=== PATIENT | female | born 1955 | race Caucasian/White ===

== ENCOUNTER 2019-12-16 00:05 | Outpatient (CLI) | payer OTHER, SELFPAY ==
[2019-12-16 20:58] LABS: SARS-CoV-2 RNA PCR Negative
== END 2019-12-16 00:06 | disposition home or self-care (01) ==
LOC: ANHCOVIDDT 00:05
PROVIDERS: PCP Family Medicine; Visit Provider Internal Medicine Gastroenterology
DX: Z01.818 Encounter for other preprocedural examination (principal); Z11.59 Encounter for screening for other viral diseases
CPT/HCPCS: 87635; C9803; U0003

== ENCOUNTER 2019-12-19 01:09 | Day surgery (SDC) | payer OTHER, SELFPAY ==
[2019-12-13 13:42] VITALS: BMI 30.2
--- NOTE | 2019-12-19 08:55 | WPDANESEPPF ---
Anes - Initial Pre Proc Eval Procedure: Operation Date: 12/19/19 13:00 Proposed Procedures p Esophagogastroduodenoscopy - Jose Lozoya DO Date/Time: 12/19/19 08:55 Surgeon: Jose Lozoya DO Pre Op Diagnosis: Perea's Esophagus Patient Data Age: 64 Gender: F Height: 1.57 m Weight: 75 kg Allergies Allergy/AdvReac Type Severity Reaction Status Date / Time amoxicillin Allergy Unknown Skin Verified 12/13/19 13:31 Reaction Penicillins Allergy Unknown Hives Verified 12/13/19 13:31 Home Medications Medication Instructions Recorded Confirmed Type ezetimibe 10 mg tablet 10 mg PO DAILY #90 tablet 09/20/19 12/13/19 Rx lisinopril 20 1 tablet PO DAILY #90 tablet 10/10/19 12/13/19 Rx mg-hydrochlorothiazide 25 mg tablet albuterol sulfate 2.5 mg/0.5 mL 2.5 mg INHALATION Q4H PRN 11/03/19 12/13/19 History solution for nebulization albuterol sulfate 90 mcg/actuation 1 inhalation INHALATION Q4-6H PRN 11/03/19 12/13/19 History breath activated powder inhaler alprazolam 2 mg tablet 2 mg PO TID PRN 11/03/19 12/13/19 History buspirone 15 mg tablet 45 mg PO BID tablet 11/03/19 12/13/19 History dextroamphetamine-amphetamine ER 30 mg PO QAM 11/03/19 12/13/19 History 30 mg 24hr capsule,extend release esomeprazole magnesium 40 mg 40 mg PO BID cap 11/03/19 12/13/19 History capsule,delayed release lamotrigine 200 mg tablet 200 mg PO HS 11/03/19 12/13/19 History montelukast 10 mg tablet 10 mg PO DAILY 11/03/19 12/13/19 History umeclidinium 62.5 mcg-vilanterol 1 inhalation INHALATION DAILY 11/03/19 12/19/19 History 25 mcg/actuation powdr for inhalation vortioxetine 10 mg tablet 10 mg PO DAILY 11/03/19 12/13/19 History semaglutide 0.25 mg SUB-Q WEEKLY 84 Days #2.4 11/23/19 12/13/19 Rx ml atorvastatin 40 mg PO HS 12/13/19 12/13/19 History cholecalciferol (vitamin D3) 50 mcg PO DAILY 12/13/19 12/13/19 History [Vitamin D3] Patient hx anesthesia problems: none Family hx anesthesia problems: none PMFSH Past Medical History Medical History (Updated 12/19/19 @ 13:21 by Jose Lozoya DO) Allergic rhinitis Anxiety Perea's esophagus without dysplasia egd 2016/jaren Bipolar disorder, unspecified psychiatrist in charge of meds CKD (chronic kidney disease) COPD (chronic obstructive pulmonary disease) Depression Essential hypertension GERD (gastroesophageal reflux disease) HLD (hyperlipidemia) Mixed hyperlipidemia Moderate persistent asthma, uncomplicated Obesities, morbid Obesity KASSIE (obstructive sleep apnea) Tobacco abuse Type 2 diabetes mellitus without complications Surgical History Surgical History H/O hemorrhoidectomy Hx of esophagogastroduodenoscopy Family History Family History (Updated 04/29/18 @ 08:51 by DOCTOR UNKNOWN) Mother Patient's mother is Family history of osteoporosis, Onset Age: 84 Hypertension Family history of Alzheimer's disease Father Patient's father is Hypertension Family history of cardiovascular disease Family history of hypercholesterolemia Family history of pancreatic cancer Grandparent Diabetes mellitus Sibling Family history of hypercholesterolemia Depression Other Cerebrovascular accident Colon polyp Family history of arthritis Family history of chronic obstructive pulmonary disease Family history of gout Family history of heart disease in male family member before age 55 Family history of lung disease Family history of malignant melanoma Family history of malignant neoplasm Family history of mental disorder Family history of rheumatic fever Family history of schizophrenia Social History Social History Smoking status: Current every day smoker Alcohol intake: current Anes - Eval Final PreProcedure Day of Procedure 12/19/19 08:55 Patient weight: obese Heart: regular rate an
[2019-12-19 11:58] VITALS: BP 143/85; PULSE 100; RESP 20; TEMP 36.1; O2SAT 99; BMI 29.0
[2019-12-19] MEDS: LACTATED RINGERS 1,000 ML 150 ML IV CONT (12:05)
[2019-12-19 12:09] LABS: Glucose Point of Care 92 (65-105)
--- NOTE | 2019-12-19 13:22 | PM.IMHP ---
H&P: HPI History of Present Illness Chief complaint: Perea's Esophagus Narrative: Reason for visit EGD. This very pleasant lady seen in consultation at request of the primary. Impression: GERD with history of Perea's esophagus. The patient is here for endoscopic evaluation to assess for dysplasia. Per past medical history. Recommendation: EGD. History: This very pleasant lady has a history of extensive Perea's esophagus and reflux disease. She is presently asymptomatic. She does complain of some fullness after eating. Nausea, vomiting and hematemesis tonight. She is here for follow-up endoscopy to assess for lying dysplasia. The patient does have complaints of occasional shortness of breath, dyspnea on exertion and wheezing. This is attributed to COPD Physical examination: General: very pleasant patient in no acute distress. HEENT: Head was normocephalic sclerae is clear mouth without masses neck was supple. Heart: Rate rhythm regular without S3 or S4. Lungs: Decreased breath sounds with expiratory wheezes. Abdomen: Soft with no guarding or rigidity. Bowel sounds were active. Neurologic: Cranial nerves 2 through 12 intact. No focal defects. No clonus. Musculoskeletal system: Revealed no joint tenderness or swelling no muscle atrophy. Extremities: Reveal no significant edema. Skin: Warm and dry with normal turgor. Mental status: intact. Patient is alert and oriented. Review of Systems Review of Systems: All systems reviewed & are unremarkable except as noted in HPI and below PMFSH Past Medical History Medical History (Updated 12/19/19 @ 13:21 by Jose Lozoya DO) Allergic rhinitis Anxiety Perea's esophagus without dysplasia egd 2016/jaren Bipolar disorder, unspecified psychiatrist in charge of meds CKD (chronic kidney disease) COPD (chronic obstructive pulmonary disease) Depression Essential hypertension GERD (gastroesophageal reflux disease) HLD (hyperlipidemia) Mixed hyperlipidemia Moderate persistent asthma, uncomplicated Obesities, morbid Obesity KASSIE (obstructive sleep apnea) Tobacco abuse Type 2 diabetes mellitus without complications Surgical History Surgical History H/O hemorrhoidectomy Hx of esophagogastroduodenoscopy Family History Family History (Updated 04/29/18 @ 08:51 by DOCTOR UNKNOWN) Mother Patient's mother is Family history of osteoporosis, Onset Age: 84 Hypertension Family history of Alzheimer's disease Father Patient's father is Hypertension Family history of cardiovascular disease Family history of hypercholesterolemia Family history of pancreatic cancer Grandparent Diabetes mellitus Sibling Family history of hypercholesterolemia Depression Other Cerebrovascular accident Colon polyp Family history of arthritis Family history of chronic obstructive pulmonary disease Family history of gout Family history of heart disease in male family member before age 55 Family history of lung disease Family history of malignant melanoma Family history of malignant neoplasm Family history of mental disorder Family history of rheumatic fever Family history of schizophrenia Social History Social History Smoking status: Current every day smoker Alcohol intake: current Meds Home Medications and Allergies Home Medications Medication Instructions Recorded Confirmed Type ezetimibe 10 mg tablet 10 mg PO DAILY #90 tablet 09/20/19 12/13/19 Rx lisinopril 20 1 tablet PO DAILY #90 tablet 10/10/19 12/13/19 Rx mg-hydrochlorothiazide 25 mg tablet albuterol sulfate 2.5 mg/0.5 mL 2.5 mg INHALATION Q4H PRN 11/03/19 12/13/19 History solution for nebulization albuterol sulfate 90 mcg/actuation 1 inhalation INHALATION Q4-6H PRN 11/03/19 12/13/19 History breath activated powder inhaler alprazo
[2019-12-19 14:04] VITALS: BP 104/63; PULSE 82; RESP 20; O2SAT 95
[2019-12-19 14:14] VITALS: BP 125/66; PULSE 76; RESP 21; O2SAT 97
[2019-12-19 14:21] VITALS: BP 135/72; PULSE 93; RESP 19; O2SAT 99
== END 2019-12-19 14:32 | disposition home or self-care (01) ==
PROVIDERS: PCP Family Medicine; Visit Provider Internal Medicine Gastroenterology
PROC: 0DJ08ZZ Inspection of Upper Intestinal Tract, Via Natural or Artificial Opening Endoscopic (ICD-10-PCS; CPT 43235; principal; 2019-12-19 13:00)
DX: K21.0 Gastro-esophageal reflux disease with esophagitis (principal); K22.70 Barrett's esophagus without dysplasia; K44.9 Diaphragmatic hernia without obstruction or gangrene; I12.9 Hypertensive chronic kidney disease with stage 1 through stage 4 chronic kidney disease, or unspecified chronic kidney disease; N18.9 Chronic kidney disease, unspecified; E11.22 Type 2 diabetes mellitus with diabetic chronic kidney disease; E78.2 Mixed hyperlipidemia; J44.9 Chronic obstructive pulmonary disease, unspecified; J45.30 Mild persistent asthma, uncomplicated; F31.9 Bipolar disorder, unspecified; F41.9 Anxiety disorder, unspecified; F17.200 Nicotine dependence, unspecified, uncomplicated; E66.9 Obesity, unspecified; Z68.29 Body mass index [BMI] 29.0-29.9, adult
CPT/HCPCS: 43239; 87081; 88305; J2704; J7120

== ENCOUNTER 2020-01-11 07:25 | Outpatient (CLI) | payer OTHER, SELFPAY ==
--- NOTE | ~2020-01-11 | NM_ITS ---
EXAM: NM gastric emptying study DATE: 01/11/2020 12:13 INDICATION: Gastroesophageal reflux disease. Esophagitis. TECHNIQUE: A gastric emptying study was performed using the methodology of Lopez ARIAS, et al. J Nucl Med 2007; 48:568-572. The patient was given a meal consisting of 2 scrambled eggs labeled with 1 mCi Tc-99m sulfur colloid, 2 slices of toast, two packages of jam, and approximately 120 mL of water. Si multaneous anterior and posterior 1-min images of the abdomen were obtained with the patient supine a t multiple time points over a total period of 4 hours. The geometric mean of anterior and posterior v iews was determined, and the percentage retention was calculated for each time point. COMPARISON: Gastric emptying study 06/25/2012 FINDINGS: Gastric retention of the radiotracer-labeled meal was 65%, 46%, and 6% at the 1-hour, 2-ho ur, and 4-hour time points, respectively. With this technique, apparent rapid gastric emptying is sug gested by <30% gastric retention at 1 hour. Delayed gastric emptying is defined by gastric retention of >90% at 1 hour, >60% retention at 2 hours, or >10% retention at 4 hours. IMPRESSION: 1. Normal gastric emptying. Reviewed, dictated and finalized at location A. IMPRESSION: 1. Normal gastric emptying.
== END 2020-01-11 07:26 | disposition home or self-care (01) ==
PROVIDERS: PCP Family Medicine; Visit Provider Internal Medicine Gastroenterology
DX: K21.9 Gastro-esophageal reflux disease without esophagitis (principal)
CPT/HCPCS: 78264; A9541

== ENCOUNTER 2020-01-17 00:33 | Outpatient (CLI) | payer OTHER, SELFPAY ==
[2020-01-17 17:56] LABS: SARS-CoV-2 RNA PCR Negative
== END 2020-01-17 00:34 | disposition home or self-care (01) ==
LOC: ANHCOVIDDT 00:34
PROVIDERS: PCP Family Medicine; Visit Provider Internal Medicine Gastroenterology
DX: Z01.812 Encounter for preprocedural laboratory examination (principal); Z11.59 Encounter for screening for other viral diseases
CPT/HCPCS: 87635; C9803; U0003

== ENCOUNTER 2020-01-19 02:13 | Day surgery (SDC) | payer OTHER, SELFPAY ==
[2020-01-09 13:27] VITALS: BMI 29.1
--- NOTE | 2020-01-19 10:58 | WPDANESEPPF ---
Anes - Initial Pre Proc Eval Procedure: Operation Date: 01/19/20 11:30 Proposed Procedures p Colonoscopy - Jose Lozoya DO Date/Time: 01/19/20 10:58 Surgeon: Jose Lozoya DO Pre Op Diagnosis: Iron Deficient Anemia Patient Data Age: 64 Gender: F Height: 5 ft 1 in Weight: 70 kg Allergies Allergy/AdvReac Type Severity Reaction Status Date / Time amoxicillin Allergy Unknown Skin Verified 01/09/20 13:49 Reaction Penicillins Allergy Unknown Hives Verified 01/09/20 13:49 Home Medications Medication Instructions Recorded Confirmed Type ezetimibe 10 mg tablet 10 mg PO DAILY #90 tablet 09/20/19 01/09/20 Rx lisinopril 20 1 tablet PO DAILY #90 tablet 10/10/19 01/09/20 Rx mg-hydrochlorothiazide 25 mg tablet albuterol sulfate 2.5 mg/0.5 mL 2.5 mg INHALATION Q4H PRN 11/03/19 01/09/20 History solution for nebulization albuterol sulfate 90 mcg/actuation 1 inhalation INHALATION Q4-6H PRN 11/03/19 01/09/20 History breath activated powder inhaler alprazolam 2 mg tablet 2 mg PO TID PRN 11/03/19 01/09/20 History buspirone 15 mg tablet 45 mg PO BID tablet 11/03/19 01/09/20 History dextroamphetamine-amphetamine ER 30 mg PO QAM 11/03/19 01/09/20 History 30 mg 24hr capsule,extend release esomeprazole magnesium 40 mg 40 mg PO BID cap 11/03/19 01/09/20 History capsule,delayed release lamotrigine 200 mg tablet 200 mg PO HS 11/03/19 01/09/20 History montelukast 10 mg tablet 10 mg PO DAILY 11/03/19 01/09/20 History umeclidinium 62.5 mcg-vilanterol 1 inhalation INHALATION DAILY 11/03/19 01/09/20 History 25 mcg/actuation powdr for inhalation vortioxetine 10 mg tablet 10 mg PO DAILY 11/03/19 01/09/20 History semaglutide 0.25 mg SUB-Q WEEKLY 84 Days #2.4 11/23/19 01/09/20 Rx ml atorvastatin 40 mg PO HS 12/13/19 01/09/20 History cholecalciferol (vitamin D3) 50 mcg PO DAILY 12/13/19 01/09/20 History [Vitamin D3] ascorbic acid (vitamin C) 100 mg 100 mg PO DAILY #90 tablet 01/11/20 Rx tablet ferrous gluconate 324 mg (38 mg 324 mg PO DAILY #90 tablet 01/11/20 Rx iron) tablet Patient hx anesthesia problems: none Family hx anesthesia problems: none PMFSH Past Medical History Medical History (Updated 12/19/19 @ 13:21 by Jose Lozoya DO) Allergic rhinitis Anxiety Perea's esophagus without dysplasia egd 2016/jaren Bipolar disorder, unspecified psychiatrist in charge of meds CKD (chronic kidney disease) COPD (chronic obstructive pulmonary disease) Depression Essential hypertension GERD (gastroesophageal reflux disease) HLD (hyperlipidemia) Mixed hyperlipidemia Moderate persistent asthma, uncomplicated Obesities, morbid Obesity KASSIE (obstructive sleep apnea) Tobacco abuse Type 2 diabetes mellitus without complications Family History Family History (Updated 04/29/18 @ 08:51 by DOCTOR UNKNOWN) Mother Patient's mother is Family history of osteoporosis, Onset Age: 84 Hypertension Family history of Alzheimer's disease Father Patient's father is Hypertension Family history of cardiovascular disease Family history of hypercholesterolemia Family history of pancreatic cancer Grandparent Diabetes mellitus Sibling Family history of hypercholesterolemia Depression Other Cerebrovascular accident Colon polyp Family history of arthritis Family history of chronic obstructive pulmonary disease Family history of gout Family history of heart disease in male family member before age 55 Family history of lung disease Family history of malignant melanoma Family history of malignant neoplasm Family history of mental disorder Family history of rheumatic fever Family history of schizophrenia Social History Social History Smoking status: Never smoker Alcohol intake: current Anes - Eval Final PreProcedure Day of Procedure 01/19/20 10:58 Patient weight: normal Heart: regular
[2020-01-19 11:03] LABS: Glucose Point of Care 106 (65-105)
[2020-01-19] MEDS: LACTATED RINGERS 1,000 ML 150 ML IV CONT (11:03)
[2020-01-19 11:06] VITALS: BP 109/74; PULSE 114; RESP 18; TEMP 36.6; O2SAT 99; BMI 28.8
--- NOTE | 2020-01-19 12:12 | PM.IMHP ---
H&P: HPI History of Present Illness Chief complaint: Iron Deficient Anemia Narrative: Reason for visit EGD. Impression: A Very pleasant lady with a history of iron deficiency anemia. She is here for colonoscopy. Per past medical history. Recommendation: Colonoscopy. History: This very pleasant lady has a history of reflux disease. EGD revealed evidence of Perea's esophagus. No dysplasia was noted. Patient also was noted to have iron deficiency anemia. She is here for colonoscopy. Physical examination: General: very pleasant patient in no acute distress. HEENT: Head was normocephalic sclerae is clear mouth without masses neck was supple. Heart: Rate rhythm regular without S3 or S4. Lungs: CTA. Abdomen: Soft with no guarding or rigidity. Bowel sounds were active. Neurologic: Cranial nerves 2 through 12 intact. No focal defects. No clonus. Musculoskeletal system: Revealed no joint tenderness or swelling no muscle atrophy. Extremities: Reveal no significant edema. Skin: Warm and dry with normal turgor. Mental status: intact. Patient is alert and oriented. Review of Systems Review of Systems: All systems reviewed & are unremarkable except as noted in HPI and below PMFSH Past Medical History Medical History (Updated 12/19/19 @ 13:21 by Jose Lozoya, DO) Allergic rhinitis Anxiety Perea's esophagus without dysplasia egd 2016/jaren Bipolar disorder, unspecified psychiatrist in charge of meds CKD (chronic kidney disease) COPD (chronic obstructive pulmonary disease) Depression Essential hypertension GERD (gastroesophageal reflux disease) HLD (hyperlipidemia) Mixed hyperlipidemia Moderate persistent asthma, uncomplicated Obesities, morbid Obesity KASSIE (obstructive sleep apnea) Tobacco abuse Type 2 diabetes mellitus without complications Family History Family History (Updated 04/29/18 @ 08:51 by DOCTOR UNKNOWN) Mother Patient's mother is Family history of osteoporosis, Onset Age: 84 Hypertension Family history of Alzheimer's disease Father Patient's father is Hypertension Family history of cardiovascular disease Family history of hypercholesterolemia Family history of pancreatic cancer Grandparent Diabetes mellitus Sibling Family history of hypercholesterolemia Depression Other Cerebrovascular accident Colon polyp Family history of arthritis Family history of chronic obstructive pulmonary disease Family history of gout Family history of heart disease in male family member before age 55 Family history of lung disease Family history of malignant melanoma Family history of malignant neoplasm Family history of mental disorder Family history of rheumatic fever Family history of schizophrenia Social History Social History Smoking status: Never smoker Alcohol intake: current Meds Home Medications and Allergies Home Medications Medication Instructions Recorded Confirmed Type ezetimibe 10 mg tablet 10 mg PO DAILY #90 tablet 09/20/19 01/09/20 Rx lisinopril 20 1 tablet PO DAILY #90 tablet 10/10/19 01/09/20 Rx mg-hydrochlorothiazide 25 mg tablet albuterol sulfate 2.5 mg/0.5 mL 2.5 mg INHALATION Q4H PRN 11/03/19 01/09/20 History solution for nebulization albuterol sulfate 90 mcg/actuation 1 inhalation INHALATION Q4-6H PRN 11/03/19 01/09/20 History breath activated powder inhaler alprazolam 2 mg tablet 2 mg PO TID PRN 11/03/19 01/09/20 History buspirone 15 mg tablet 45 mg PO BID tablet 11/03/19 01/09/20 History dextroamphetamine-amphetamine ER 30 mg PO QAM 11/03/19 01/09/20 History 30 mg 24hr capsule,extend release esomeprazole magnesium 40 mg 40 mg PO BID cap 11/03/19 01/09/20 History capsule,delayed release lamotrigine 200 mg tablet 200 mg PO HS 11/03/19 01/09/20 History montelukast 10 mg tablet 10 mg PO DAILY 11/03/19 01/09/20 History lina
[2020-01-19 12:39] VITALS: BP 87/49; PULSE 79; RESP 18; O2SAT 98
[2020-01-19 12:49] VITALS: BP 108/61; PULSE 74; RESP 18; O2SAT 100
[2020-01-19 12:59] VITALS: BP 100/61; PULSE 74; RESP 18; O2SAT 99
== END 2020-01-19 13:14 | disposition home or self-care (01) ==
PROVIDERS: PCP Family Medicine; Visit Provider Internal Medicine Gastroenterology
PROC: 0DJD8ZZ Inspection of Lower Intestinal Tract, Via Natural or Artificial Opening Endoscopic (ICD-10-PCS; CPT 45378; principal; 2020-01-19 11:30)
DX: D50.9 Iron deficiency anemia, unspecified (principal); D12.3 Benign neoplasm of transverse colon; D12.5 Benign neoplasm of sigmoid colon; K64.8 Other hemorrhoids; I12.9 Hypertensive chronic kidney disease with stage 1 through stage 4 chronic kidney disease, or unspecified chronic kidney disease; N18.9 Chronic kidney disease, unspecified; E11.22 Type 2 diabetes mellitus with diabetic chronic kidney disease; J44.9 Chronic obstructive pulmonary disease, unspecified; E78.2 Mixed hyperlipidemia; G47.33 Obstructive sleep apnea (adult) (pediatric); F31.9 Bipolar disorder, unspecified; F41.9 Anxiety disorder, unspecified
CPT/HCPCS: 45385; 88305; J2704; J7120

== ENCOUNTER 2020-02-15 08:34 | Outpatient (CLI) | payer OTHER, SELFPAY ==
--- NOTE | ~2020-02-15 | CT_ITS ---
CORRECTED REPORT Changed report and images from [id number] to [id number] EXAMINATION:CT lung screening DATE: 02/15/2020 08:29 INDICATION: Personal history of nicotine dependence. Current smoker with 30 pack year history. TECHNIQUE: Computed tomography (CT) of the chest was performed without intravenous contrast. Automated exposure control and iterative reconstruction technique were employed. The dose-length product (DLP) was 90.99 mGy-cm. COMPARISON: Chest CT 02/25/2019 FINDINGS: There is mild scarring at the lung apices. There is minimal atelectasis bilaterally. No pleural effusion. The heart size is normal. There are coronary artery calcifications. No pericardial effusion. There is a large sliding hiatal hernia. There is a 13 mm mass in right adrenal gland measuring low-attenuation without change, consistent with an adenoma. There is mild thoracic spondylosis. There is mild chronic anterior wedging of multiple thoracic vertebral bodies. IMPRESSION: 1. Lung-RADS category 2: Benign appearance or behavior. Continue annual screening with noncontrast low-dose chest CT in 12 months. Reviewed, dictated and finalized at location B. LEONARDOD
== END 2020-02-15 08:35 | disposition home or self-care (01) ==
LOC: ANHIMG 03-19 08:34
PROVIDERS: PCP Family Medicine; Visit Provider Internal Medicine Critical Care Medicine
DX: Z12.2 Encounter for screening for malignant neoplasm of respiratory organs (principal); Z87.891 Personal history of nicotine dependence
CPT/HCPCS: G0297

== ENCOUNTER 2020-02-17 14:28 | Outpatient (CLI) | payer OTHER, SELFPAY ==
--- NOTE | ~2020-02-17 | CT_ITS ---
EXAMINATION: CT abdomen pelvis w con DATE: 02/17/2020 15:55 INDICATION: Apparent deficiency anemia. Upper GI bleed. TECHNIQUE: Computed tomography (CT) of the abdomen and pelvis was performed with 100 cc Omnipaque 350 intravenous contrast. The dose-length product was 415.12 mGy-cm. Automated exposure control and iter ative reconstruction technique were employed. COMPARISON: Abdominal ultrasound dated 06/25/2012. FINDINGS: Lung bases are unremarkable. Heart size normal. Large hiatal hernia. No significant pleural or pericardial effusion. There is atherosclerosis of the aorta without aneurysm. No lymphadenopathy. Small subcentimeter hypodensity of the left hepatic lobe, most likely benign cysts or hemangioma. The spleen, pancreas, adrenal glands and kidneys are unremarkable. Gallbladder is contracted. No lymphad enopathy. Small fat-containing umbilical hernia. Moderate lumbar spondylosis. IMPRESSION: 1. Large hiatal hernia. 2: No acute abdominal abnormality. Reviewed, dictated and finalized at location A.
[2020-02-17 15:46] LABS: Estimated Glomerular Filt Rate 50
== END 2020-02-17 14:29 | disposition home or self-care (01) ==
PROVIDERS: PCP Family Medicine; Visit Provider Internal Medicine Gastroenterology
DX: E61.1 Iron deficiency (principal); K44.9 Diaphragmatic hernia without obstruction or gangrene
CPT/HCPCS: 74177; Q9967

== ENCOUNTER 2020-03-16 00:49 | Outpatient (CLI) | payer OTHER, SELFPAY ==
--- NOTE | 2020-03-12 16:07 | PC.NURSE ---
PT SPOKE WITH REGARDING PROCEDURE- QUESTIONS ANSWERED AND PT HAS NO FURTHER QUESTIONS AT THIS TIME, SHE STATES SHE HAS HER PACKET AND INFORMATION.
--- NOTE | 2020-03-16 13:25 | SUR.OPER ---
Patient brought to GI Lab. Instructions for patient undergoing Capsule Endoscopy reviewed with patient. Consent form signed. Sensor array applied to patient's abdomen and connected to recorded. Patient swallowed capsule with 8 ozs of water infused with Simethicone. Patient instructed they may have clear liquids at 0830 this AM and eat or drink at 1030 this AM. Patient instructed to return to GI Lab at 1500 this afternoon for removal of recording device and to call [phone] or to return to the hospital if any nausea and vomiting or abdominal pain is experienced.
--- NOTE | 2020-03-22 12:28 | SUR.PHASEII ---
Ramila Torres RN called patient at 1100 am on 03/22/[address] to notify [address] that [address] Lozoya had completed reviewing her capsule study. Aniya gave the patient the Health Information's phone number for the patient to get a copy of the exam as patient expressed interest in taking result to her doctor's up coming appointment.
== END 2020-03-16 00:50 | disposition home or self-care (01) ==
PROVIDERS: PCP Family Medicine; Visit Provider Internal Medicine Gastroenterology
PROC: 0DJ07ZZ Inspection of Upper Intestinal Tract, Via Natural or Artificial Opening (ICD-10-PCS; CPT 91110; principal; 2020-03-16 07:00)
DX: E61.1 Iron deficiency (principal)
CPT/HCPCS: 91110; G0297

== ENCOUNTER → 2020-06-19 11:53 | Outpatient (CLI) | payer OTHER, SELFPAY ==
--- NOTE | ~2020-06-19 | XR_ITS ---
EXAMINATION: XR humerus LT INDICATION: Left humerus pain TECHNIQUE: Two views of the left humerus are obtained. COMPARISON: None available FINDINGS: Bone alignment is normal. There is no fracture. There is mild osteoarthritis of the acromio clavicular and glenohumeral joints. The soft tissues are unremarkable. IMPRESSION: 1. No acute osseous abnormality. Reviewed, dictated and finalized at location A. STANT COMMISSIONER
--- NOTE | ~2020-06-19 | XR_ITS ---
XR shoulder LT min 2V DATE: 06/19/2020 14:51 INDICATION: Left shoulder pain TECHNIQUE: 4 views COMPARISON: None FINDINGS: Mild to moderate osteopenia is suggested. Normal alignment at the acromioclavicular and glenohumeral joints. No fracture or dislocation, perios teal reaction or bone destruction or abnormal soft tissue calcification is detected. IMPRESSION: Mild to moderate osteopenia Reviewed, dictated and finalized at location A. SPECIALIST IMPRESSION: Mild to moderate osteopenia
== END ==
PROVIDERS: PCP Family Medicine; Visit Provider Physician Assistant
DX: M85.812 Other specified disorders of bone density and structure, left shoulder (principal)
CPT/HCPCS: 73030; 73060

== ENCOUNTER 2020-08-28 17:30 | Outpatient (CLI) | payer OTHER, SELFPAY | END 2020-08-28 17:31 | disposition home or self-care (01) | LOC: ANHCOVIDVC 17:30 | PROVIDERS: PCP Family Medicine | DX: Z23 Encounter for immunization (principal) | CPT/HCPCS: 0001A; 91300 ==

== ENCOUNTER 2020-09-18 17:27 | Outpatient (CLI) | payer OTHER, SELFPAY | END 2020-09-18 17:28 | disposition home or self-care (01) | LOC: ANHCOVIDVC 17:27 | PROVIDERS: PCP Family Medicine | DX: Z23 Encounter for immunization (principal) | CPT/HCPCS: 0002A; 91300 ==

== ENCOUNTER 2021-02-14 13:40 | Outpatient (CLI) | payer OTHER, SELFPAY ==
--- NOTE | ~2021-02-14 | DEXA_ITS ---
Bone Density Report Name: Leona Calvo Age: 65 Sex: Female Ethnicity: White Date of : 1955 Indication: postmenopausal; height loss; history of glucocorticoids; prior fracture; asthma or emphysema; Referring Provider: JIMY HUERTA Study: Bone densitometry was performed. Exam Date: February 14, 2021 Accession number: [id number] Bone Density: Region BMD T-score Z-score Classification AP Spine (L2, L4) 1.181 0.9 2.7 Normal Femoral Neck (Left) 0.702 -1.3 0.1 Osteopenia Total Hip (Left) 0.950 0.1 1.2 Normal Total Hip Bilateral Avg 0.939 0.0 1.1 Normal Femoral Neck (Right) 0.709 -1.3 0.2 Osteopenia Total Hip (Right) 0.928 -0.1 1.0 Normal World Health Organization criteria for BMD impression classify patients as: Normal (T-score at or above -1.0), Osteopenia (T-score between -1.0 and -2.5), or Osteoporosis (T-score at or below -2.5). 10-year Fracture Risk(1): Major Osteoporotic Fracture 21% Hip Fracture 3.5% Reported Risk Factors: [place] (), Neck BMD=0.702, BMI=30.5, previous fracture, smoking, glucocorticoids (1) FRAX(R) Version 3.08. Fracture probability calculated for an untreated patient. Fracture probability may be lower if the patient has received treatment. Previous Exams: Region Exam Age BMD T-score BMD Change BMD Change Date g/cm2 vs Baseline vs Previous AP Spine(L2, L4) 02/14/2021 65 1.181 0.9 0.139(13.4%)# 0.043(3.8%)* 10/05/2018 63 1.138 0.6 0.096(9.2%)# 0.057(5.3%)* 03/01/2014 58 1.081 0.0 0.039(3.8%)# 0.085(8.5%)# 01/28/2010 54 0.996 -0.7 -0.046(-4.4%)* -0.046(-4.4%)* 04/06/2004 48 1.041 -0.3 Total Hip(Left) 02/14/2021 65 0.950 0.1 0.015(1.6%)# 0.007(0.8%) 10/05/2018 63 0.943 0.0 0.007(0.8%)# -0.004(-0.4%) 03/01/2014 58 0.947 0.0 0.012(1.2%)# -0.024(-2.5%)# 01/28/2010 54 0.971 0.2 0.036(3.8%)* 0.036(3.8%)* 04/06/2004 48 0.935 -0.1 Total Hip(Right) 02/14/2021 65 0.928 -0.1 0.037(4.1%)# 0.009(1.0%) 10/05/2018 63 0.919 -0.2 0.028(3.1%)# -0.015(-1.6%) 03/01/2014 58 0.934 -0.1 0.043(4.8%)# -0.010(-1.1%)# 01/28/2010 54 0.945 0.0 0.053(6.0%)* 0.053(6.0%)* 04/06/2004 48 0.891 -0.4 *Denotes significance at 95% confidence level, LSC for AP Spine = 0.022 g/cm2, LSC for Total Hip = 0.027 g/cm2 Clinical Information Provided by Patient: Has had a low trauma fracture Smokes Has taken Glucocorticoids Has used the following medications
--- NOTE | ~2021-02-14 | MM_ITS ---
EXAMINATION: MM screening [facility] BI w jia HISTORY: Screening mammogram TECHNIQUE: Craniocaudal and mediolateral oblique 3-D tomosynthesis images were obtained and synthetic 2-D images were generated. CAD analysis was submitted and interpreted. COMPARISON: 10/05/2018, 03/01/2014, 04/18/2011 BREAST PARENCHYMAL COMPOSITION: There are scattered areas of fibroglandular density. FINDINGS: RIGHT BREAST: There is no evidence of suspicious mass, calcification, or architectural distortion to suggest malignancy. There has been no significant interval change. LEFT BREAST: There are grouped indeterminate calcifications in the middle third of the breast best ap preciated 7.5 cm from the nipple on the craniocaudal view. IMPRESSION: 1. Indeterminate left breast calcifications. 2. Magnification views are recommended. BI-RADS Category 0: Incomplete: Needs additional imaging evaluation. Reviewed, dictated and finalized at location A.
== END 2021-02-14 13:41 | disposition home or self-care (01) ==
LOC: ANHIMG 13:42
PROVIDERS: PCP Family Medicine; Visit Provider Family Medicine
DX: Z12.31 Encounter for screening mammogram for malignant neoplasm of breast (principal); Z78.0 Asymptomatic menopausal state; R92.8 Other abnormal and inconclusive findings on diagnostic imaging of breast
CPT/HCPCS: 77063; 77067; 77080

== ENCOUNTER 2021-02-18 09:40 | Outpatient (CLI) | payer OTHER, SELFPAY ==
--- NOTE | ~2021-02-18 | CT_ITS ---
EXAMINATION: CT lung screening DATE: 02/18/2021 10:12 INDICATION: Personal history of nicotine dependence, current smoker with 49 pack year history TECHNIQUE: Computed tomography (CT) of the chest was performed without intravenous contrast. The dose -length product (DLP) was 70.87 mGy-cm. 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 COMPARISON: 02/15/2020 FINDINGS: There is mild emphysema. No suspicious pulmonary nodules are identified. The lungs are free of focal airspace opacities. There is mild dependent atelectasis. No pleural effusion or pneumothora x is identified. No pathologically enlarged thoracic lymph nodes are identified. The heart size is no rmal. There is interval surgical change at the gastroesophageal junction likely reflecting the site o f fundoplication. There is a 1.3 cm adenoma of the left adrenal gland. There is mild thoracic spondyl osis. IMPRESSION: 1. Lung-RADS category 1: Negative. Continue annual screening with noncontrast low-dose chest CT in 12 months. Reviewed, dictated and finalized at location A. IMPRESSION: 1. Lung-RADS category 1: Negative. Continue annual screening with noncontrast l ow-dose chest CT in 12 months.
== END 2021-02-18 09:41 | disposition home or self-care (01) ==
LOC: ANHIMG 09:44
PROVIDERS: PCP Family Medicine; Visit Provider Nurse Practitioner Family
DX: Z12.2 Encounter for screening for malignant neoplasm of respiratory organs (principal); Z87.891 Personal history of nicotine dependence
CPT/HCPCS: 71271

== ENCOUNTER 2021-02-21 13:03 | Outpatient (CLI) | payer OTHER, SELFPAY ==
--- NOTE | ~2021-02-21 | MM_ITS ---
EXAMINATION: MM diagnostic mammo unilat LT HISTORY: Follow-up left breast calcifications TECHNIQUE: Additional 3-D tomosynthesis images of the left breast were performed and synthetic 2-D im ages were generated. CAD analysis was submitted and interpreted. COMPARISON: 02/14/2021 and 10/05/2018 BREAST PARENCHYMAL COMPOSITION: The breasts are heterogenously dense, which may obscure small masses. FINDINGS: There is a cluster of indeterminate calcifications in the upper outer quadrant of the left breast which are not specifically benign. These are new compared with prior examinations. IMPRESSION: 1. New cluster of indeterminate left breast calcifications, upper outer quadrant. 2. Stereotactic left breast biopsy recommended. BI-RADS category 4, suspicious findings. Reviewed, dictated and finalized at location A. IMPRESSION: 1. New cluster of indeterminate left breast calcifications, upper outer quadran t. 2. Stereotactic left breast biopsy recommended. BI-RADS category 4, suspicious findings.
== END 2021-02-21 13:04 | disposition home or self-care (01) ==
PROVIDERS: PCP Family Medicine; Visit Provider Family Medicine
DX: R92.0 Mammographic microcalcification found on diagnostic imaging of breast (principal)
CPT/HCPCS: 77065

== ENCOUNTER 2021-11-13 14:30 | Outpatient (RCR) | payer OTHER, SELFPAY ==
[2021-10-15 09:23] VITALS: BMI 27.3
[2021-10-15 09:34] VITALS: BMI 27.3
== END 2021-12-16 13:17 | disposition home or self-care (01) ==
LOC: ANHDMC 14:30
PROVIDERS: PCP Family Medicine; Visit Provider Family Medicine
DX: E11.9 Type 2 diabetes mellitus without complications (principal); Z71.89 Other specified counseling; Z71.3 Dietary counseling and surveillance
CPT/HCPCS: 97802; G0108; G0109

== ENCOUNTER 2022-02-06 14:32 | Outpatient (RCR) | payer OTHER, SELFPAY | END 2022-02-10 17:04 | disposition home or self-care (01) | LOC: ANHDMC 14:32 | PROVIDERS: PCP Family Medicine; Visit Provider Family Medicine | DX: E11.9 Type 2 diabetes mellitus without complications (principal); E66.3 Overweight; Z71.89 Other specified counseling | CPT/HCPCS: G0109 ==

== ENCOUNTER 2022-02-28 08:32 | Outpatient (CLI) | payer OTHER, SELFPAY ==
--- NOTE | ~2022-02-28 | CT_ITS ---
EXAMINATION: CT lung screening DATE: 02/28/2022 08:52 INDICATION: Personal history of nicotine dependence, current smoker with 49 pack year history TECHNIQUE: Computed tomography (CT) of the chest was performed without intravenous contrast. The dose -length product (DLP) was 53.75 mGy-cm. 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 COMPARISON: 02/18/2021 FINDINGS: There is mild emphysema. There is a 3 mm nodule of the right middle lobe. The lungs are jens e of acute opacities. No pleural effusion or pneumothorax. No pathologically enlarged thoracic lymph nodes are identified. The heart size is normal. There are changes of fundoplication. A stable 1.3 cm adenoma of the right adrenal gland is noted. There is mild thoracic spondylosis. IMPRESSION: 1. Lung-RADS category 2: Benign appearance or behavior. Continue annual screening with noncontrast lo w-dose chest CT in 12 months. Reviewed, dictated and finalized at location B. IMPRESSION: 1. Lung-RADS category 2: Benign appearance or behavior. Continue annual screeni ng with noncontrast low-dose chest CT in 12 months.
== END 2022-02-28 08:33 | disposition home or self-care (01) ==
PROVIDERS: PCP Family Medicine; Visit Provider Nurse Practitioner Family
DX: Z12.2 Encounter for screening for malignant neoplasm of respiratory organs (principal); Z87.891 Personal history of nicotine dependence
CPT/HCPCS: 71271

== ENCOUNTER 2022-07-24 09:38 | Outpatient (CLI) | payer MEDICARE, SELFPAY ==
--- NOTE | ~2022-07-24 | MM_ITS ---
EXAMINATION: MM screening cleo BI w jia HISTORY: Screening TECHNIQUE: Craniocaudal and mediolateral oblique 3-D tomosynthesis images were obtained and synthetic 2-D images were generated. CAD analysis was submitted and interpreted. COMPARISON: Comparison to multiple prior studies sequentially, with oldest reviewed study dated 03/01. BREAST PARENCHYMAL COMPOSITION: The breasts are heterogeneously dense, which may obscure small masses . FINDINGS: There are benign bilateral breast calcifications. There is no evidence of suspicious mass, calcification, or architectural distortion to suggest malignancy in either breast. There has been no suspicious interval change. IMPRESSION: 1. No mammographic evidence of malignancy. 2. Recommend routine screening mammography in one year. BI-RADS Category 1: Negative Reviewed, dictated and finalized at location A. [employer]
== END 2022-07-24 09:39 | disposition home or self-care (01) ==
PROVIDERS: PCP Family Medicine; Visit Provider Physician Assistant
DX: Z12.31 Encounter for screening mammogram for malignant neoplasm of breast (principal)
CPT/HCPCS: 77063; 77067

== ENCOUNTER 2022-09-11 08:00 | Outpatient (RCR) | payer MEDICARE, SELFPAY ==
--- NOTE | 2022-08-15 11:23 | PTOPEVAL1 ---
Assessment and note entered by Mercy Eller, PT, DPT Evaluation Information Assessment Status Evaluation Diagnosis R shoulder pain Onset 1 month ago Subjective Information Pt states states about a month ago her R shoulder started to her without a known mechanism. She states she has a completely sedentary lifestyle. She attempted to see a chiropractor without any relief. Reported Pain Level Pain Score 0: Self Report Assessment PT Clinical Summary Leona is a 67 y/o deconditioned female who presents to therapy today with a diagnosis of R shoulder pain. Today she demonstrates yue decreased shoulder strength and ROM, R>L. She demonstrates a significantly increased thoracic kyphosis likely limiting her overall mobility. Skilled physical therapy services are indicated to address her strength, ROM, and mobility deficits, and to improve her overall function. Plan of Care Interventions Hot Pack/Cold Pack,Manual Therapy,Neuro Re- education,Patient/Caregiver Educati,Therapeutic Activities,Therapeutic Exercise PT Services Indicated Yes Treatment Frequency and 2x/wk for 4 wks Duration These treatments will address the objective and functional deficits as defined above. The patient will be advanced safely and appropriately in order for the patient to progress towards his/her prior level of function. Additional exercises will be introduced and as well as a comprehensive home exercise program upon discharge, if needed, ?to ensure carryover of functional gains achieved in the clinic. This treatment plan has been reviewed and agreement upon by the patient.
--- NOTE | 2022-09-04 08:20 | PCPTNOTE ---
Patient no showed to appointment this date. Called and left voicemail.
--- NOTE | 2022-09-11 08:43 | PTOPDC ---
Assessment and note entered by Mercy Eller, PT, DPT Evaluation Information Assessment Status Discharge Diagnosis R shoulder pain Onset 1 month ago Subjective Information Pt states she walked a mile yesterday with her grandkids and states she was focused on his posture. Pt states she had a fall last week off of a step, landing on her shoulder. She states prior to her fall her shoulder pain was a 2-3/10 at its worse. Pt states prior to her fall she was really working on her posture and was improving well. Pt reports 80% improvement in her overall symptoms. Pt states she has even noticed an improvement in her leg strength with therapy through making better life choices. Reported Pain Level Pain Score 2,6: Self Report Assessment PT Clinical Summary Leona presents to therapy today for her progress report following 8 visits of skilled therapy to treat her R shoulder pain. Today she demonstrates improved strength and active ROM but this is still decreased from her L shoulder, and still limited by pain. She states prior to her fall her shoulder was doing much better and had minimal pain. Pt states she is plans to continue her HEP on her own and see how her shoulder progresses. She will be discharged at this time with instructions to follow up with her referring provider if she needs additional therapy at a later time. Plan of Care Interventions Hot Pack/Cold Pack,Manual Therapy,Neuro Re- education,Patient/Caregiver Educati,Therapeutic Activities,Therapeutic Exercise PT Services Indicated No Treatment Frequency and to be discharged Duration
== END 2022-09-11 10:43 | disposition home or self-care (01) ==
LOC: ANHGOSHPT 08:00
PROVIDERS: PCP Family Medicine; Visit Provider Nurse Practitioner
DX: M25.511 Pain in right shoulder (principal)
CPT/HCPCS: 97110; 97112; 97140; 97161

== ENCOUNTER 2022-10-16 08:49 | Emergency (ER) | payer MEDICARE, SELFPAY ==
--- NOTE | 2022-10-16 08:57 | ED.NAVMDI ---
HPI - Nausea/Vomiting/Diarrhea General Chief complaint: Nausea/Vomiting/Diarrhea Stated complaint: NAUSEA/DIARRHEA/TIRED/OFF BALANCE Source: patient and RN notes reviewed History of Present Illness HPI Narrative: 67-year-old female presents to urgent care with complaints of vomiting and diarrhea since last Thursday. Patient reports generalized fatigue and periumbilical abdominal pain. Patient states this pain in her stomach feels like a round ball of stool that is stuck. Pt is able to keep down small amounts of water but no food. Last episode of vomiting and diarreha was this am. Patient is also reporting she is bumping into the stinson often. Patient states she has fallen a couple times last few weeks but denies any new head and denies any LOC. patient reports chills but denies fevers. Denies any chest pain, shortness of breath, dysuria, or dizziness. Related Data Home Medications Medication Instructions Recorded Confirmed alprazolam 2 mg tablet 2 mg PO TID PRN Anxiety 11/03/19 10/16/22 buspirone 15 mg tablet 45 mg PO BID 11/03/19 10/16/22 dextroamphetamine-amphetamine ER 30 mg PO QAM 11/03/19 10/16/22 30 mg 24hr capsule,extend release (Adderall XR) esomeprazole magnesium 40 mg 40 mg PO BID 11/03/19 10/16/22 capsule,delayed release cholecalciferol (vitamin D3) 50 50 mcg PO DAILY 12/13/19 10/16/22 mcg (2,000 unit) capsule (Vitamin D3) desvenlafaxine 50 mg 50 mg PO DAILY 02/21/20 10/16/22 tablet,extended release 24 hr ascorbic acid (vitamin C) 100 mg 500 mg PO DAILY 03/16/20 10/16/22 tablet oxcarbazepine 150 mg 75 mg PO BID 06/07/20 10/16/22 tablet,extended release 24 hr trazodone 50 mg tablet 25 mg PO DAILY PRN Sleep 07/07/22 10/16/22 Allergies Allergy/AdvReac Type Severity Reaction Status Date / Time amoxicillin Allergy Unknown Skin Verified 10/16/22 08:58 Reaction Penicillins Allergy Unknown Hives Verified 10/16/22 08:58 metformin AdvReac Severe caused Verified 10/16/22 08:58 severe decreased renal function oxycodone AdvReac Mild weird Verified 10/16/22 08:58 dreams Review of Systems Review of Systems: Pertinent positives and pertinent negatives per HPI. [facility] Past Medical History Medical History Adenomatous colon polyp Microcytic anemia Renal insufficiency acute/ due to metformin Surgical History Surgical History H/O hemorrhoidectomy History of Aline fundoplication (~03/2020) History of repair of hiatal hernia (~03/2020) Hx of esophagogastroduodenoscopy Family History Family History Mother Patient's mother is Family history of osteoporosis, Onset Age: 84 Hypertension Family history of Alzheimer's disease Father Patient's father is Hypertension Family history of cardiovascular disease Family history of hypercholesterolemia Family history of pancreatic cancer Grandparent Diabetes mellitus Sibling Family history of hypercholesterolemia Depression Other Cerebrovascular accident Colon polyp Family history of arthritis Family history of chronic obstructive pulmonary disease Family history of gout Family history of heart disease in male family member before age 55 Family history of lung disease Family history of malignant melanoma Family history of malignant neoplasm Family history of mental disorder Family history of rheumatic fever Family history of schizophrenia Social History Social History Social History: 53 pack year Smoking packs per day: 1 Smoking cigarettes per day: 20.0 Years smoked: 53 Smoking pack-years: 53.00 Smoking status: Current every day smoker Tobacco type: cigarettes Alcohol intake: current Lack of Transportation: No Lack of Food
[2022-10-16 09:03] VITALS: BP 91/61; PULSE 99; RESP 16; TEMP 36.2; O2SAT 100
== END 2022-10-16 09:20 | disposition short-term general hospital (02) ==
PROVIDERS: Emergency Provider Nurse Practitioner Family; PCP Family Medicine
DX: K52.9 Noninfective gastroenteritis and colitis, unspecified (principal); E86.0 Dehydration; R10.33 Periumbilical pain; F17.210 Nicotine dependence, cigarettes, uncomplicated
CPT/HCPCS: 99212; G0463

== ENCOUNTER 2022-10-16 09:36 | Observation (INO) | payer MEDICARE, SELFPAY ==
[2022-10-16] VITALS (19 sets, daily range): BP systolic 75–134; BP diastolic 47–71; PULSE 80–96; RESP 16–20; TEMP 36.2–36.4; O2SAT 98–100; BMI 24.6
--- NOTE | ~2022-10-16 | MR_ITS ---
MRI of the brain Clinical History: Slurred speech Technique: Axial and sagittal T1-weighted images were acquired. These were followed by axial T2-weigh rodrick, diffusion weighted, gradient, and FLAIR images. Findings: No significant signal abnormality seen in the brain parenchyma. No acute infarct, intracran ial hemorrhage, or mass lesion identified. Ventricles and subarachnoid spaces are unremarkable. Orbits are unremarkable. There is minimal left m axillary sinus disease. Remaining paranasal sinuses and mastoid air cells are clear. Major intracrani al flow voids are intact. Sagittal midline structures are intact. IMPRESSION: No intracranial abnormality identified. Minimal left maxillary sinus disease. Reviewed, dictated and finalized at [facility].
--- NOTE | ~2022-10-16 | XR_ITS ---
Clinical Indication: Wheezing PA and lateral views of the chest: Comparison: 09/15/2013 Findings: The lungs are clear, without evidence of focal consolidation or pleural effusion. Cardiome diastinal silhouette is within normal limits. Bones and soft tissues are unremarkable. Impression: Normal chest. Reviewed, dictated and finalized at [facility]. Impression: Normal chest.
--- NOTE | ~2022-10-16 | CT_ITS ---
Non-contrast CT scan of the Abdomen and Pelvis Clinical indication: Abdominal pain Technique: 2.5 mm axial scans were obtained through the abdomen and pelvis without intravenous or or al contrast. Dose reduction technique was used on this scan by utilizing automated exposure control a nd iterative reconstruction technique. The dose-length product (DLP) was 227.24 mGy-cm. COMPARISON: 02/17/2020 Findings: Images through the lung bases reveal no abnormalities. There is no evidence of renal or ureteral calculi. The kidneys and the ureters are nondilated. The liver, spleen, pancreas, gallbladder, and left adrenal gland appear normal. Stable right adrenal nodule. There are atherosclerotic calcifications of the aorta. . There is no evidence of bowel obstruction. There is prior hiatal hernia repair. Normal appendix. Images through the pelvis were performed. There is no evidence of ascites or lymphadenopathy. Urinary bladder unremarkable. No pelvic mass seen. Impression: No acute abnormality. Stable right adrenal nodule. Status post interval hiatal hernia repair. Reviewed, dictated and finalized at [facility]. Impression: No acute abnormality. Stable right adrenal nodule. Status post interval hiatal hernia repair.
--- NOTE | ~2022-10-16 | CT_ITS ---
Non-contrast Head CT History: Aphasia Technique: Axial non-contrast imaging of the brain was performed. Dose reduction technique was used on this scan by utilizing automated exposure control and iterative reconstruction technique. The dose -length product (DLP) was 605.33 mGy-cm. Findings: There is no evidence of intracranial hemorrhage, mass lesion, or acute infarct. Brain par enchyma appears normal. The ventricles and subarachnoid spaces are normal in size. The calvarium ap pears normal. The visualized paranasal sinuses and mastoid air cells are clear. Impression: No significant abnormality seen. Reviewed, dictated and finalized at location . Impression: No significant abnormality seen.
--- NOTE | 2022-10-16 09:57 | ECG_ITS ---
Measurements Intervals [place] Rate: 89 P: 51 CT: 142 QRS: 30 QRSD: 92 T: 52 QT: 379 QTc: 462 Interpretive Statements SINUS RHYTHM NONSPECIFIC ST AND T-WAVE ABNORMALITY NO PREVIOUS ECG AVAILABLE FOR COMPARISON Electronically Signed On 10-16-2022 11:57:44 CDT by Papi Rodriguez M.D.
--- NOTE | 2022-10-16 10:12 | ED.NAVMDI ---
HPI - Nausea/Vomiting/Diarrhea General Chief complaint: Nausea/Vomiting/Diarrhea <Estela Swenson PA-C - Last Filed: 10/16/22 16:41> Stated complaint: N/V/D, abd pain x 5 days, sent from [place] <Estela Swenson PA-C - Last Filed: 10/16/22 16:41> Time Seen by Provider: 10/16/22 09:53 <Estela Swenson PA-C - Last Filed: 10/16/22 16:41> History of Present Illness HPI Narrative: 67-year-old female history of COPD here for evaluation of diarrhea, nausea x5 days. Patient states that she has had numerous episodes of nonbloody diarrhea per day. Since onset she has felt more more weak and has been not eating or drinking her normal amount. Her granddaughter is sick with similar symptoms. Both her COVID test that were negative. She reports chills but has not yet taken her temperature. Also reports a diffuse generalized abdominal pain. She has had no cough, vomiting, chest pain, shortness of breath. <Estela Swenson PA-C - Last Filed: 10/16/22 16:41> Related Data Home medications: Home Medications Medication Instructions Recorded Confirmed alprazolam 2 mg tablet 2 mg PO TID PRN Anxiety 11/03/19 10/16/22 buspirone 15 mg tablet 45 mg PO BID 11/03/19 10/16/22 dextroamphetamine-amphetamine ER 30 mg PO QAM 11/03/19 10/16/22 30 mg 24hr capsule,extend release (Adderall XR) esomeprazole magnesium 40 mg 40 mg PO BID 11/03/19 10/16/22 capsule,delayed release cholecalciferol (vitamin D3) 50 50 mcg PO DAILY 12/13/19 10/16/22 mcg (2,000 unit) capsule (Vitamin D3) desvenlafaxine 50 mg 50 mg PO DAILY 02/21/20 10/16/22 tablet,extended release 24 hr ascorbic acid (vitamin C) 100 mg 500 mg PO DAILY 03/16/20 10/16/22 tablet oxcarbazepine 150 mg 75 mg PO BID 12/17/20 04/27/23 tablet,extended release 24 hr trazodone 50 mg tablet 25 mg PO DAILY PRN Sleep 07/07/22 10/16/22 <Estela Swenson PA-C - Last Filed: 10/16/22 16:41> Allergies/Adverse reactions: Allergies Allergy/AdvReac Type Severity Reaction Status Date / Time amoxicillin Allergy Unknown Skin Verified 10/16/22 08:58 Reaction Penicillins Allergy Unknown Hives Verified 10/16/22 08:58 metformin AdvReac Severe caused Verified 10/16/22 08:58 severe decreased renal function oxycodone AdvReac Mild weird Verified 10/16/22 08:58 dreams <Estela Swenson PA-C - Last Filed: 10/16/22 16:41> Review of Systems Review of Systems: Gen.: Reports weakness Eyes: Denies eye pain or visual change ENT: Denies congestion Respiratory: Denies shortness of breath or cough CV: Denies chest pain or palpitations GI: Reports abdominal pain, nausea and diarrhea denies burning, urgency, frequency or hematuria Musculoskeletal: Denies back pain or muscle pain Neuro: Denies numbness, tingling, weakness or focal weakness Skin: Denies rash Except as documented, all other systems reviewed and negative <JAVI Mcgovern Last Filed: 10/16/22 16:41> REPLACED BY [facility] Past Medical History Medical History: Medical History Adenomatous colon polyp Microcytic anemia Renal insufficiency acute/ due to metformin <Estela Swenson PA-C - Last Filed: 10/16/22 16:41> Surgical History Surgical History: Surgical History H/O hemorrhoidectomy History of Aline fundoplication (~03/2020) History of repair of hiatal hernia (~03/2020) Hx of esophagogastroduodenoscopy <JAVI Mcgovern Last Filed: 10/16/22 16:41> Family History Family History: Family History Mother Patient's mother is Family history of osteoporosis, Onset Age: 84 Hypertension Family history of Alzheimer's disease Father Patient's father is Hypertension Family history of cardiovascular disea
[2022-10-16] MEDS: LEVALBUTEROL NEB 1.25 MG/3 ML INHALATION (10:14)
[2022-10-16] MEDS: IPRATROPIUM BR 0.02% INH SOLN 0.5 MG/2.5 ML VIAL INHALATION (10:14)
[2022-10-16 10:21] LABS: Alanine Aminotransferase 23 U/L (6-35); Albumin Level 4.9 g/dL (3.5-5.1); Alkaline Phosphatase 113 U/L (38-126); Anion Gap 14 mmol/L (8-16); Aspartate Amino Transferase 36 U/L (14-36); Basophils Absolute Auto 0.1 K/mm3 (0.0-0.1); Basophils Percent Auto 0.7 % (0.2-1.2); Bilirubin,Total 0.6 mg/dL (0.2-1.3); Blood Urea Nitrogen 35 mg/dL (7-17); Calcium 9.1 mg/dL (8.4-10.2); Carbon Dioxide 18 mmol/L (22-30); Chloride 104 mmol/L (98-107); Eosinophils Percent Auto 0.2 % (0-4.4); Estimated CRCL calculation 15 ml/min; Estimated Glomerular Filt Rate 19; Glucose 103 mg/dL (65-110); Hemoglobin 16.5 g/dL (12.0-15.0); Immature Granulocyte Absolute 0.03 K/mm3 (0.00-0.031); Immature Granulocyte Percent A 0.4 % (0-0.5); Lipase 196 U/L (23-300); Lymphocytes Percent Auto 33.8 % (18.3-44.2); Mean Corpuscular HGB Conc 34.4 g/dl (32-36); Mean Corpuscular Hemoglobin 30.2 pg (26-34); Mean Corpuscular Volume 87.9 fl (80-100); Mean Platelet Volume 10.3 fl (7.4-10.4); Monocytes Absolute Auto 0.7 K/mm3 (0.1-0.6); Monocytes Percent Auto 8.1 % (2.6-8.5); Neutrophils Absolute Auto 4.7 K/mm3 (1.3-6.7); Neutrophils Percent Auto 56.8 % (45.5-73.1); Platelet Count Result 404 k/mm3 (150-375); Potassium 3.3 mmol/L (3.4-5.0); Red Blood Count 5.46 M/mm3 (4.2-5.4); Red Cell Distribution Width 13.6 % (11.5-14.5); Sodium 136 mmol/L (137-145); White Blood Count 8.3 K/mm3 (4.5-10.0)
[2022-10-16] MEDS: SODIUM CHLORIDE 0.9% IV 1,000 ML 999 ML IV CONT ×2 (10:22→11:15)
[2022-10-16] MEDS: ONDANSETRON INJ 4 MG/2 ML VIAL IV PUSH (10:22)
[2022-10-16 10:27] LABS: Lactic Acid Reflex 1.1 mmol/L (0.7-2.0)
[2022-10-16 10:29] LABS: Magnesium 1.6 mg/dL (1.6-2.3)
[2022-10-16] MEDS: POTASSIUM CHLORIDE 20 MEQ PACKET (FOR LIQUID) PO (11:47)
[2022-10-16 11:54] LABS: Appearance Urine Cloudy (Clear); Bacteria Urine None Seen /hpf; Bilirubin Urine Negative (Negative); Blood Urine Negative (Negative); Color Urine Yellow (Yellow); Glucose Urine UA Negative (Negative); Granular Casts Urine Present /lpf; Hyaline Casts Urine Present /lpf; Ketones Urine Negative (Negative); Leukocyte Esterase Ur Negative LEU/UL (Negative); Nitrate Urine Negative (Negative); Non Pathogenic Casts >20; Protein Urine 1+ mg/dL (Negative); Specific Grav Ur 1.019 (1.001-1.035); Squamous Epithelial Cell Urine Few /hpf (Few); pH Urine 5.5 (5.0-9.0)
[2022-10-16 11:55] LABS: Add Urine Microscopic? YES
[2022-10-16] MEDS: SODIUM CHLORIDE 0.9% IV 1,000 ML 500 ML IV CONT (13:00)
--- NOTE | 2022-10-16 15:44 | PM.IMHP ---
H&P: HPI History of Present Illness Date/Time: 10/16/22 17:00 Chief Complaint: Nausea, vomiting, diarrhea. Narrative: This is a pleasant 67-year-old female smoker with GERD, [place] esophagus, hypertension, dyslipidemia, type 2 diabetes mellitus, COPD, bipolar disorder, anxiety, and depression who presented to the emergency department via private vehicle from home for evaluation nausea, vomiting, and diarrhea. The patient provides the following history. She watch her granddaughter on Thursday who was apparently sick with the flu and later on that evening the patient began to feel unwell. Initially she had pretty severe diarrhea that lasted for several days though that has since improved. She has had ongoing nausea, decreased appetite, and poor oral intake. She also endorses multiple episodes of emesis a day since the onset of her symptoms. She has been increasingly weak and fatigued and has noticed a decrease in urine output. The last 2 days her has noticed that her speech seems to be a bit slurred and over the last 24 hours or so she has been dropping things which is unusual for her. She denies fever, headache, vertigo, vision changes, facial droop, difficulty swallowing, sinus congestion, sore throat, cough, chest pain, shortness a breath, palpitations, hematemesis, melena, hematochezia, epigastric and abdominal pain, and dysuria. She was afebrile on arrival to the emergency department. Blood pressures were initially in the 70s to 80s systolic but have improved with aggressive IV fluid rehydration, thus far she has had a total of 3 L normal saline. Labs were significant for hemoglobin of 16.5, sodium 136, potassium 3.3, chloride 104, carbon dioxide 18, BUN 35, creatinine 2.50. CT of the brain and abdomen/pelvis showed no acute findings. She is being admitted in this setting for further treatment and evaluation. Review of Systems Review of Systems: Twelve systems were reviewed. She fell off of a step stool proximally 4 weeks ago and hurt her right shoulder, she is currently undergoing physical therapy. Except as documented, all other systems were reviewed and are negative. [facility] Past Medical History Medical History (Updated 10/16/22 @ 21:40 by Alvina Coto PA-C) Adenomatous colon polyp Asthma [place] esophagus Depression with anxiety Essential hypertension Microcytic anemia Mixed hyperlipidemia Tobacco dependence Type 2 diabetes mellitus Surgical History Surgical History (Updated 10/16/22 @ 21:34 by Alvina Coto PA-C) History of colonoscopy with polypectomy History of Aline fundoplication (03/2020) History of open reduction and internal fixation (ORIF) procedure Repair of right wrist fracture. History of tonsillectomy Family History Family History Mother Family history of osteoporosis, Onset Age: 84 Patient's mother is Family history of Alzheimer's disease Hypertension Father Family history of cardiovascular disease Patient's father is Family history of hypercholesterolemia Family history of pancreatic cancer Hypertension Grandparent Diabetes mellitus Sibling Depression Family history of hypercholesterolemia AAA (abdominal aortic aneurysm) Other Cerebrovascular accident Colon polyp Family history of arthritis Family history of chronic obstructive pulmonary disease Family history of gout Family history of heart disease in male family member before age 55 Family history of lung disease Family history of malignant melanoma Family history of malignant neoplasm Family history of mental disorder Family history of rheumatic fever Family history of schizophrenia Social History Social History (Updated 10/16/22 @ 21:35 by Alvina Coto PA-C) Social History: Surrogate medical decision maker: Quinton Calvo, spouse. Code status: Full code. Smoking packs per day: 1 Smoking cigarettes per
[2022-10-16 16:05] LABS: Magnesium 1.6 mg/dL (1.6-2.3)
[2022-10-16 17:33] LABS: Anion Gap 6 mmol/L (8-16); Blood Urea Nitrogen 28 mg/dL (7-17); Calcium 7.6 mg/dL (8.4-10.2); Carbon Dioxide 18 mmol/L (22-30); Chloride 114 mmol/L (98-107); Estimated CRCL calculation 21 ml/min; Estimated Glomerular Filt Rate 30; Glucose 86 mg/dL (65-110); Magnesium 1.4 mg/dL (1.6-2.3); Potassium 3.4 mmol/L (3.4-5.0); Sodium 138 mmol/L (137-145)
[2022-10-16] MEDS: LACTATED RINGERS 1,000 ML 150 ML IV CONT (17:45)
--- NOTE | 2022-10-16 18:54 | ADMGEN ---
This patient, Leona Calvo, was admitted to Medical Room 243-01. Patient/family oriented to hospital policies and general routines including ID bracelet, bed and alarms, visiting hours, pain management, procedures, bathroom and other care routines, personal items, smoking policy, room service/diet, and visiting hours. Information on how to activate the Rapid Response Team has been discussed. Patient/Family are encouraged to report perceived risks to care and to ask questions if they do not understand what they are told or what they should do.
[2022-10-16 22:22] LABS: Influenza A QL RT-PCR Negative (Negative); Influenza B QL RT-PCR Negative (Negative); SARS-CoV-2 RNA PCR Negative (Negative)
[2022-10-16] MEDS: ALPRAZolam (*CRX) 0.5 MG TABLET 2 MG PO (23:47)
[2022-10-16] MEDS: ATORVASTATIN 40 MG TABLET BY MOUTH (23:48)
[2022-10-16] MEDS: MAGNESIUM SULF 2 GM/WATER 50ML 2 GM/50 ML BAG IVPB (23:57)
[2022-10-17] VITALS (14 sets, daily range): BP systolic 102–120; BP diastolic 58–75; PULSE 74–85; RESP 18–21; TEMP 36.1–37.1; O2SAT 96–100
[2022-10-17 05:17] LABS: Anion Gap 9 mmol/L (8-16); Blood Urea Nitrogen 24 mg/dL (7-17); Calcium 8.1 mg/dL (8.4-10.2); Carbon Dioxide 19 mmol/L (22-30); Chloride 111 mmol/L (98-107); Estimated CRCL calculation 23 ml/min; Estimated Glomerular Filt Rate 32; Glucose 80 mg/dL (65-110); Magnesium 2.4 mg/dL (1.6-2.3); Potassium 3.2 mmol/L (3.4-5.0); Sodium 139 mmol/L (137-145)
[2022-10-17 07:10] LABS: Hematocrit 37.1 % (37.0-47.0); Hemoglobin 12.6 g/dL (12.0-15.0); Mean Corpuscular Hemoglobin 30.2 pg (26-34); Mean Platelet Volume 9.9 fl (7.4-10.4); Platelet Count Result 218 k/mm3 (150-375); Red Blood Count 4.17 M/mm3 (4.2-5.4); Red Cell Distribution Width 13.6 % (11.5-14.5); White Blood Count 5.7 K/mm3 (4.5-10.0)
[2022-10-17 07:35] LABS: Hemoglobin A1C 5.8 % (<5.7)
[2022-10-17] MEDS: UMECLIDINIUM/VILANTEROL 62.5-25 MCG ELLIPTA 1 PUFF INHALATION (08:02)
[2022-10-17 08:55] LABS: Glucose Point of Care 71 mg/dl (65-105)
[2022-10-17 10:06] LABS: Glucose Point of Care 76 mg/dl (65-105)
[2022-10-17] MEDS: POTASSIUM CHLORIDE 20 MEQ PACKET (FOR LIQUID) 40 MEQ PO (10:06)
[2022-10-17] MEDS: ASCORBIC ACID 500 MG TABLET PO (10:07)
[2022-10-17] MEDS: busPIRone HCL 5 MG TABLET 45 MG PO (10:07)
[2022-10-17] MEDS: MONTELUKAST SODIUM 10 MG TABLET BY MOUTH (10:08)
[2022-10-17] MEDS: DESVENLAFAXINE SUCCINATE 50 MG TAB.ER.24H PO (10:08)
[2022-10-17] MEDS: CHOLECALCIFEROL 1,000 UNITS TABLET 2000 UNITS PO (10:08)
[2022-10-17] MEDS: EZETIMIBE 10 MG TABLET BY MOUTH (10:08)
[2022-10-17] MEDS: PANTOPRAZOLE 40 MG TABLET PO (10:09)
[2022-10-17] MEDS: SODIUM CHLORIDE 0.9% IV 1,000 ML 70 ML IV CONT (10:18)
--- NOTE | 2022-10-17 11:44 | PC.NURSE ---
On 10/17/22, the student, [Cristina Hurt], provided care and completed [facility] documentation on this patient. I have reviewed the student's documentation and agree with the findings.
[2022-10-17 12:06] LABS: Glucose Point of Care 83 mg/dl (65-105)
--- NOTE | 2022-10-17 13:49 | PM.DS ---
DS: Admitting Diagnosis Discharge Date 10/17/22 Admitting Diagnosis nausea, vomiting DS: Discharge Diagnosis Discharge Diagnosis (1) Acute kidney injury: Code(s): N17.9 - Acute kidney failure, unspecified Status: Acute Assessment and Plan: Secondary to a combination of factors including hypovolemia from dehydration and hypoperfusion from hypotension in the setting of ANA LILIA-inhibitor and thiazide diuretic use. Her renal function should improve with avoidance of nephrotoxic agents and continued IV fluid rehydration. (2) Viral gastroenteritis: Code(s): A08.4 - Viral intestinal infection, unspecified Status: Acute Assessment and Plan: The patient has had nausea, vomiting, and diarrhea since taking care of her granddaughter who had similar symptoms last Thursday. CT of the abdomen and pelvis was benign; most likely this is a viral gastroenteritis. Continue supportive care including IV fluid rehydration and antiemetics as needed. (3) Dehydration: Code(s): E86.0 - Dehydration Status: Inactive Assessment and Plan: Plan is as detailed above. (4) Electrolyte abnormality: Code(s): E87.8 - Other disorders of electrolyte and fluid balance, not elsewhere classified Status: Acute Assessment and Plan: Sodium and potassium are low. Continue IV fluid rehydration. Potassium has been replaced and will be monitored. (5) Hypotension: Code(s): I95.9 - Hypotension, unspecified Status: Acute Assessment and Plan: Secondary to profound dehydration; she has also been taking her antihypertensives at home. Blood pressures have improved with IV fluids. Antihypertensives remain on hold at this time. (6) Slurred speech: Code(s): R47.81 - Slurred speech Status: Acute Assessment and Plan: She has reportedly had slurred speech for the last couple of days, very minimal at the time my evaluation. This may very well be due to dehydration and dry mouth however she has also been dropping things with her left hand which is unusual for her thus she will be monitor on telemetry. MRI with no intracranial abnormality seen. Echocardiogram with EF of greater than 70%, grade 1 diastolic dysfunction, mild valvular disease and no pulmonary hypertension. (7) Essential hypertension: Code(s): I10 - Essential (primary) hypertension Status: Acute Assessment and Plan: Antihypertensives on hold as above. (8) Chronic obstructive pulmonary disease, unspecified: Qualifiers: COPD type: unspecified COPD Qualified Code(s): J44.9 - Chronic obstructive pulmonary disease, unspecified Code(s): J44.9 - Chronic obstructive pulmonary disease, unspecified Status: Acute Assessment and Plan: No evidence of acute exacerbation. Continue maintenance inhalers. (9) Type 2 diabetes mellitus: Code(s): E11.9 - Type 2 diabetes mellitus without complications Status: Acute Assessment and Plan: Hold diabetic medication for now given continued poor appetite. (10) Tobacco dependence: Code(s): F17.200 - Nicotine dependence, unspecified, uncomplicated Status: Acute Assessment and Plan: Smoking cessation is encouraged and was discussed. DS: Summary Hospital Course Hospital Course: This is a 67-year-old female with a past medical history of tobacco dependence, GERD, Perea's esophagus, hypertension, dyslipidemia, type 2 diabetes, COPD, bipolar disorder, anxiety and depression that presented to the ED on 10/16/2022 for evaluation of nausea, vomiting and diarrhea. Patient had diarrhea initially that has since resolved. She has had ongoing nausea and decreased appetite for approximately a week now. Patient also has increased weakness and fatigue as well as decreased urine output. Per patient has had difficulty finding her words and slurred speech over the past 24 ho
--- NOTE | 2022-10-17 21:44 | ECHO_ITS ---
Patient Info Name: Leona Calvo Age: 67 years : 1955 Gender: Female Ht: 60 in Wt: 126 lbs BSA: 1.57 m2 HR: 82 bpm BP: 120 / 54 mmHg Heart Rhythm: Sinus Rhythm Technical Quality: Fair Exam Date: 10/17/2022 8:08 AM Exam Location: [facility] Patient Status: Outpatient Admit Date: 10/16/2022 Staff Ordering Physician: Alvina Coto PA-C Medical Information Officer: Xiomara Tompkins RDCS Attending Provider: Genoveva Smith MD Referring Physician: Chica VIEYRA; Exam Type: CA echo doppler color flow Study Info Indications - HTN, slurred speech Complete two-dimensional, color flow and Doppler transthoracic echocardiogram is performed. Summary 1. Complete two-dimensional, color flow and Doppler transthoracic echocardiogram is performed. 2. Left ventricular chamber dimension is normal. 3. Left ventricular systolic function is hyperdynamic, estimated at >70%. 4. The left ventricular diastolic function is grade I diastolic dysfunction. 5. E/e' 10 is mildly elevated. 6. Left atrial chamber dimension is mildly enlarged. 7. There is mild aortic valve sclerosis. 8. The mitral valve has mildly calcified annulus. 9. There is trace mitral valve regurgitation. 10. There is trace tricuspid valve regurgitation. 11. No pulmonary hypertension, estimated pulmonary arterial systolic pressure is 24 mmHg. Left Ventricle E/e' 10 is mildly elevated. Left ventricular chamber dimension is normal. Left ventricular systolic function is hyperdynamic, estimated at >70%. The left ventricular diastolic function is grade I diastolic dysfunction. Right Ventricle Right ventricular systolic function is normal and with normal TAPSE 2.2 cm. Right ventricular chamber dimension is normal. Left Atria Left atrial chamber dimension is mildly enlarged. Right Atria Right atrial chamber dimension is normal. Aortic Valve The aortic valve is trileaflet. There is mild aortic valve sclerosis. There is no aortic valve stenosis. There is no aortic valve regurgitation. Pulmonic Valve There is no pulmonic regurgitation. Mitral Valve The mitral valve has mildly calcified annulus. There is no mitral valve stenosis. There is trace mitral valve regurgitation. Tricuspid Valve There is trace tricuspid valve regurgitation. No pulmonary hypertension, estimated pulmonary arterial systolic pressure is 24 mmHg. Pericardium/Pleural There is no pericardial effusion. Inferior Vena Cava Normal inferior vena cava with >50% collapse upon inspiration consistent with normal right atrial pressure, 5 mmHg. Aorta The aortic root size at the sinus of Valsalva is normal. Left Ventricular Outflow Tract Name Value Normal LVOT 2D LVOT Diameter 1.9 cm LVOT Doppler LVOT Peak Gradient 12 mmHg LVOT Mean Gradient 6 mmHg LVOT VTI 32 cm LVOT VTI/AV VTI Ratio 0.9 LVOT Stroke Volume 87 ml LVOT CO 6.3 l/min LVOT CI 4.0 l/min/m2 Pulmonic Valve Name
== END 2022-10-17 14:44 | disposition home or self-care (01) ==
LOC: ANHED 15:38 → ANH3MEDSUR 18:20 → ANH2MED 10-17 05:46 → ANH3MEDSUR 10-20 11:06
PROVIDERS: Emergency Medicine; Physician Assistant; Admitting Provider Internal Medicine; Emergency Provider Physician Assistant; PCP Family Medicine; Visit Provider Internal Medicine
DX: N17.9 Acute kidney failure, unspecified (principal); A08.4 Viral intestinal infection, unspecified; E86.0 Dehydration; E87.8 Other disorders of electrolyte and fluid balance, not elsewhere classified; I95.9 Hypotension, unspecified; R47.81 Slurred speech; Z20.822 Contact with and (suspected) exposure to COVID-19; I11.9 Hypertensive heart disease without heart failure; J44.9 Chronic obstructive pulmonary disease, unspecified; E11.9 Type 2 diabetes mellitus without complications; D50.9 Iron deficiency anemia, unspecified; E87.6 Hypokalemia; R94.31 Abnormal electrocardiogram [ECG] [EKG]; D35.00 Benign neoplasm of unspecified adrenal gland; K21.9 Gastro-esophageal reflux disease without esophagitis; K22.70 Barrett's esophagus without dysplasia; E78.5 Hyperlipidemia, unspecified; F31.9 Bipolar disorder, unspecified; F41.9 Anxiety disorder, unspecified; F41.8 Other specified anxiety disorders; F17.210 Nicotine dependence, cigarettes, uncomplicated; Z79.85 Long-term (current) use of injectable non-insulin antidiabetic drugs; Z79.899 Other long term (current) drug therapy
CPT/HCPCS: 36415; 70450; 70551; 71046; 74176; 80048; 80053; 81001; 82948; 83036; 83605; 83690; 83735; 84443; 85025; 85027; 87086; 87636; 93005; 93306; 94640; 96361; 96365; 96366; 96374; 96375; 99285; A9270; C1751; G0378; J2405; J3475; J7030; J7120

== ENCOUNTER 2022-11-06 13:30 | Outpatient (RCR) | payer MEDICARE, SELFPAY ==
--- NOTE | 2022-10-10 14:32 | PTOPEVAL1 ---
Assessment and note entered by Mercy Eller, PT, DPT Evaluation Information Assessment Status Evaluation Diagnosis R shoulder pain Subjective Information Pt states she has had 2 falls in the lest month, one landing on her R shoulder and the R side of her back, she states she is still bruised from this. Pt completed a round of therapy a few months ago, she reports poor compliance with her exercise since her falls. Pt reports no pain at rest, only with shoulder extension. Reported Pain Level Pain Score 1: Self Report Assessment PT Clinical Summary Leona presents to therapy today for her initial evaluation with a diagnosis of R shoulder pain. She reports worsening shoulder pain after 2 recent falls. Today she demonstrates yue shoulder active flexion ~145 degs, and active shoulder abduction ~135deg. She demonstrate yue shoulder strength grossly 4-/5. She demonstrates a significantly increased kyphotic posture with forward and rounded shoulders. Skilled physical therapy services are indicated to improve strength , body mechanics, and posture, to manage pain, and to promote an unlimited functional mobility. Plan of Care Interventions Hot Pack/Cold Pack,Manual Therapy,Neuro Re- education,Patient/Caregiver Educati,Therapeutic Activities,Therapeutic Exercise PT Services Indicated Yes Treatment Frequency and 2x/wk for 4 wks Duration These treatments will address the objective and functional deficits as defined above. The patient will be advanced safely and appropriately in order for the patient to progress towards his/her prior level of function. Additional exercises will be introduced and as well as a comprehensive home exercise program upon discharge, if needed, ?to ensure carryover of functional gains achieved in the clinic. This treatment plan has been reviewed and agreement upon by the patient.
--- NOTE | 2022-10-15 10:02 | PCPTNOTE ---
Pt cancelled due to illness.
--- NOTE | 2022-10-17 15:05 | PCPTNOTE ---
Patient called & cancelled scheduled appointment this date due to being admitted to the hospital.
--- NOTE | 2022-10-30 09:43 | PCPTNOTE ---
Patient called and has high blood pressure. She states she cannot drive and come in at this time. Patient was encouraged to reach out to her MD.
--- NOTE | 2022-11-06 14:09 | PTOPDC ---
Assessment and note entered by Mercy Eller, PT, DPT Evaluation Information Assessment Status Discharge Diagnosis R shoulder pain Subjective Information Pt states she is doing much better, her upper back and shoulder included. She states she has way more movement and endurance in her shoulder. She states she can do all of her ironing without needing to take a break. She states she can sleep through the night without being woken up d/t the shoulder. She reports 80% improvement in overall symptoms. Reported Pain Level Pain Score 0: Self Report Assessment PT Clinical Summary Leona presents to therapy today for her progress report following 4 visits to treat her diagnosis of R shoulder pain. Today she demonstrates equal shoulder ROM yue without an increase in pain, she demonstrates yue shoulder strength grossly 4+/5. She has met or progressed well towards all of her therapy goals and no longer requires skilled services, she will be discharged at this time. Plan of Care PT Services Indicated No
== END 2022-11-06 15:47 | disposition home or self-care (01) ==
LOC: ANHGOSHPT 13:30
PROVIDERS: PCP Family Medicine; Visit Provider Nurse Practitioner
DX: M25.511 Pain in right shoulder (principal)
CPT/HCPCS: 97110; 97112; 97161; 97530

== ENCOUNTER 2022-12-08 08:02 | Outpatient (CLI) | payer MEDICARE, SELFPAY ==
--- NOTE | 2022-12-14 14:44 | WPDPFTINT ---
PFT Procedure Performed PFT Procedure Performed Spirometry with Pre/Post Bronchodilator Plethysmography (Lung Vol) Diffusing Cap (DLCO) Flow Vol Loop PFT Interpretation DOS: 12/08/2022 REQUESTING: Elton Buckner APRN REASON FOR TESTING: COPD PULMONARY FUNCTION TESTS Results are reliable and reproducible. Spirometry: Pre-bronchodilator FEV1 is 1.56 L, 77% predicted, low end of normal. Pre-bronchodilator FVC is 2.44 L, 94%, normal. FEV/FEV ratio is 64%, decreased, indicated air flow obstruction. After bronchodilator, there is a 7% increase in FEV1, 1.67 L, 82% predicted, normal. After bronchodilator, there is a 1% increase in the FVC, 2.46 L, 95%. The FEV1/FVC ratio is 68%. This is normal. Lung volumes: Total lung capacity is 4.95 L, 112% predicted, normal. Residual volume is 2.51 L, 133%, normal. RV / TLC is 51%, upper limit of normal. Airway resistance 2.91, 180%, increased. Diffusion: DLCO is 12.5, 65%, mildly reduced. DLCO/VA is 5.57, 122%, normal. Flow volume loop: Mild coving of the expiratory limb. IMPRESSION: Mild obstructive ventilatory impairment without response to bronchodilator, mild air trapping demonstrated by increased RV/TLC ratio, mild decrease in diffusion that corrects for alveolar volume. Lack of response to bronchodilator should not preclude use if clinically indicated. This pattern can be seen in emphysema. Compared to a prior study 01/08/2018, values are quite similar. FEV1 was 1.4 L, 73%, now is 1.56 L, slightly improved. FEV1 was 2.03 L, now 2.44, improved. FEV1/FVC ratio was 69%, in the normal range. Total lung capacity was 5.17 L, 126%, now 4.95 L, 112%, less hyperinflation, so total lung capacity is now in the normal range. Air trapping was present, RV/TLC ratio was 55% now 51%. DLCO was 71% now 65%, also corrected for alveolar volume. Elizabeth Vicente MD
--- NOTE | 2022-12-14 15:07 | WPDSIXMINUTE ---
Six Minute Walk Procedure Procedure Performed Pulmonary Stress Test (6 min walk) Six Minute Walk Six Minute Walk: DATE: 12/08/2022 REQUESTING: Elton Buckner APRN REASON: COPD SIX MINUTE WALK This test was conducted per ats guidelines. The patient walked while breathing room air. No assist device was used. The patient did not stop to rest. Initial heart rate was 86 and at the end of the test was 105. Initial saturation was 98% and it remained 97-98% throughout testing. The patient walked a total of 1400 ft/ 426.7 m. IMPRESSION: Normal study. No indication for supplemental oxygen with exertion.
== END 2022-12-08 08:03 | disposition home or self-care (01) ==
PROVIDERS: PCP Family Medicine; Visit Provider Nurse Practitioner Family
DX: J44.9 Chronic obstructive pulmonary disease, unspecified (principal); R06.09 Other forms of dyspnea; R94.2 Abnormal results of pulmonary function studies
CPT/HCPCS: 94060; 94618; 94726; 94729

== ENCOUNTER 2023-02-17 07:59 | Outpatient (CLI) | payer MEDICARE, SELFPAY ==
--- NOTE | ~2023-02-17 | DEXA_ITS ---
Bone Density Report Name: ABA BECKER Age: 67 Sex: Female Ethnicity: White Date of : 1955 Indication: postmenopausal; screening for osteoporosis; height loss; prior fracture; asthma or emphysema; Referring Provider: JIMY HUERTA Study: Bone densitometry was performed. Exam Date: February 17, 2023 Accession number: [id number] Bone Density: Region BMD T-score Z-score Classification AP Spine(L1-L4) 1.149 0.9 2.7 Normal Femoral Neck (Left) 0.705 -1.3 0.2 Osteopenia Total Hip (Left) 0.868 -0.6 0.6 Normal Femoral Neck (Right) 0.714 -1.2 0.3 Osteopenia Total Hip (Right) 0.841 -0.8 0.4 Normal Total Hip Mean 0.855 -0.7 0.5 Normal World Health Organization criteria for BMD impression classify patients as: Normal (T-score at or above -1.0), Osteopenia (T-score between -1.0 and -2.5), or Osteoporosis (T-score at or below -2.5). 10-year Fracture Risk(1): Major Osteoporotic Fracture 14% Hip Fracture 2.3% Reported Risk Factors: [place] (), Neck BMD=0.705, BMI=25.4, previous fracture, smoking (1) FRAX(R) Version 3.08. Fracture probability calculated for an untreated patient. Fracture probability may be lower if the patient has received treatment. Previous Exams: Region Exam Age BMD T-score BMD Change BMD Change Date g/cm2 vs Baseline vs Previous Total Hip(Left) 02/17/2023 67 0.868 -0.6 -0.075 (-7.9%) -0.082 (-8.7%) 02/14/2021 65 0.950 0.1 0.007 (0.8%) 0.007 (0.8%) 10/05/2018 63 0.943 0.0 Total Hip(Right) 02/17/2023 67 0.841 -0.8 -0.078 (-8.5%) -0.087 (-9.3%) 02/14/2021 65 0.928 -0.1 0.009 (1.0%) 0.009 (1.0%) 10/05/2018 63 0.919 -0.2 *Denotes significance at 95% confidence level, LSC for Total Hip = 0.027 g/cm2 Clinical Information Provided by Patient: Has had a low trauma fracture Smokes Has used the following medications: Vitamin D Has the following medical conditions: Asthma or Emphysema Patient maximum height was 61.5 Menopause Age: 44 Does not regularly consume dairy products Drinks caffeinated beverages Onset of menses at age 15 Number of children 0 Impression: The patient has low bone mass, based on the Left Femoral Neck T-score. The patient has an estimated ten-year risk of hip fracture of 2.3% and an estimated ten-year risk of major fracture of 14%, based on the WHO FRAX algorithm. The patient has risk factors, including: smoking, previous fracture. The BMD for the Total Hip(Left) decrease
== END 2023-02-17 08:00 | disposition home or self-care (01) ==
PROVIDERS: PCP Family Medicine; Visit Provider Family Medicine
DX: Z78.0 Asymptomatic menopausal state (principal); M85.852 Other specified disorders of bone density and structure, left thigh; M85.851 Other specified disorders of bone density and structure, right thigh
CPT/HCPCS: 77080

== ENCOUNTER 2023-03-06 14:14 | Outpatient (CLI) | payer MEDICARE, SELFPAY ==
--- NOTE | ~2023-03-06 | CT_ITS ---
EXAMINATION: CT lung screening DATE: 03/06/2023 14:43 INDICATION: Personal history of nicotine dependence. TECHNIQUE: Computed tomography (CT) of the chest was performed without intravenous contrast. The dose -length product was 54.17 mGy-cm. Automated exposure control and iterative reconstruction technique w ere employed. COMPARISON: CT dated 02/28/2022 FINDINGS: There is atherosclerosis of the aorta and coronary arteries. Heart size normal. There is hi atal hernia. There are surgical changes consistent with previous hernia repair. Stable 1.3 cm right a drenal adenoma. No thoracic lymphadenopathy. No significant pleural or pericardial effusion. 3 mm rig ht middle lobe nodule. There are a few other small nodules measuring 2 mm or less. No pneumothorax. N o endobronchial lesions. Moderate thoracic spondylosis. Accentuated kyphosis. IMPRESSION: 1. Lung-RADS category 2: Benign appearance or behavior. Continue annual screening with noncontrast lo w-dose chest CT in 12 months. Reviewed, dictated and finalized at location B. IMPRESSION: 1. Lung-RADS category 2: Benign appearance or behavior. Continue annual screeni ng with noncontrast low-dose chest CT in 12 months.
== END 2023-03-06 14:15 | disposition home or self-care (01) ==
PROVIDERS: PCP Family Medicine; Visit Provider Nurse Practitioner Family
DX: Z12.2 Encounter for screening for malignant neoplasm of respiratory organs (principal); Z87.891 Personal history of nicotine dependence
CPT/HCPCS: 71271

== ENCOUNTER 2023-07-24 00:35 | Day surgery (SDC) | payer MEDICARE, SELFPAY ==
[2023-07-20 14:40] VITALS: BMI 23.8
--- NOTE | 2023-07-22 10:00 | SUR.PREOP ---
Patient called regarding upcoming procedure. Message left pt's voicemail regarding appointment times.
[2023-07-24 06:28] VITALS: BP 137/85; PULSE 81; RESP 20; TEMP 36.5; O2SAT 98
[2023-07-24] MEDS: LACTATED RINGERS 1,000 ML 150 ML IV CONT (06:42)
[2023-07-24 06:47] LABS: Glucose Point of Care 96 mg/dl (65-105)
--- NOTE | 2023-07-24 07:28 | WPDANESEPPF ---
Anes - Initial Pre Proc Eval Procedure: Operation Date: 07/24/23 07:30 Proposed Procedures p Esophagogastroduodenoscopy - Kristian Chawla MD Date/Time: 07/24/23 07:28 Surgeon: Kristian Chawla MD Pre Op Diagnosis: Perea's esophagus Patient Data Age: 67 Gender: F Height: 1.52 m Weight: 55.8 kg Last Vital Signs Temp 97.7 F 07/24/23 06:28 Pulse 81 07/24/23 06:28 Resp 20 07/24/23 06:28 BP 137/85 07/24/23 06:28 Pulse Ox 98 07/24/23 06:28 O2 Del Method Room Air 07/24/23 06:28 Allergies Allergy/AdvReac Type Severity Reaction Status Date / Time amoxicillin Allergy Unknown Skin Verified 07/24/23 06:27 Reaction Penicillins Allergy Unknown Hives Verified 07/24/23 06:27 metformin AdvReac Severe caused Verified 07/24/23 06:27 severe decreased renal function oxycodone AdvReac Mild weird Verified 07/24/23 06:27 dreams Home Medications Medication Instructions Recorded Confirmed Type buspirone 15 mg tablet 45 mg PO BID 11/03/19 07/20/23 History dextroamphetamine-amphetamine ER 30 mg PO QAM 11/03/19 07/20/23 History 30 mg 24hr capsule,extend release (Adderall XR) esomeprazole magnesium 40 mg 40 mg PO BID 11/03/19 07/20/23 History capsule,delayed release cholecalciferol (vitamin D3) 50 50 mcg PO DAILY 12/13/19 07/20/23 History mcg (2,000 unit) capsule (Vitamin D3) ascorbic acid (vitamin C) 100 mg 500 mg PO DAILY 03/16/20 07/20/23 History tablet oxcarbazepine 150 mg 75 mg PO BID 06/07/20 07/20/23 History tablet,extended release 24 hr trazodone 50 mg tablet 25 mg PO HS PRN Sleep 07/07/22 07/20/23 History umeclidinium 62.5 mcg-vilanterol 1 inh inhalation DAILY #60 ea 08/06/22 07/20/23 Rx 25 mcg/actuation powdr for inhalation (Anoro Ellipta) amlodipine 10 mg tablet 10 mg PO DAILY #90 tabs 11/05/22 07/20/23 Rx desvenlafaxine succinate 25 mg 25 mg PO DAILY 11/13/22 07/20/23 History tablet,extended release 24 hr blood sugar diagnostic #300 ea 12/26/22 01/05/23 Rx lamotrigine 200 mg tablet 200 mg PO HS 01/05/23 07/20/23 History (Lamictal) dulaglutide 0.75 mg/0.5 mL 0.75 mg (0.5 mL) subcut WEEKLY #2 01/29/23 07/20/23 Rx subcutaneous pen injector mL (Trulicity) albuterol sulfate 2.5 mg/0.5 mL 2.5 mg (0.5 mL) inhalation QID PRN 05/05/23 07/20/23 Rx solution for nebulization Shortness Of Breath Or Wheezing #120 ea albuterol sulfate 90 mcg/actuation 1 - 2 inh inhalation Q4-6H PRN 07/02/23 07/20/23 Rx aerosol inhaler shortness of breath or wheezing #8.5 grams alprazolam 1 mg tablet 1 mg PO DIRECTED 07/20/23 07/20/23 History atorvastatin 40 mg tablet 40 mg PO HS 07/20/23 07/20/23 History desvenlafaxine succinate 50 mg 50 mg PO DAILY 07/20/23 07/20/23 History tablet,extended release 24 hr ezetimibe 10 mg tablet 10 mg PO DAILY 07/20/23 07/20/23 History montelukast 10 mg tablet 10 mg PO DAILY 07/20/23 07/20/23 History multivitamin with minerals-folic 1 tablet PO DAILY 07/20/23 07/20/23 History acid 0.4 mg tablet Laboratory Tests 07/24/23 06:34 POC Capillary Glucose 96 mg/dl (65-105) Patient hx anesthesia problems: none Family hx anesthesia problems: none Results Review: All pre-operative results and documents have been reviewed as part of the pre-operative evaluation. [facility] Past Medical History Medical History (Updated 05/26/23 @ 10:38 by Breezy Bernardo PA-C) Adenomatous colon polyp Perea esophagus Depression with anxiety Essential hypertension Microcytic anemia Mixed hyperlipidemia Moderate persistent asthma, uncomplicated Right shoulder pain Slurred speech Surgical History Surgical History History of colonoscopy with polypectomy History of Aline fundoplication (03/2020) History of open reduction and internal fixation (ORIF) procedure Repair of right wrist fracture. History of tonsillectomy
--- NOTE | 2023-07-24 07:32 | PM.HPGS ---
History of Present Illness History of Present Illness Consent: Risks, benefits, and alternatives have been discussed and questions answered. Patient agrees to proceed with procedure. Chief complaint: Palomo's esophagus Narrative: Leona Calvo is a 67 year old female with palomo's esophagus doing ok on nexium, last egd over 3 years ago Review of Systems Constitutional: Constitutional: Denies headache(s) and Denies weakness Eyes: Eyes: Denies blurry vision ENT: Reports Normal hearing present, Denies headache(s) and Denies neck pain Cardiovascular: Cardiovascular: Denies chest pain and Denies dyspnea Respiratory: Respiratory: Denies dyspnea Gastrointestinal: Gastrointestinal: Reports no additional gastrointestinal complaints Genitourinary: Genitourinary: Denies dysuria Musculoskeletal: Musculoskeletal: Denies neck pain Integumentary/Breasts: Skin/Breast: Denies dry skin Neurologic: Reports Normal hearing present, Denies headache(s) and Denies weakness Psychiatric: Psychiatric: Denies anxiety Endocrine: Endocrine: Denies change in body appearance Hematologic/Lymphatic: Hematologic/Lymphatic: Denies easy bleeding Allergic/Immunologic: Allergic/Immunologic: Denies urticaria PMFSH Past Medical History Medical History (Updated 05/26/23 @ 10:38 by Breezy Bernardo PA-C) Adenomatous colon polyp Palomo esophagus Depression with anxiety Essential hypertension Microcytic anemia Mixed hyperlipidemia Moderate persistent asthma, uncomplicated Right shoulder pain Slurred speech Surgical History Surgical History History of colonoscopy with polypectomy History of Aline fundoplication (03/2020) History of open reduction and internal fixation (ORIF) procedure Repair of right wrist fracture. History of tonsillectomy Family History Family History Mother Family history of osteoporosis, Onset Age: 84 Patient's mother is Family history of Alzheimer's disease Hypertension Father Family history of cardiovascular disease Patient's father is Family history of hypercholesterolemia Family history of pancreatic cancer Hypertension Grandparent Diabetes mellitus Sibling Depression Family history of hypercholesterolemia AAA (abdominal aortic aneurysm) Other Cerebrovascular accident Colon polyp Family history of arthritis Family history of chronic obstructive pulmonary disease Family history of gout Family history of heart disease in male family member before age 55 Family history of lung disease Family history of malignant melanoma Family history of malignant neoplasm Family history of mental disorder Family history of rheumatic fever Family history of schizophrenia Social History Social History (Updated 05/26/23 @ 10:17 by Marcia Mcgill) Social History: Surrogate medical decision maker: Quinton Calvo, spouse. Code status: Full code. Caffeine- daily Smoking packs per day: 1 Smoking cigarettes per day: 20.0 Years smoked: 52 Smoking pack-years: 52.00 Smoking status: Current every day smoker Tobacco type: cigarettes Alcohol intake: current Alcohol use details: occasional Substance use type: does not use Last use: Tried gummies Lack of Transportation: No Lack of Food: Never True Current Housing: I Have Housing Concerned About Future Housing: No Difficulty Paying Gas/Electric Bills: No Difficulty Paying for Meds: No Currently Unemployed: No Education: High School Diploma/GED Difficulty w/ Childcare or Family Care: No Living arrangements: with family Additional living arrangements comments: Lives with spouse in [place]. Additional occupation/education comments: Retired. Spiritual care concerns: No Meds Home Medications and Allergies Home Medications Medication Instructions Recorded Confirmed
[2023-07-24 07:48] VITALS: BP 112/66; PULSE 81; RESP 18; O2SAT 98
[2023-07-24 07:58] VITALS: BP 112/68; PULSE 74; RESP 18; O2SAT 98
[2023-07-24 08:08] VITALS: BP 125/80; PULSE 71; RESP 18; O2SAT 99
== END 2023-07-24 08:14 | disposition home or self-care (01) ==
PROVIDERS: PCP Family Medicine; Visit Provider Internal Medicine Gastroenterology
PROC: 0DJ08ZZ Inspection of Upper Intestinal Tract, Via Natural or Artificial Opening Endoscopic (ICD-10-PCS; CPT 43235; principal; 2023-07-24 07:30)
DX: K22.70 Barrett's esophagus without dysplasia (principal); K44.9 Diaphragmatic hernia without obstruction or gangrene; K31.84 Gastroparesis; K21.9 Gastro-esophageal reflux disease without esophagitis; Z79.51 Long term (current) use of inhaled steroids; Z79.85 Long-term (current) use of injectable non-insulin antidiabetic drugs; I10 Essential (primary) hypertension; J45.40 Moderate persistent asthma, uncomplicated; E78.2 Mixed hyperlipidemia; F41.8 Other specified anxiety disorders; F17.210 Nicotine dependence, cigarettes, uncomplicated
CPT/HCPCS: 43239; 82948; 88305; J2704; J7120

== ENCOUNTER 2023-07-28 10:32 | Outpatient (CLI) | payer MEDICARE, SELFPAY ==
--- NOTE | ~2023-07-28 | MM_ITS ---
EXAMINATION: MM screening cleo BI w jia HISTORY: Screening mammogram TECHNIQUE: Craniocaudal and mediolateral oblique 3-D tomosynthesis images were obtained and synthetic 2-D images were generated. CAD analysis was submitted and interpreted. COMPARISON: July 24, 2022 bilateral screening mammogram February 21, 2021 diagnostic right mammogram February 14, 2021, October 05, 2018 bilateral screening mammogram examinations BREAST PARENCHYMAL COMPOSITION: The breasts are heterogeneously dense, which may obscure small masses . FINDINGS: Scattered bilateral benign calcifications. There is no evidence of suspicious mass, calcifi cation, or architectural distortion to suggest malignancy in either breast. There has been no suspici ous interval change. IMPRESSION: 1. No mammographic evidence of malignancy. 2. Recommend routine screening mammography in one year. BI-RADS Category 2: Benign finding(s). Reviewed, dictated and finalized at location A. 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
== END 2023-07-28 10:33 | disposition home or self-care (01) ==
LOC: CHSIMG 10:33
PROVIDERS: PCP Family Medicine; Visit Provider Family Medicine
DX: Z12.31 Encounter for screening mammogram for malignant neoplasm of breast (principal)
CPT/HCPCS: 77063; 77067

== ENCOUNTER 2024-03-04 08:03 | Outpatient (CLI) | payer MEDICARE, SELFPAY ==
--- NOTE | ~2024-03-04 | CT_ITS ---
EXAMINATION: CT lung screening DATE: 03/04/2024 08:20 INDICATION: hx nicotine dependence, annual screening TECHNIQUE: Computed tomography (CT) of the chest was performed without intravenous contrast. Addition al 3D reconstructions utilizing coronal maximum intensity projection (MIP) were performed. Automated exposure control and iterative reconstruction technique were employed. The dose-length product was 80 .00 mGy-cm. COMPARISON: 03/06/2023 FINDINGS: Again seen are few scattered tiny calcified and noncalcified pulmonary nodules, the largest noncalcif ied nodule in the right middle lobe measuring 3 mm which is unchanged. No pneumonia, pulmonary edema or pleural effusion. Heart size is normal. Atherosclerotic coronary artery calcifications and aortic valve calcification. No pericardial effusion. Additional atherosclerotic calcification is along the n ormal caliber thoracic aorta and at the great vessels arising from the arch. No pathologically enlarg ed thoracic lymphadenopathy. Postoperative changes at the gastroesophageal junction. 1.5 cm cyst at t he upper pole of the left kidney. Unchanged 1.2 cm right adrenal adenoma. Mild thoracic kyphosis with chronic mild anterior wedging of a few mid midthoracic to upper lumbar vertebral bodies. Moderate to severe spondylosis. IMPRESSION: 1. Lung-RADS category 2: Benign appearance or behavior. Continue annual screening with noncontrast lo w-dose chest CT in 12 months. Reviewed, dictated and finalized at location B. IMPRESSION: 1. Lung-RADS category 2: Benign appearance or behavior. Continue annual screeni ng with noncontrast low-dose chest CT in 12 months.
--- NOTE | ~2024-03-04 | US_ITS ---
Abdominal Sonogram: Real-time sonographic imaging of the abdomen was performed. Clinical History: Abnormal weight loss Findings: The liver appears normal with no evidence of mass lesion or bile duct dilatation. Main por kev vein demonstrates normal direction of flow. The spleen is normal in size without evidence of foca l lesion. The gallbladder is well distended, and appears normal with no evidence of gallstone or wal l thickening. The common bile duct measures 3 mm. The visualized aorta and IVC are unremarkable. The re is a 4.0 x 3.6 cm possible mass in the region of the pancreatic tail. The right kidney measures 8. 9 cm in length and the left kidney measures 10.0 cm. There is no hydronephrosis or renal calculus. Impression: 4 cm possible mass near the pancreatic tail. Contrast-enhanced CT recommended to further evaluate. Reviewed, dictated and finalized at [facility]. Impression: 4 cm possible mass near the pancreatic tail. Contrast-enhanced CT recommended t o further evaluate.
== END 2024-03-04 08:04 | disposition home or self-care (01) ==
LOC: GOSHIMG 08:04
PROVIDERS: PCP Nurse Practitioner Family; Visit Provider Family Medicine
DX: Z12.2 Encounter for screening for malignant neoplasm of respiratory organs (principal); R63.4 Abnormal weight loss; R11.0 Nausea; Z87.891 Personal history of nicotine dependence
CPT/HCPCS: 71271; 76700

== ENCOUNTER 2024-03-04 15:25 | Outpatient (CLI) | payer MEDICARE, SELFPAY ==
--- NOTE | ~2024-03-04 | CT_ITS ---
EXAMINATION: CT abdomen pelvis w con DATE: 03/04/2024 15:46 INDICATION: Pancreas disease. TECHNIQUE: Computed tomography (CT) of the abdomen and pelvis was performed with 100 mL Omnipaque 350 intravenous contrast. Automated exposure control and iterative reconstruction technique were employe d. The dose-length product was 182.19 mGy-cm. COMPARISON: CT abdomen and pelvis 10/16/2022 FINDINGS: The visualized portions of the lung bases demonstrate mild atelectasis. No pleural effusion . The heart is normal. There are coronary artery calcifications. No pericardial effusion. There is a small sliding hiatal hernia. There are surgical changes of the stomach. There are cysts in the liver measuring up to 5 mm. The gallbladder is contracted. The spleen, pancreas, adrenal glands, and right kidney are normal. There is a 16 mm cyst in left kidney. There are no dilated loops of bowel. The giovanny endix is normal. There is calcified atherosclerosis of the aorta and many of the other arteries. Ther e are no pathologically enlarged lymph nodes. There is no free intraperitoneal fluid. There is mild t horacic spondylosis and severe lumbar spondylosis. IMPRESSION: 1. Normal pancreas. Reviewed, dictated and finalized at location A. IMPRESSION: 1. Normal pancreas.
[2024-03-04 15:43] LABS: Estimated Glomerular Filt Rate > 60
== END 2024-03-04 15:26 | disposition home or self-care (01) ==
PROVIDERS: PCP Family Medicine; Visit Provider Student in an Organized Health Care Education/Training Program
DX: K86.89 Other specified diseases of pancreas (principal); R63.4 Abnormal weight loss
CPT/HCPCS: 74177; Q9967

== ENCOUNTER 2024-05-03 03:00 | Day surgery (SDC) | payer MEDICARE, SELFPAY ==
[2024-04-22 09:24] VITALS: BMI 20.5
--- NOTE | 2024-05-03 07:00 | P.PNAN_ITS ---
Anes - Initial Pre Proc Eval Procedure: Operation Date: 05/03/24 08:00 Proposed Procedures p Screening Colonoscopy - Kristian Chawla MD Date/Time: 05/03/24 07:00 Surgeon: Kristian Chawla MD Pre Op Diagnosis: Neoplasm screening Patient Data Age: 68 Gender: F Height: 1.5 m Weight: 46 kg Allergies Allergy/AdvReac Type Severity Reaction Status Date / Time amoxicillin Allergy Unknown Skin Verified 04/22/24 10:29 Reaction Penicillins Allergy Unknown Hives Verified 04/22/24 10:29 metformin AdvReac Severe caused Verified 04/22/24 10:29 severe decreased renal function oxycodone AdvReac Mild weird Verified 04/22/24 10:29 dreams Home Medications Medication Instructions Recorded Confirmed Type dextroamphetamine-amphetamine ER 20 mg PO QAM 11/03/19 04/22/24 History 30 mg 24hr capsule,extend release (Adderall XR) cholecalciferol (vitamin D3) 50 50 mcg PO DAILY 12/13/19 04/22/24 History mcg (2,000 unit) capsule (Vitamin D3) ascorbic acid (vitamin C) 100 mg 500 mg PO DAILY 03/16/20 04/22/24 History tablet trazodone 50 mg tablet 25 mg PO HS PRN Sleep 07/07/22 04/22/24 History desvenlafaxine succinate 25 mg 25 mg PO DAILY 11/13/22 04/22/24 History tablet,extended release 24 hr (Pristiq) blood sugar diagnostic #300 ea 12/26/22 04/22/24 Rx lamotrigine 200 mg tablet 200 mg PO HS 01/05/23 04/22/24 History (Lamictal) albuterol sulfate 2.5 mg/0.5 mL 2.5 mg (0.5 mL) inhalation QID PRN 05/05/23 04/22/24 Rx solution for nebulization Shortness Of Breath Or Wheezing #120 ea desvenlafaxine succinate 50 mg 50 mg PO DAILY 07/20/23 04/22/24 History tablet,extended release 24 hr (Pristiq) multivitamin with minerals-folic 1 tablet PO DAILY 07/20/23 04/22/24 History acid 0.4 mg tablet dulaglutide 0.75 mg/0.5 mL 0.75 mg (0.5 mL) subcut WEEKLY #6 08/12/23 04/22/24 Rx subcutaneous pen injector mL (Trulicity) montelukast 10 mg tablet 10 mg PO DAILY #30 tabs 08/14/23 04/22/24 Rx esomeprazole magnesium 40 mg 40 mg PO BID 1 month #60 caps 09/29/23 04/22/24 Rx capsule,delayed release oxcarbazepine 150 mg tablet 150 mg PO BID 11/26/23 04/22/24 History umeclidinium 62.5 mcg-vilanterol 1 inh inhalation DAILY #60 ea 12/08/23 04/22/24 Rx 25 mcg/actuation powdr for inhalation (Anoro Ellipta) buspirone 15 mg tablet 10 mg PO BID 01/07/24 04/22/24 History albuterol sulfate 90 mcg/actuation 1 - 2 inh inhalation Q4-6H PRN 01/21/24 04/22/24 Rx aerosol inhaler shortness of breath or wheezing #8.5 grams atorvastatin 40 mg tablet 40 mg PO HS #90 tabs 01/21/24 04/22/24 Rx amlodipine 10 mg tablet 10 mg PO DAILY #90 tabs 03/31/24 04/22/24 Rx ezetimibe 10 mg tablet 10 mg PO DAILY #90 tabs 03/31/24 04/22/24 Rx Patient hx anesthesia problems: none Family hx anesthesia problems: none Results Review: All pre-operative results and documents have been reviewed as part of the pre- operative evaluation. [facility] Past Medical History Medical History Adenomatous colon polyp Constipation Depression with anxiety Essential hypertension Microcytic anemia Mixed hyperlipidemia Moderate persistent asthma, uncomplicated Right shoulder pain Sleepiness Slurred speech Surgical History Surgical History History of colonoscopy with polypectomy History of Aline fundoplication (03/2020) History of open reduction and internal fixation (ORIF) procedure Repair of right wrist fracture. History of tonsillectomy Family History Family History Mother Family history of osteoporosis, Onset Age: 84 Patient's mother is Family history of Alzheimer's disease Hypertension Father Family history of cardiovascular disease Patient's father is Family history of hypercholesterolemia Family history of pancreatic cancer Hypertension Grandparent Diabetes mellitus Sibling Depression Family history of hypercholesterolemia AAA (abdominal aortic aneurysm) Other Cerebrovascular accident Colon polyp Family history of arthritis Family history of chronic obstructive pulmonary disease Family history of gout Family history of heart disease in male family member before age 55 Family history of lung disease Family history of malignant melanoma Family history of malignant neoplasm Family history of mental disorder Family history of rheumatic fever Family history of schizophrenia Social History Social History Social History: Surrogate medical decision maker: Quinton Calvo, spouse. Code status: Full code. Caffeine- daily Smoking packs per day: 2 Smoking cigarettes per day: 40.0 Years smoked: 52 Smoking pack-years: 104.00 Smoking status: Current every day smoker Tobacco type: cigarettes Alcohol intake: current Drinks per week: 1 Alcohol use details: occasional Substance use: former Substance use type: marijuana Last use: 5 months ago Do You Feel Safe in your Home?: Yes Lack of Transportation: No Lack of Food: Never True Current Housing: I Have Housing Concerned About Future Housing: No Difficulty Paying Gas/Electric Bills: No Difficulty Paying for Meds: No Currently Unemployed: No Education: High School Diploma/GED Difficulty w/ Childcare or Family Care: No Living arrangements: with family Additional living arrangements comments: Lives with spouse in [place]. Additional occupation/education comments: Retired. Spiritual care concerns: No Anes - Eval Final PreProcedure Day of Procedure 05/03/24 07:00 Patient weight: normal Heart: regular rate and rhythm Lungs: clear to auscultation Airway: Mallampati scale class II Neurological: alert and oriented Last oral intake: >/= 8 hours ASA classification: III Emergent: no Anesthetic plan: proceed Anesthesia type and monitoring: general GIVS and standard monitoring Results Review: All pre-operative results and documents have been reviewed as part of the pre-operative evaluation. Informed Consent: The patient's anesthetic plan and its attendant risks and benefits were discussed with the patient/family/POA. Questions were solicited and answers provided to the satisfaction of the patient/family/POA.
[2024-05-03] MEDS: LACTATED RINGERS 1,000 ML 150 ML IV CONT (07:14)
[2024-05-03 07:15] VITALS: BP 125/82; PULSE 86; RESP 16; TEMP 36.6; O2SAT 97
[2024-05-03 07:52] LABS: Glucose Point of Care 107 mg/dl (65-105)
--- NOTE | 2024-05-03 08:09 | PM.HPGS ---
History of Present Illness History of Present Illness Consent: Risks, benefits, and alternatives have been discussed and questions answered. Patient agrees to proceed with procedure. Chief complaint: Neoplasm screening Narrative: Leona Calvo is a 68 year old female here for colonoscopy 2019, h/o polyp Review of Systems Review of Systems: All systems reviewed & are unremarkable except as noted in HPI and below PMFSH Past Medical History Medical History Adenomatous colon polyp Constipation Depression with anxiety Essential hypertension Microcytic anemia Mixed hyperlipidemia Moderate persistent asthma, uncomplicated Right shoulder pain Sleepiness Slurred speech Surgical History Surgical History History of colonoscopy with polypectomy History of Aline fundoplication (03/2020) History of open reduction and internal fixation (ORIF) procedure Repair of right wrist fracture. History of tonsillectomy Family History Family History Mother Family history of osteoporosis, Onset Age: 84 Patient's mother is Family history of Alzheimer's disease Hypertension Father Family history of cardiovascular disease Patient's father is Family history of hypercholesterolemia Family history of pancreatic cancer Hypertension Grandparent Diabetes mellitus Sibling Depression Family history of hypercholesterolemia AAA (abdominal aortic aneurysm) Other Cerebrovascular accident Colon polyp Family history of arthritis Family history of chronic obstructive pulmonary disease Family history of gout Family history of heart disease in male family member before age 55 Family history of lung disease Family history of malignant melanoma Family history of malignant neoplasm Family history of mental disorder Family history of rheumatic fever Family history of schizophrenia Social History Social History Social History: Surrogate medical decision maker: Quinton Calvo, spouse. Code status: Full code. Caffeine- daily Smoking packs per day: 2 Smoking cigarettes per day: 40.0 Years smoked: 52 Smoking pack-years: 104.00 Smoking status: Current every day smoker Tobacco type: cigarettes Alcohol intake: current Drinks per week: 1 Alcohol use details: occasional Substance use: former Substance use type: marijuana Last use: 5 months ago Do You Feel Safe in your Home?: Yes Lack of Transportation: No Lack of Food: Never True Current Housing: I Have Housing Concerned About Future Housing: No Difficulty Paying Gas/Electric Bills: No Difficulty Paying for Meds: No Currently Unemployed: No Education: High School Diploma/GED Difficulty w/ Childcare or Family Care: No Living arrangements: with family Additional living arrangements comments: Lives with spouse in [place]. Additional occupation/education comments: Retired. Spiritual care concerns: No Meds Home Medications and Allergies Home Medications Medication Instructions Recorded Confirmed Type dextroamphetamine-amphetamine ER 20 mg PO QAM 11/03/19 05/03/24 History 30 mg 24hr capsule,extend release (Adderall XR) cholecalciferol (vitamin D3) 50 50 mcg PO DAILY 12/13/19 05/03/24 History mcg (2,000 unit) capsule (Vitamin D3) ascorbic acid (vitamin C) 100 mg 500 mg PO DAILY 03/16/20 05/03/24 History tablet trazodone 50 mg tablet 25 mg PO HS PRN Sleep 07/07/22 05/03/24 History desvenlafaxine succinate 25 mg 25 mg PO DAILY 11/13/22 05/03/24 History tablet,extended release 24 hr (Pristiq) blood sugar diagnostic #300 ea 12/26/22 05/03/24 Rx lamotrigine 200 mg tablet 200 mg PO HS 01/05/23 05/03/24 History (Lamictal) albuterol sulfate 2.5 mg/0.5 mL 2.5 mg (0.5 mL) inhalation QID PRN 05/05/23 05/03/24 Rx solution for nebulization Shortness Of Breath Or Wheezing #120 ea desvenlafaxine succinate 50 mg 50 mg PO DAILY 07/20/23 05/03/24 History tablet,extended release 24 hr (Pristiq) multivitamin with minerals-folic 1 tablet PO DAILY 07/20/23 05/03/24 History acid 0.4 mg tablet dulaglutide 0.75 mg/0.5 mL 0.75 mg (0.5 mL) subcut WEEKLY #6 08/12/23 05/03/24 Rx subcutaneous pen [facility] montelukast 10 mg tablet 10 mg PO DAILY #30 tabs 08/14/23 05/03/24 Rx esomeprazole magnesium 40 mg 40 mg PO BID 1 month #60 caps 09/29/23 05/03/24 Rx capsule,delayed release oxcarbazepine 150 mg tablet 150 mg PO BID 11/26/23 05/03/24 History umeclidinium 62.5 mcg-vilanterol 1 inh inhalation DAILY #60 ea 12/08/23 05/03/24 Rx 25 mcg/actuation powdr for inhalation (Anoro Ellipta) buspirone 15 mg tablet 10 mg PO BID 01/07/24 05/03/24 History albuterol sulfate 90 mcg/actuation 1 - 2 inh inhalation Q4-6H PRN 01/21/24 05/03/24 Rx aerosol inhaler shortness of breath or wheezing #8.5 grams atorvastatin 40 mg tablet 40 mg PO HS #90 tabs 01/21/24 05/03/24 Rx amlodipine 10 mg tablet 10 mg PO DAILY #90 tabs 03/31/24 05/03/24 Rx ezetimibe 10 mg tablet 10 mg PO DAILY #90 tabs 03/31/24 05/03/24 Rx Allergies Allergy/AdvReac Type Severity Reaction Status Date / Time amoxicillin Allergy Unknown Skin Verified 05/03/24 07:03 Reaction Penicillins Allergy Unknown Hives Verified 05/03/24 07:03 metformin AdvReac Severe caused Verified 05/03/24 07:03 severe decreased renal function oxycodone AdvReac Mild weird Verified 05/03/24 07:03 dreams Vital Signs Vital Signs - 24 hr 05/03/24 07:15 Temperature 97.9 F Pulse Rate 86 Respiratory Rate 16 Blood Pressure 125/82 Pulse Oximetry 97 Oxygen Delivery Room Air Exam Const: General: comfortable and no acute distress HENMT: Face/Nose/Sinus: Normal nares present Eyes: General: appearance normal, both eyes and all related structures Neck: Neck: no JVD Resp: Auscultation: clear to auscultation bilaterally Cardio: Rate: regular rate Rhythm: regular rhythm GI: Inspection: non-distended GI Palp: Yes Soft to palpation Skin: General skin exam: normal color Neuro: General: gait normal Speech: normal speech Extrem: General: normal to inspection Psych: Mental Status: mental status grossly normal Assessment and Plan Assessment and plan (1) Personal history of colonic polyps: Code(s): Z86.010 - Personal history of colon polyps Status: Acute Assessment and Plan: colonoscopy
[2024-05-03 08:40] VITALS: BP 107/50; PULSE 82; RESP 28; O2SAT 100
[2024-05-03 08:50] VITALS: BP 148/87; PULSE 77; RESP 22; O2SAT 100
[2024-05-03 09:00] VITALS: BP 170/91; PULSE 79; RESP 23; O2SAT 100
== END 2024-05-03 09:00 | disposition home or self-care (01) ==
PROVIDERS: PCP Family Medicine; Visit Provider Internal Medicine Gastroenterology
PROC: 0DJD8ZZ Inspection of Lower Intestinal Tract, Via Natural or Artificial Opening Endoscopic (ICD-10-PCS; CPT 45378; principal; 2024-05-03 08:00)
DX: Z12.11 Encounter for screening for malignant neoplasm of colon (principal); D12.4 Benign neoplasm of descending colon; K63.5 Polyp of colon; K64.8 Other hemorrhoids; J45.40 Moderate persistent asthma, uncomplicated; I10 Essential (primary) hypertension; E78.2 Mixed hyperlipidemia; D64.9 Anemia, unspecified; F41.8 Other specified anxiety disorders; F17.210 Nicotine dependence, cigarettes, uncomplicated; Z79.51 Long term (current) use of inhaled steroids; Z79.85 Long-term (current) use of injectable non-insulin antidiabetic drugs
CPT/HCPCS: 45385; 82948; 88305; J2003; J2704; J7120

== ENCOUNTER 2024-06-12 14:09 | Emergency (ER) | payer OTHER, MEDICARE, SELFPAY ==
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
[2024-06-12 14:31] VITALS: BP 150/83; PULSE 82; RESP 16; TEMP 36.6; O2SAT 100
[2024-06-12] MEDS: ACETAMINOPHEN 500 MG TABLET 1000 MG PO (15:26)
[2024-06-12] MEDS: KETOROLAC 30 MG/ML VIAL (*BKC) IM (15:27)
[2024-06-12] MEDS: methocarbamoL 750 MG TABLET PO (15:27)
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
--- OUTSIDE RECORDS SUMMARY | 2024-06-19 21:12 | XMS_ITS ---
Author Organization [facility] Address [address] [facility] [address] [place] [address] Care Team Providers Care Operations Associate Name Role Phone Troy Givens MD Primary Care Provider Remington Alaniz Unavailable [phone] Allergies Allergen (clinical drug ingredient) Drug/Non Drug Allergy documented on EMR Reaction Allergy Type Onset Date Status metformin Metformin Unknown Drug Allergy 10/29/2023 Active oxycodone Oxycodone Unknown Drug Allergy 10/29/2023 Active Substance with penicillin structure and antibacterial mechanism of action (substance) Penicillins Unknown Drug Allergy 10/29/2023 Active Results Component Value Reference Range Notes UDT Reviewed date:06/03/2024 08:51:47 AM Interpretation: Performing Lab: Notes/Report: 0 THC N 0 - 50 ng/ml Cocaine N 0 - 300 ng/ml Amphetamine P 0 - 1000 ng/ml Buprenorphine (BUP) N 0 - 10 ng/ml Secobarbital (Bar) N 0 - 300 ng/ml Oxazepam (BZO) N 0 - 300 ng/ml 0-hldrjkuzwt-6,8-euhhczac-3,3-diphenylpyrrolidine (CASI P) N 0 - 300 ng/ml Methamphetamine (MET) N 0 - 1000 ng/ml Methylenedioxymethamphetamine (MDMA) N 0 - 500 ng/ml Morphine (MOP 300/[id number]) N 0 - 300 ng/ml Methadone (MTD) N 0 - 300 ng/ml Phencyclidine (PCP) N 0 - 25 ng/ml Propoxyphene (PPX) N 0 - 300 ng/ml Nortriptyline (TCA) N 0 - 1000 ng/ml Oxycodone N 0 - 300 ng/ml REASON FOR VISIT Needs refill on her medications, 1 Follow up, phq less than 5, MIPS Tobacco screening, UDT Visit, UDT done, PSYCHOTHERAPY W/PATIENT W/E M Medications Medication SIG (Take, Route, Frequency, Duration) Notes Start Date End Date Status Anoro Ellipta 62.5-25 MCG/ACT INHALE 1 PUFF DAILY Inhalation for 30 Days Unknown Ezetimibe 10 MG TAKE 1 TABLET BY ERICH TH EVERY DAY Oral for 90 Days Unknown busPIRone HCl 15 MG 1 tablet Oral four times a day for 30 days Unknown Montelukast Sodium 10 MG TAKE 1 TABLET B Y MOUTH EVERY DAY Oral for 90 Days Unknown Atorvastatin Calcium 40 MG TAKE 1 TABLET BY MOUTH EVERYDAY AT BEDTIME Oral for 90 Days Unknown traZODone HCl 50 MG TAKE 1 TABLET BY ERICH TH EVERYDAY AT BEDTIME for 90 Active Albuterol Sulfate HFA 108 (90 Base) MCG/ACT Inhalation for 29 Days Unknown Esomeprazole Magnesium 40 MG TAKE 1 CAPS ULE BY MOUTH TWICE A DAY Oral for 90 Days Unknown Desvenlafaxine Succinate ER 25 MG TAKE 1 TABLET BY MOUTH EVERY DAY for 90 Active Montelukast Sodium 10 MG TAKE 1 TABLET B Y MOUTH EVERY DAY Oral for 90 Days Active amLODIPine Besylate 10 MG TAKE 1 TABLET BY MOUTH EVERY DAY Oral for 90 Days Active Atorvastatin Calcium 40 MG TAKE 1 TABLET BY MOUTH EVERY DAY AT BEDTIME Oral for 90 Days Active Ezetimibe 10 MG TAKE 1 TABLET BY ERICH TH EVERY DAY Oral for 90 Days Active Desvenlafaxine Succinate ER 50 MG TAKE 1 TABLET BY MOUTH EVERY DAY for 90 Active Esomeprazole Magnesium 40 MG TAKE 1 CAPS ULE BY MOUTH TWICE A DAY Oral for 90 Days Active busPIRone HCl 15 MG TAKE 1 TABLET BY ERICH TH FIVE TIMES A DAY 90 DAYS Oral for 90 Days Active Anoro Ellipta 62.5-25 MCG/ACT INHALE 1 PUFF DAILY Inhalation for 30 Days Active lamoTRIgine 200 MG TAKE 1 TABLET BY ERICH TH EVERYDAY AT BEDTIME Oral for 90 Days Active OXcarbazepine 150 MG TAKE 1/2 TABLET BY MOUTH TWICE A DAY Oral for 90 Days Active lamoTRIgine 200 MG 1 tablet at bedtime Oral Once a day for 90 days Active traZODone HCl 50 MG 1 tablet at bedtime Oral Once a day for 90 days Active Ezetimibe 10 MG Oral for 90 Days Active OXcarbazepine 150 MG 0.5 tablet Oral Twi ce a day for 90 days Active busPIRone HCl 15 MG 1 tablet Oral four times a day for 90 days Active Amphetamine-Dextroamphet ER 25 MG 1 capsule in the morning Oral Once a day for 30 days dose reduced 06/03/2024 Active Social History Sex Assigned At : Social History Observation Description Sex Assigned At Female Vital Signs Blood pressure systolic 113 mm Hg 06/03/20 24 Blood pressure diastolic 75 mm Hg 024 Heart Rate 99 /min 06/03/2024 Height 61.00 in 06/03/2024 Weight 107 lbs 06/03/2024 BMI 20.22 kg/m2 06/03/2024 Height-cm 154.94 cm 06/03/2024 Weight-kg 48.53 kg 06/03/2024 Encounters Encounter Location Date Provider Diagnosis [facility] [address] [address] 06/03/2024 Remington Webber Attention-deficit hyperactivity disorder, predominantly inattentive type F90.0 ; Bipolar disorder in remission F31.70 ; Perea's esophagus without dysplasia K22.70 ; Generalized anxiety disorder F41.1 ; Chronic obstructive pulmonary disease, unspecified J44.9 and Hypertension I10 Assessments Encounter Date Diagnosis (ICD Code) Assessment Notes Treatment Notes Treatment Clinical Notes Section Notes 06/03/2024 Attention-deficit hyperactivity disorder, predominantly inattentive type (ICD-10 - F90.0) Patient's Grandson's Behavioral and Emotional Issues - Assessment: Suspected ADHD with rage episodes and declining academic performance. Low self-worth and confidence. Family history of mental health issues. - Plan: - Refer to Dr. Arechiga at the [facility] for further evaluation and management. - Monitor response to ADHD medications if prescribed. - Consider evaluation for depression and address it separately if diagnosed. - Educate family on signs of anger and depression to watch for. - Encourage the use of breathing techniques for calming purposes. - Focus on present symptoms and treatment rather than extensive family history. Bipolar Disorder (in remission) - Plan: - Continue oxcarbazepine, 0.5 tablet twice a day. - Continue lamotrigine, 200 mg at bedtime. - Continue trazodone, 50 mg at bedtime. ADHD - Plan: - Continue Adderall, 25 mg daily. Anxiety Disorder - Plan: - Continue buspirone, 15 mg four times a day. Breathing Techniques - Plan: - Encourage continued practice of the 5-count inhale, 4-count hold, 3-count exhale technique. - Suggest incorporating the technique into daily routine and during moments of stress. - Clarify proper technique: gentle exhale, not forceful. Educational Videos - Plan: - Direct patient to the clinic's website and YouTube channel for access to relevant educational materials. - Recommend guided imagery videos for sleep improvement. Follow-up - Plan: - Schedule next appointment in 2 months. 06/03/2024 Bipolar disorder in remission (ICD-10 - F31.70) Patient's Grandson's Behavioral and Emotional Issues - Assessment: Suspected ADHD with rage episodes and declining academic performance. Low self-worth and confidence. Family history of mental health issues. - Plan: - Refer to Dr. Arechiga at the [facility] for further evaluation and management. - Monitor response to ADHD medications if prescribed. - Consider evaluation for depression and address it separately if diagnosed. - Educate family on signs of anger and depression to watch for. - Encourage the use of breathing techniques for calming purposes. - Focus on present symptoms and treatment rather than extensive family history. Bipolar Disorder (in remission) - Plan: - Continue oxcarbazepine, 0.5 tablet twice a day. - Continue lamotrigine, 200 mg at bedtime. - Continue trazodone, 50 mg at bedtime. ADHD - Plan: - Continue Adderall, 25 mg daily. Anxiety Disorder - Plan: - Continue buspirone, 15 mg four times a day. Breathing Techniques - Plan: - Encourage continued practice of the 5-count inhale, 4-count hold, 3-count exhale technique. - Suggest incorporating the technique into daily routine and during moments of stress. - Clarify proper technique: gentle exhale, not forceful. Educational Videos - Plan: - Direct patient to the clinic's website and YouTube channel for access to relevant educational materials. - Recommend guided imagery videos for sleep improvement. Follow-up - Plan: - Schedule next appointment in 2 months. 06/03/2024 Perea's esophagus without dysplasia (ICD-10 - K22.70) Patient's Grandson's Behavioral and Emotional Issues - Assessment: Suspected ADHD with rage episodes and declining academic performance. Low self-worth and confidence. Family history of mental health issues. - Plan: - Refer to Dr. Arechiga at the [facility] for further evaluation and management. - Monitor response to ADHD medications if prescribed. - Consider evaluation for depression and address it separately if diagnosed. - Educate family on signs of anger and depression to watch for. - Encourage the use of breathing techniques for calming purposes. - Focus on present symptoms and treatment rather than extensive family history. Bipolar Disorder (in remission) - Plan: - Continue oxcarbazepine, 0.5 tablet twice a day. - Continue lamotrigine, 200 mg at bedtime. - Continue trazodone, 50 mg at bedtime. ADHD - Plan: - Continue Adderall, 25 mg daily. Anxiety Disorder - Plan: - Continue buspirone, 15 mg four times a day. Breathing Techniques - Plan: - Encourage continued practice of the 5-count inhale, 4-count hold, 3-count exhale technique. - Suggest incorporating the technique into daily routine and during moments of stress. - Clarify proper technique: gentle exhale, not forceful. Educational Videos - Plan: - Direct patient to the clinic's website and YouTube channel for access to relevant educational materials. - Recommend guided imagery videos for sleep improvement. Follow-up - Plan: - Schedule next appointment in 2 months. 06/03/2024 Generalized anxiety disorder (ICD-10 - F41.1) Patient's Grandson's Behavioral and Emotional Issues - Assessment: Suspected ADHD with rage episodes and declining academic performance. Low self-worth and confidence. Family history of mental health issues. - Plan: - Refer to Dr. Arechiga at the [facility] for further evaluation and management. - Monitor response to ADHD medications if prescribed. - Consider evaluation for depression and address it separately if diagnosed. - Educate family on signs of anger and depression to watch for. - Encourage the use of breathing techniques for calming purposes. - Focus on present symptoms and treatment rather than extensive family history. Bipolar Disorder (in remission) - Plan: - Continue oxcarbazepine, 0.5 tablet twice a day. - Continue lamotrigine, 200 mg at bedtime. - Continue trazodone, 50 mg at bedtime. ADHD - Plan: - Continue Adderall, 25 mg daily. Anxiety Disorder - Plan: - Continue buspirone, 15 mg four times a day. Breathing Techniques - Plan: - Encourage continued practice of the 5-count inhale, 4-count hold, 3-count exhale technique. - Suggest incorporating the technique into daily routine and during moments of stress. - Clarify proper technique: gentle exhale, not forceful. Educational Videos - Plan: - Direct patient to the clinic's website and YouTube channel for access to relevant educational materials. - Recommend guided imagery videos for sleep improvement. Follow-up - Plan: - Schedule next appointment in 2 months. 06/03/2024 Chronic obstructive pulmonary disease, unspecified (ICD-10 - J44.9) Patient's Grandson's Behavioral and Emotional Issues - Assessment: Suspected ADHD with rage episodes and declining academic performance. Low self-worth and confidence. Family history of mental health issues. - Plan: - Refer to Dr. Arechiga at the [facility] for further evaluation and management. - Monitor response to ADHD medications if prescribed. - Consider evaluation for depression and address it separately if diagnosed. - Educate family on signs of anger and depression to watch for. - Encourage the use of breathing techniques for calming purposes. - Focus on present symptoms and treatment rather than extensive family history. Bipolar Disorder (in remission) - Plan: - Continue oxcarbazepine, 0.5 tablet twice a day. - Continue lamotrigine, 200 mg at bedtime. - Continue trazodone, 50 mg at bedtime. ADHD - Plan: - Continue Adderall, 25 mg daily. Anxiety Disorder - Plan: - Continue buspirone, 15 mg four times a day. Breathing Techniques - Plan: - Encourage continued practice of the 5-count inhale, 4-count hold, 3-count exhale technique. - Suggest incorporating the technique into daily routine and during moments of stress. - Clarify proper technique: gentle exhale, not forceful. Educational Videos - Plan: - Direct patient to the clinic's website and YouTube channel for access to relevant educational materials. - Recommend guided imagery videos for sleep improvement. Follow-up - Plan: - Schedule next appointment in 2 months. 06/03/2024 Hypertension (ICD-10 - I10) Patient's Grandson's Behavioral and Emotional Issues - Assessment: Suspected ADHD with rage episodes and declining academic performance. Low self-worth and confidence. Family history of mental health issues. - Plan: - Refer to Dr. Arechiga at the [facility] for further evaluation and management. - Monitor response to ADHD medications if prescribed. - Consider evaluation for depression and address it separately if diagnosed. - Educate family on signs of anger and depression to watch for. - Encourage the use of breathing techniques for calming purposes. - Focus on present symptoms and treatment rather than extensive family history. Bipolar Disorder (in remission) - Plan: - Continue oxcarbazepine, 0.5 tablet twice a day. - Continue lamotrigine, 200 mg at bedtime. - Continue trazodone, 50 mg at bedtime. ADHD - Plan: - Continue Adderall, 25 mg daily. Anxiety Disorder - Plan: - Continue buspirone, 15 mg four times a day. Breathing Techniques - Plan: - Encourage continued practice of the 5-count inhale, 4-count hold, 3-count exhale technique. - Suggest incorporating the technique into daily routine and during moments of stress. - Clarify proper technique: gentle exhale, not forceful. Educational Videos - Plan: - Direct patient to the clinic's website and YouTube channel for access to relevant educational materials. - Recommend guided imagery videos for sleep improvement. Follow-up - Plan: - Schedule next appointment in 2 months. Plan Of Treatment Medication Medication Name Sig Start Date Stop Date Notes lamoTRIgine 200 MG 1 tablet at bedtime Oral Once a day for 90 days traZODone HCl 50 MG 1 tablet at bedtime Oral Once a day for 90 days OXcarbazepine 150 MG 0.5 tablet Oral Twi ce a day for 90 days busPIRone HCl 15 MG 1 tablet Oral four t imes a day for 90 days Amphetamine-Dextroamphet ER 25 MG 1 capsule in the morning Oral Once a day for 30 days 06/03/2024 Next Appt Details Provider Name:Remington Webber , 08/04/2024 08:30:00 AM, [address], [address], [place], [address], Progress Notes * ABA BECKERB:1955 (68 yo F)Acc No.[id number]:06/03/2024 Patient:?ABA BECKER Provider:?REMINGTON WEBBER MD :1955???Age:68 Y???Sex:Female D ate:06/03/2024 Address:[address], [facility] Pcp:Troy Givens MD Subjective: * Chief Complaints: * ???Needs refill on her medic ations1 Follow upPhq less than 5MIPS Tobacco screeningUDT VisitUDT donePSYCHOTHERAPY W/PATIENT W/E M * HPI: ???Depression Screening:? The note is transcribed using speech recognition software. It is a reflection of a visit with the patient. It might have some inaccuracy, including medication names and transcribing errors, though efforts have been made to correct them. Chief Complaint: Grandson's emotional and behavioral difficulties Grandson's Health Concerns: The patient reports that her jeoi-dtti-pes grandson has been experiencing emotional and behavioral difficulties. Initially suspected to have ADHD, his symptoms have escalated to include rage, causing a decline in academic performance. The school psychologist has noted low self-worth and diminished confidence in the child. Upcoming Evaluation: The grandson is scheduled to see Dr. Arechiga at the [facility] for further evaluation and potential ADHD treatment. Family History: The patient expresses concern about the family history, which includes manipulation, mental health issues, and substance abuse. She mentions her daughter Flaquita's aiowhs-ld-zby as being particularly difficult. The patient also notes a history of depression, alcoholism, and anger issues in other family members. Coping Mechanisms: The patient has been practicing a breathing technique (5-count inhale, 4-count hold, 3-count exhale) and has found it helpful for herself and her family members. She has encouraged her grandson and son to practice this technique as well. The patient also uses guided imagery videos for sleep. Patient's Mental Health: The patient's bipolar disorder is currently in remission. Medications: The patient is on a medication regimen that includes oxcarbazepine, lamotrigine, trazodone, Adderall, and buspirone for bipolar, ADHD, and anxiety disorder management. Additional Actions: The patient is seeking to obtain her daughter Flaquita's medical information to assist in the evaluation process. She acknowledges the need to address any potential comorbid depression and ADHD separately in her grandson's case. ?KYLAH-7 (2018 Edition)?Feeling nervous, anxious, or on edge?Not at all,?Not being able to stop or control worrying?Not at all,?Worrying too much about different things?Not at all,?Trouble relaxing?Not at all,?Being so restless that it is hard to sit still?Not at all,?Becoming easily annoyed or irritable?Not at all,?Feeling afraid as if something awful might happen?Not at all,?Total KYLAH-7 Score?0,?Interpretation of Total?(0 to 4) No Anxiety.?Depression screening:?PHQ-9?Little interest or pleasure in doing things?Not at all,?Feeling down, depressed, or hopeless?Not at all,?Trouble falling or staying asleep, or sleeping too much?Not at all,?Feeling tired or having little energy?Not at all,?Poor appetite or overeating?Not at all,?Feeling bad about yourself or that you are a failure, or have let yourself or your family down?Not at all,?Trouble concentrating on things, such as reading the newspaper or watching television?Not at all,?Moving or speaking so slowly that other people could have noticed; or the opposite, being so fidgety or restless that you have been moving around a lot more than usual?Not at all,?Thoughts that you would be better off or of hurting yourself in some way?Not at all,?Total Score?0.?Intervention?Depression Screening Findings?Negative,?Suicide Risk Assessment Performed? .?History of Presenting Problem:? Pt was seen today and Urine drug screen was done. ???Psychotherapy with Med eval:?Therapy with Med eval?Psychotherapy with Medication management?Yes,?Psychotherapy done Time Spent Minute?16 Min,?Type of therapy done?Supportive Therapy.? * Medical History:? * Surgical History:? * Hospitalization/Major Diagno stic Procedure:? * Social History:?Migrated Social History:?Migrated Social History: Alcohol Intake: Occasional 08/27/2023,Tobacco Years: Current every day smoker 08/27/2023,Smoking Status: 52 08/27/2023. * Medications:?TakingEzetimibe 10 MG Tablet Oral Esomeprazole Magnesium 40 MG Capsule Delayed Release TAKE 1 CAPSULE BY MOUTH TWICE A DAY Oral busPIRone HCl 15 MG Tablet TAKE 1 TABLET BY MOUTH FIVE TIMES A DAY 90 DAYS Oral lamoTRIgine 200 MG Tablet TAKE 1 TABLET BY MOUTH EVERYDAY AT BEDTIME Oral OXcarbazepine 150 MG Tablet TAKE 1/2 TABLET BY MOUTH TWICE A DAY Oral Anoro Ellipta 62.5-25 MCG/ACT Aerosol Powder Breath Activated INHALE 1 PUFF DAILY Inhalation Atorvastatin Calcium 40 MG Tablet TAKE 1 TABLET BY MOUTH EVERY DAY AT BEDTIME Oral Ezetimibe 10 MG Tablet TAKE 1 TABLET BY MOUTH EVERY DAY Oral Montelukast Sodium 10 MG Tablet TAKE 1 TABLET BY MOUTH EVERY DAY Oral amLODIPine Besylate 10 MG Tablet TAKE 1 TABLET BY MOUTH EVERY DAY Oral Desvenlafaxine Succinate ER 50 MG Tablet Extended Release 24 Hour TAKE 1 TABLET BY MOUTH EVERY DAY Amphetamine-Dextroamphet ER 25 MG Capsule Extended Release 24 Hour 1 capsule in the morning Oral Once a day dose reducedOXcarbazepine 150 MG Tablet 0.5 tablet Oral Twice a day busPIRone HCl 15 MG Tablet 1 tablet Oral four times a day lamoTRIgine 200 MG Tablet 1 tablet at bedtime Oral Once a day Desvenlafaxine Succinate ER 25 MG Tablet Extended Release 24 Hour TAKE 1 TABLET BY MOUTH EVERY DAY traZODone HCl 50 MG Tablet TAKE 1 TABLET BY MOUTH EVERYDAY AT BEDTIME Taking Ezetimibe 10 MG Tablet Oral Taking Esomeprazole Magnesium 40 MG Capsule Delayed Release TAKE 1 CAPSULE BY MOUTH TWICE A DAY Oral Taking busPIRone HCl 15 MG Tablet TAKE 1 TABLET BY MOUTH FIVE TIMES A DAY 90 DAYS Oral Taking lamoTRIgine 200 MG Tablet TAKE 1 TABLET BY MOUTH EVERYDAY AT BEDTIME Oral Taking OXcarbazepine 150 MG Tablet TAKE 1/2 TABLET BY MOUTH TWICE A DAY Oral Taking Anoro Ellipta 62.5-25 MCG/ACT Aerosol Powder Breath Activated INHALE 1 PUFF DAILY Inhalation Taking Atorvastatin Calcium 40 MG Tablet TAKE 1 TABLET BY MOUTH EVERY DAY AT BEDTIME Oral Taking Ezetimibe 10 MG Tablet TAKE 1 TABLET BY MOUTH EVERY DAY Oral Taking Montelukast Sodium 10 MG Tablet TAKE 1 TABLET BY MOUTH EVERY DAY Oral Taking amLODIPine Besylate 10 MG Tablet TAKE 1 TABLET BY MOUTH EVERY DAY Oral Taking Desvenlafaxine Succinate ER 50 MG Tablet Extended Release 24 Hour TAKE 1 TABLET BY MOUTH EVERY DAY Taking Amphetamine-Dextroamphet ER 25 MG Capsule Extended Release 24 Hour 1 capsule in the morning Oral Once a day dose reducedTaking OXcarbazepine 150 MG Tablet 0.5 tablet Oral Twice a day Taking busPIRone HCl 15 MG Tablet 1 tablet Oral four times a day Taking lamoTRIgine 200 MG Tablet 1 tablet at bedtime Oral Once a day Taking Desvenlafaxine Succinate ER 25 MG Tablet Extended Release 24 Hour TAKE 1 TABLET BY MOUTH EVERY DAY Taking traZODone HCl 50 MG Tablet TAKE 1 TABLET BY MOUTH EVERYDAY AT BEDTIME DiscontinuedTrulicity 0.75 MG/0.5ML Solution Auto-injector INJECT 0.75 MG (0.5 ML) SUBCUTANEOUSLY WEEKLY ON MONDAYS Subcutaneous Discontinued Trulicity 0.75 MG/0.5ML Solution Auto-injector INJECT 0.75 MG (0.5 ML) SUBCUTANEOUSLY WEEKLY ON MONDAYS Subcutaneous UnknownEsomeprazole Magnesium 40 MG Capsule Delayed Release TAKE 1 CAPSULE BY MOUTH TWICE A DAY Oral Albuterol Sulfate HFA 108 (90 Base) MCG/ACT Aerosol Solution Inhalation Anoro Ellipta 62.5-25 MCG/ACT Aerosol Powder Breath Activated INHALE 1 PUFF DAILY Inhalation Montelukast Sodium 10 MG Tablet TAKE 1 TABLET BY MOUTH EVERY DAY Oral Atorvastatin Calcium 40 MG Tablet TAKE 1 TABLET BY MOUTH EVERYDAY AT BEDTIME Oral Ezetimibe 10 MG Tablet TAKE 1 TABLET BY MOUTH EVERY DAY Oral busPIRone HCl 15 MG Tablet 1 tablet Oral four times a day Medication List reviewed and reconciled with the patientUnknown Esomeprazole Magnesium 40 MG Capsule Delayed Release TAKE 1 CAPSULE BY MOUTH TWICE A DAY Oral Unknown Albuterol Sulfate HFA 108 (90 Base) MCG/ACT Aerosol Solution Inhalation Unknown Anoro Ellipta 62.5-25 MCG/ACT Aerosol Powder Breath Activated INHALE 1 PUFF DAILY Inhalation Unknown Montelukast Sodium 10 MG Tablet TAKE 1 TABLET BY MOUTH EVERY DAY Oral Unknown Atorvastatin Calcium 40 MG Tablet TAKE 1 TABLET BY MOUTH EVERYDAY AT BEDTIME Oral Unknown Ezetimibe 10 MG Tablet TAKE 1 TABLET BY MOUTH EVERY DAY Oral Unknown busPIRone HCl 15 MG Tablet 1 tablet Oral four times a day Medication List reviewed and reconciled with the patient * Allergies:?Metformin: Allerg y - Onset Date 10/29/2023Oxycodone: Allergy - Onset Date 10/29/2023enicillins: Allergy - Onset Date 10/29/2023no[Allergies Verified] Objective: * Vitals:?BP:113/75mm Hg, HR:9 9/min, Wt:107lbs, Wt-k.53 kg, Ht: 61.00 in, Ht- cm: 154.94 cm, BMI:20.22Index, Body Surface Area: 1.44. * Examination: ???General Examination: ???Mental Status Examination: Patient reported feeling emotionally good despite several upsetting events. Demonstrated awareness of family dynamics and concern for grandson's mental health. Exhibited understanding and utilization of coping techniques (breathing exercises). Patient displayed clear and coherent thought processes, providing detailed family history. No signs of current manic or depressive symptoms observed. Showed good insight into family situations and mental health concerns. Vital Signs: review the notes for vitals. Assessment: * Assessment: 1.?Bipolar disorder in remis rigoberto - F31.70 (Primary)???2.?Attention-deficit hyperactivity disorder, predominantly inattentive type - F90.0???3.?Perea's esophagus without dysplasia - K22.70???4.?Generalized anxiety disorder - F41.1 ??5.?Chronic obstructive pulmonary disease, unspecified - J44.9???6.?Hypertension - I10??? Patient's Grandson's Behavio ral and Emotional Issues- Assessment: Suspected ADHD with rage episodes and declining academic performance. Low self-worth and confidence. Family history of mental health issues.- Plan:- Refer to Dr. Arechiga at the [facility] for further evaluation and management.- Monitor response to ADHD medications if prescribed.- Consider evaluation for depression and address it separately if diagnosed.- Educate family on signs of anger and depression to watch for.- Encourage the use of breathing techniques for calming purposes.- Focus on present symptoms and treatment rather than extensive family history.Bipolar Disorder (in remission)- Plan:- Continue oxcarbazepine, 0.5 tablet twice a day.- Continue lamotrigine, 200 mg at bedtime.- Continue trazodone, 50 mg at bedtime.ADHD- Plan:- Continue Adderall, 25 mg daily.Anxiety Disorder- Plan:- Continue buspirone, 15 mg four times a day.Breathing Techniques- Plan:- Encourage continued practice of the 5-count inhale, 4-count hold, 3-count exhale technique.- Suggest incorporating the technique into daily routine and during moments of stress.- Clarify proper technique: gentle exhale, not forceful.Educational Videos- Plan:- Direct patient to the clinic's website and YouTube channel for access to relevant educational materials.- Recommend guided imagery videos for sleep improvement.Follow-up- Plan:- Schedule next appointment in 2 months. Plan: * Treatment: 2.?Attention-deficit hyperac tivity disorder, predominantly inattentive type? Refill Amphetamine-Dextroamphet ER Capsule Extended Release 24 Hour, 25 MG, 1 capsule in the morning, Oral, Once a day dose reduced, 30 days, 30 Capsule, Refills 0.?? 3.?Generalized anxiety disor tod? Refill busPIRone HCl Tablet, 15 MG, 1 tablet, Oral, four times a day, 90 days, 360 Tablet, Refills 0.?? * Labs:? * ?Lab: UDT (Collection Da te & Time - 06/03/2024) ? Value Reference Range ?THC N 0 - 50 ng/ml * ?Cocaine N 0 - 300 ng/ml * ?Amphetamine P 0 - 1000 ng /ml * ?Buprenorphine (BUP) N 0 - 10 ng/ml * ?Secobarbital (Bar) N 0 - 300 ng/ml * ?Oxazepam (BZO) N 0 - 300 ng/ml * ?5-doazqgvieu-7,9-gdeewaxc-6,3-diphenylpyrrolidine (EDDP) N 0 - 300 ng/ml * ?Methamphetamine (MET) N 0 - 1000 ng/ml * ?Methylenedioxymethamphetamine (MDMA) N 0 - 500 ng/ml * ?Morphine (MOP 300/[id number]) N 0 - 300 ng/ml * ?Methadone (MTD) N 0 - 300 ng/ml * ?Phencyclidine (PCP) N 0 - 25 ng/ml * ?Propoxyphene (PPX) N 0 - 300 ng/ml * ?Nortriptyline (TCA) N 0 - 1000 ng/ml * ?Oxycodone N 0 - 300 ng/ml * Procedure Codes:?45629 BEHAV ASSMT W/SCORE & DOCD/STAND [id number] Pt scrn tbco and id as [id number] DRUG TST PRSMV READ INSTRMNT ASSTD DIR OPT [id number] PSYCHOTHERAPY W/PATIENT W/E&M SRVCS 30 [id number] VISIT COMPLEXITY INHERENT TO ONGOING CARE RELATED TO A PATIENT'S SINGLE, SERIOUS CONDITION OR A COMPLEX CONDITION * Preventive Medicine:? ??Counseling:?Communication to patient:?Counseled the Patient on tobacco use; cessation provided?06/03/2024 .?Smoking Cessation counseling done Discuss the importance of quitting smoking,. * Billing Information: * Visit Code:? 60745 OFFICE OUTPATIENT VISIT 25 MINUTES DETAILED HISTORY AND EXAM/MODERATE MEDICAL DECISION MAKING. * Procedure Codes:? 53753 BEHAV ASSMT W/SCORE & DOCD/STAND INSTRUMENT. G9902 Pt scrn tbco and id as user. 21094 DRUG TST PRSMV READ INSTRMNT ASSTD DIR OPT OBS. 65241 PSYCHOTHERAPY W/PATIENT W/E&M SRVCS 30 MIN. G2211 VISIT COMPLEXITY INHERENT TO ONGOING CARE RELATED TO A PATIENT'S SINGLE, SERIOUS CONDITION OR A COMPLEX CONDITION. * ZER TUNNEL OPERATOR Sign off status: Completed true * Provider:?REMINGTON WEBBER MD Date:?06/03 Generated for Terrie knutson/Eliezer/eTransmmarj on:?06/19/2024 09:12 PM FREEZER TUNNEL OPERATOR History and Physical Notes * HPI (History of Present Illness) Category Sub-Category Detail Notes Category Not es History of Presenting Problem Pt was seen today and Urine drug screen was done Depression screening PHQ-9 Little inte rest or pleasure in doing things: Not at all Feeling down, depressed, or hopeless: No t at all Trouble falling or staying asleep, or sl eeping too much: Not at all Feeling tired or having little energy: N ot at all Poor appetite or overeating: Not at all Feeling bad about yourself o r that you are a failure, or have let yourself or your family down: Not at all Trouble concentrating on thi ngs, such as reading the newspaper or watching television: Not at all Moving or speaking so slowly that other people could have noticed; or the opposite, being so fidgety or restless that you have been moving around a lot more than usual: Not at all Thoughts that you would be b shadia off or of hurting yourself in some way: Not at all Total Score: 0 Intervention Depression Screening Findings: N egative Suicide Risk Assessment Performed: ____ Depression Screening KYLAH-7 (2018 Edition) Feelin g nervous, anxious, or on edge: Not at all Not being able to stop or control worryi ng: Not at all Worrying too much about different things : Not at all Trouble relaxing: Not at all Being so restless that it is hard to sit still: Not at all Becoming easily annoyed or irritable: No t at all Feeling afraid as if something awful crissy ht happen: Not at all Total KYLAH-7 Score: 0 Interpretation of Total: (0 to 4) No Anx iety Psychotherapy with Med eval Therapy with Med atiya l Psychotherapy with Medication management: Yes ?Psychotherapy done Time Spent Minute: 1 6 Min ?Type of therapy done: Supportive Therap y Examination Category Sub-Category Detail Notes Category Not es General Examination Mental Status Examination: Patient reported feeling emotionally good despite several upsetting events. Demonstrated awareness of family dynamics and concern for grandson's mental health. Exhibited understanding and utilization of coping techniques (breathing exercises). Patient displayed clear and coherent thought processes, providing detailed family history. No signs of current manic or depressive symptoms observed. Showed good insight into family situations and mental health concerns. Vital Signs: review the notes for vitals
--- OUTSIDE RECORDS SUMMARY | 2024-06-19 21:13 | XMS_ITS | Encounter Summary ---
Author Organization [facility] Address [address] [place] [address] Phone Care Team Providers Care Web Application Developer Name Role Phone Jose Lozoya DO Unavailable [phone] Nurys Givens MD Primary Care Provider Reason for Visit * Reason Comments Medication Refill Encounter Details Date Type Department Care Team (Late st Contact Info) Description 09/28/2023 Refill [facility] - Gastroenterology - [place] [address] [place] [address] Lupe Frank APRN, [employer] [employer] [address] [place] [address] Medication Refill Social History Tobacco Use Types Packs/Day Years Used Date Smoking Tobacco: Every Day Cigarettes 2.5 44 Smokeless Tobacco: Never Alcohol Use Standard Drinks/Week Comments Yes 0 (1 standard drink = 0.6 oz pur e alcohol) Rare Sexually Active Control Partners Comments Not Currently Comments No Sex and Gender Information Value Date Recorded Sex Assigned at Not on file Legal Sex Female 11:25 PM CDT Gender Identity Not on file Sexual Orientation Not on file documented as of this encounter Miscellaneous Notes * Telephone Encounter - Ashia Mayberry RN - 09/28/2023 4:21 PM CDT 2nd refill request for Nexium received. Called [facility] in [place] and spoke with Alison. Reviewedwith Alison per telephone encounter for 07/26/2023 patient was going to see a new GI doctor. Advised Alison if patient would like for [facility] to fill Nexium to please call the office to make an appointment. Alison verbalize understanding. Nexium order refused. documented in this encounter Plan of Treatment Not on file documented as of this encounter Visit Diagnoses Not on filedocumented in this encounter Care Teams Web Application Developer Relationship Specialty Start Date End Date Nurys Givens MD PCP - General Family Medicine 06/11/21 Jose Lozoya DO Gastroenterology 08/01/16 documented as of this encounter
--- OUTSIDE RECORDS SUMMARY | 2024-06-19 21:13 | XMS_ITS ---
Author Organization [facility] [employer] Address [address] [place] [address] Care Team Providers Care Box Loader Name Role Phone Troy Givens MD Primary Care Provider Remington Alaniz Unavailable [phone] Allergies Allergen (clinical drug ingredient) Drug/Non Drug Allergy documented on EMR Reaction Allergy Type Onset Date Status metformin Metformin Unknown Drug Allergy 10/29/2023 Active oxycodone Oxycodone Unknown Drug Allergy 10/29/2023 Active Substance with penicillin structure and antibacterial mechanism of action (substance) Penicillins Unknown Drug Allergy 10/29/2023 Active Results Component Value Reference Range Notes UDT Reviewed date:05/05/2024 08:49:22 AM Interpretation: Performing Lab: Notes/Report: THC N 0 - 50 ng/ml Cocaine N 0 - 300 ng/ml Amphetamine P 0 - 1000 ng/ml Buprenorphine (BUP) N 0 - 10 ng/ml Secobarbital (Bar) N 0 - 300 ng/ml Oxazepam (BZO) N 0 - 300 ng/ml 9-nekcizjomf-7,9-calipkjb-5,3-diphenylpyrrolidine (CASI P) N 0 - 300 ng/ml Methamphetamine (MET) N 0 - 1000 ng/ml Methylenedioxymethamphetamine (MDMA) N 0 - 500 ng/ml Morphine (MOP 300/[id number]) N 0 - 300 ng/ml Methadone (MTD) N 0 - 300 ng/ml Phencyclidine (PCP) N 0 - 25 ng/ml Propoxyphene (PPX) N 0 - 300 ng/ml Nortriptyline (TCA) N 0 - 1000 ng/ml Oxycodone N 0 - 300 ng/ml REASON FOR VISIT 1 Follow up, UDT Visit, UDT done, phq less than 5, MIPS Tobacco screening Medications Medication SIG (Take, Route, Frequency, Duration) Notes Start Date End Date Status amLODIPine Besylate 10 MG TAKE 1 TABLET BY MOUTH EVERY DAY Oral for 90 Days Active Montelukast Sodium 10 MG TAKE 1 TABLET B Y MOUTH EVERY DAY Oral for 90 Days Active Trulicity 0.75 MG/0.5ML INJECT 0.75 MG ( 0.5 ML) SUBCUTANEOUSLY WEEKLY ON MONDAYS Subcutaneous for 84 Days Active Desvenlafaxine Succinate ER 25 MG TAKE 1 TABLET BY MOUTH EVERY DAY Oral for 90 Days Active Desvenlafaxine Succinate ER 50 MG TAKE 1 TABLET BY MOUTH EVERY DAY for 90 Active Ezetimibe 10 MG TAKE 1 TABLET BY ERICH TH EVERY DAY Oral for 90 Days Active Atorvastatin Calcium 40 MG TAKE 1 TABLET BY MOUTH EVERY DAY AT BEDTIME Oral for 90 Days Active Anoro Ellipta 62.5-25 MCG/ACT INHALE 1 PUFF DAILY Inhalation for 30 Days Active OXcarbazepine 150 MG TAKE 1/2 TABLET BY MOUTH TWICE A DAY Oral for 90 Days Active traZODone HCl 50 MG TAKE 1 TABLET BY ERICH TH EVERYDAY AT BEDTIME Oral for 90 Days Active busPIRone HCl 15 MG TAKE 1 TABLET BY ERICH TH FIVE TIMES A DAY 90 DAYS Oral for 90 Days Active Esomeprazole Magnesium 40 MG TAKE 1 CAPSULE BY MOUTH TWICE A DAY Oral for 90 Days Active Ezetimibe 10 MG Oral for 90 Days Active traZODone HCl 50 MG 1 tablet at bedtime Oral Once a day for 90 days Active lamoTRIgine 200 MG TAKE 1 TABLET BY ERICH TH EVERYDAY AT BEDTIME Oral for 90 Days Active busPIRone HCl 15 MG 1 tablet Oral four t imes a day for 90 days Active OXcarbazepine 150 MG 0.5 tablet Oral Twi ce a day for 90 days Active Amphetamine-Dextroamphet ER 25 MG 1 capsule in the morning Oral Once a day for 30 days dose reduced 05/05/2024 Active busPIRone HCl 15 MG 1 tablet Oral four t imes a day for 30 days Unknown lamoTRIgine 200 MG 1 tablet at bedtime Oral Once a day for 90 days Active Desvenlafaxine Succinate ER 25 MG TAKE 1 TABLET BY MOUTH EVERY DAY Oral for 90 Days Unknown Atorvastatin Calcium 40 MG TAKE 1 TABLET BY MOUTH EVERYDAY AT BEDTIME Oral for 90 Days Unknown Montelukast Sodium 10 MG TAKE 1 TABLET B Y MOUTH EVERY DAY Oral for 90 Days Unknown Anoro Ellipta 62.5-25 MCG/ACT INHALE 1 PUFF DAILY Inhalation for 30 Days Unknown Ezetimibe 10 MG TAKE 1 TABLET BY ERICH TH EVERY DAY Oral for 90 Days Unknown Albuterol Sulfate HFA 108 (90 Base) MCG/ACT Inhalation for 29 Days Unknown Esomeprazole Magnesium 40 MG TAKE 1 CAPSULE BY MOUTH TWICE A DAY Oral for 90 Days Unknown Social History Sex Assigned At : Social History Observation Description Sex Assigned At Female Vital Signs Blood pressure systolic 123 mm Hg 05/05/20 24 Blood pressure diastolic 85 mm Hg 024 Heart Rate 75 /min 05/05/2024 Height 61.00 in 05/05/2024 Weight 103 lbs 05/05/2024 BMI 19.46 kg/m2 05/05/2024 Height-cm 154.94 cm 05/05/2024 Weight-kg 46.72 kg 05/05/2024 Encounters Encounter Location Date Provider Diagnosis [facility] [email or web address] [address] [facility] [address] [address] 05/05/2024 Rmeington Webber Attention-deficit hyperactivity disorder, predominantly inattentive type F90.0 ; Bipolar disorder in remission F31.70 ; Perea's esophagus without dysplasia K22.70 ; Generalized anxiety disorder F41.1 ; Chronic obstructive pulmonary disease, unspecified J44.9 and Hypertension I10 Assessments Encounter Date Diagnosis (ICD Code) Assessment Notes Treatment Notes Treatment Clinical Notes Section Notes 05/05/2024 Attention-deficit hyperactivity disorder, predominantly inattentive type (ICD-10 - F90.0) Negative Thoughts and Anxiety - Assessment: Patient reports having negative thoughts about herself and experiencing some anxiety. She has been working on strategies to manage her anxiety with the help of her family, specifically mentioning talking to one of her nieces. - Plan: - Continue monitoring her anxiety levels and coping strategies. - Encourage the patient to maintain open communication with her support system. Sleep - Assessment: Patient reports good sleep quality. - Plan: - Continue monitoring sleep patterns and quality. Blood Pressure - Assessment: Patient's blood pressure is stable. - Plan: - Continue monitoring blood pressure during follow-up visits. Medication Management - Assessment: Patient is currently on Trazodone, Adderall 25 mg, Buprenorphine, Oxcarbazepine, Buspirone, and Lamotrigine. She reports that the reduction of Adderall from 30 mg to 25 mg has been helpful. Patient mentioned difficulty when Buprenorphine was lowered to 3 mg in the past. - Plan: - Continue current medication regimen. - Update pharmacy information in the system to ensure prescriptions are sent to the correct locations: Adderall to be sent to [facility] in [place], other medications to [facility] on [facility]. - Monitor medication refills and patient's adherence to the medication regimen. - Note: Patient does not need refills for Buspirone or Trazodone at this time. Follow-up - Plan: - Schedule a follow-up appointment in one month to assess the patient's progress and address any concerns related to the upcoming holiday season. 05/05/2024 Bipolar disorder in remission (ICD-10 - F31.70) Negative Thoughts and Anxiety - Assessment: Patient reports having negative thoughts about herself and experiencing some anxiety. She has been working on strategies to manage her anxiety with the help of her family, specifically mentioning talking to one of her nieces. - Plan: - Continue monitoring her anxiety levels and coping strategies. - Encourage the patient to maintain open communication with her support system. Sleep - Assessment: Patient reports good sleep quality. - Plan: - Continue monitoring sleep patterns and quality. Blood Pressure - Assessment: Patient's blood pressure is stable. - Plan: - Continue monitoring blood pressure during follow-up visits. Medication Management - Assessment: Patient is currently on Trazodone, Adderall 25 mg, Buprenorphine, Oxcarbazepine, Buspirone, and Lamotrigine. She reports that the reduction of Adderall from 30 mg to 25 mg has been helpful. Patient mentioned difficulty when Buprenorphine was lowered to 3 mg in the past. - Plan: - Continue current medication regimen. - Update pharmacy information in the system to ensure prescriptions are sent to the correct locations: Adderall to be sent to [facility] in [place], other medications to [facility] on [facility]. - Monitor medication refills and patient's adherence to the medication regimen. - Note: Patient does not need refills for Buspirone or Trazodone at this time. Follow-up - Plan: - Schedule a follow-up appointment in one month to assess the patient's progress and address any concerns related to the upcoming holiday season. 05/05/2024 Perea's esophagus without dysplasia (ICD-10 - K22.70) Negative Thoughts and Anxiety - Assessment: Patient reports having negative thoughts about herself and experiencing some anxiety. She has been working on strategies to manage her anxiety with the help of her family, specifically mentioning talking to one of her nieces. - Plan: - Continue monitoring her anxiety levels and coping strategies. - Encourage the patient to maintain open communication with her support system. Sleep - Assessment: Patient reports good sleep quality. - Plan: - Continue monitoring sleep patterns and quality. Blood Pressure - Assessment: Patient's blood pressure is stable. - Plan: - Continue monitoring blood pressure during follow-up visits. Medication Management - Assessment: Patient is currently on Trazodone, Adderall 25 mg, Buprenorphine, Oxcarbazepine, Buspirone, and Lamotrigine. She reports that the reduction of Adderall from 30 mg to 25 mg has been helpful. Patient mentioned difficulty when Buprenorphine was lowered to 3 mg in the past. - Plan: - Continue current medication regimen. - Update pharmacy information in the system to ensure prescriptions are sent to the correct locations: Adderall to be sent to [facility] in [place], other medications to [facility] on [facility] in [place]. - Monitor medication refills and patient's adherence to the medication regimen. - Note: Patient does not need refills for Buspirone or Trazodone at this time. Follow-up - Plan: - Schedule a follow-up appointment in one month to assess the patient's progress and address any concerns related to the upcoming holiday season. 05/05/2024 Generalized anxiety disorder (ICD-10 - F41.1) Negative Thoughts and Anxiety - Assessment: Patient reports having negative thoughts about herself and experiencing some anxiety. She has been working on strategies to manage her anxiety with the help of her family, specifically mentioning talking to one of her nieces. - Plan: - Continue monitoring her anxiety levels and coping strategies. - Encourage the patient to maintain open communication with her support system. Sleep - Assessment: Patient reports good sleep quality. - Plan: - Continue monitoring sleep patterns and quality. Blood Pressure - Assessment: Patient's blood pressure is stable. - Plan: - Continue monitoring blood pressure during follow-up visits. Medication Management - Assessment: Patient is currently on Trazodone, Adderall 25 mg, Buprenorphine, Oxcarbazepine, Buspirone, and Lamotrigine. She reports that the reduction of Adderall from 30 mg to 25 mg has been helpful. Patient mentioned difficulty when Buprenorphine was lowered to 3 mg in the past. - Plan: - Continue current medication regimen. - Update pharmacy information in the system to ensure prescriptions are sent to the correct locations: Adderall to be sent to [facility] in [place], other medications to [facility] on [facility]. - Monitor medication refills and patient's adherence to the medication regimen. - Note: Patient does not need refills for Buspirone or Trazodone at this time. Follow-up - Plan: - Schedule a follow-up appointment in one month to assess the patient's progress and address any concerns related to the upcoming holiday season. 05/05/2024 Chronic obstructive pulmonary disease, unspecified (ICD-10 - J44.9) Negative Thoughts and Anxiety - Assessment: Patient reports having negative thoughts about herself and experiencing some anxiety. She has been working on strategies to manage her anxiety with the help of her family, specifically mentioning talking to one of her nieces. - Plan: - Continue monitoring her anxiety levels and coping strategies. - Encourage the patient to maintain open communication with her support system. Sleep - Assessment: Patient reports good sleep quality. - Plan: - Continue monitoring sleep patterns and quality. Blood Pressure - Assessment: Patient's blood pressure is stable. - Plan: - Continue monitoring blood pressure during follow-up visits. Medication Management - Assessment: Patient is currently on Trazodone, Adderall 25 mg, Buprenorphine, Oxcarbazepine, Buspirone, and Lamotrigine. She reports that the reduction of Adderall from 30 mg to 25 mg has been helpful. Patient mentioned difficulty when Buprenorphine was lowered to 3 mg in the past. - Plan: - Continue current medication regimen. - Update pharmacy information in the system to ensure prescriptions are sent to the correct locations: Adderall to be sent to [facility] in [place], other medications to [facility] on [facility]. - Monitor medication refills and patient's adherence to the medication regimen. - Note: Patient does not need refills for Buspirone or Trazodone at this time. Follow-up - Plan: - Schedule a follow-up appointment in one month to assess the patient's progress and address any concerns related to the upcoming holiday season. 05/05/2024 Hypertension (ICD-10 - I10) Negative Thoughts and Anxiety - Assessment: Patient reports having negative thoughts about herself and experiencing some anxiety. She has been working on strategies to manage her anxiety with the help of her family, specifically mentioning talking to one of her nieces. - Plan: - Continue monitoring her anxiety levels and coping strategies. - Encourage the patient to maintain open communication with her support system. Sleep - Assessment: Patient reports good sleep quality. - Plan: - Continue monitoring sleep patterns and quality. Blood Pressure - Assessment: Patient's blood pressure is stable. - Plan: - Continue monitoring blood pressure during follow-up visits. Medication Management - Assessment: Patient is currently on Trazodone, Adderall 25 mg, Buprenorphine, Oxcarbazepine, Buspirone, and Lamotrigine. She reports that the reduction of Adderall from 30 mg to 25 mg has been helpful. Patient mentioned difficulty when Buprenorphine was lowered to 3 mg in the past. - Plan: - Continue current medication regimen. - Update pharmacy information in the system to ensure prescriptions are sent to the correct locations: Adderall to be sent to [facility] in [place], other medications to [facility] on [facility] in [place]. - Monitor medication refills and patient's adherence to the medication regimen. - Note: Patient does not need refills for Buspirone or Trazodone at this time. Follow-up - Plan: - Schedule a follow-up appointment in one month to assess the patient's progress and address any concerns related to the upcoming holiday season. Plan Of Treatment Medication Medication Name Sig Start Date Stop Date Notes traZODone HCl 50 MG 1 tablet at bedtime Oral Once a day for 90 days busPIRone HCl 15 MG 1 tablet Oral four t imes a day for 90 days OXcarbazepine 150 MG 0.5 tablet Oral Twi ce a day for 90 days Amphetamine-Dextroamphet ER 25 MG 1 capsule in the morning Oral Once a day for 30 days 05/05/2024 lamoTRIgine 200 MG 1 tablet at bedtime Oral Once a day for 90 days Next Appt Details Follow Up: 4 Weeks, Reason: Provider Name:Remington Massiel Webber , 08/04/2024 08:30:00 AM, [address], [facility] [address], [place], [address], Progress Notes * BRIANABA NICKERSON ANNDOB:1955 (68 yo F)Acc No.[id number]:05/05/2024 Patient:?ABA BECKER Provider:?REMINGTON WEBBER MD :1955???Age:68 Y???Sex:Female D ate:05/05/2024 Address:[address] [place], [place] [id number] Pcp:Troy Givens MD Subjective: * Chief Complaints: * ???1 Follow upUDT VisitUDT d onePhq less than 5MIPS Tobacco screening * HPI: ???Depression screening:? Chief Complaint: Negative thoughts and anxiety The note is transcribed using speech recognition software. It is a reflection of a visit with the patient. It might have some inaccuracy, including medication names and transcribing errors, though efforts have been made to correct them. Mental Health: The patient reports experiencing negative thoughts about herself but does not consider herself a bad person. She has been feeling more anxious lately and has been avoiding everyday tasks until they become overwhelming. Despite these challenges, she doesn't feel bad about herself overall. Coping Mechanisms: The patient has discussed strategies with her niece to help manage clutter, which has been bothering her. Sleep: The patient's sleep has been good. Family Relations: The patient reports having some positive experiences with her family and , mentioning incredibly wonderful times despite occasional negative thoughts. Medications: - Trazodone: Helping with mood - Adderall 25 mg: Effective after lowering the dose from 30 mg - Buprenorphine: Patient experienced difficulties when lowered to 3 mg Medical History: The patient reports that her blood pressure is now stable. Cognitive Function: The patient's ability to focus has not been affected by medication changes. ?PHQ-9?Little interest or pleasure in doing things?Not at all,?Feeling down, depressed, or hopeless?Not at all,?Trouble falling or staying asleep, or sleeping too much?Not at all,?Feeling tired or having little energy?Not at all,?Poor appetite or overeating?Not at all,?Feeling bad about yourself or that you are a failure, or have let yourself or your family down?Several days,?Trouble concentrating on things, such as reading the newspaper or watching television?Not at all,?Moving or speaking so slowly that other people could have noticed; or the opposite, being so fidgety or restless that you have been moving around a lot more than usual?Not at all,?Thoughts that you would be better off or of hurting yourself in some way?Not at all,?Total Score?1, Interpretation?Minimal Depression.?Intervention?Depression Screening Findings?Negative,?Suicide Risk Assessment Performed? .?Depression Screening:?KYLAH-7 (2018 Edition)?Feeling nervous, anxious, or on edge?Not at all,?Not being able to stop or control worrying?Not at all,?Worrying too much about different things?Several days,?Trouble relaxing?Not at all,?Being so restless that it is hard to sit still?Not at all,?Becoming easily annoyed or irritable?Not at all,?Feeling afraid as if something awful might happen?Not at all,?Total KYLAH-7 Score?1,?Interpretation of Total?(0 to 4) No Anxiety.?History of Presenting Problem:? Pt was seen today and Urine drug screen was done. * Medical History:? * Surgical History:? * [...] TABLET BY MOUTH EVERYDAY AT BEDTIME Oral traZODone HCl 50 MG Tablet TAKE 1 [...] MOUTH EVERY DAY Oral Desvenlafaxine Succinate ER 25 MG Tablet Extended Release 24 Hour TAKE 1 TABLET BY MOUTH EVERY DAY Oral Trulicity 0.75 MG/0.5ML Solution Auto-injector INJECT 0.75 MG (0.5 ML) SUBCUTANEOUSLY WEEKLY ON MONDAYS Subcutaneous Montelukast Sodium 10 MG Tablet TAKE 1 TABLET BY MOUTH EVERY DAY Oral amLODIPine Besylate 10 MG Tablet TAKE 1 TABLET BY MOUTH EVERY DAY Oral OXcarbazepine 150 MG Tablet 0.5 tablet Oral Twice a day busPIRone HCl 15 MG Tablet 1 tablet Oral four times a day lamoTRIgine 200 MG Tablet 1 tablet at bedtime Oral Once a day traZODone HCl 50 MG Tablet 1 tablet at bedtime Oral Once a day Desvenlafaxine Succinate ER 50 MG Tablet Extended Release 24 Hour TAKE 1 TABLET BY MOUTH EVERY DAY Amphetamine-Dextroamphet ER 25 MG Capsule Extended Release 24 Hour 1 capsule in the morning Oral Once a day dose reducedTaking Ezetimibe 10 MG Tablet Oral Taking Esomeprazole Magnesium 40 MG Capsule Delayed Release TAKE 1 CAPSULE BY MOUTH TWICE A DAY Oral Taking busPIRone HCl 15 MG Tablet TAKE 1 TABLET BY MOUTH FIVE TIMES A DAY 90 DAYS Oral Taking lamoTRIgine 200 MG Tablet TAKE 1 TABLET BY MOUTH EVERYDAY AT BEDTIME Oral Taking traZODone HCl 50 MG Tablet TAKE [...] EVERY DAY Oral Taking Desvenlafaxine Succinate ER 25 MG Tablet Extended Release 24 Hour TAKE 1 TABLET BY MOUTH EVERY DAY Oral Taking Trulicity 0.75 MG/0.5ML Solution Auto-injector INJECT 0.75 MG (0.5 ML) SUBCUTANEOUSLY WEEKLY ON MONDAYS Subcutaneous Taking Montelukast Sodium 10 MG Tablet TAKE 1 TABLET BY MOUTH EVERY DAY Oral Taking amLODIPine Besylate 10 MG Tablet TAKE 1 TABLET BY MOUTH EVERY DAY Oral Taking OXcarbazepine 150 MG Tablet 0.5 tablet Oral Twice a day Taking busPIRone HCl 15 MG Tablet 1 tablet Oral four times a day Taking lamoTRIgine 200 MG Tablet 1 tablet at bedtime Oral Once a day Taking traZODone HCl 50 MG Tablet 1 tablet at bedtime Oral Once a day Taking Desvenlafaxine Succinate ER 50 MG Tablet Extended Release 24 Hour TAKE 1 TABLET BY MOUTH EVERY DAY Taking Amphetamine-Dextroamphet ER 25 MG Capsule Extended Release 24 Hour 1 capsule in the morning Oral Once a day dose reducedUnknownEsomeprazole Magnesium 40 MG Capsule Delayed Release TAKE [...] TABLET BY MOUTH EVERYDAY AT BEDTIME Oral Desvenlafaxine Succinate ER 25 MG Tablet Extended Release 24 Hour TAKE 1 TABLET BY MOUTH EVERY DAY Oral Ezetimibe 10 MG Tablet TAKE 1 TABLET BY MOUTH EVERY DAY Oral busPIRone HCl 15 MG Tablet 1 tablet Oral four times a day Medication List reviewed and reconciled with the patientUnknowlanden Esomeprazole Magnesium 40 MG Capsule Delayed Release [...] BY MOUTH EVERYDAY AT BEDTIME Oral Unknown Desvenlafaxine Succinate ER 25 MG Tablet Extended Release 24 Hour TAKE 1 TABLET BY MOUTH EVERY DAY Oral Unknown Ezetimibe 10 MG Tablet TAKE 1 TABLET BY MOUTH EVERY DAY Oral Unknown busPIRone HCl 15 MG Tablet 1 tablet Oral four times a day Medication List reviewed and reconciled with the patient * Allergies:?Metformin: Allerg y - Onset Date 10/29/2023Oxycodone: Allergy - Onset Date 10/29/2023enicillins: Allergy - Onset Date 10/29/2023no[Allergies Verified] Objective: * Vitals:?BP:123/85mm Hg, HR:7 5/min, Wt:103lbs, Wt-k.72 kg, Ht: 61.00 in, Ht- cm: 154.94 cm, BMI:19.46Index, Body Surface Area: 1.42. * Examination: ???General Examination: ???Mental Status Examination: Patient reported having negative thoughts about herself and avoiding everyday tasks until they become overwhelming. She expressed that these thoughts do not make her feel like a bad person and mentioned having strategies in place to manage clutter-induced stress. Patient reported good sleep and overall positive family experiences. Vital Signs: Blood pressure noted as stable during the visit. Medications: Adderall 25mg (reduced from 30mg) - patient reports no problems with current dose. Trazodone - patient reports it is helping with mood. Oxcarbazepine. Lamotrigine. BuSpar (patient reports not needing it for a while). Assessment: * Assessment: 1.?Bipolar disorder in remis rigoberto - F31.70 (Primary)???2.?Attention-deficit hyperactivity disorder, predominantly inattentive type - F90.0???3.?Perea's esophagus without dysplasia - K22.70???4.?Generalized anxiety disorder - F41.1 ??5.?Chronic obstructive pulmonary disease, unspecified - J44.9???6.?Hypertension - I10??? Negative Thoughts and Anxiet y - Assessment: Patient reports having negative thoughts about herself and experiencing some anxiety. She has been working on strategies to manage her anxiety with the help of her family, specifically mentioning talking to one of her nieces. - Plan: - Continue monitoring her anxiety levels and coping strategies. - Encourage the patient to maintain open communication with her support system. Sleep - Assessment: Patient reports good sleep quality. - Plan: - Continue monitoring sleep patterns and quality. Blood Pressure - Assessment: Patient's blood pressure is stable. - Plan: - Continue monitoring blood pressure during follow-up visits. Medication Management - Assessment: Patient is currently on Trazodone, Adderall 25 mg, Buprenorphine, Oxcarbazepine, Buspirone, and Lamotrigine. She reports that the reduction of Adderall from 30 mg to 25 mg has been helpful. Patient mentioned difficulty when Buprenorphine was lowered to 3 mg in the past. - Plan: - Continue current medication regimen. - Update pharmacy information in the system to ensure prescriptions are sent to the correct locations: Adderall to be sent to [facility] in [place], other medications to [facility] on [facility] in [place]. - Monitor medication refills and patient's adherence to the medication regimen. - Note: Patient does not need refills for Buspirone or Trazodone at this time. Follow-up - Plan: - Schedule a follow-up appointment in one month to assess the patient's progress and address any concerns related to the upcoming holiday season. Plan: * Treatment: 2.?Attention-deficit hyperac tivity disorder, predominantly inattentive type? Refill Amphetamine-Dextroamphet ER Capsule Extended Release 24 Hour, 25 MG, 1 capsule in the morning, Oral, Once a day dose reduced, 30 days, 30 Capsule, Refills 0.?? 3.?Generalized anxiety disor tod? Continue busPIRone HCl Tablet, 15 MG, 1 tablet, Oral, four times a day, 90 days, 360 Tablet, Refills 0.?? * Labs:? * ?Lab: UDT (Collection Da te & Time - 05/05/2024) ? Value Reference Range ?THC N 0 - 50 ng/ml * ?Cocaine N 0 - 300 ng/ml * ?Amphetamine P 0 - 1000 ng /ml * ?Buprenorphine (BUP) N 0 - 10 ng/ml * ?Secobarbital (Bar) N 0 - 300 ng/ml * ?Oxazepam (BZO) N 0 - 300 ng/ml * ?1-shlttwetce-3,3-kdutlzwm-1,3-diphenylpyrrolidine (EDDP) N 0 - 300 ng/ml * ?Methamphetamine (MET) N 0 - 1000 ng/ml * ?Methylenedioxymethamphetamine (MDMA) N 0 - 500 ng/ml * ?Morphine (MOP 300/AZL6805) N 0 - 300 ng/ml * ?Methadone (MTD) N 0 - 300 ng/ml * ?Phencyclidine (PCP) N 0 - 25 ng/ml * ?Propoxyphene (PPX) N 0 - 300 ng/ml * ?Nortriptyline (TCA) N 0 - 1000 ng/ml * ?Oxycodone N 0 - 300 ng/ml * Procedure Codes:?98479 DRUG TST PRSMV READ INSTRMNT ASSTD DIR OPT [id number] BEHAV ASSMT W/SCORE & DOCD/STAND [id number] Pt scrn tbco and id as [id number] VISIT COMPLEXITY INHERENT TO ONGOING CARE RELATED TO A PATIENT'S SINGLE, SERIOUS CONDITION OR A COMPLEX CONDITION * Preventive Medicine:? ??Counseling:?Communication to patient:?Counseled the Patient on tobacco use; cessation provided?05/05/2024 .?Smoking Cessation counseling done Discuss the importance of quitting smoking,. * Follow Up:?4 Weeks * Billing Information: * Visit Code:? 05382 OFFICE OUTPATIENT VISIT 25 MINUTES DETAILED HISTORY AND EXAM/MODERATE MEDICAL DECISION MAKING. * Procedure Codes:? 99020 DRUG TST PRSMV READ INSTRMNT ASSTD DIR OPT OBS. 00757 BEHAV ASSMT W/SCORE & DOCD/STAND INSTRUMENT. G9902 Pt scrn tbco and id as user. G2211 VISIT COMPLEXITY INHERENT TO ONGOING CARE RELATED TO A PATIENT'S SINGLE, SERIOUS CONDITION OR A COMPLEX CONDITION. * UAGE ARTS TEACHER Sign off status: Completed true * Provider:?REMINGTON WEBBER MD Date:?05/05 Generated for Terrie knutson/Eliezer/James on:?06/19/2024 09:12 PM LANGUAGE ARTS TEACHER History and Physical Notes * HPI (History [...] have let yourself or your family down: Several days Trouble concentrating on thi ngs, such as [...] some way: Not at all Total Score: 1 Interpretation: Minimal Depression Intervention Depression Screening Findings: N egative Suicide Risk Assessment Performed: ____ Depression Screening KYLAH-7 (2018 Edition) Feelin g nervous, anxious, or on edge: Not at all Not being able to stop or control worryi ng: Not at all Worrying too much about different things : Several days Trouble relaxing: Not at all Being so restless that it is hard to sit still: Not at all Becoming easily annoyed or irritable: No t at all Feeling afraid as if something awful crissy ht happen: Not at all Total KYLAH-7 Score: 1 Interpretation of Total: (0 to 4) No Anx iety Examination Category Sub-Category Detail Notes Category Not es General Examination Mental Status Examination: Patient reported having negative thoughts about herself and avoiding everyday tasks until they become overwhelming. She expressed that these thoughts do not make her feel like a bad person and mentioned having strategies in place to manage clutter-induced stress. Patient reported good sleep and overall positive family experiences. Vital Signs: Blood pressure noted as stable during the visit. Medications: Adderall 25mg (reduced from 30mg) - patient reports no problems with current dose. Trazodone - patient reports it is helping with mood. Oxcarbazepine. Lamotrigine. BuSpar (patient reports not needing it for a while).
--- OUTSIDE RECORDS SUMMARY | 2024-06-19 21:13 | XMS_ITS | Encounter Summary ---
Author Organization [facility] Address [address] [place] [address]. [place], [place] [address] [place] [address] Care Team Providers Care Television Picture Tube Rebuilder Name Role Phone Nurys Givens MD Primary Care Provider [phone] Reason for Visit * Imaging (Routine) - Closed Specialty Diagnoses / Procedures Referred By Vladimir yee Referred To Contact RADIOLOGY Diagnoses Generalized abdominal pain Perea syndrome GERD (gastroesophageal reflux disease) Procedures [facility] Yariel Lozoya DO Phone: tel: fax: Referral ID Status Reason Start Date Expiration Date Visits Re quested Visits Authorized [id number] Closed 04/04/2021 05/05/2022 1 1 Encounter Details Date Type Department Care Team (Latest Contact Info) Description 05/07/2021 7:54 AM FLAT SCREEN WORKER - 05/07/2021 11:59 PM [facility] Hospital Encounter [facility] [place] [address] Yariel Lozoya, [address] [facility] [address] [place] [address] Discharge Disposition: Home or Self Care (Routine Discharge) Social History Tobacco Use Types Packs/Day Years Used Date Smoking Tobacco: Never Assessed Comments Unknown Sex and Gender Information Value Date Recorded Sex Assigned at Not on file Legal Sex Female 12:53 PM CDT Gender Identity Not on file Sexual Orientation Not on file COVID-19 Exposure Response Date Recorded In the last month, have you been in contact with someone who was confirmed or suspected to have Coronavirus / COVID-19? No / Unsure 05/07/2021 7:53 AM FLAT SCREEN WORKER documented as of this encounter Plan of Treatment Not on file documented as of this encounter Procedures Procedure Name Priority Date/Time Associated Diagnosis Comments US ABD LIMITED Routine 05/07/2021 8:46 AM FLAT SCREEN WORKER Generalized abdominal pain Perea syndrome GERD (gastroesophageal reflux disease) documented in this encounter Results * US ABD LIMITED (05/07/2021 8:46 AM FLAT SCREEN WORKER) Anatomical Region Laterality Modality Abdomen Ultrasound 05/07/2021 8:58 AM FLAT SCREEN WORKER Impressions 05/07/2021 9:09 AM FLAT SCREEN WORKER Impression: Normal examination. Referred By: YARIEL LOZOYA Interpreted By: Marco Mckeon MD, 05/07/2021 8:58 AM Narrative 05/07/2021 9:09 AM FLAT SCREEN WORKER Examination: Abdominal ultrasound, limited. Clinical Information: Generalized abdominal pain. Comparison: None. Technique: Grayscale, color Doppler and spectral waveform sonographic images were obtained. Findings: LIVER: Normal in size and echogenicity without focal lesion. Main portal vein: Patent with antegrade flow. Intrahepatic bile ducts: Normal. Not dilated. Common bile duct: 1.3 mm. GALLBLADDER: Normal. No gallstones, wall thickening, or pericholecystic fluid. PANCREAS: The pancreatic head and proximal body are imaged and are normal in size and texture. The distal pancreatic body and tail are obscured by overlying bowel gas. KIDNEYS: The right kidney is imaged in normal anatomic location and is normal in size, echotexture, and parenchymal thickness. No hydronephrosis, suspicious focal lesion, or calculus is evident. Right kidney length: 9.1 cm. INFERIOR VENA CAVA: Imaged portions are normal. ASCITES: None. Procedure Note Macro Mckeon MD - 05/07/2021 Examination: Abdominal ultrasound, limited. Clinical Information: Generalized abdominal pain. Comparison: None. Technique: Grayscale, color Doppler and spectral waveform sonographicimages were obtained. Findings: LIVER: Normal in size and echogenicity without focal lesion. Main portal vein: Patent with antegrade flow. Intrahepatic bile ducts: Normal. Not dilated. Common bile duct: 1.3 mm. GALLBLADDER: Normal. No gallstones, wall thickening, or pericholecystic fluid. PANCREAS: The pancreatic head and proximal body are imaged and are normal in sizeand texture. The distal pancreatic body and tail are obscured by overlyingbowel gas. KIDNEYS: The right kidney is imaged in normal anatomic location and is normal insize, echotexture, and parenchymal thickness. No hydronephrosis,suspicious focal lesion, or calculus is evident. Right kidney length: 9.1 cm. INFERIOR VENA CAVA: Imaged portions are normal. ASCITES: None. Impression: Normal examination. Referred By: YARIEL LOZOYA Interpreted By: Marco Mckeon MD, 05/07/2021 8:58 AM us Yariel Lozoya DO ULTRASOUND Final Result documented in this encounter Visit Diagnoses Not on filedocumented in this encounter Care Teams Television Picture Tube Rebuilder Relationship Specialty Start Date End Date Nurys Givens MD PCP - General FAMILY PRACTICE 04/16/21 documented as of this encounter
--- OUTSIDE RECORDS SUMMARY | 2024-06-19 21:13 | XMS_ITS ---
Author Organization [facility] Address [address] [facility] [address] [facility] [address] [place] [address] Care Team Providers Care Marketing Communications Manager Name Role Phone Troy Givens MD Primary Care Provider Javy Alaniz Unavailable [phone] Medications Medication SIG (Take, Route, Frequency, Duration) Notes Start Date End Date Status Amphetamine-Dextroamphet ER 25 MG 1 capsule in the morning Oral Once a day for 30 days dose reduced 05/03/2024 Active Social History Sex Assigned At : Social History Observation Description Sex Assigned At Female Encounters Encounter Location Date Provider Diagnosis [facility] [address] [facility] [address] [place] [address] 05/02/2024 Javy Fontana Attention-deficit hyperactivity disorder, predominantly inattentive type F90.0 Assessments Encounter Date Diagnosis (ICD Code) Assessment Notes Treatment Notes Treatment Clinical Notes Section Notes 05/02/2024 Attention-deficit hyperactivity disorder, predominantly inattentive type (ICD-10 - F90.0) Plan Of Treatment Medication Medication Name Sig Start Date Stop Date Notes Amphetamine-Dextroamphet ER 25 MG 1 capsule in the morning Oral Once a day for 30 days 05/03/2024 Next Appt Details Provider Name:Javy Fontana , 08/04/2024 08:30:00 AM, [address], [address], [place], [address], Progress Notes * ABA BECKER ANNDOB:1955 (68 yo F)Acc No.[id number]:05/02/2024 Patient:?ABA BECKER :1955???Age:68 Y???Sex:Female Address:[address] , [place], [address] * Refills? Refill Amphetamine-Dextroamphet ER Capsule Extended Release 24 Hour, 25 MG, Oral, 30, 1 capsule in the morning, Once a day, 30 days, Refills=0 Subjective: * Chief Complaints: * ??? * Medical History:? * Surgical History:? * Hospitalization/Major Diagno stic Procedure:? * Medications:? Objective: * Vitals:? * Physical Examination:? Assessment: * Assessment: 1.?Attention-deficit hyperac tivity disorder, predominantly inattentive type - F90.0??? Plan: * Treatment: * Procedure Codes:? * true * Date:? Generated for Terrie knutson/Eliezer/Jamesmitting on:?06/19/2024 09:12 PM GAMING SURVEILLANCE OBSERVER
--- OUTSIDE RECORDS SUMMARY | 2024-06-19 21:13 | XMS_ITS | Encounter Summary ---
Author Organization [facility] Address [address] [place] [address]. [place], [place] [address] [place] [address] Care Team Providers Care Marketing Recruiter Name Role Phone Nurys Givens MD Primary Care Provider [phone] Encounter Details Date Type Department Care Team (Latest Contact Info) Description 05/07/2021 Travel Social History Tobacco Use Types Packs/Day Years [...] COVID-19? No / Unsure 05/07/2021 7:53 AM CARPENTER'S HELPER documented as of this encounter Plan of Treatment Not on file documented as of this encounter Visit Diagnoses Not on filedocumented in this encounter Care Teams Marketing Recruiter Relationship Specialty Start Date End Date Nurys Givens MD PCP - General FAMILY PRACTICE 04/16/21 documented as of this encounter
--- OUTSIDE RECORDS SUMMARY | 2024-06-19 21:13 | XMS_ITS | Encounter Summary ---
Author Organization [facility] Address [address] [place] [address] Phone Care Team Providers Care Mine Promotor Name Role Phone Jose Lozoya DO Unavailable [phone] Nurys Givens MD Primary Care Provider [phone] Reason for Visit * Reason Comments Medication Refill Encounter Details Date Type Department Care Team (Late st Contact Info) Description 07/26/2023 Refill [facility] - Gastroenterology - [place] [address] [place] [id number] Lupe Frank, IMPROVEMENT SPEC, ROLLER SHOP UTILITY WORKER [address] [place] [address] Medication Refill Social History Tobacco Use Types [...] encounter Miscellaneous Notes * Telephone Encounter - Pat Bonner - 2023 4:20 PM CST Patient is going to see new GI doctor she will be getting her medication through them any questionscall patient back at [phone]. INTMENT SCHEDULER * Telephone Encounter - Ashia Mayberry RN - 2023 11:25 AM APPOINTMENT SCHEDULER Nexium refill refused, patient needs an appointment. Please send message back if patient makes an appointment. INTMENT SCHEDULER documented in this encounter Plan of Treatment Not on file documented as of this encounter Visit Diagnoses Not on filedocumented in this encounter Care Teams Mine Promotor Relationship Specialty Start Date End Date Nurys Givens MD PCP - General Family Medicine 06/11/21 Jose Lozoya DO Gastroenterology 08/01/16 documented as of this encounter
--- OUTSIDE RECORDS SUMMARY | 2024-06-19 21:13 | XMS_ITS | Encounter Summary ---
Author Organization [facility] Address [address] [place] [address] Phone Care Team Providers Care Aircrewman Name Role Phone Jose Lozoya DO Unavailable [phone] Nurys Givens MD Primary Care Provider [phone] Encounter Details Date Type Department Care Team (Late st Contact Info) Description 08/05/2022 Telephone [facility] - Gastroenterology - [place] [address] [place] [id number] Lupe Frank APRN, AN/SSN 2 4 OPERATOR [address] [place] [address] Social History Tobacco Use Types Packs/Day Years [...] encounter Miscellaneous Notes * Telephone Encounter - Terrell Henderson CMA - 08/05/2022 3:27 PM PHYSICIAN CODING SPECIALIST received fax from [employer], esomeprazole was approved, this is good from 07/23/22 to . This was called to sandhya Mitchell. Patient did sweet pickled fruit maker her refill and paid for it. This shouldgo through next time she is due for a refill. ICIAN CODING SPECIALIST * Telephone Encounter - Terrell Henderson CMA - 08/05/2022 2:31 PM PHYSICIAN CODING SPECIALIST Per fax request received, patient was give a temporary supply of the Esomeprazole Mag 40 MG Caps. A prior authorization was started through CoverMyMeds for this medication. Boo: [id number] AIDEN ICIAN CODING SPECIALIST documented in this encounter Plan of Treatment Not on file documented as of this encounter Visit Diagnoses Not on filedocumented in this encounter Care Teams Aircrewman Relationship Specialty Start Date End Date Nurys Givens MD PCP - General Family Medicine 06/11/21 oJse Lozoya DO Gastroenterology 08/01/16 documented as of this encounter
--- OUTSIDE RECORDS SUMMARY | 2024-06-19 21:13 | XMS_ITS | Encounter Summary ---
Author Organization [facility] Address [address] [place] [address] Phone Care Team Providers Care Business Unit Leader Name Role Phone Jose Lozoya DO Unavailable [phone] Nurys Givens MD Primary Care Provider Reason for Visit * Reason Comments Medication Refill Encounter Details Date Type Department Care Team (Late st Contact Info) Description 09/27/2023 Refill [facility] - Gastroenterology - [place] [address] [place] [address] Lupe Frank APRN, ELECTROCARDIOGRAPH OPERATOR [address] [place] [address] Medication Refill Social History Tobacco Use Types [...] Encounter - Ashia Mayberry RN - 09/28/2023 8:33 AM CDT Pharmacy requesting refill of: Requested Prescriptions Pending Prescriptions Disp Refills esomeprazole (NexIUM) 40 MG CAPSULE DELAYED RELEASE [Pharmacy Med Name: ESOMEPRAZOLE MAG DR 40 MG CAP] 120 Capsule 5 Sig: TAKE 1 CAPSULE BY MOUTH TWICE A DAY Last fill: 08/04/2022 Patients last OV with GI: 06/07/2021 Next Office Visit with GI: none scheduled. See refill encounter for 07/26/2023. Patient reported seeing a new GI doctor. documented in this encounter Plan of Treatment Not on file documented as of this encounter Visit Diagnoses Not on filedocumented in this encounter Care Teams Business Unit Leader Relationship Specialty Start Date End Date Nurys Givens MD PCP - General Family Medicine 06/11/21 Jose Lozoya DO Gastroenterology 08/01/16 documented as of this encounter
--- OUTSIDE RECORDS SUMMARY | 2024-06-19 21:13 | XMS_ITS | Clinical Summary ---
Author Organization [facility] Address [address] [place] [address]. [place], [place] [address] [place] [address] Care Team Providers Care Kiosk Sales Representative Name Role Phone Nurys Givens MD Primary Care Provider [phone] Social History Tobacco Use Types Packs/Day Years Used Date Smoking Tobacco: Never Assessed Comments Unknown Sex and Gender Information Value Date Recorded Sex Assigned at Not on file Legal Sex Female 12:53 PM CDT Gender Identity Not on file Sexual Orientation Not on file Plan of Treatment Health Maintenance Due Date Last Done Comments Colorectal Cancer Screening Colonoscopy (10 Years) 1955 Hepatitis C 1975 DTaP, Tdap and Td Vaccines ( 1 - Tdap) 1976 Mammogram Screening 1997 Zoster Vaccines (1 of 2) 2007 Dexa Scan (General) 2022 Pneumococcal Vaccine: 65+ Years (2 of 2 - PCV) 2022 03/22/2019 COVID-19 Vaccine (3 - 2023-2 5 season) 2024 09/18/2020, 08/28/2020 Influenza Adult (#1) 2024 RSV Immunization or 60+ Years (1 - 1-dose 75+ series) 2032 Meningococcal Vaccine Aged Out No carolynn milton eligible based on patient's age to complete this topic RSV Immunizations Under 20 Months Aged Out No longer eligible b ased on patient's age to complete this topic Insurance Ring OPEN ACCESS [facility] Care Teams Kiosk Sales Representative Relationship Specialty Start Date End Date Nurys Givens MD PCP - General FAMILY PRACTICE 04/16/21
--- OUTSIDE RECORDS SUMMARY | 2024-06-19 21:13 | XMS_ITS | Encounter Summary ---
Author Organization [facility] Address [address] [place] [address]. [place], [place] [address] [place] [address] Care Team Providers Care Partner Marketing Manager Name Role Phone Nurys Givens MD Primary Care Provider [phone] Encounter Details Date Type Department Care Team (Latest Contact Info) Description 04/18/2021 Travel Social History Tobacco Use Types Packs/Day [...] have Coronavirus / COVID-19? No / Unsure 04/18/2021 9:11 AM CDT documented as of this encounter Plan of Treatment Not on file documented as of this encounter Visit Diagnoses Not on filedocumented in this encounter Care Teams Partner Marketing Manager Relationship Specialty Start Date End Date Nurys Givens MD PCP - General FAMILY PRACTICE 04/16/21 documented as of this encounter
--- OUTSIDE RECORDS SUMMARY | 2024-06-19 21:13 | XMS_ITS | Clinical Summary ---
Author Organization [facility] Address [address], [facility] [address] [place] [address] Phone Care Team Providers Care Shopfitter Name Role Phone Jose Lozoya DO Unavailable [phone] Nurys Givens MD Primary Care Provider Allergies Active Allergy Reactions Criticality Noted Date Comments Oxycodone Hallucinations Medium 04/30/2020 Pt not allergic to medication, she just prefers not to take the medication Penicillins Unknown Medications montelukast (SINGULAIR) 10 MG Tablet Active amphetamine-de xtroamphetamin e (ADDERALL XR) 30 MG CAPSULE SR 24 HR Take 1 Cap by mouth daily. 0 6 Active lisinopril-hyd roCHLOROthiazi de (PRINZIDE, ZESTORETIC) 20-25 MG Tablet Take 1 Tab by mouth daily. 3 6 Active albuterol 108 (90 Base) MCG/ACT Aerosol Solution take 2 Puffs by inhalation every 4 hours as needed for Wheezing. Active Multiple Vitamins-Office Technology Instructor als (CENTRUM PO) Take by mouth. Activ e Cholecalcifero l (VITAMIN D) 2000 UNIT Tablet Take by mouth. Activ e ANORO ELLIPTA 62.5-25 MCG/INH AEROSOL POWDER, BREATH ACTIVATED 8 Active ALPRAZolam 2 MG Tablet TAKE 1 TABLET BY MOUTH THREE TIMES A DAY NEEDED FOR ANXIETY 0 Active atorvastatin (LIPITOR) 40 MG Tablet Take 40 mg by mouth daily. 0 Active busPIRone (BUSPAR) 15 MG Tablet TAKE 3 TABLETS BY MOUTH TWICE A DAY 0 Active Desvenlafaxine Succinate 50 MG TABLET SR 24 HR 0 Active ezetimibe (ZETIA) 10 MG Tablet Take 1 Tab by mouth daily. 0 Active Ozempic, 0.25 or 0.5 MG/DOSE, 2 MG/1.5ML Solution Pen-injector INJECT 0.25 MG (0.2 ML) SUBCUTANEOUSLY WEEKLY 12 WEEKS 0 Active Accu-Chek Softclix Lancets Misc USE 1 LANCET DIRECTED EVERY DAY 0 Active aspirin EC 81 MG Tablet Delayed Response Take 81 mg by mouth daily. Active OXcarbazepine (TRILEPTAL) 150 MG Tablet Take 150 mg by mouth 2 times daily. Active Ascorbic Acid (VITAMIN C PO) Take by mouth. Active esomeprazole (NexIUM) 40 MG CAPSULE DELAYED RELEASE TAKE 1 CAPSULE BY MOUTH TWICE A DAY 180 Capsule 3 3 Active Active Problems Problem Noted Date Diagnosed Date Chronic idiopathic constipation 08/09/2021 Acid reflux Perea's esophagus Hypertension Dyslipidemia Bipolar affective disorder Anxiety COPD (chronic obstructive pulmonary disease) Overview (06/13/2015): Asthma with tobacco abuse Colon polyps Immunizations Immunization Administration Dates Next Due Covid-19, Mrna, Lnp-s, Pf, 30 Mcg/0.3 Ml Dose (P fizer) 09/18/2020,08/28/2020 Influenza, Recombinant, Quadrivalent,injectable, Pf 04/04/2021 Pneumococcal Vaccine Adult - 23 Valent 9 Family History Medical History Relation Name Comments Cancer Father Pancreatic Heart Attack Other 1 Hypertension Other 2 High Cholesterol Other 3 Diabetes Other 4 Alzheimer's Disease Other 5 Cancer Other 6 Pancreatic Relation Name Status Comments Father Other 1 Other 2 Other 3 Other 4 Other 5 Other 6 Social History Tobacco Use Types Packs/Day Years Used Date Smoking Tobacco: Every Day Cigarettes 2.5 44 Smokeless Tobacco: Never Tobacco Cessation:Ready to Q uit: Yes; Counseling Given: Yes Alcohol Use Standard Drinks/Week Comments Yes 0 (1 standard drink = 0.6 oz pur e alcohol) Rare Sexually Active Control Partners Comments Not Currently Comments No Sex and Gender Information Value Date Recorded Sex Assigned at Not on file Legal Sex Female 11:25 PM CDT Gender Identity Not on file Sexual Orientation Not on file Last Filed Vital Signs Vital Sign Reading Time Taken Comments Blood Pressure 132/72 06/07/2021 8:19 AM [employer]IOR SAL[employer] Pulse 97 06/07/2021 8:19 AM [employer]IOR SALES EXEC[employer]IVE Temperature 36.2 ??C (97.1 ??F) 06/07/2021 8:19 AM CS T Respiratory Rate 20 06/07/2021 8:19 AM [employer]IOR SALES EXEC[employer]IVE Oxygen Saturation 99% 06/07/2021 8:19 AM [employer]IOR SALES EXEC[employer]IVE Inhaled Oxygen Concentration - - Weight 68.9 kg (152 lb) 08/09/2021 8:18 AM [employer]IOR SALES EXEC[employer]IVE V erbal Height 152.4 cm (5') 08/09/2021 8:18 AM [employer]IOR SALES EXEC[employer]IVE Body Mass Index 29.69 08/09/2021 8:18 AM [employer]IOR SALES EXECUTIVE Plan of Treatment Health Maintenance Due Date Last Done Comments DEXA Bone Density 1955 Hepatitis C Virus (HCV) Screening 1955 TdaP Immunization 1955 Cologuard 2007 Immunochemical Fecal Occult Blood 2007 Mammogram 2007 Zoster Immunization (1 of 2) 2007 Respiratory Syncytial Virus (RSV) Immunization (Adult) (1 - Risk 60-74 years 1-dose series) 2017 Pneumococcal Immunization (5 0+ years) (2 of 2 - PCV) 03/22/2020 03/22/2019 Influenza Immunization (#1) 2024 04/04/2021 SARS-COV-2 Immunization ( season) 2024 04/19/2021, 09/18/2020, 08/28/2020 Colonoscopy 01/18/2025 01/19/2020, 07/31/2016, 04/01/2011 Colorectal Cancer Screening 01/18/2025 01/19/2020, 07/31/2016, 04/01/2011 Pneumococcal Immunization Combined Discontinued 03/22/2019 Hepatitis B Immunization Aged Out No longer eligible based on patient's age to complete this topic Meningococcal Immunization (ACWY) Aged Out No longer eligible based on patient's age to complete this topic Rotavirus Immunization Aged Out No lo nger eligible based on patient's age to complete this topic Procedures Procedure Name Priority Date/Time Associated Diagnosis Comments COLONOSCOPY Routine 01/19/2020 from Last 3 Months or Most Recently Relevant to Health Maintenance Results * COLONOSCOPY (01/19/2020) Jose Lozoya DO PROCEDURE/MINOR SURGICAL ORDERA BLES Final Result from Last 3 Months or Most Recently Relevant to Health Maintenance Insurance [facility] Care Teams Shopfitter Relationship Specialty Start Date End Date Nurys Givens MD PCP - General Family Medicine 06/11/21 Jose Lozoya DO Gastroenterology 08/01/16
--- OUTSIDE RECORDS SUMMARY | 2024-06-19 21:13 | XMS_ITS | Patient Health Record ---
Author Organization [facility] [employer] [facility] Address [address] [place] [address] Care Team Providers Care Medical Officer Name Role Phone Troy Givens MD Primary Care Provider Javy Alaniz Unavailable [phone] Migration, Provider Unavailable Unavailable Allergies Allergen (clinical drug ingredient) Drug/Non Drug Allergy documented on EMR Reaction Allergy Type Onset Date Status metformin Metformin Unknown Drug Allergy 10/29/2023 Active oxycodone Oxycodone Unknown Drug Allergy 10/29/2023 Active Substance with penicillin structure and antibacterial mechanism of action (substance) Penicillins Unknown Drug Allergy 10/29/2023 Active Results Component Value Reference Range Notes DRUG SCREEN, 14 DRUGS (DETEC TIMED), URINE Reviewed date:08/27/2023 12:00:00 AM Interpretation: Performing Lab: Notes/Report: Amphetamine positive Barbiturates negative Benzodiazipine positive Buprenorphine negative Cocaine negative MDMA/Ectasy negative Methadone negative Methamphetamine positive Morphine negative note +MDMA +BENZO +EDDP, AMP, METHA Oxycodone negative Phenocyclidine negative THC negative DRUG SCREEN, 14 DRUGS (DETEC TIMED), URINE Reviewed date:09/11/2023 12:00:00 AM Interpretation: Performing Lab: Notes/Report: Amphetamine positive Barbiturates negative Benzodiazipine positive Buprenorphine negative Cocaine negative MDMA/Ectasy negative Methadone negative Methamphetamine negative Morphine negative note 90, pos bzo, amp Oxycodone negative Phenocyclidine negative THC negative UDT Reviewed date:12/31/2023 08:38:13 AM Interpretation: Performing Lab: Notes/Report: THC N 0 - 50 ng/ml Cocaine N 0 - 300 ng/ml Amphetamine P 0 - 1000 ng/ml Buprenorphine (BUP) N 0 - 10 ng/ml Secobarbital (Bar) N 0 - 300 ng/ml Oxazepam (BZO) N 0 - 300 ng/ml 4-hnxyvwunpj-6,8-dpqhkkdx-7, 3-diphenylpyrr olidine (EDDP) N 0 - 300 ng/ml Methamphetamine (MET) N 0 - 1000 ng/ml Methylenedioxymethamphetamine (MDMA) N 0 - 500 ng/ml Morphine (MOP 300/ECI6250) N 0 - 300 ng/ml Methadone (MTD) N 0 - 300 ng/ml Phencyclidine (PCP) N 0 - 25 ng/ml Propoxyphene (PPX) N 0 - 300 ng/ml Nortriptyline (TCA) N 0 - 1000 ng/ml UDT Reviewed date:03/03/2024 08:37:51 AM Interpretation: Performing Lab: Notes/Report: THC N 0 - 50 ng/ml Cocaine N 0 - 300 ng/ml Amphetamine P 0 - 1000 ng/ml Buprenorphine (BUP) N 0 - 10 ng/ml Secobarbital (Bar) N 0 - 300 ng/ml Oxazepam (BZO) N 0 - 300 ng/ml 6-twmnuisrsn-9,7-onxyztxz-8, 3-diphenylpyrr olidine (EDDP) N 0 - 300 ng/ml Methamphetamine (MET) N 0 - 1000 ng/ml Methylenedioxymethamphetamine (MDMA) N 0 - 500 ng/ml Morphine (MOP 300/[id number]) N 0 - 300 ng/ml Methadone (MTD) N 0 - 300 ng/ml Phencyclidine (PCP) N 0 - 25 ng/ml Propoxyphene (PPX) N 0 - 300 ng/ml Nortriptyline (TCA) N 0 - 1000 ng/ml Oxycodone N 0 - 300 ng/ml UDT Reviewed date:04/01/2024 08:29:07 AM Interpretation: Performing Lab: Notes/Report: THC N 0 - 50 ng/ml Cocaine N 0 - 300 ng/ml Amphetamine P 0 - 1000 ng/ml Buprenorphine (BUP) N 0 - 10 ng/ml Secobarbital (Bar) N 0 - 300 ng/ml Oxazepam (BZO) N 0 - 300 ng/ml 7-ymkeqsfxcc-5,5-zcolsimb-5, 3-diphenylpyrr olidine (EDDP) N 0 - 300 ng/ml Methamphetamine (MET) N 0 - 1000 ng/ml Methylenedioxymethamphetamine (MDMA) N 0 - 500 ng/ml Morphine (MOP 300/[id number]) N 0 - 300 ng/ml Methadone (MTD) N 0 - 300 ng/ml Phencyclidine (PCP) N 0 - 25 ng/ml Propoxyphene (PPX) N 0 - 300 ng/ml Nortriptyline (TCA) N 0 - 1000 ng/ml Oxycodone N 0 - 300 ng/ml UDT Reviewed date:05/05/2024 08:49:22 AM Interpretation: Performing Lab: Notes/Report: THC N 0 - 50 ng/ml Cocaine N 0 - 300 ng/ml Amphetamine P 0 - 1000 ng/ml Buprenorphine (BUP) N 0 - 10 ng/ml Secobarbital (Bar) N 0 - 300 ng/ml Oxazepam (BZO) N 0 - 300 ng/ml 5-ydejsnewkm-0,5-yaewxaqp-0, 3-diphenylpyrr olidine (EDDP) N 0 - 300 ng/ml Methamphetamine (MET) N 0 - 1000 ng/ml Methylenedioxymethamphetamine (MDMA) N 0 - 500 ng/ml Morphine (MOP 300/[id number]) N 0 - 300 ng/ml Methadone (MTD) N 0 - 300 ng/ml Phencyclidine (PCP) N 0 - 25 ng/ml Propoxyphene (PPX) N 0 - 300 ng/ml Nortriptyline (TCA) N 0 - 1000 ng/ml Oxycodone N 0 - 300 ng/ml UDT Reviewed date:06/03/2024 08:51:47 AM Interpretation: Performing Lab: Notes/Report: THC N 0 - 50 ng/ml Cocaine N 0 - 300 ng/ml Amphetamine P 0 - 1000 ng/ml Buprenorphine (BUP) N 0 - 10 ng/ml Secobarbital (Bar) N 0 - 300 ng/ml Oxazepam (BZO) N 0 - 300 ng/ml 3-hvgxgaoguj-6,0-wfgxppdz-4, 3-diphenylpyrr olidine (EDDP) N 0 - 300 ng/ml Methamphetamine (MET) N 0 - 1000 ng/ml Methylenedioxymethamphetamine (MDMA) N 0 - 500 ng/ml Morphine (MOP 300/[id number]) N 0 - 300 ng/ml Methadone (MTD) N 0 - 300 ng/ml Phencyclidine (PCP) N 0 - 25 ng/ml Propoxyphene (PPX) N 0 - 300 ng/ml Nortriptyline (TCA) N 0 - 1000 ng/ml Oxycodone N 0 - 300 ng/ml DRUG CONFIRMATION, URINE Reviewed date:08/31/2023 12:00:00 AM Interpretation: Performing Lab: Notes/Report: Reason For Referral No Information Medications Medication SIG (Take, Route, Frequency, Duration) Notes Start Date End Date Status traZODone HCl 50 MG TAKE 1 TABLET BY ERICH TH EVERYDAY AT BEDTIME for 90 Active Albuterol Sulfate HFA 108 (90 Base) MCG/ACT Inhalation for 29 Days Unknown Anoro Ellipta 62.5-25 MCG/ACT INHALE 1 PUFF DAILY Inhalation for 30 Days Unknown Esomeprazole Magnesium 40 MG TAKE 1 CAPS ULE BY MOUTH TWICE A DAY Oral for 90 Days Unknown Esomeprazole Magnesium 40 MG TAKE 1 CAPS ULE BY MOUTH TWICE A DAY Oral for 90 Days Active Ezetimibe 10 MG TAKE 1 TABLET BY ERICH TH EVERY DAY Oral for 90 Days Unknown busPIRone HCl 15 MG TAKE 1 TABLET BY ERICH TH FIVE TIMES A DAY 90 DAYS Oral for 90 Days Active busPIRone HCl 15 MG 1 tablet Oral four times a day for 30 days Unknown Montelukast Sodium 10 MG TAKE 1 TABLET B Y MOUTH EVERY DAY Oral for 90 Days Unknown Ezetimibe 10 MG Oral for 90 Days Active Atorvastatin Calcium 40 MG TAKE 1 TABLET BY MOUTH EVERYDAY AT BEDTIME Oral for 90 Days Unknown Anoro Ellipta [...] Once a day for 90 days Active Montelukast Sodium 10 MG TAKE 1 [...] BY MOUTH EVERY DAY for 90 Active OXcarbazepine 150 MG 0.5 tablet Oral Twi ce a day for 90 days Active busPIRone HCl 15 MG 1 tablet Oral four times a day for 90 days Active Amphetamine-Dextroamphet ER 25 MG 1 capsule in the morning Oral Once a day for 30 days dose reduced 06/03/2024 Active Desvenlafaxine Succinate ER 25 MG TAKE 1 TABLET BY MOUTH EVERY DAY for 90 Active Social History Tobacco Use: Social History Observation Description Date Details (start date - stop date) Current Smoker NA - NA Sex Assigned At : Social History Observation Description Sex Assigned At Female Tobacco Control (Standard) Question Answer Notes Tobacco use: Current smoker Problems Problem Type SNOMED Code ICD Code Onset Dates Problem Status W/U Status Risk Notes Problem Generalized anxiety disorder (25060553) Generalized anxiety disorder (F41.1) 10/29/19 24 Active confirmed Problem Attention deficit hyperactivity disorder, predominantly inattentive type (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) Attention-deficit hyperactivity disorder, predominantly inattentive type (F90.0) 10/29/19 24 Active confirmed Problem Attention deficit hyperactivity disorder, combined type (55690387) Attention-deficit hyperactivity disorder, combined type (F90.2) Active confirmed Problem Chronic obstructive pulmonary disease (82522120) Chronic obstructive pulmonary disease, unspecified (J44.9) 10/29/19 24 Active confirmed Problem Perea's esophagus (195314016) Perea's esophagus without dysplasia (K22.70) 10/29/19 24 Active confirmed Problem 52055531 Bipolar disorder in remission (F31.70) Active confirmed Problem Hypertension (45257087) Hypertension (I10) 06/13/20 15 Active confirmed Problem Dyslipidemia (041836813) Dyslipidemia (E78.5) 06/13/20 15 Active confirmed Problem COPD - Chronic obstructive pulmonary disease (14487062) COPD (chronic obstructive pulmonary disease) (J44.9) 06/13/20 15 Active confirmed Vital Signs Heart Rate 99 /min 06/03/2024 Height-cm 154.94 cm 06/03/2024 Blood pressure diastolic 75 mm Hg 06/03/2024 Weight-kg 48.53 kg 06/03/2024 Height 61.00 in 06/03/2024 Blood pressure systolic 113 mm Hg 06/03/2024 Weight 107 lbs 06/03/2024 BMI 20.22 kg/m2 06/03/2024 Encounters Encounter Location Date Provider Diagnosis [facility] [address] [facility] [address] [place] [address] 08/27/2023 Javy Addi Attention-deficit hyperactivity disorder, combined type F90.2 ; Generalized anxiety disorder F41.1 ; Type 2 diabetes mellitus without complications E11.9 ; Unspecified asthma, uncomplicated J45.909 ; Essential (primary) hypertension I10 ; Perea's esophagus without dysplasia K22.70 ; Chronic obstructive pulmonary disease, unspecified J44.9 and Bipolar disorder, current episode depressed, mild F31.31 [facility] [place] [address] [facility] [address] [facility] [address] [place] [address] 09/11/2023 Javy Addi Attention-deficit hyperactivity disorder, unspecified type F90.9 [facility] [place] [address] [facility] [address] [facility] [address] [place] [address] 09/25/2023 Javy Addi Perea's esophagus without dysplasia K22.70 ; Unspecified asthma, uncomplicated J45.909 ; Attention-deficit hyperactivity disorder, predominantly inattentive type F90.0 ; Bipolar disorder, current episode depressed, mild F31.31 ; Generalized anxiety disorder F41.1 ; Type 2 diabetes mellitus without complications E11.9 ; Essential (primary) hypertension I10 ; Attention-deficit hyperactivity disorder, combined type F90.2 and Chronic obstructive pulmonary disease, unspecified J44.9 [facility] [address] [facility] [address] [facility] [address] [place] [address] 10/29/2023 Javy Addi Attention-deficit hyperactivity disorder, predominantly inattentive type F90.0 ; Perea's esophagus without dysplasia K22.70 ; Bipolar disorder, current episode depressed, mild F31.31 ; Generalized anxiety disorder F41.1 ; Type 2 diabetes mellitus without complications E11.9 ; Unspecified asthma, uncomplicated J45.909 ; Attention-deficit hyperactivity disorder, combined type F90.2 and Chronic obstructive pulmonary disease, unspecified J44.9 [facility] [address] [facility] [address] [address] [place] [address] 12/31/2023 Javy Addi Attention-deficit hyperactivity disorder, predominantly inattentive type F90.0 ; Bipolar disorder, current episode depressed, mild F31.31 ; Perea's esophagus without dysplasia K22.70 ; Generalized anxiety disorder F41.1 ; Chronic obstructive pulmonary disease, unspecified J44.9 and Hypertension I10 [facility] [address] [place] [address] 03/03/2024 Javy Addi Attention-deficit hyperactivity disorder, predominantly inattentive type F90.0 ; Bipolar disorder, current episode depressed, mild F31.31 ; Perea's esophagus without dysplasia K22.70 ; Generalized anxiety disorder F41.1 ; Chronic obstructive pulmonary disease, unspecified J44.9 and Hypertension I10 [facility] [address] [place] [address] 04/01/2024 Javy Addi Attention-deficit hyperactivity disorder, predominantly inattentive type F90.0 ; Bipolar disorder in remission F31.70 ; Perea's esophagus without dysplasia K22.70 ; Generalized anxiety disorder F41.1 ; Chronic obstructive pulmonary disease, unspecified J44.9 and Hypertension I10 [facility] [address] [place] [address] 05/05/2024 Javy Addi Attention-deficit hyperactivity disorder, predominantly inattentive type F90.0 ; Bipolar disorder in remission F31.70 ; Perea's esophagus without dysplasia K22.70 ; Generalized anxiety disorder F41.1 ; Chronic obstructive pulmonary disease, unspecified J44.9 and Hypertension I10 [facility] [address] [place] [address] 06/03/2024 Javy Addi Attention-deficit hyperactivity disorder, predominantly inattentive type F90.0 ; Bipolar disorder in remission F31.70 ; Perea's esophagus without dysplasia K22.70 ; Generalized anxiety disorder F41.1 ; Chronic obstructive pulmonary disease, unspecified J44.9 and Hypertension I10 [facility], [facility] [address] [place] [address] 08/12/2023 Provider Migration [facility], [facility] [address] [facility] [address] [place] [address] 09/04/2023 Provider Migration [facility], [place] [id number] [place] [address] 10/08/2023 Provider Migration [facility], [facility] [address] [place] [address] 11/07/2023 Provider Migration [facility], [facility] [address] [place] [address] 11/08/2023 [facility], [facility] [address] [place] [address] 03/04/2024 Javy Addi Attention-deficit hyperactivity disorder, predominantly inattentive type F90.0 [facility], [facility] [address] [place] [address] 03/04/2024 Javy [facility], [facility] [address] [place] [address] 03/08/2024 Javy Addi Attention-deficit hyperactivity disorder, predominantly inattentive type F90.0 [facility], [facility] [address] [place] [address] 05/02/2024 Jayv Addi Attention-deficit hyperactivity disorder, predominantly inattentive type F90.0 [facility], [facility] [address] [place] [address] 11/25/2023 Javy [facility], [facility] [address] [place] [address] 11/26/2023 [facility] [address] [place] [address] 12/01/2023 [facility] [address] [place] [address] 12/03/2023 [facility] [address] [place] [address] 12/08/2023 Javy Addi [facility], [facility] [address] [place] [address] 12/09/2023 Jvay Addi [facility], [facility] [address] [place] [address] 12/09/2023 Javy Addi [facility], [facility] [address] [place] [address] 12/12/2023 Javy Addi Attention-deficit hyperactivity disorder, combined type F90.2 [facility], [facility] [address] [place] [address] 12/21/2023 [facility] [address] [place] [address] 12/22/2023 [facility] [address] [place] [address] 12/22/2023 Javy [facility], [facility] [address] [place] [address] 03/03/2024 [facility] [address] [facility] [address] [place] [address] 03/03/2024 Javy [facility], [facility] [address] [facility] [address] [facility] [address] [place] [address] 03/03/2024 Javy Addi Attention-deficit hyperactivity disorder, predominantly inattentive type F90.0 [facility] [address] [facility] [address] [facility] [address] [place] [address] 03/04/2024 Javy Addi Attention-deficit hyperactivity disorder, predominantly inattentive type F90.0 Assessments Encounter Date Diagnosis (ICD Code) Assessment Notes Treatment Notes Treatment Clinical Notes Section Notes 08/27/2023 Type 2 diabetes mellitus without complications (ICD-10 - E11.9) 08/27/2023 Bipolar disorder, current episode depressed, mild (ICD-10 - F31.31) 08/27/2023 Generalized anxiety disorder (ICD-10 - F41.1) 08/27/2023 Attention-defici t hyperactivity disorder, combined type (ICD-10 - F90.2) 08/27/2023 Essential (primary) hypertension (ICD-10 - I10) 08/27/2023 Chronic obstructive pulmonary disease, unspecified (ICD-10 - J44.9) 08/27/2023 Unspecified asthma, uncomplicated (ICD-10 - J45.909) 08/27/2023 Perea's esophagus without dysplasia (ICD-10 - K22.70) 09/11/2023 Attention-defici t hyperactivity disorder, unspecified type (ICD-10 - F90.9) 09/25/2023 Type 2 diabetes mellitus without complications (ICD-10 - E11.9) 09/25/2023 Bipolar disorder, current episode depressed, mild (ICD-10 - F31.31) 09/25/2023 Generalized anxiety disorder (ICD-10 - F41.1) 09/25/2023 Attention-defici t hyperactivity disorder, predominantly inattentive type (ICD-10 - F90.0) 09/25/2023 Attention-defici t hyperactivity disorder, combined type (ICD-10 - F90.2) 09/25/2023 Essential (primary) hypertension (ICD-10 - I10) 09/25/2023 Chronic obstructive pulmonary disease, unspecified (ICD-10 - J44.9) 09/25/2023 Unspecified asthma, uncomplicated (ICD-10 - J45.909) 09/25/2023 Perea's esophagus without dysplasia (ICD-10 - K22.70) 10/29/2023 Type 2 diabetes mellitus without complications (ICD-10 - E11.9) 10/29/2023 Bipolar disorder, current episode depressed, mild (ICD-10 - F31.31) 10/29/2023 Generalized anxiety disorder (ICD-10 - F41.1) 10/29/2023 Attention-defici t hyperactivity disorder, predominantly inattentive type (ICD-10 - F90.0) 10/29/2023 Attention-defici t hyperactivity disorder, combined type (ICD-10 - F90.2) 10/29/2023 Chronic obstructive pulmonary disease, unspecified (ICD-10 - J44.9) 10/29/2023 Unspecified asthma, uncomplicated (ICD-10 - J45.909) 10/29/2023 Perea's esophagus without dysplasia (ICD-10 - K22.70) 12/31/2023 Bipolar disorder, current episode depressed, mild (ICD-10 - F31.31) Major Depressive Disorder - Assessment: Patient reports worsening depression, irritability, and anxiety. - Plan: - Increase buspirone to 30 mg in the morning, 15 mg in the afternoon, and 30 mg in the evening. - Reevaluate in three months and consider adjusting desvenlafaxine dosage or exploring alternative medications to reduce the risk of serotonin syndrome. Anxiety - Assessment: Patient reports increased anxiety, particularly related to an upcoming trip. - Plan: - Continue with the adjusted buspirone dosing as mentioned above. - Monitor patient's response and adjust as needed. Insomnia - Assessment: Patient has a history of sleep issues and is scheduled to see a sleep specialist next week. - Plan: - Continue trazodone 50 mg at night for sleep. - Follow up on the outcome of the sleep specialist appointment. Bipolar Disorder - Assessment: Patient is currently on oxcarbazepine and lamotrigine for bipolar management. - Plan: - Continue oxcarbazepine 150 mg half tablet twice a day and lamotrigine as prescribed. - Monitor for mood stability and adjust medications as needed. ADHD - Assessment: Patient is currently on Adderall 30 mg once a day in the morning. - Plan: - Continue Adderall 30 mg once a day in the morning. - Monitor for effectiveness and side effects. Hypertension - Assessment: Patient's blood pressure was elevated during the visit (148/78). - Plan: - Encourage patient to monitor blood pressure at home and follow up with primary care physician. - Adjust blood pressure medications as needed. Personal Hygiene - Assessment: Patient reports difficulty with personal hygiene due to lack of motivation and energy. - Plan: - Address underlying depression and anxiety issues with medication adjustments. - Encourage patient to engage in self-care activities and seek support from family and friends. Communication with Primary Care Physician - Plan: - Send a copy of the visit note to the patient's primary care physician to keep her informed of the patient's mental health status and medication adjustments. Medication Refills - Plan: - Ensure patient has enough medication refills for their upcoming trip in January. - Schedule refills for buspirone closer to the travel date if needed. 12/31/2023 Attention-defici t hyperactivity disorder, predominantly inattentive type (ICD-10 - F90.0) Major Depressive Disorder - Assessment: Patient reports worsening depression, irritability, and anxiety. - Plan: - Increase buspirone to 30 mg in the morning, 15 mg in the afternoon, and 30 mg in the evening. - Reevaluate in three months and consider adjusting desvenlafaxine dosage or exploring alternative medications to reduce the risk of serotonin syndrome. Anxiety - Assessment: Patient reports increased anxiety, particularly related to an upcoming trip. - Plan: - Continue with the adjusted buspirone dosing as mentioned above. - Monitor patient's response and adjust as needed. Insomnia - Assessment: Patient has a history of sleep issues and is scheduled to see a sleep specialist next week. - Plan: - Continue trazodone 50 mg at night for sleep. - Follow up on the outcome of the sleep specialist appointment. Bipolar Disorder - Assessment: Patient is currently on oxcarbazepine and lamotrigine for bipolar management. - Plan: - Continue oxcarbazepine 150 mg half tablet twice a day and lamotrigine as prescribed. - Monitor for mood stability and adjust medications as needed. ADHD - Assessment: Patient is currently on Adderall 30 mg once a day in the morning. - Plan: - Continue Adderall 30 mg once a day in the morning. - Monitor for effectiveness and side effects. Hypertension - Assessment: Patient's blood pressure was elevated during the visit (148/78). - Plan: - Encourage patient to monitor blood pressure at home and follow up with primary care physician. - Adjust blood pressure medications as needed. Personal Hygiene - Assessment: Patient reports difficulty with personal hygiene due to lack of motivation and energy. - Plan: - Address underlying depression and anxiety issues with medication adjustments. - Encourage patient to engage in self-care activities and seek support from family and friends. Communication with Primary Care Physician - Plan: - Send a copy of the visit note to the patient's primary care physician to keep her informed of the patient's mental health status and medication adjustments. Medication Refills - Plan: - Ensure patient has enough medication refills for their upcoming trip in January. - Schedule refills for buspirone closer to the travel date if needed. 03/03/2024 Attention-defici t hyperactivity disorder, predominantly inattentive type (ICD-10 - F90.0) Major Depressive Disorder and Anxiety - Assessment: Patient reports significant improvement in depression and anxiety symptoms. Depression score: 5 (no depression); anxiety score: low. Patient reports feeling like herself again and able to enjoy activities. - Plan: Continue current treatment with oxcarbazepine 150mg half tablet twice a day, Lamotrigine 200mg at night, and trazodone 50mg at bedtime. ADHD - Assessment: Patient has experienced significant weight loss (23 pounds since August). Concern for decreased appetite due to Adderall XR 30mg. - Plan: Reduce Adderall XR to 20mg and re-evaluate in one month. Patient agrees with the plan to reduce Adderall dosage. Anxiety Disorder - Assessment: Patient reports improvement with buspirone 15mg four times a day. Patient mentions successful transition off Xanax. - Plan: Continue current treatment with buspirone 15mg four times a day. Weight Loss - Plan: - Encourage patient to incorporate snacks in between meals and monitor weight for stabilization or increase. - Communicate with Dr. Givens regarding test results and any concerns. - Patient attributes some weight loss to following diabetes protocol and portion control. COPD and Yearly Lung Cancer Screening - Assessment: Patient has a scheduled CT scan for lung cancer screening tomorrow. - Plan: Continue monitoring and follow up with Dr. Nurys Givens. Abdominal Ultrasound - Plan: - Patient to undergo an abdominal ultrasound to rule out any issues that may interfere with eating. - Follow up with Dr. Givens for results and further recommendations. Physical Activity - Assessment: Patient reports walking over 10,000 steps per day and 62.7 miles in January. Patient mentions attending physical therapy to prepare for recent trip. - Plan: Encourage continuation of physical activity for overall health improvement. Recent Travel - Assessment: Patient reports successful completion of a three-week trip, including a 9-day land tour in [place], and a 12-day cruise around the [facility]. Medication Management - Plan: - Prescriptions sent to [facility] in [place]. - Patient informed about inability to provide written script for Adderall. - Advised patient to contact clinic if pharmacy doesn't have medication in stock. 03/03/2024 Attention-defici t hyperactivity disorder, predominantly inattentive type (ICD-10 - F90.0) 03/04/2024 Attention-defici t hyperactivity disorder, predominantly inattentive type (ICD-10 - F90.0) 03/04/2024 Attention-defici t hyperactivity disorder, predominantly inattentive type (ICD-10 - F90.0) 03/08/2024 Attention-defici t hyperactivity disorder, predominantly inattentive type (ICD-10 - F90.0) 04/01/2024 Attention-defici t hyperactivity disorder, predominantly inattentive type (ICD-10 - F90.0) Hypertension - Assessment: Patient reports checking blood pressure at home with good results but does not remember the numbers. - Plan: - Advise patient to write down blood pressure readings at least once or twice a day. - Encourage patient to practice deep breathing exercises (inhale for 5 counts, hold for 4, exhale for 3 counts) to help reduce anxiety and potentially lower blood pressure. Depression and Anxiety - Assessment: Patient reports a good month with no depressive or manic symptoms. - Plan: - Continue current treatment plan. - Continue Buspar 15 mg daily for anxiety disorder, one tablet four times a day. Bipolar Disorder (in remission) - Assessment: No manic or depressive symptoms reported. - Plan: - Continue current treatment plan. - Continue Oxcarbazepine half tablet twice a day. - Continue Lamotrigine 200 mg at bedtime. Insomnia - Assessment: Patient reports improved sleep. - Plan: - Continue current treatment plan. - Continue Trazodone 50 mg at bedtime. ADHD - Plan: - Continue current treatment plan. - Continue Adderall 25 mg daily (reduced from 30 mg due to 20 mg unavailability). Weight - Assessment: Patient reports gaining three pounds after being taken off Trulicity. - Plan: - Monitor weight. - Discuss with primary care provider if needed. Smoking Cessation - Assessment: Patient expressed interest in deep TMS treatment for smoking cessation. - Plan: - Informed patient about special offer of $500 (regular hamilton $3,800) and 28-30% success rate. - Explained 18-treatment process: daily treatments for 15 days followed by 3 weekly maintenance treatments. - Patient to discuss with and inform provider if deciding to proceed with treatment. Medication Management - Assessment: Patient confirms receiving Adderall from [facility] and all other medications from [facility]. Patient has about 10 days of Adderall remaining. - Plan: - Provider will send Adderall prescription to be picked up three days before current supply runs out. Contraindications for TMS - Assessment: Patient reports no metals in the head, cochlear implant, pacemaker, or bullet fragment. - Plan: - No contraindications for TMS treatment noted. 04/01/2024 Bipolar disorder in remission (ICD-10 - F31.70) Hypertension - Assessment: Patient reports checking blood pressure at home with good results but does not remember the numbers. - Plan: - Advise patient to write down blood pressure readings at least once or twice a day. - Encourage patient to practice deep breathing exercises (inhale for 5 counts, hold for 4, exhale for 3 counts) to help reduce anxiety and potentially lower blood pressure. Depression and Anxiety - Assessment: Patient reports a good month with no depressive or manic symptoms. - Plan: - Continue current treatment plan. - Continue Buspar 15 mg daily for anxiety disorder, one tablet four times a day. Bipolar Disorder (in remission) - Assessment: No manic or depressive symptoms reported. - Plan: - Continue current treatment plan. - Continue Oxcarbazepine half tablet twice a day. - Continue Lamotrigine 200 mg at bedtime. Insomnia - Assessment: Patient reports improved sleep. - Plan: - Continue current treatment plan. - Continue Trazodone 50 mg at bedtime. ADHD - Plan: - Continue current treatment plan. - Continue Adderall 25 mg daily (reduced from 30 mg due to 20 mg unavailability). Weight - Assessment: Patient reports gaining three pounds after being taken off Trulicity. - Plan: - Monitor weight. - Discuss with primary care provider if needed. Smoking Cessation - Assessment: Patient expressed interest in deep TMS treatment for smoking cessation. - Plan: - Informed patient about special offer of $500 (regular hamilton $3,800) and 28-30% success rate. - Explained 18-treatment process: daily treatments for 15 days followed by 3 weekly maintenance treatments. - Patient to discuss with and inform provider if deciding to proceed with treatment. Medication Management - Assessment: Patient confirms receiving Adderall from [facility] and all other medications from [facility]. Patient has about 10 days of Adderall remaining. - Plan: - Provider will send Adderall prescription to be picked up three days before current supply runs out. Contraindications for TMS - Assessment: Patient reports no metals in the head, cochlear implant, pacemaker, or bullet fragment. - Plan: - No contraindications for TMS treatment noted. 05/02/2024 Attention-defici t hyperactivity disorder, predominantly inattentive type (ICD-10 - F90.0) 05/05/2024 Attention-defici t hyperactivity disorder, predominantly inattentive type (ICD-10 - [...] correct locations: Adderall to be sent to [facility] in [place], other medications to [facility] on [facility] in [place]. - Monitor medication refills and patient's adherence to the medication regimen. - Note: Patient does not need refills for Buspirone or Trazodone at this time. Follow-up - Plan: - Schedule a follow-up appointment in one month to assess the patient's progress and address any concerns related to the upcoming holiday season. 06/03/2024 Attention-defici t hyperactivity disorder, predominantly inattentive type (ICD-10 - F90.0) Patient's Grandson's Behavioral and Emotional Issues - Assessment: Suspected ADHD with rage episodes and declining academic performance. Low self-worth and confidence. Family history of mental health issues. - Plan: - Refer to Dr. Arechiga at the [facility] for further evaluation and management. - Monitor [...] - Schedule next appointment in 2 months. 04/01/2024 Perea's esophagus without dysplasia (ICD-10 - K22.70) Hypertension - Assessment: Patient reports checking blood pressure at home with good results but does not remember the numbers. - Plan: - Advise patient to write down blood pressure readings at least once or twice a day. - Encourage patient to practice deep breathing exercises (inhale for 5 counts, hold for 4, exhale for 3 counts) to help reduce anxiety and potentially lower blood pressure. Depression and Anxiety - Assessment: Patient reports a good month with no depressive or manic symptoms. - Plan: - Continue current treatment plan. - Continue Buspar 15 mg daily for anxiety disorder, one tablet four times a day. Bipolar Disorder (in remission) - Assessment: No manic or depressive symptoms reported. - Plan: - Continue current treatment plan. - Continue Oxcarbazepine half tablet twice a day. - Continue Lamotrigine 200 mg at bedtime. Insomnia - Assessment: Patient reports improved sleep. - Plan: - Continue current treatment plan. - Continue Trazodone 50 mg at bedtime. ADHD - Plan: - Continue current treatment plan. - Continue Adderall 25 mg daily (reduced from 30 mg due to 20 mg unavailability). Weight - Assessment: Patient reports gaining three pounds after being taken off Trulicity. - Plan: - Monitor weight. - Discuss with primary care provider if needed. Smoking Cessation - Assessment: Patient expressed interest in deep TMS treatment for smoking cessation. - Plan: - Informed patient about special offer of $500 (regular hamilton $3,800) and 28-30% success rate. - Explained 18-treatment process: daily treatments for 15 days followed by 3 weekly maintenance treatments. - Patient to discuss with and inform provider if deciding to proceed with treatment. Medication Management - Assessment: Patient confirms receiving Adderall from [facility] and all other medications from [facility]. Patient has about 10 days of Adderall remaining. - Plan: - Provider will send Adderall prescription to be picked up three days before current supply runs out. Contraindications for TMS - Assessment: Patient reports no metals in the head, cochlear implant, pacemaker, or bullet fragment. - Plan: - No contraindications for TMS treatment noted. 05/05/2024 Bipolar disorder in remission (ICD-10 - [...] correct locations: Adderall to be sent to [facility] in [place], other medications to [facility] on [facility] in [place]. - Monitor medication refills and patient's adherence to the medication regimen. - Note: Patient does not need refills for Buspirone or Trazodone at this time. Follow-up - Plan: - Schedule a follow-up appointment in one month to assess the patient's progress and address any concerns related to the upcoming holiday season. 06/03/2024 Bipolar disorder in remission (ICD-10 - F31.70) Patient's Grandson's Behavioral and Emotional Issues - Assessment: Suspected ADHD with rage episodes and declining academic performance. Low self-worth and confidence. Family history of mental health issues. - Plan: - Refer to Dr. Arechiga at the [facility] for further evaluation and management. - Monitor [...] - Schedule next appointment in 2 months. 12/31/2023 Perea's esophagus without dysplasia (ICD-10 - K22.70) Major Depressive Disorder - Assessment: Patient reports worsening depression, irritability, and anxiety. - Plan: - Increase buspirone to 30 mg in the morning, 15 mg in the afternoon, and 30 mg in the evening. - Reevaluate in three months and consider adjusting desvenlafaxine dosage or exploring alternative medications to reduce the risk of serotonin syndrome. Anxiety - Assessment: Patient reports increased anxiety, particularly related to an upcoming trip. - Plan: - Continue with the adjusted buspirone dosing as mentioned above. - Monitor patient's response and adjust as needed. Insomnia - Assessment: Patient has a history of sleep issues and is scheduled to see a sleep specialist next week. - Plan: - Continue trazodone 50 mg at night for sleep. - Follow up on the outcome of the sleep specialist appointment. Bipolar Disorder - Assessment: Patient is currently on oxcarbazepine and lamotrigine for bipolar management. - Plan: - Continue oxcarbazepine 150 mg half tablet twice a day and lamotrigine as prescribed. - Monitor for mood stability and adjust medications as needed. ADHD - Assessment: Patient is currently on Adderall 30 mg once a day in the morning. - Plan: - Continue Adderall 30 mg once a day in the morning. - Monitor for effectiveness and side effects. Hypertension - Assessment: Patient's blood pressure was elevated during the visit (148/78). - Plan: - Encourage patient to monitor blood pressure at home and follow up with primary care physician. - Adjust blood pressure medications as needed. Personal Hygiene - Assessment: Patient reports difficulty with personal hygiene due to lack of motivation and energy. - Plan: - Address underlying depression and anxiety issues with medication adjustments. - Encourage patient to engage in self-care activities and seek support from family and friends. Communication with Primary Care Physician - Plan: - Send a copy of the visit note to the patient's primary care physician to keep her informed of the patient's mental health status and medication adjustments. Medication Refills - Plan: - Ensure patient has enough medication refills for their upcoming trip in January. - Schedule refills for buspirone closer to the travel date if needed. 03/03/2024 Bipolar disorder, current episode depressed, mild (ICD-10 - F31.31) Major Depressive Disorder and Anxiety - Assessment: Patient reports significant improvement in depression and anxiety symptoms. Depression score: 5 (no depression); anxiety score: low. Patient reports feeling like herself again and able to enjoy activities. - Plan: Continue current treatment with oxcarbazepine 150mg half tablet twice a day, Lamotrigine 200mg at night, and trazodone 50mg at bedtime. ADHD - Assessment: Patient has experienced significant weight loss (23 pounds since August). Concern for decreased appetite due to Adderall XR 30mg. - Plan: Reduce Adderall XR to 20mg and re-evaluate in one month. Patient agrees with the plan to reduce Adderall dosage. Anxiety Disorder - Assessment: Patient reports improvement with buspirone 15mg four times a day. Patient mentions successful transition off Xanax. - Plan: Continue current treatment with buspirone 15mg four times a day. Weight Loss - Plan: - Encourage patient to incorporate snacks in between meals and monitor weight for stabilization or increase. - Communicate with Dr. Givens regarding test results and any concerns. - Patient attributes some weight loss to following diabetes protocol and portion control. COPD and Yearly Lung Cancer Screening - Assessment: Patient has a scheduled CT scan for lung cancer screening tomorrow. - Plan: Continue monitoring and follow up with Dr. Nurys Givens. Abdominal Ultrasound - Plan: - Patient to undergo an abdominal ultrasound to rule out any issues that may interfere with eating. - Follow up with Dr. Givens for results and further recommendations. Physical Activity - Assessment: Patient reports walking over 10,000 steps per day and 62.7 miles in January. Patient mentions attending physical therapy to prepare for recent trip. - Plan: Encourage continuation of physical activity for overall health improvement. Recent Travel - Assessment: Patient reports successful completion of a three-week trip, including a 9-day land tour in [place], and a 12-day cruise around the [place] [facility]. Medication Management - Plan: - Prescriptions sent to [facility] in [place]. - Patient informed about inability to provide written script for Adderall. - Advised patient to contact clinic if pharmacy doesn't have medication in stock. 12/12/2023 Attention-defici t hyperactivity disorder, combined type (ICD-10 - F90.2) 12/31/2023 Generalized anxiety disorder (ICD-10 - F41.1) Major Depressive Disorder - Assessment: Patient reports worsening depression, irritability, and anxiety. - Plan: - Increase buspirone to 30 mg in the morning, 15 mg in the afternoon, and 30 mg in the evening. - Reevaluate in three months and consider adjusting desvenlafaxine dosage or exploring alternative medications to reduce the risk of serotonin syndrome. Anxiety - Assessment: Patient reports increased anxiety, particularly related to an upcoming trip. - Plan: - Continue with the adjusted buspirone dosing as mentioned above. - Monitor patient's response and adjust as needed. Insomnia - Assessment: Patient has a history of sleep issues and is scheduled to see a sleep specialist next week. - Plan: - Continue trazodone 50 mg at night for sleep. - Follow up on the outcome of the sleep specialist appointment. Bipolar Disorder - Assessment: Patient is currently on oxcarbazepine and lamotrigine for bipolar management. - Plan: - Continue oxcarbazepine 150 mg half tablet twice a day and lamotrigine as prescribed. - Monitor for mood stability and adjust medications as needed. ADHD - Assessment: Patient is currently on Adderall 30 mg once a day in the morning. - Plan: - Continue Adderall 30 mg once a day in the morning. - Monitor for effectiveness and side effects. Hypertension - Assessment: Patient's blood pressure was elevated during the visit (148/78). - Plan: - Encourage patient to monitor blood pressure at home and follow up with primary care physician. - Adjust blood pressure medications as needed. Personal Hygiene - Assessment: Patient reports difficulty with personal hygiene due to lack of motivation and energy. - Plan: - Address underlying depression and anxiety issues with medication adjustments. - Encourage patient to engage in self-care activities and seek support from family and friends. Communication with Primary Care Physician - Plan: - Send a copy of the visit note to the patient's primary care physician to keep her informed of the patient's mental health status and medication adjustments. Medication Refills - Plan: - Ensure patient has enough medication refills for their upcoming trip in January. - Schedule refills for buspirone closer to the travel date if needed. 04/01/2024 Generalized anxiety disorder (ICD-10 - F41.1) Hypertension - Assessment: Patient reports checking blood pressure at home with good results but does not remember the numbers. - Plan: - Advise patient to write down blood pressure readings at least once or twice a day. - Encourage patient to practice deep breathing exercises (inhale for 5 counts, hold for 4, exhale for 3 counts) to help reduce anxiety and potentially lower blood pressure. Depression and Anxiety - Assessment: Patient reports a good month with no depressive or manic symptoms. - Plan: - Continue current treatment plan. - Continue Buspar 15 mg daily for anxiety disorder, one tablet four times a day. Bipolar Disorder (in remission) - Assessment: No manic or depressive symptoms reported. - Plan: - Continue current treatment plan. - Continue Oxcarbazepine half tablet twice a day. - Continue Lamotrigine 200 mg at bedtime. Insomnia - Assessment: Patient reports improved sleep. - Plan: - Continue current treatment plan. - Continue Trazodone 50 mg at bedtime. ADHD - Plan: - Continue current treatment plan. - Continue Adderall 25 mg daily (reduced from 30 mg due to 20 mg unavailability). Weight - Assessment: Patient reports gaining three pounds after being taken off Trulicity. - Plan: - Monitor weight. - Discuss with primary care provider if needed. Smoking Cessation - Assessment: Patient expressed interest in deep TMS treatment for smoking cessation. - Plan: - Informed patient about special offer of $500 (regular hamilton $3,800) and 28-30% success rate. - Explained 18-treatment process: daily treatments for 15 days followed by 3 weekly maintenance treatments. - Patient to discuss with and inform provider if deciding to proceed with treatment. Medication Management - Assessment: Patient confirms receiving Adderall from [facility] and all other medications from [facility]. Patient has about 10 days of Adderall remaining. - Plan: - Provider will send Adderall prescription to be picked up three days before current supply runs out. Contraindications for TMS - Assessment: Patient reports no metals in the head, cochlear implant, pacemaker, or bullet fragment. - Plan: - No contraindications for TMS treatment noted. 03/03/2024 Perea's esophagus without dysplasia (ICD-10 - K22.70) Major Depressive Disorder and Anxiety - Assessment: Patient reports significant improvement in depression and anxiety symptoms. Depression score: 5 (no depression); anxiety score: low. Patient reports feeling like herself again and able to enjoy activities. - Plan: Continue current treatment with oxcarbazepine 150mg half tablet twice a day, Lamotrigine 200mg at night, and trazodone 50mg at bedtime. ADHD - Assessment: Patient has experienced significant weight loss (23 pounds since August). Concern for decreased appetite due to Adderall XR 30mg. - Plan: Reduce Adderall XR to 20mg and re-evaluate in one month. Patient agrees with the plan to reduce Adderall dosage. Anxiety Disorder - Assessment: Patient reports improvement with buspirone 15mg four times a day. Patient mentions successful transition off Xanax. - Plan: Continue current treatment with buspirone 15mg four times a day. Weight Loss - Plan: - Encourage patient to incorporate snacks in between meals and monitor weight for stabilization or increase. - Communicate with Dr. Givens regarding test results and any concerns. - Patient attributes some weight loss to following diabetes protocol and portion control. COPD and Yearly Lung Cancer Screening - Assessment: Patient has a scheduled CT scan for lung cancer screening tomorrow. - Plan: Continue monitoring and follow up with Dr. Nurys Givens. Abdominal Ultrasound - Plan: - Patient to undergo an abdominal ultrasound to rule out any issues that may interfere with eating. - Follow up with Dr. Givens for results and further recommendations. Physical Activity - Assessment: Patient reports walking over 10,000 steps per day and 62.7 miles in January. Patient mentions attending physical therapy to prepare for recent trip. - Plan: Encourage continuation of physical activity for overall health improvement. Recent Travel - Assessment: Patient reports successful completion of a three-week trip, including a 9-day land tour in [place], and a 12-day cruise around the [place]. Medication Management - Plan: - Prescriptions sent to [facility] in [place]. - Patient informed about inability to provide written script for Adderall. - Advised patient to contact clinic if pharmacy doesn't have medication in stock. 05/05/2024 Perea's esophagus without dysplasia (ICD-10 - [...] correct locations: Adderall to be sent to [facility] in [place], other medications to [facility] on [facility] in [place]. - Monitor medication refills and patient's adherence to the medication regimen. - Note: Patient does not need refills for Buspirone or Trazodone at this time. Follow-up - Plan: - Schedule a follow-up appointment in one month to assess the patient's progress and address any concerns related to the upcoming holiday season. 06/03/2024 Perea's esophagus without dysplasia (ICD-10 - K22.70) Patient's Grandson's Behavioral and Emotional Issues - Assessment: Suspected ADHD with rage episodes and declining academic performance. Low self-worth and confidence. Family history of mental health issues. - Plan: - Refer to Dr. Arechiga at the [facility] for further evaluation and management. - Monitor [...] - Refer to Dr. Arechiga at the [facility] for further evaluation and management. - Monitor [...] - Schedule next appointment in 2 months. 05/05/2024 Generalized anxiety disorder (ICD-10 - F41.1) [...] correct locations: Adderall to be sent to [facility] in [place], other medications to [facility] on [facility] in [place]. - Monitor medication refills and patient's adherence to the medication regimen. - Note: Patient does not need refills for Buspirone or Trazodone at this time. Follow-up - Plan: - Schedule a follow-up appointment in one month to assess the patient's progress and address any concerns related to the upcoming holiday season. 04/01/2024 Chronic obstructive pulmonary disease, unspecified (ICD-10 - J44.9) Hypertension - Assessment: Patient reports checking blood pressure at home with good results but does not remember the numbers. - Plan: - Advise patient to write down blood pressure readings at least once or twice a day. - Encourage patient to practice deep breathing exercises (inhale for 5 counts, hold for 4, exhale for 3 counts) to help reduce anxiety and potentially lower blood pressure. Depression and Anxiety - Assessment: Patient reports a good month with no depressive or manic symptoms. - Plan: - Continue current treatment plan. - Continue Buspar 15 mg daily for anxiety disorder, one tablet four times a day. Bipolar Disorder (in remission) - Assessment: No manic or depressive symptoms reported. - Plan: - Continue current treatment plan. - Continue Oxcarbazepine half tablet twice a day. - Continue Lamotrigine 200 mg at bedtime. Insomnia - Assessment: Patient reports improved sleep. - Plan: - Continue current treatment plan. - Continue Trazodone 50 mg at bedtime. ADHD - Plan: - Continue current treatment plan. - Continue Adderall 25 mg daily (reduced from 30 mg due to 20 mg unavailability). Weight - Assessment: Patient reports gaining three pounds after being taken off Trulicity. - Plan: - Monitor weight. - Discuss with primary care provider if needed. Smoking Cessation - Assessment: Patient expressed interest in deep TMS treatment for smoking cessation. - Plan: - Informed patient about special offer of $500 (regular hamilton $3,800) and 28-30% success rate. - Explained 18-treatment process: daily treatments for 15 days followed by 3 weekly maintenance treatments. - Patient to discuss with and inform provider if deciding to proceed with treatment. Medication Management - Assessment: Patient confirms receiving Adderall from [facility] and all other medications from [facility]. Patient has about 10 days of Adderall remaining. - Plan: - Provider will send Adderall prescription to be picked up three days before current supply runs out. Contraindications for TMS - Assessment: Patient reports no metals in the head, cochlear implant, pacemaker, or bullet fragment. - Plan: - No contraindications for TMS treatment noted. 12/31/2023 Chronic obstructive pulmonary disease, unspecified (ICD-10 - J44.9) Major Depressive Disorder - Assessment: Patient reports worsening depression, irritability, and anxiety. - Plan: - Increase buspirone to 30 mg in the morning, 15 mg in the afternoon, and 30 mg in the evening. - Reevaluate in three months and consider adjusting desvenlafaxine dosage or exploring alternative medications to reduce the risk of serotonin syndrome. Anxiety - Assessment: Patient reports increased anxiety, particularly related to an upcoming trip. - Plan: - Continue with the adjusted buspirone dosing as mentioned above. - Monitor patient's response and adjust as needed. Insomnia - Assessment: Patient has a history of sleep issues and is scheduled to see a sleep specialist next week. - Plan: - Continue trazodone 50 mg at night for sleep. - Follow up on the outcome of the sleep specialist appointment. Bipolar Disorder - Assessment: Patient is currently on oxcarbazepine and lamotrigine for bipolar management. - Plan: - Continue oxcarbazepine 150 mg half tablet twice a day and lamotrigine as prescribed. - Monitor for mood stability and adjust medications as needed. ADHD - Assessment: Patient is currently on Adderall 30 mg once a day in the morning. - Plan: - Continue Adderall 30 mg once a day in the morning. - Monitor for effectiveness and side effects. Hypertension - Assessment: Patient's blood pressure was elevated during the visit (148/78). - Plan: - Encourage patient to monitor blood pressure at home and follow up with primary care physician. - Adjust blood pressure medications as needed. Personal Hygiene - Assessment: Patient reports difficulty with personal hygiene due to lack of motivation and energy. - Plan: - Address underlying depression and anxiety issues with medication adjustments. - Encourage patient to engage in self-care activities and seek support from family and friends. Communication with Primary Care Physician - Plan: - Send a copy of the visit note to the patient's primary care physician to keep her informed of the patient's mental health status and medication adjustments. Medication Refills - Plan: - Ensure patient has enough medication refills for their upcoming trip in January. - Schedule refills for buspirone closer to the travel date if needed. 03/03/2024 Generalized anxiety disorder (ICD-10 - F41.1) Major Depressive Disorder and Anxiety - Assessment: Patient reports significant improvement in depression and anxiety symptoms. Depression score: 5 (no depression); anxiety score: low. Patient reports feeling like herself again and able to enjoy activities. - Plan: Continue current treatment with oxcarbazepine 150mg half tablet twice a day, Lamotrigine 200mg at night, and trazodone 50mg at bedtime. ADHD - Assessment: Patient has experienced significant weight loss (23 pounds since August). Concern for decreased appetite due to Adderall XR 30mg. - Plan: Reduce Adderall XR to 20mg and re-evaluate in one month. Patient agrees with the plan to reduce Adderall dosage. Anxiety Disorder - Assessment: Patient reports improvement with buspirone 15mg four times a day. Patient mentions successful transition off Xanax. - Plan: Continue current treatment with buspirone 15mg four times a day. Weight Loss - Plan: - Encourage patient to incorporate snacks in between meals and monitor weight for stabilization or increase. - Communicate with Dr. Givens regarding test results and any concerns. - Patient attributes some weight loss to following diabetes protocol and portion control. COPD and Yearly Lung Cancer Screening - Assessment: Patient has a scheduled CT scan for lung cancer screening tomorrow. - Plan: Continue monitoring and follow up with Dr. Nurys Givens. Abdominal Ultrasound - Plan: - Patient to undergo an abdominal ultrasound to rule out any issues that may interfere with eating. - Follow up with Dr. Givens for results and further recommendations. Physical Activity - Assessment: Patient reports walking over 10,000 steps per day and 62.7 miles in January. Patient mentions attending physical therapy to prepare for recent trip. - Plan: Encourage continuation of physical activity for overall health improvement. Recent Travel - Assessment: Patient reports successful completion of a three-week trip, including a 9-day land tour in [place], and a 12-day cruise around the [facility]. Medication Management - Plan: - Prescriptions sent to [facility] in [place]. - Patient informed about inability to provide written script for Adderall. - Advised patient to contact clinic if pharmacy doesn't have medication in stock. 12/31/2023 Hypertension (ICD-10 - I10) Major Depressive Disorder - Assessment: Patient reports worsening depression, irritability, and anxiety. - Plan: - Increase buspirone to 30 mg in the morning, 15 mg in the afternoon, and 30 mg in the evening. - Reevaluate in three months and consider adjusting desvenlafaxine dosage or exploring alternative medications to reduce the risk of serotonin syndrome. Anxiety - Assessment: Patient reports increased anxiety, particularly related to an upcoming trip. - Plan: - Continue with the adjusted buspirone dosing as mentioned above. - Monitor patient's response and adjust as needed. Insomnia - Assessment: Patient has a history of sleep issues and is scheduled to see a sleep specialist next week. - Plan: - Continue trazodone 50 mg at night for sleep. - Follow up on the outcome of the sleep specialist appointment. Bipolar Disorder - Assessment: Patient is currently on oxcarbazepine and lamotrigine for bipolar management. - Plan: - Continue oxcarbazepine 150 mg half tablet twice a day and lamotrigine as prescribed. - Monitor for mood stability and adjust medications as needed. ADHD - Assessment: Patient is currently on Adderall 30 mg once a day in the morning. - Plan: - Continue Adderall 30 mg once a day in the morning. - Monitor for effectiveness and side effects. Hypertension - Assessment: Patient's blood pressure was elevated during the visit (148/78). - Plan: - Encourage patient to monitor blood pressure at home and follow up with primary care physician. - Adjust blood pressure medications as needed. Personal Hygiene - Assessment: Patient reports difficulty with personal hygiene due to lack of motivation and energy. - Plan: - Address underlying depression and anxiety issues with medication adjustments. - Encourage patient to engage in self-care activities and seek support from family and friends. Communication with Primary Care Physician - Plan: - Send a copy of the visit note to the patient's primary care physician to keep her informed of the patient's mental health status and medication adjustments. Medication Refills - Plan: - Ensure patient has enough medication refills for their upcoming trip in January. - Schedule refills for buspirone closer to the travel date if needed. 03/03/2024 Chronic obstructive pulmonary disease, unspecified (ICD-10 - J44.9) Major Depressive Disorder and Anxiety - Assessment: Patient reports significant improvement in depression and anxiety symptoms. Depression score: 5 (no depression); anxiety score: low. Patient reports feeling like herself again and able to enjoy activities. - Plan: Continue current treatment with oxcarbazepine 150mg half tablet twice a day, Lamotrigine 200mg at night, and trazodone 50mg at bedtime. ADHD - Assessment: Patient has experienced significant weight loss (23 pounds since August). Concern for decreased appetite due to Adderall XR 30mg. - Plan: Reduce Adderall XR to 20mg and re-evaluate in one month. Patient agrees with the plan to reduce Adderall dosage. Anxiety Disorder - Assessment: Patient reports improvement with buspirone 15mg four times a day. Patient mentions successful transition off Xanax. - Plan: Continue current treatment with buspirone 15mg four times a day. Weight Loss - Plan: - Encourage patient to incorporate snacks in between meals and monitor weight for stabilization or increase. - Communicate with Dr. Givens regarding test results and any concerns. - Patient attributes some weight loss to following diabetes protocol and portion control. COPD and Yearly Lung Cancer Screening - Assessment: Patient has a scheduled CT scan for lung cancer screening tomorrow. - Plan: Continue monitoring and follow up with Dr. Nurys Givens. Abdominal Ultrasound - Plan: - Patient to undergo an abdominal ultrasound to rule out any issues that may interfere with eating. - Follow up with Dr. Givens for results and further recommendations. Physical Activity - Assessment: Patient reports walking over 10,000 steps per day and 62.7 miles in January. Patient mentions attending physical therapy to prepare for recent trip. - Plan: Encourage continuation of physical activity for overall health improvement. Recent Travel - Assessment: Patient reports successful completion of a three-week trip, including a 9-day land tour in [place] and [place], and a 12-day cruise around the [facility]. Medication Management - Plan: - Prescriptions sent to [facility] in [place]. - Patient informed about inability to provide written script for Adderall. - Advised patient to contact clinic if pharmacy doesn't have medication in stock. 04/01/2024 Hypertension (ICD-10 - I10) Hypertension - Assessment: Patient reports checking blood pressure at home with good results but does not remember the numbers. - Plan: - Advise patient to write down blood pressure readings at least once or twice a day. - Encourage patient to practice deep breathing exercises (inhale for 5 counts, hold for 4, exhale for 3 counts) to help reduce anxiety and potentially lower blood pressure. Depression and Anxiety - Assessment: Patient reports a good month with no depressive or manic symptoms. - Plan: - Continue current treatment plan. - Continue Buspar 15 mg daily for anxiety disorder, one tablet four times a day. Bipolar Disorder (in remission) - Assessment: No manic or depressive symptoms reported. - Plan: - Continue current treatment plan. - Continue Oxcarbazepine half tablet twice a day. - Continue Lamotrigine 200 mg at bedtime. Insomnia - Assessment: Patient reports improved sleep. - Plan: - Continue current treatment plan. - Continue Trazodone 50 mg at bedtime. ADHD - Plan: - Continue current treatment plan. - Continue Adderall 25 mg daily (reduced from 30 mg due to 20 mg unavailability). Weight - Assessment: Patient reports gaining three pounds after being taken off Trulicity. - Plan: - Monitor weight. - Discuss with primary care provider if needed. Smoking Cessation - Assessment: Patient expressed interest in deep TMS treatment for smoking cessation. - Plan: - Informed patient about special offer of $500 (regular hamilton $3,800) and 28-30% success rate. - Explained 18-treatment process: daily treatments for 15 days followed by 3 weekly maintenance treatments. - Patient to discuss with and inform provider if deciding to proceed with treatment. Medication Management - Assessment: Patient confirms receiving Adderall from [facility] and all other medications from [facility]. Patient has about 10 days of Adderall remaining. - Plan: - Provider will send Adderall prescription to be picked up three days before current supply runs out. Contraindications for TMS - Assessment: Patient reports no metals in the head, cochlear implant, pacemaker, or bullet fragment. - Plan: - No contraindications for TMS treatment noted. 05/05/2024 Chronic obstructive pulmonary disease, unspecified (ICD-10 [...] correct locations: Adderall to be sent to [facility] in [place], other medications to [facility] on [facility] in [place]. - Monitor medication refills and patient's adherence to the medication regimen. - Note: Patient does not need refills for Buspirone or Trazodone at this time. Follow-up - Plan: - Schedule a follow-up appointment in one month to assess the patient's progress and address any concerns related to the upcoming holiday season. 06/03/2024 Chronic obstructive pulmonary disease, unspecified (ICD-10 - J44.9) Patient's Grandson's Behavioral and Emotional Issues - Assessment: Suspected ADHD with rage episodes and declining academic performance. Low self-worth and confidence. Family history of mental health issues. - Plan: - Refer to Dr. Arechiga at the [facility] for further evaluation and management. - Monitor [...] - Schedule next appointment in 2 months. 05/05/2024 Hypertension (ICD-10 - I10) Negative Thoughts [...] correct locations: Adderall to be sent to [facility] in [place], other medications to [facility] on [facility] in [place]. - Monitor medication refills and patient's adherence to the medication regimen. - Note: Patient does not need refills for Buspirone or Trazodone at this time. Follow-up - Plan: - Schedule a follow-up appointment in one month to assess the patient's progress and address any concerns related to the upcoming holiday season. 06/03/2024 Hypertension (ICD-10 - I10) Patient's Grandson's Behavioral and Emotional Issues - Assessment: Suspected ADHD with rage episodes and declining academic performance. Low self-worth and confidence. Family history of mental health issues. - Plan: - Refer to Dr. Arechiga at the [facility] for further evaluation and management. - Monitor [...] - Schedule next appointment in 2 months. 03/03/2024 Hypertension (ICD-10 - I10) Major Depressive Disorder and Anxiety - Assessment: Patient reports significant improvement in depression and anxiety symptoms. Depression score: 5 (no depression); anxiety score: low. Patient reports feeling like herself again and able to enjoy activities. - Plan: Continue current treatment with oxcarbazepine 150mg half tablet twice a day, Lamotrigine 200mg at night, and trazodone 50mg at bedtime. ADHD - Assessment: Patient has experienced significant weight loss (23 pounds since August). Concern for decreased appetite due to Adderall XR 30mg. - Plan: Reduce Adderall XR to 20mg and re-evaluate in one month. Patient agrees with the plan to reduce Adderall dosage. Anxiety Disorder - Assessment: Patient reports improvement with buspirone 15mg four times a day. Patient mentions successful transition off Xanax. - Plan: Continue current treatment with buspirone 15mg four times a day. Weight Loss - Plan: - Encourage patient to incorporate snacks in between meals and monitor weight for stabilization or increase. - Communicate with Dr. Givens regarding test results and any concerns. - Patient attributes some weight loss to following diabetes protocol and portion control. COPD and Yearly Lung Cancer Screening - Assessment: Patient has a scheduled CT scan for lung cancer screening tomorrow. - Plan: Continue monitoring and follow up with Dr. Nurys Givens. Abdominal Ultrasound - Plan: - Patient to undergo an abdominal ultrasound to rule out any issues that may interfere with eating. - Follow up with Dr. Givens for results and further recommendations. Physical Activity - Assessment: Patient reports walking over 10,000 steps per day and 62.7 miles in January. Patient mentions attending physical therapy to prepare for recent trip. - Plan: Encourage continuation of physical activity for overall health improvement. Recent Travel - Assessment: Patient reports successful completion of a three-week trip, including a 9-day land tour in [place], and a 12-day cruise around the [place] [facility]. Medication Management - Plan: - Prescriptions sent to [facility] in [place]. - Patient informed about inability to provide written script for Adderall. - Advised patient to contact clinic if pharmacy doesn't have medication in stock. Plan Of Treatment Next Appt Details Provider Name:Javy Fontana , 08/04/2024 08:30:00 AM, [address], [address], [place], [address], Insurance Providers Payer Name Payer Address Payer Phone Subscriber Number Group Number Insured Name Patient Relationship to Insured Coverage Start Date Coverage End Date [employer] [address] [place] [phone] [id number] Self - patient is the insured Medical (General) History Medical History History ICD Code Problems: Asthma Attention deficit hyperactivity disorder Attention deficit hyperactivity disorder , combined type Attention deficit hyperactivity disorder , predominantly inattentive type Perea's esophagus Bipolar affective disorder, current epis ode depression Chronic obstructive lung disease Essential hypertension Generalized anxiety disorder Type 2 diabetes mellitus , Surgical History Surgery Date(Month/Year) Tonsilectomy/adenoids 06/22/1982 Other 06/22/2019
--- OUTSIDE RECORDS SUMMARY | 2024-06-19 21:13 | XMS_ITS | Encounter Summary ---
Author Organization [facility] Address [address] [place] [address]. [place], [place] [address] [address] Care Team Providers Care Cable Splicer Name Role Phone Nurys Givens MD Primary Care Provider [phone] [phone] Reason for Referral * Imaging (Routine) - Closed Specialty Diagnoses / Procedures Referred By Vladimir yee Referred To Contact RADIOLOGY Diagnoses Generalized abdominal pain Perea syndrome GERD (gastroesophageal reflux disease) Procedures US [facility] LIMITED Yariel Lozoya DO Phone: tel: fax: Referral ID Status Reason Start Date Expiration Date Visits Re quested Visits Authorized [id number] Closed 04/04/2021 05/05/2022 1 1 Encounter Details Date Type Department Care Team (Latest Contact Info) Description 04/18/2021 9:18 AM CDT - 04/18/2021 11:59 PM CDT Hospital Encounter [facility] [place] [address] Yariel Lozoya DO #[address] [facility] [address] [place] [address] Discharge Disposition: Home or Self Care (Routine [...] US ABD LIMITED Routine 05/07/2021 8:46 AM BEEF SKINNER Generalized abdominal pain Perae syndrome GERD (gastroesophageal reflux disease) XR UGI+SMALL BOWEL Routine 04/18/2021 1: 50 PM CDT Generalized abdominal pain Perea syndrome GERD (gastroesophageal reflux disease) documented in this encounter Results * US ABD LIMITED (05/07/2021 8:46 AM BEEF SKINNER) Anatomical Region Laterality Modality Abdomen Ultrasound 05/07/2021 8:58 AM BEEF SKINNER Impressions 05/07/2021 9:09 AM BEEF SKINNER Impression: Normal examination. Referred By: YARIEL LOZOYA Interpreted By: Marco Mckeon MD, 05/07/2021 8:58 AM Narrative 05/07/2021 9:09 AM BEEF SKINNER Examination: Abdominal ultrasound, limited. Clinical Information: Generalized [...] portions are normal. ASCITES: None. Procedure Note Marco Mckeon MD - 05/07/2021 Examination: Abdominal ultrasound, [...] By: Marco Mckeon MD, 05/07/2021 8:58 AM Yariel Lozoya DO ULTRASOUND Final Result * XR UGI+SMALL BOWEL (04/18/2021 1:50 PM CDT) Anatomical Region Laterality Modality Abdomen Fluoroscopy, Rad iographic Imaging 04/18/2021 5:01 PM CDT Impressions 04/19/2021 9:55 AM CDT =====IMPRESSION:===== 1. Surgical changes of prior hiatal hernia repair and Aline fundoplication. There is only minimal gastroesophageal reflux in supine position observed. No recurrent hernia or discrete mucosal lesion is demonstrated. 2. Terminal ileum is not visualized due to failure of contrast progression to the colon within 3 hours. Otherwise unremarkable small bowel exam. Referred By: YARIEL LOZOYA Interpreted By: Gorge Alston MD, 04/18/2021 5:01 PM Narrative 04/19/2021 9:55 AM CDT Exam date/time: 04/18/2021 9:27 AM Examination: Fluoroscopic double contrast upper GI and small bowel follow- through exam ?? Reason For Exam: ??Abdominal pain and bloating. Appearance syndrome. Gastroesophageal reflux disease. Prior hiatal hernia repair. ?? Comparison: None. Fluoroscopy time: 6 seconds. 33 static images. 4 cine loops. Findings: Intact esophageal distention and motility. No discrete esophageal mucosal lesion, stricture or diverticulum. ??Mild contour deformity of the gastric fundus/gastroesophageal junction suggesting prior fundoplication along with history of hiatal hernia repair. There is only minimal gastroesophageal reflux with supine positioning. No recurrent hiatal hernia. Evaluation of the stomach is somewhat compromised by incomplete distention. Mildly prominent gastric rugal folds without suspicious nodularity. Lacy mucosal pattern of the gastric antrum compatible with normal areae gastricae. No discrete erosions. There is some delay of contrast progression from the stomach across the pylorus. Duodenum has normal C-loop configuration and mucosal fold pattern. Sequential images are obtained for the small bowel exam. Contrast advances into the distal ileum within 1 hour but there is no significant further advancement between one and 3 hours. The jejunum and ileum are grossly unremarkable. There are no abnormally distended, distorted or tethered bowel loops. Mucosal detail in the distal small bowel is somewhat obscured by dense contrast within overlapping loops. Contrast fails to advance into the colon within 3 hours. Patient elected to terminate the exam at this point. Terminal ileum is not defined on this exam. Procedure Note Gorge Alston MD - 04/19/2021 Exam date/time: 04/18/2021 9:27 AM Examination: Fluoroscopic double contrast upper GI and small bowelfollow-through exam Reason For Exam: Abdominal pain and bloating. Appearance syndrome.Gastroesophageal reflux disease. Prior hiatal hernia repair. Comparison: None. Fluoroscopy time: 6 seconds. 33 static images. 4 cine loops. Findings: Intact esophageal distention and motility. No discreteesophageal mucosal lesion, stricture or diverticulum. Mild contourdeformity of the gastric fundus/gastroesophageal junction suggesting priorfundoplication along with history of hiatal hernia repair. There is onlyminimal gastroesophageal reflux with supine positioning. No recurrenthiatal hernia. Evaluation of the stomach is somewhat compromised byincomplete distention. Mildly prominent gastric rugal folds withoutsuspicious nodularity. Lacy mucosal pattern of the gastric antrumcompatible with normal areae gastricae. No discrete erosions. There issome delay of contrast progression from the stomach across the pylorus.Duodenum has normal C-loop configuration and mucosal fold pattern. Sequential images are obtained for the small bowel exam. Contrast advancesinto the distal ileum within 1 hour but there is no significant furtheradvancement between one and 3 hours. The jejunum and ileum are grosslyunremarkable. There are no abnormally distended, distorted or tetheredbowel loops. Mucosal detail in the distal small bowel is somewhat obscuredby dense contrast within overlapping loops. Contrast fails to advance intothe colon within 3 hours. Patient elected to terminate the exam at thispoint. Terminal ileum is not defined on this exam. =====IMPRESSION:===== 1. Surgical changes of prior hiatal hernia repair and Nissenfundoplication. There is only minimal gastroesophageal reflux in supineposition observed. No recurrent hernia or discrete mucosal lesion isdemonstrated. 2. Terminal ileum is not visualized due to failure of contrast progressionto the colon within 3 hours. Otherwise unremarkable small bowel exam. Referred By: YARIEL LOZOYA Interpreted By: Gorge Alston MD, 04/18/2021 5:01 PM us Yariel Lozoya DO FLUOROSCOPY Final Result documented in this encounter Visit Diagnoses Diagnosis Generalized abdominal pain Abdominal pain, generalized Perea syndrome Perea's esophagus GERD (gastroesophageal reflux disease) Esophageal reflux documented in this encounter Care Teams Cable Splicer Relationship Specialty Start Date End Date Nurys Givens MD PCP - General FAMILY PRACTICE 04/16/21 documented as of this encounter
--- OUTSIDE RECORDS SUMMARY | 2024-06-19 21:14 | XMS_ITS | Encounter Summary ---
Author Organization [facility] Address [address] [place] [address] Phone Care Team Providers Care Handkerchief Maker Name Role Phone Troy Givens MD Primary Care Provider [phone] Jose Lozoya DO Unavailable Encounter Details Date Type Department Care Team (Late Contact Info) Description 03/30/2020 Telephone [facility] - Gastroenterology [facility] [address] [place] [address] Jose Lozoya, DO [address] [address] Social History Tobacco Use Types Packs/Day Years Used Date Smoking Tobacco: Every Day Cigarettes 2.5 44 Smokeless Tobacco: Never Alcohol Use Standard Drinks/Week Comments Yes 0 (1 standard drink = 0.6 oz pur e alcohol) 1-2 glasses of wine per month Sexually Active Control Partners Comments Not Currently [...] have Coronavirus / COVID-19? No / Unsure 03/12/2020 1:31 PM CDT documented as of this encounter Miscellaneous Notes * Telephone Encounter - Abigail Goldstein RN - 03/30/2020 9:08 AM CDT error documented in this encounter Plan of Treatment Not on file documented as of this encounter Visit Diagnoses Not on filedocumented in this encounter Care Teams Handkerchief Maker Relationship Specialty Start Date End Date Troy Givens MD [address] [place] [address] [address] [place] [address] PCP - General Family Medicine 08/01/16 06/10/21 Jose Lozoya DO [address] [place] [address] [address] [place] [address] Gastroenterology 08/01/16 documented as of this encounter
--- OUTSIDE RECORDS SUMMARY | 2024-06-19 21:14 | XMS_ITS | Encounter Summary ---
Author Organization [facility] Address [address] [place] [address] Phone Care Team Providers Care Copyright Clerk Name Role Phone Troy Givens MD Primary Care Provider [phone] Jose Lozoya DO Unavailable [phone] Encounter Details Date Type Department Care Team (Late st Contact Info) Description 04/12/2020 Telephone [facility] - Gastroenterology [facility] [address] [place] [id number] Lilly Davenport PAC [address] [place] [address] Social History Tobacco Use Types Packs/Day Years [...] encounter Miscellaneous Notes * Telephone Encounter - Lilly Davenport PAC - 04/12/2020 10:44 AM CDT Recommend she follow-up 6 8 weeks after her procedure. * Telephone Encounter - Lesly Cali - 04/12/2020 10:39 AM CDT You referred pt to [facility] for a hiatal hernia, she has surgery scheduled for 04-18-20 and wants to know if you want her to keep her appt with us on 05/03/20? Please advise documented in this encounter Plan of Treatment Not on file documented as of this encounter Visit Diagnoses Not on filedocumented in this encounter Care Teams Copyright Clerk Relationship Specialty Start Date End Date Troy Givens MD [address] [place] [address] [place] [address] PCP - General Family Medicine 08/01/16 06/10/21 Jose Lozoya DO [address] [place] [address] [address] [place] [address] Gastroenterology 08/01/16 documented as of this encounter
--- OUTSIDE RECORDS SUMMARY | 2024-06-19 21:14 | XMS_ITS | Encounter Summary ---
Author Organization [facility] Address [address] [place] [address] Phone Care Team Providers Care Weave Room Supervisor Name Role Phone Troy Givens MD Primary Care Provider [phone]- [phone] Jose oLzoya DO Unavailable [phone] Encounter Details Date Type Department Care Team (Late st Contact Info) Description 05/24/2021 Telephone [facility] - Gastroenterology - [place] [address] [place] [address] Lilly Davenport PAC [address] [place] [address] Social History Tobacco Use Types Packs/Day Years [...] have Coronavirus / COVID-19? No / Unsure 06/07/2021 8:15 AM TRACK LAMINATING MACHINE TENDER documented as of this encounter Miscellaneous Notes * Telephone Encounter - VonnaTerrell ware CMA - 06/07/2021 9:38 AM TRACK LAMINATING MACHINE TENDER Patient came into office today for an office visit, brought the release of information in signed. Ifaxed it to Dr Maldonado office in [place]. Confirmation obtained. Release scanned into documents. K LAMINATING MACHINE TENDER * Telephone Encounter - Terrell Camp CMA - 05/24/2021 10:59 AM TRACK LAMINATING MACHINE TENDER Patient called office asking for a release of information be sent to her home. She is having her records from Dr Lozoya's new location in [place] be sent back to our office. This release was printed out and put in the mail. K LAMINATING MACHINE TENDER documented in this encounter Plan of Treatment Not on file documented as of this encounter Visit Diagnoses Not on filedocumented in this encounter Care Teams Weave Room Supervisor Relationship Specialty Start Date End Date Troy Givens MD [address] [place] [address] [address] [place] [address] PCP - General Family Medicine 08/01/16 06/10/21 Jose Lozoya DO [address] [place] [address] [address] [place] [address] Gastroenterology 08/01/16 documented as of this encounter
--- OUTSIDE RECORDS SUMMARY | 2024-06-19 21:14 | XMS_ITS | Encounter Summary ---
Author Organization [facility] Address [address] [place] [address] Phone Care Team Providers Care Explosion Welder Name Role Phone Troy Givens MD Primary Care Provider [phone]- [phone] Jose Lozoya DO Unavailable [phone] Nurys Givens MD Primary Care Provider [phone] Reason for Visit * Reason Comments Medication Refill Encounter Details Date Type Department Care Team (Late st Contact Info) Description 06/10/2021 Refill [facility] - Gastroenterology - [place] [address] [place] [id number] Lilly Davenport, [facility] [address] [place] [address] Medication Refill Social History Tobacco Use Types [...] have Coronavirus / COVID-19? No / Unsure 06/11/2021 1:31 PM PARTS COUNTER REPRESENTATIVE documented as of this encounter Miscellaneous Notes * Telephone Encounter - Ashia Mayberry RN - 06/12/2021 9:32 AM PARTS COUNTER REPRESENTATIVE Patient requesting refill too soon. Medication refused. S COUNTER REPRESENTATIVE documented in this encounter Plan of Treatment Not on file documented as of this encounter Visit Diagnoses Diagnosis Gastroesophageal reflux disease, unspecified whether esophagitis present documented in this encounter Care Teams Explosion Welder Relationship Specialty Start Date End Date Troy Givens MD [address] [place] [address] [place] [address] PCP - General Family Medicine 08/01/16 06/10/21 Nurys Givens MD [address] [place] [address] [address] [place] [address] PCP - General Family Medicine 06/11/21 Jose Lozoya DO [address] [place] [address] [place] [address] Gastroenterology 08/01/16 documented as of this encounter
--- OUTSIDE RECORDS SUMMARY | 2024-06-19 21:14 | XMS_ITS | Encounter Summary ---
Author Organization [facility] Address [address] [place] [address] Phone Care Team Providers Care Diesel Engine Assembler Name Role Phone Jose Lozoya DO Unavailable [phone] Nurys Givens MD Primary Care Provider Encounter Details Date Type Department Care Team (Latest Contact Info) Description 06/11/2021 1:40 PM SPECIAL PROGRAMS DIRECTOR - 06/11/2021 11:59 PM SPECIAL PROGRAMS DIRECTOR Hospital Encounter [facility] [address] [place] [address] Lilly Davenport Myrna, PAC [address] [place] [address] Discharge Disposition: Discharged to home or Selfcare Social History Tobacco Use Types Packs/Day Years [...] COVID-19? No / Unsure 06/11/2021 1:31 PM SPECIAL PROGRAMS DIRECTOR documented as of this encounter Medications at Time of Discharge Accu-Chek Softclix Lancets Misc USE 1 LANCET DIRECTED EVERY DAY 12/16/2019 albuterol 108 (90 Base) MCG/ACT Aerosol Solution take 2 Puffs by inhalation every 4 hours as needed for Wheezing. ALPRAZolam 2 MG Tablet TAKE 1 TABLET BY MOUTH THREE TIMES A DAY NEEDED FOR ANXIETY 03/05/2020 amphetamine-dext roamphetamine (ADDERALL XR) 30 MG CAPSULE SR 24 HR Take 1 Cap by mouth daily. 0 06/10/2016 ANORO ELLIPTA 62.5-25 MCG/INH AEROSOL POWDER, BREATH ACTIVATED 08/11/2017 Ascorbic Acid (VITAMIN C PO) Take by mouth. aspirin EC 81 MG Tablet Delayed Response Take 81 mg by mouth daily. atorvastatin (LIPITOR) 40 MG Tablet Take 40 mg by mouth daily. 02/22/2020 busPIRone (BUSPAR) 15 MG Tablet TAKE 3 TABLETS BY MOUTH TWICE A DAY 03/06/2020 Cholecalciferol (VITAMIN D) 2000 UNIT Tablet Take by mouth. Desvenlafaxine Succinate 50 MG TABLET SR 24 HR 03/11/2020 ezetimibe (ZETIA) 10 MG Tablet Take 1 Tab by mouth daily. 12/21/2019 lisinopril-hydro CHLOROthiazide (PRINZIDE, ZESTORETIC) 20-25 MG Tablet Take 1 Tab by mouth daily. 3 06/05/2016 montelukast (SINGULAIR) 10 MG Tablet Multiple Vitamins-Mineral s (CENTRUM PO) Take by mouth. OXcarbazepine (TRILEPTAL) 150 MG Tablet Take 150 mg by mouth 2 times daily. Ozempic, 0.25 or 0.5 MG/DOSE, 2 MG/1.5ML Solution Pen-injector INJECT 0.25 MG (0.2 ML) SUBCUTANEOUSLY WEEKLY 12 WEEKS 02/15/2020 esomeprazole (NexIUM) 40 MG CAPSULE DELAYED RELEASEIndicatio ns:Gastroesophag eal reflux disease, unspecified whether esophagitis present Take 1 Capsule by mouth 2 times daily. 180 Capsule 3 04/12/2021 08/09/19 22 documented as of this encounter Plan of Treatment Not on file documented as of this encounter Procedures Procedure Name Priority Date/Time Associated Diagnosis Comments XR ABDOMEN KUB FLAT PLATE Routine 06/11/2021 1:49 PM SPECIAL PROGRAMS DIRECTOR Constipation, unspecified constipation type documented in this encounter Results * XR ABDOMEN KUB FLAT PLATE (06/11/2021 1:49 PM SPECIAL PROGRAMS DIRECTOR) Anatomical Region Laterality Modality Abdomen N/A Digital Radiogra phy 06/12/2021 9:18 AM SPECIAL PROGRAMS DIRECTOR Impressions 06/12/2021 9:21 AM SPECIAL PROGRAMS DIRECTOR IMPRESSION: ?? No acute finding. ?? Relatively small colonic fecal burden. Narrative 06/12/2021 9:21 AM SPECIAL PROGRAMS DIRECTOR EXAM DESCRIPTION: ?? XR ABDOMEN KUB FLAT PLATE REASON FOR STUDY: ?? Constipation, unspecified. Intermittent constipation since hernia surgery in March 2020, worsening over the past 2 weeks. ??Patient also experiencing some lower abdominal pressure. TECHNIQUE: ??Supine ??radiographic view of the abdomen acquired. COMPARISON: ?? None FINDINGS: BOWEL GAS PATTERN: ?? Scattered non-dilated small bowel loops. Nonobstructive pattern. ?? Relatively small colonic fecal burden. SOFT TISSUES: ?? No significant abnormal calcifications. BONES: ?? No significant abnormality. OTHER: ?? No other significant finding. THIS IS AN ELECTRONICALLY VERIFIED FINAL REPORT 06/12/2021 9:18 AM - Electronically signed by ??Shabbir Cook M.D. RB: JOCELYN D: ??06/12/2021 9:18 AM T: ??06/12/2021 9:18 AM Report ID: [id number] Reading Location: ??[id number] Procedure Note Shabbir Cook MD - 06/12/2021 EXAM DESCRIPTION: XR ABDOMEN KUB FLAT PLATE REASON FOR STUDY: Constipation, unspecified. Intermittent constipation since hernia surgery in March 2020, worsening over the past 2 weeks. Patient also experiencing some lower abdominal pressure. TECHNIQUE: Supine radiographic view of the abdomen acquired. COMPARISON: None FINDINGS: BOWEL GAS PATTERN: Scattered non-dilated small bowel loops. Nonobstructive pattern. Relatively small colonic fecal burden. SOFT TISSUES: No significant abnormal calcifications. BONES: No significant abnormality. OTHER: No other significant finding. THIS IS AN ELECTRONICALLY VERIFIED FINAL REPORT 06/12/2021 9:18 AM - Electronically signed by Shabbir Cook M.D. RB: [email or web address] Report ID: [id number] Reading Location: [id number] IMPRESSION: No acute finding. Relatively small colonic fecal burden. Lilly Davenport [facility] DIAGNOSTIC ORDERABLES Final Result documented in this encounter Visit Diagnoses Diagnosis Constipation, unspecified constipation type documented in this encounter Care Teams Diesel Engine Assembler Relationship Specialty Start Date End Date Nurys Givens MD PCP - General Family Medicine 06/11/21 Jose Lozoya DO Gastroenterology 08/01/16 documented as of this encounter
--- OUTSIDE RECORDS SUMMARY | 2024-06-19 21:14 | XMS_ITS | Encounter Summary ---
Author Organization [facility] Address [address] [place] [address] Phone Care Team Providers Care Marketing Director Name Role Phone Troy Givens MD Primary Care Provider [phone] Jose Lozoya DO Unavailable [phone] Reason for Visit * Reason Onset Date Comments Results 02/23/2020 CT [facility] Encounter Details Date Type Department Care Team (Late st Contact Info) Description 02/23/2020 Telephone [facility] - [facility]astroenterology [facility] [address] [place] [address] Jose Lozoya, DO [address] [address] Results (CT scan from [facility]) Social History Tobacco Use Types Packs/Day Years Used Date Smoking Tobacco: Every Day Cigarettes 2.5 44 Smokeless Tobacco: Never Alcohol Use Standard Drinks/Week Comments Yes 0 (1 standard drink = 0.6 oz pur e alcohol) 1-2 glasses of wine per month Comments No Sex and Gender Information Value Date Recorded Sex Assigned at Not on file Legal Sex Female 11:25 PM CDT Gender Identity Not on file Sexual Orientation Not on file documented as of this encounter Miscellaneous Notes * Telephone Encounter - Abigail Goldstein RN - 02/23/2020 10:50 AM CDT Patient notified of results and verbalizes understanding. OV made for 05/03/20 as pt wants appt with Dr. Lozoya * Telephone Encounter - Abigail Goldstein RN - 02/23/2020 10:50 AM CDT ----- Message from Jose Lozoya DO sent at 02/23/2020 10:37 AM CDT ----- Shows large hiatal hernia. Routine office visit. documented in this encounter Plan of Treatment Not on file documented as of this encounter Visit Diagnoses Not on filedocumented in this encounter Care Teams Marketing Director Relationship Specialty Start Date End Date Troy Givens MD [address] [place] [address] [employer] [address] [place] [address] PCP - General Family Medicine 08/01/16 06/10/21 Jose Lozoya DO [address] [place] [address] [address] [place] [address] Gastroenterology 08/01/16 documented as of this encounter
--- OUTSIDE RECORDS SUMMARY | 2024-06-19 21:14 | XMS_ITS | Encounter Summary ---
Author Organization [facility] Address [address] [place] [address] Phone Care Team Providers Care Mathematical Technician Name Role Phone Jose Lozoya DO Unavailable [phone] Nurys Givens MD Primary Care Provider Reason for Visit * Reason Onset Date Comments Results 06/12/2021 Encounter Details Date Type Department Care Team (Late st Contact Info) Description 06/12/2021 Telephone [facility] - [place] [address] [place] [address] Lilly Davenport, [facility] [address] [place] [address] Results Social History Tobacco Use Types Packs/Day Years [...] COVID-19? No / Unsure 06/11/2021 1:31 PM INTERNATIONAL ACCOUNTANT documented as of this encounter Miscellaneous Notes * Telephone Encounter - Ashia Mayberry RN - 06/12/2021 10:10 AM INTERNATIONAL ACCOUNTANT Patient is aware and verbalizes understanding. UA order entered. RNATIONAL ACCOUNTANT * Telephone Encounter - Ashia Mayberry RN - 06/12/2021 10:02 AM INTERNATIONAL ACCOUNTANT ----- Message from JESSICA Strauss sent at 06/12/2021 9:27 AM INTERNATIONAL ACCOUNTANT ----- Please advise the KUB fails to demonstrate any significant evidence of constipation. She may be experiencing lower abdominal pressure due to UTI, see if she is willing to do urinalysis with C&S if indicated. If so place order. If she is feeling like she is having inadequate bowel movement she may be experiencing some hemorrhoidal pressure, she may try over the counter preparation H. She may need to have an appointment if her symptoms fail to resolve or improve. To ER if any new or worseningsymptoms. RNATIONAL ACCOUNTANT documented in this encounter Plan of Treatment Not on file documented as of this encounter Results * (ABNORMAL) URINALYSIS REFLEX IF INDICATED BY ABNORMAL RESULTS (06/12/2021 11:09 AM INTERNATIONAL ACCOUNTANT) SPECIFIC GRAVITY 1.005 1.003 - 1.030 06/12/2021 2:01 PM INTERNATIONAL ACCOUNTANT [facility] URINE PH 7.0 5.0 - 9.0 06/12/2021 2:01 PM INTERNATIONAL ACCOUNTANT [facility] WBC ESTERASE 25 /uL(A) Negative 06/12/2021 2:01 PM INTERNATIONAL ACCOUNTANT [facility] NITRITE Negative Negative 06/12/2021 2:01 PM INTERNATIONAL ACCOUNTANT [facility] PROTEIN, RANDOM URINE Negative Negative 06/12/2021 2:01 PM INTERNATIONAL ACCOUNTANT [facility] URINE GLUCOSE, QUAL Negative Negative 06/12/2021 2:01 PM INTERNATIONAL ACCOUNTANT [facility] URINE KETONES Negative Negative 06/12/2021 2:01 PM INTERNATIONAL ACCOUNTANT [facility] UROBILINOGEN Normal Normal mg/dL 06/12/2021 2:01 PM INTERNATIONAL ACCOUNTANT [facility] URINE BLOOD Negative Negative kenisha/ul 06/12/2021 2:01 PM INTERNATIONAL ACCOUNTANT [facility] URINALYSIS COLOR Dark Yellow 021 2:01 PM INTERNATIONAL ACCOUNTANT [facility] URINALYSIS CLARITY Slightly Cloudy 06/12/2021 2:01 PM INTERNATIONAL ACCOUNTANT [facility] WBC (Urine) 0-5 Negative, 0-5 /hpf 06/12/2021 2:01 PM INTERNATIONAL ACCOUNTANT [facility] URINE RBC'S 0-2 Negative, 0-2 /hpf 06/12/2021 2:01 PM INTERNATIONAL ACCOUNTANT [facility] EPITHELIAL CELLS Large amount squamous /lpf 06/12/2021 2:01 PM INTERNATIONAL ACCOUNTANT [facility] BACTERIA, URINE Moderate(A) Negative /hpf 06/12/2021 2:01 PM INTERNATIONAL ACCOUNTANT [facility] Urine URINE SPECIMEN COLLECTION, CLEAN CATCH / Unknown Non-Phlebotomy Collection / Unknown 06/12/2021 11:09 AM INTERNATIONAL ACCOUNTANT 06/12/2021 1:42 PM INTERNATIONAL ACCOUNTANT Lilly Davenport PAC URINE ORDERABLES Final Re sult [facility] [address] [place] [address] documented in this encounter Visit Diagnoses Diagnosis Lower abdominal pain- Primary Abdominal pain, other specified site documented in this encounter Care Teams Mathematical Technician Relationship Specialty Start Date End Date Nurys Givens MD PCP - General Family Medicine 06/11/21 Jose Lozoya DO Gastroenterology 08/01/16 documented as of this encounter
--- OUTSIDE RECORDS SUMMARY | 2024-06-19 21:14 | XMS_ITS | Encounter Summary ---
Author Organization [facility] Address [address] [place] [address] Phone Care Team Providers Care Extract Wringer Name Role Phone Troy Givens MD Primary Care Provider [phone] Jose Lozoya DO Unavailable Reason for Referral * Radiology Services (Routine) - Closed Specialty Diagnoses / Procedures Referred By Vladimir yee Referred To Contact Diagnoses Iron deficiency Procedures NM CAPSULE ENDOSCOPY Jose Lozoya DO [address] [place] [address] [place] [address] Phone: tel: fax: [address] [place] [address] Phone: tel: fax: Referral ID Status Reason Start Date Expiration Date Visits Re quested Visits Authorized [id number] Closed 01/26/2020 1 1 * Radiology Services (Routine) - Closed Specialty Diagnoses / Procedures Referred By Vladimir yee Referred To Contact Diagnoses Iron deficiency Procedures CT ENTEROGRAPHY Jose Lozoya DO [address] [place] [address] [address] [place] [address] Phone: tel: fax: [address] [place] [address] Phone: tel: fax: Referral ID Status Reason Start Date Expiration Date Visits Re quested Visits Authorized [id number] Closed 01/26/2020 1 1 Reason for Visit * Reason Onset Date Comments Results 01/26/2020 [facility] Encounter Details Date Type Department Care Team (Late st Contact Info) Description 01/26/2020 Telephone [facility] - Gastroenterology - [place] [address] [place] [address] Jose Lozoya DO [address] [address] Results (Colonoscopy at [facility]) Social History Tobacco Use Types Packs/Day Years [...] Telephone Encounter - Abigail Goldstein RN - 01/26/2020 9:56 AM CDT Facility: [facility] Test: Colonoscopy Results: no cancer Orders: recheck colonoscopy in 5 years, [address] enterography, capsule endoscopy. Diagnosis iron deficiency anemia Test on: 01/19/20 Placed in paperwork to go to [facility] on: 01/26/20 Patient notified of results and verbalizes understanding. Health maintenance updated and recall placed. Orders pended to Dr. Lozoya documented in this encounter Plan of Treatment Scheduled Orders Name Type Priority Associated Diagnoses Orde r Schedule CT ENTEROGRAPHY Imaging Routine Iron deficiency Expected: 04/26/2020, Expires: 07/28/2020 NM CAPSULE ENDOSCOPY Imaging Routine Iron deficiency Expected: 04/26/2020, Expires: 07/28/2020 documented as of this encounter Visit Diagnoses Diagnosis Iron deficiency- Primary Other disorders of iron metabolism documented in this encounter Care Teams Extract Wringer Relationship Specialty Start Date End Date Troy Givens MD [address] [place] [address] [address] [place] [address] PCP - General Family Medicine 08/01/16 06/10/21 Jose Lozoya DO [address] [place] [address] [address] [place] [address] Gastroenterology 08/01/16 documented as of this encounter
--- OUTSIDE RECORDS SUMMARY | 2024-06-19 21:14 | XMS_ITS | Encounter Summary ---
Author Organization [employer] Care Team Providers Care Fishing Reel Assembler Name Role Phone Troy Givens MD Primary Care Provider [phone] Jose Lozoya DO Unavailable [phone] Encounter Details Date Type Department Care Team (Latest Contact Info) Description 06/07/2021 Travel Social History Tobacco Use Types Packs/Day [...] COVID-19? No / Unsure 06/07/2021 8:15 AM ELECTRICAL INSTALLATION INSPECTOR documented as of this encounter Plan of Treatment Not on file documented as of this encounter Visit Diagnoses Not on filedocumented in this encounter Care Teams Fishing Reel Assembler Relationship Specialty Start Date End Date Troy Givens MD [address] [place] [address] [address] [place] [address] PCP - General Family Medicine 08/01/16 06/10/21 Jose Lozoya DO [address] [place] [address] [address] [place] [address] Gastroenterology 08/01/16 documented as of this encounter
--- OUTSIDE RECORDS SUMMARY | 2024-06-19 21:14 | XMS_ITS | Encounter Summary ---
Author Organization [facility] Address [address] [place] [address] Phone Care Team Providers Care Instrument Room Technician Name Role Phone Troy Givens MD Primary Care Provider [phone] Jose Lozoya DO Unavailable [phone] Reason for Visit * Reason Onset Date Comments Medication Refill 02/05/2021 Encounter Details Date Type Department Care Team (Late st Contact Info) Description 02/05/2021 Refill [facility] [address] [place] [id number] Reji Thrasher MD [address] [place] [address] Medication Refill Social History Tobacco Use Types [...] Telephone Encounter - Ashia Mayberry RN - 02/05/2021 4:46 PM CDT Patient is aware and verbalizes understanding. * Telephone Encounter - Reji Thrasher MD - 02/05/2021 2:44 PM CDT Nexium (generic) approved for 90 days. Full x3 * Telephone Encounter - Ashia Mayberry RN - 02/05/2021 12:54 PM CDT Patient called back. Reviewed message below. Nexium order pended. Please approve. Patient scheduled 1 year follow up for [facility] for 06/07/2021. * Telephone Encounter - Ashia Mayberry RN - 02/05/2021 10:15 AM CDT Patient left message on voicemail in regards to nexium refill. Attempted to call patient back. Leftmessage for patient to call back. Dr. Thrasher, Please see message below. * Telephone Encounter - Lesly Cali - 02/05/2021 8:31 AM CDT Patient calling requesting refill of: Requested Prescriptions Pending Prescriptions Disp Refills ??? esomeprazole (NexIUM) 40 MG CAPSULE DELAYED RELEASE 180 Capsule 3 Sig: Take 1 Capsule by mouth every morning (before breakfast). Last fill: 02/01/20 Patients last OV with GI: 06/05/20 documented in this encounter Plan of Treatment Not on file documented as of this encounter Visit Diagnoses Not on filedocumented in this encounter Care Teams Instrument Room Technician Relationship Specialty Start Date End Date Troy Givens MD [address] [place] [address] PCP - General Family Medicine 08/01/16 06/10/21 Jose Lozoya DO [address] [facility] [address] [place] [address] Gastroenterology 08/01/16 documented as of this encounter
--- OUTSIDE RECORDS SUMMARY | 2024-06-19 21:14 | XMS_ITS | Encounter Summary ---
Author Organization [facility] Address [address] [place] [address] Phone Care Team Providers Care Rotating Field Assembler Name Role Phone Troy Givens MD Primary Care Provider [phone] Jose Lozyoa DO Unavailable [phone] Reason for Visit * Reason Onset Date Comments Results 03/30/2020 Capsule endoscop y at [place] Encounter Details Date Type Department Care Team (Late st Contact Info) Description 03/30/2020 Telephone [facility] - Gastroenterology [facility] [address] [place] [address] Jose Lozoya, DO [address] [address] Results (Capsule endoscopy at [place]) Social History Tobacco Use Types Packs/Day Years [...] Telephone Encounter - Abigail Goldstein RN - 04/02/2020 9:11 AM CDT Patient returned call. Patient notified of results and verbalizes understanding. Written okay by provider to release results to [facility] * Telephone Encounter - Abigail Goldstein RN - 03/30/2020 2:29 PM CDT Left message on machine. * Telephone Encounter - Abigail Goldstein RN - 03/30/2020 2:29 PM CDT ----- Message from Jose Lozoya DO sent at 03/30/2020 10:35 AM CDT ----- no ----- Message ----- From: Abigail Goldstein RN Sent: 03/30/2020 10:23 AM CDT To: Jose Lozoya, DO Patient has OV already scheduled with you on 05/03/20. Do you want her to be seen earlier by Lilly? ----- Message ----- From: Jose Lozoya DO Sent: 03/30/2020 10:03 AM CDT To: Abigail Goldstein RN Negative. ROV. documented in this encounter Plan of Treatment Not on file documented as of this encounter Visit Diagnoses Not on filedocumented in this encounter Care Teams Rotating Field Assembler Relationship Specialty Start Date End Date Troy Givens MD [address] [place] [address] [address] [place] [address] PCP - General Family Medicine 08/01/16 06/10/21 Jose Lozoya DO [address] [facility] [address] [place] [address] Gastroenterology 08/01/16 documented as of this encounter
--- OUTSIDE RECORDS SUMMARY | 2024-06-19 21:14 | XMS_ITS | Encounter Summary ---
Author Organization [facility] Care Team Providers Care Manager Sales And Marketing Name Role Phone Troy Givens MD Primary Care Provider [phone] Jose Lozoya DO Unavailable [phone] Encounter Details Date Type Department Care Team (Latest Contact Info) Description 06/05/2020 Travel Social History Tobacco Use Types Packs/Day [...] have Coronavirus / COVID-19? No / Unsure 06/05/2020 8:10 AM PORTFOLIO CONSULTANT documented as of this encounter Plan of Treatment Not on file documented as of this encounter Visit Diagnoses Not on filedocumented in this encounter Care Teams Manager Sales And Marketing Relationship Specialty Start Date End Date Troy Givens MD [address] [place] [address] [address] [place] [address] PCP - General Family Medicine 08/01/16 06/10/21 Jose Lozoya DO [address] [place] [address] [address] [place] [address] Gastroenterology 08/01/16 documented as of this encounter
--- OUTSIDE RECORDS SUMMARY | 2024-06-19 21:14 | XMS_ITS | Encounter Summary ---
Author Organization [facility] Address [address] [place] [address] Phone Care Team Providers Care Maintenance Helper Name Role Phone Troy Givens MD Primary Care Provider [phone] Jose Lozoya DO Unavailable [phone] Nurys Givens MD Primary Care Provider Reason for Visit * Reason Onset Date Comments Constipation 06/10/2021 Encounter Details Date Type Department Care Team (Late st Contact Info) Description 06/10/2021 Telephone [facility] [address]2 [place] [id number] Lilly Davenport Myrna, PAC [address] [place] [address] Constipation Social History Tobacco Use Types Packs/Day Years [...] COVID-19? No / Unsure 06/11/2021 1:31 PM WATER TAXI BOAT MATE documented as of this encounter Miscellaneous Notes * Telephone Encounter - Cristi Mayberry RN - 06/27/2021 10:06 AM WATER TAXI BOAT MATE Transmit message sent to patient, see telephone encounter for 06/27/2021. R TAXI BOAT MATE * Addendum Note - Cristi Mayberry RN - 06/11/2021 12:48 PM CSTAddended by: CRISTI MAYBERRY on: 06/11/2021 12:48 PM Modules accepted: Orders R TAXI BOAT MATE * Telephone Encounter - Cristi Mayberry RN - 06/11/2021 12:44 PM WATER TAXI BOAT MATE Patient is aware and verbalizes understanding. KUB xray ordered. R TAXI BOAT MATE * Telephone Encounter - Lilly Davenport PAC - 06/11/2021 9:51 AM WATER TAXI BOAT MATE Request she obtain a KUB. If this confirms constipation and does not show any obstruction she may do the other bottle Mag citrate today. R TAXI BOAT MATE * Telephone Encounter - Cristi Mayberry RN - 06/11/2021 8:38 AM WATER TAXI BOAT MATE Patient calling and reporting that she drank a whole bottle of mag citrate yesterday 06/10/2021 andhas been taking mirilax every 4 hours with the warm apple and prune juice. She states that only passed liquid vang colored stool. Still feels pressure in lower middle of abdomen. Pressure a little better. Denies any vomiting. Patient's states after her hernia surgery in March of 2020, her stools have been smaller and softer. Patient did buy two bottles of the mag citrate. Please advise. R TAXI BOAT MATE * Telephone Encounter - Cristi Mayberry RN - 06/10/2021 10:55 AM WATER TAXI BOAT MATE Reviewed message below with patient. Transmit message sent to patient with instructions from ov on 06/07/2021. R TAXI BOAT MATE * Telephone Encounter - Cristi Mayberry RN - 06/10/2021 9:31 AM WATER TAXI BOAT MATE Patient is aware and verbalizes understanding. R TAXI BOAT MATE * Telephone Encounter - Lilly Davenport PAC - 06/10/2021 9:14 AM WATER TAXI BOAT MATE Advise to use Mag citrate 1 bottle and continue MiraLax every 4 hours. R TAXI BOAT MATE * Telephone Encounter - Terrell Camp CMA - 06/10/2021 8:22 AM WATER TAXI BOAT MATE Patient calling office, she was seen on Thursday01/05/2021, was told to call office if she had not had a full complete bowel movement by Thursday. She states she has done everything you advised her to do, the warm prune juice, bottle of warm apple juice and milk of magnesia, and also miralax. Does havesome abdominal pressure below her navel. Has had some diarrhea and very small stool. [facility]. R TAXI BOAT MATE documented in this encounter Plan of Treatment Not on file documented as of this encounter Results * XR ABDOMEN KUB FLAT PLATE (06/11/2021 1:49 PM WATER TAXI BOAT MATE) Anatomical Region Laterality Modality Abdomen N/A Digital Radiogra phy 06/12/2021 9:18 AM WATER TAXI BOAT MATE Impressions 06/12/2021 9:21 AM WATER TAXI BOAT MATE IMPRESSION: ?? No acute finding. ?? Relatively small colonic fecal burden. Narrative 06/12/2021 9:21 AM WATER TAXI BOAT MATE EXAM DESCRIPTION: ?? XR ABDOMEN KUB FLAT [...] AM T: ??06/12/2021 9:18 AM Report ID: [id number] Reading Location: ??[id number] Procedure Note Shabbir Cook MD - 06/12/2021 [...] Electronically signed by Shabbir Cook M.D. RB: RB Report ID: [id number] Reading Location: [id number] IMPRESSION: No acute finding. Relatively small colonic fecal burden. Result [facility] Lilly Davenport [facility] DIAGNOSTIC ORDERABLES Final Result documented in this encounter Visit Diagnoses Diagnosis Constipation, unspecified constipation type- Primary Constipation, unspecified constipation type documented in this encounter Care Teams Maintenance Helper Relationship Specialty Start Date End Date Troy Givens MD [address] [place] [address] [address] [place] [address] PCP - General Family Medicine 08/01/16 06/10/21 Nurys Givens MD [address] [place] [address] [address] [place] [address] PCP - General Family Medicine 06/11/21 Jose Lozoya DO [address] [place] [address] [address] [place] [address] Gastroenterology 08/01/16 documented as of this encounter
--- OUTSIDE RECORDS SUMMARY | 2024-06-19 21:14 | XMS_ITS | Encounter Summary ---
Author Organization [facility] Address [address] [place] [address] Phone Care Team Providers Care Director Medical Writing Name Role Phone Jose Lozoya DO Unavailable [phone] Nurys Givens MD Primary Care Provider Encounter Details Date Type Department Care Team (Late st Contact Info) Description 09/04/2021 Telephone [facility] - Gastroenterology [facility] [address] [place] [address] Lilly Davenport PAC [address] [place] [address] Social History Tobacco Use Types Packs/Day Years [...] have Coronavirus / COVID-19? No / Unsure 08/09/2021 8:17 AM FRAMING CARPENTER documented as of this encounter Miscellaneous Notes * Telephone Encounter - Ashia Mayberry RN - 09/05/2021 12:16 PM CDT Spoke with patient, advised patient to call her insurance company to see if a field foreman is covered.Patient is aware and verbalizes understanding. * Telephone Encounter - Pat Bonner - 09/04/2021 11:59 AM CDT Patient called stating Lilly gave her diet information for eating small meals though out the day. However she is not good with meal planning and would like to be referred to a field foreman to help her learn how. Please call her back at [phone] documented in this encounter Plan of Treatment Not on file documented as of this encounter Visit Diagnoses Not on filedocumented in this encounter Care Teams Director Medical Writing Relationship Specialty Start Date End Date Nurys Givens MD PCP - General Family Medicine 06/11/21 Jose Lozoya DO Gastroenterology 08/01/16 documented as of this encounter
--- OUTSIDE RECORDS SUMMARY | 2024-06-19 21:14 | XMS_ITS | Encounter Summary ---
Author Organization [facility] Address [address] [place] [address] Phone Care Team Providers Care Risk Assessment Consultant Name Role Phone Troy Givens MD Primary Care Provider [phone] Jose Lozoya DO Unavailable [phone] Reason for Visit * Reason Comments Follow-up 1 Year follow Barretts Encounter Details Date Type Department Care Team (Latest Contact Info) Description 06/07/2021 8:20 AM CLAIM ANALYST Office Visit [facility] - Gastroenterology - [place] [address] [place] [id number] Lilly Davenport Myrna, PAC [address] [place] [address] Perea's esophagus without dysplasia (Primary Dx); Constipation, unspecified constipation type Discharge Disposition: Discharged to home or Selfcare [...] COVID-19? No / Unsure 06/07/2021 8:15 AM CLAIM ANALYST documented as of this encounter Last Filed Vital Signs Vital Sign Reading Time Taken Comments Blood Pressure 132/72 06/07/2021 8:19 AM CLAIM ANALYST Pulse 97 06/07/2021 8:19 AM CLAIM ANALYST Temperature 36.2 ??C (97.1 ??F) 06/07/2021 8:19 AM CS T Respiratory Rate 20 06/07/2021 8:19 AM CLAIM ANALYST Oxygen Saturation 99% 06/07/2021 8:19 AM CLAIM ANALYST Inhaled Oxygen Concentration - - Weight 67.1 kg (148 lb) 06/07/2021 8:19 AM CLAIM ANALYST Height 152.4 cm (5') 06/07/2021 8:19 AM CLAIM ANALYST Body Mass Index 28.9 06/07/2021 8:19 AM CLAIM ANALYST documented in this encounter Patient Instructions * Patient Instructions* Lilly Davenport, PAC - 06/07/2021 8:20 AM CLAIM ANALYST Natural fibers: all bran/ raisin bran/ fiber one/ oats Fruits such as apples/ pears/ prunes and juices of same may stimulate bowels- warm juice works best Bananas can cause constipation Add generic benefiber 2 tbsp daily to help regulate your system, may use up to 3 times a day (replaces citracel) 64 ounces of water Call if unimproved by Thursday- call If constipation persists after cleaning out bowels, may use MiraLax daily-if stools become too softreduce to 1/2 regular dose. If no BM in 3 days, may use Miralax as directed and repeat approximately every 4 hours until BM (nomore than 5 x per day) or milk of magnesia 2 tbsp - may add to warmed prune/ apple juice If you had lab work ordered at this visit, we will contact you regarding the results once all results have been received and reviewed. You may be able to see results in your my chart as they come in, please remember the computer is only given parameters for what is ???normal?? or ???abnormal?? .The significance of anything in the ???abnormal?? range is based on the remaining test results. Aga in we will contact you when we have received and reviewed all the results. Please arrive 15 minutes prior to all appointments for check in/ rooming process Please schedule follow-up in near future to discuss any concerns that were not addressed fully at today's office visit. To continue to provide excellent patient care, you may receive a survey regarding your visit today.To help us serve you better, please complete and return. These surveys are completely anonymous. If you have any concerns/ questions regarding today's visit please call. M ANALYST M ANALYST documented in this encounter Progress Notes * Lilly Davenport PAC - 06/07/2021 8:20 AM CST PROBLEM LIST: Patient Active Problem List Diagnosis ??? Acid reflux ??? Perea's esophagus ??? Hypertension ??? Dyslipidemia ??? Bipolar affective disorder (HCC) ??? Anxiety ??? COPD (chronic obstructive pulmonary disease) (HCC) ??? Colon polyps Leona A Lubna is a . 65 y.o. female who presents with Chief Complaint Patient presents with ??? Follow-up 1 Year follow ??? Barretts . DIAGNOSIS, PLAN AND FOLLOW UP: Diagnoses and all orders for this visit: Perea's esophagus without dysplasia Constipation, unspecified constipation type S: Presents for annual follow-up for Perea's esophagus/medication management. History of anemia. Did have Craig and hiatal hernia repair fall. Reports after procedure had problems with bloating- did a study demonstrated a delay. Surgeon states mesh causing narrowing. [facility]. Describes UGI with follow through. Normal appetite. Reports has eating portion control due to her diabetes and is tolerating that well. Does feel she needs her nutritional needs. Reports her blood sugars have improved with her diet change. Primary concern today is constipation-reports has not had a good bowel movement in about 3 weeks. Is complaining of lower abdominal pressure and discomfort. Denies early satiety. Denies heartburn/ reflux/ nausea/ vomiting/ abdominal pain/ diarrhea/ mucus or blood in stools/ toilet or on tissue. Denies black or tarry stools. Denies weight loss/ malaise/ fatigue. Denies sore throat/ hoarseness/ difficulty swallowing/ feeling of foreign body in throat. Denies chest pain/ pressure/ heaviness/ tightness. Denies cough/ sob/ wheezing. Last EGD was 12/19/2019 with recommendation to repeat in 3 years due to Perea's esophagus, hiatal hernia was noted, last colonoscopy was 01/19/2020 with recommendation to repeat in 5 years due to polyps. She also had an essentially negative capsule endoscopy 03/16/2020, a CT 02/17/2020 that demonstrated large hiatal hernia ALLERGIES: Allergies Allergen Reactions ??? Oxycodone Hallucinations Pt not allergic to medication, she just prefers not to take the medication ??? Penicillins Unknown MEDICATIONS: Current Outpatient Medications Medication Sig Dispense Refill ??? Accu-Chek Softclix Lancets Misc USE 1 LANCET DIRECTED EVERY DAY ??? albuterol (PROAIR HFA) 108 (90 BASE) MCG/ACT Aerosol Solution take 2 Puffs by inhalation every 4 hours as needed for Wheezing. ??? ALPRAZolam 2 MG Tablet TAKE 1 TABLET BY MOUTH THREE TIMES A DAY NEEDED FOR ANXIETY ??? amphetamine-dextroamphetamine (ADDERALL XR) 30 MG CAPSULE SR 24 HR Take 1 Cap by mouth daily. 0 ??? ANORO ELLIPTA 62.5-25 MCG/INH AEROSOL POWDER, BREATH ACTIVATED ??? Ascorbic Acid (VITAMIN C PO) Take by mouth. ??? aspirin EC 81 MG Tablet Delayed Response Take 81 mg by mouth daily. ??? atorvastatin (LIPITOR) 40 MG Tablet Take 40 mg by mouth daily. ??? busPIRone (BUSPAR) 15 MG Tablet TAKE 3 TABLETS BY MOUTH TWICE A DAY ??? Cholecalciferol (VITAMIN D) 2000 UNIT Tablet Take by mouth. ??? Desvenlafaxine Succinate 50 MG TABLET SR 24 HR ??? esomeprazole (NexIUM) 40 MG CAPSULE DELAYED RELEASE Take 1 Capsule by mouth 2 times daily. 180 Capsule 3 ??? ezetimibe (ZETIA) 10 MG Tablet Take 1 Tab by mouth daily. ??? lisinopril-hydroCHLOROthiazide (PRINZIDE, ZESTORETIC) 20-25 MG Tablet Take 1 Tab by mouth daily. 3 ??? montelukast (SINGULAIR) 10 MG Tablet ??? Multiple Vitamins-Minerals (CENTRUM PO) Take by mouth. ??? OXcarbazepine (TRILEPTAL) 150 MG Tablet Take 150 mg by mouth 2 times daily. ??? Ozempic, 0.25 or 0.5 MG/DOSE, 2 MG/1.5ML Solution Pen-injector INJECT 0.25 MG (0.2 ML) SUBCUTANEOUSLY WEEKLY 12 WEEKS No current facility-administered medications for this visit. PMS/H: Past Medical History Positives Diagnosis Date ??? Adenomatous colon polyp ??? ADHD (attention deficit hyperactivity disorder) ??? Perea esophagus ??? Bipolar 1 disorder (HCC) ??? COPD (chronic obstructive pulmonary disease) (HCC) ??? Depression ??? Diabetes (HCC) ??? Generalized anxiety disorder ??? GERD (gastroesophageal reflux disease) ??? HTN (hypertension) ??? Hyperlipidemia ??? Obesity ??? Tobacco abuse ??? Vitamin D deficiency Past Surgical History: Procedure Laterality Date ??? COLONOSCOPY ??? EGD ??? OTHER SURGICAL HISTORY Stye removal ??? TONSILLECTOMY AND ADENOIDECTOMY ??? WRIST SURGERY Right SOCIAL: Social History Socioeconomic History ??? Marital status: Spouse name: Not on file ??? Number of children: Not on file ??? Years of education: Not on file ??? Highest education level: Not on file Occupational History ??? Not on file Tobacco Use ??? Smoking status: Current Every Day Smoker Packs/day: 2.50 Years: 44.00 Pack years: 110.00 Types: Cigarettes ??? Smokeless tobacco: Never Used Vaping Use ??? Vaping Use: Former Substance and Sexual Activity ??? Alcohol use: Yes Alcohol/week: 0.0 oz Comment: 1-2 glasses of wine per month ??? Drug use: No ??? Sexual activity: Not Currently Other Topics Concern ??? Not on file Social History Narrative ??? Not on file Social Determinants of Health Social determinant risk not applicable to this patient. FAMILY HX: Family History Problem Relation Age of Onset ??? Heart Attack Other ??? Hypertension Other ??? High Cholesterol Other ??? Diabetes Other ??? Alzheimer's Disease Other ??? Cancer Other Pancreatic ??? Cancer Father Pancreatic VITAL SIGNS: Vitals: 06/07/21 0819 BP: 132/72 Pulse: 97 Resp: 20 Temp: 97.1 ??F (36.2 ??C) SpO2: 99% Weight: 148 lb (67.1 kg) Height: 5' (1.524 m) GENERAL EXAM: GENERAL:Well developed, well nourished, in no acute distress. AAO x3. Cooperative. HEENT:Normocephalic. PERRLA. Nonicteric. NECK:Supple/ non tender/ full ROM. LYMPH NODES:No adenopathy. CARDIOVASCULAR:RRR/ S1S2/ No m/g/c/r. PULMONARY: Respirations easy and regular. Breath sounds clear bilaterally. No rhonchi/ rales/ wheezes. GI: Abdomen soft, nondistended. Diffuse lower abdominal tenderness. No other areas of tenderness. No rebound, guarding or mass. No hepatosplenomegaly. Bowel sounds normoactive. MUSCULOSKELETAL:Full ROM all extremities. No tenderness/ swelling/ crepitus. SKIN: General-warm, pink and dry. No rashes/ lesions. PSYCHIATRIC:Euthymic. Affect congruent with mood. Normal thought processes. Medication changes/ treatment plan reviewed. Risks and benefits discussed. Expressed understanding. Patient Instructions Natural fibers: all bran/ raisin bran/ fiber one/ oats Fruits such as apples/ pears/ prunes and juices of same may stimulate bowels- warm juice works best Bananas can cause constipation Add generic benefiber 2 tbsp daily to help regulate your system, may use up to 3 times a day (replaces citracel) 64 ounces of water Call if unimproved by Thursday- call If constipation persists after cleaning out bowels, may use MiraLax daily-if stools become too softreduce to 1/2 regular dose. If no BM in 3 days, may use Miralax as directed and repeat approximately every 4 hours until BM (nomore than 5 x per day) or milk of magnesia 2 tbsp - may add to warmed prune/ apple juice If you had lab work ordered at this visit, we will contact you regarding the results once all results have been received and reviewed. You may be able to see results in your my chart as they come in, please remember the computer is only given parameters for what is ???normal?? or ???abnormal?? .The significance of anything in the ???abnormal?? range is based on the remaining test results. Aga in we will contact you when we have received and reviewed all the results. Please arrive 15 minutes prior to all appointments for check in/ rooming process Please schedule follow-up in near future to discuss any concerns that were not addressed fully at today's office visit. To continue to provide excellent patient care, you may receive a survey regarding your visit today.To help us serve you better, please complete and return. These surveys are completely anonymous. If you have any concerns/ questions regarding today's visit please call. Return in about 6 weeks (around 07/19/2021) for constipation/ GERD/ Perea's. M ANALYST documented in this encounter Plan of Treatment Not on file documented as of this encounter Visit Diagnoses Diagnosis Perea's esophagus without dysplasia- Primary Perea's esophagus Constipation, unspecified constipation type documented in this encounter Care Teams Risk Assessment Consultant Relationship Specialty Start Date End Date Troy Givens MD [address] [place] [address] [place] [id number] PCP - General Family Medicine 08/01/16 06/10/21 Jose Lozoya DO [address] [place] [address] [place] [id number] Gastroenterology 08/01/16 documented as of this encounter
--- OUTSIDE RECORDS SUMMARY | 2024-06-19 21:14 | XMS_ITS | Encounter Summary ---
Author Organization [facility] Address [address] [place] [address] Phone Care Team Providers Care Enterprise Application Architect Name Role Phone Troy Givens MD Primary Care Provider [phone] Jose Lozoya DO Unavailable [phone] Reason for Visit * Reason Onset Date Comments Medication Refill 02/01/2020 Encounter Details Date Type Department Care Team (Late st Contact Info) Description 02/01/2020 Refill [facility] - [facility] [address] [place] [id number] Jose Lozoya, DO [address] [address] Medication Refill Social History Tobacco Use Types [...] Miscellaneous Notes * Telephone Encounter - Terrell Camp CMA - 02/01/2020 7:58 AM CDT Pharmacy requesting refill of: Requested Prescriptions Pending Prescriptions Disp Refills ??? esomeprazole (NexIUM) 40 MG CAPSULE DELAYED RELEASE 180 Cap 3 Sig: Take 1 Cap by mouth every morning (before breakfast). Last fill: 11/09/2019 Patients last OV with GI: 01/19/[address] lozoya Next Office Visit with GI: None scheduled documented in this encounter Plan of Treatment Not on file documented as of this encounter Visit Diagnoses Not on filedocumented in this encounter Care Teams Enterprise Application Architect Relationship Specialty Start Date End Date Troy Givens MD [address] [place] [address] [address] [place] [address] PCP - General Family Medicine 08/01/16 06/10/21 Jose Lozoya DO [address] [place] [address] [address] [place] [address] Gastroenterology 08/01/16 documented as of this encounter
--- OUTSIDE RECORDS SUMMARY | 2024-06-19 21:14 | XMS_ITS | Encounter Summary ---
Author Organization [facility] Address [address] [place] [address] Phone Care Team Providers Care Rope Cutter Name Role Phone Jose Lozoya DO Unavailable [phone] Nurys Givens MD Primary Care Provider Reason for Visit * Reason Comments Follow-up 6 week follow up Encounter Details Date Type Department Care Team (Latest Contact Info) Description 08/09/2021 8:20 AM TRUCKING CONTRACTOR Telemedicine [facility] - Gastroenterology - [place] [address] [place] [id number] Lilly Davenport Myrna, [facility] [address] [place] [address] Gastroesophageal reflux disease, unspecified whether esophagitis present (Primary Dx); Palomo's esophagus without dysplasia; Polyp of colon, unspecified part of colon, unspecified type; Chronic idiopathic constipation Discharge Disposition: Discharged to home or Selfcare [...] COVID-19? No / Unsure 08/09/2021 8:17 AM TRUCKING CONTRACTOR documented as of this encounter Last Filed Vital Signs Vital Sign Reading Time Taken Comments Blood Pressure - - Pulse - - Temperature - - Respiratory Rate - - Oxygen Saturation - - Inhaled Oxygen Concentration - - Weight 68.9 kg (152 lb) 08/09/2021 8:18 AM TRUCKING CONTRACTOR V erbal Height 152.4 cm (5') 08/09/2021 8:18 AM TRUCKING CONTRACTOR Body Mass Index 29.69 08/09/2021 8:18 AM TRUCKING CONTRACTOR documented in this encounter Patient Instructions * Patient Instructions* Lilly Davenport Myrna, PAC - 08/09/2021 8:20 AM TRUCKING CONTRACTOR Images from the original note were not included. Continue current therapy Natural fibers: all bran/ raisin bran/ fiber one/ oats Fruits such as apples/ pears/ prunes and juices of same may stimulate bowels- warm juice works best Bananas can cause constipation Add generic benefiber 2 tbsp daily to help regulate your system, may use up to 3 times a day Probiotic-highest colony count you can afford to purchase on a routine basis May use MiraLax nightly-if stools become too soft reduce to 1/2 regular does nightly. If no BM in 3 days, may use Miralax as directed and repeat approximately every 4 hours until BM (nomore than 5 x per day) or milk of magnesia 2 tbsp Use esomeprazole 40 mg 1 tab daily p.m. be sure to take 30 minutes before largest meal containing protein May use famotidine 20 mg 1 tab am and pm or Tums for breakthrough Avoid eating 3-4 hours prior to bed May need to elevate head of bed approximately 45??. Avoid frequent/chronic use of NSAIDs such as ibuprofen/naproxen May use acetaminophen/ Tylenol arthritis as needed. Avoid fried/ greasy/ spicy foods/ red sauces/ citrus especially in the evening Reduce caffeine/ carbonated beverages/alcohol/tobacco/ marijuana If you were advised to have a procedure and have not heard from our office to schedule within 2 weeks please call. Weight loss- try eating several small meals a day consisting of lean protein and non- starchy vegetables (at least 3 x) and low sugar / high fiber fruits no more than twice Increase water to at least 64 ounces per day Exercise as tolerated Please check in at the senior front end engineer/ registration at least 15 minutes prior to all appointments. Please schedule follow-up in near future to discuss any concerns that were not addressed fully at today's office visit. To continue to provide excellent patient care, you may receive a survey regarding your visit today.To help us serve you better, please complete and return. These surveys are completely anonymous. If you have any concerns/ questions regarding today's visit please call. Eating Plan After Aline Fundoplication After a Aline fundoplication procedure, it is common to have some difficulty swallowing. The part of your body that moves food and liquid from your mouth to your stomach (esophagus) will be swollen and may feel tight. It will take several weeks or months for your esophagus and stomach to heal. By following a special eating plan, you can prevent problems such as pain, swelling or pressure in the abdomen (bloating), gas, nausea, or diarrhea. What are tips for following this plan? Cooking ?? Cook all foods until they are soft. ?? Remove skins and seeds from fruits and vegetables before eating. ?? Remove skin and gristle from meats before eating. ?? Grind or finely mince meats before eating. ?? Avoid over-cooking meat. Dry, tough meat is more difficult to swallow. ?? Avoid or use small amounts of oil when cooking. ?? Avoid or use small amounts of seasoning when cooking. ?? [place] bread before eating. This makes it easier to swallow. ?? Allow hot soups and drinks to cool before eating. Meal planning ?? Eat 6-8 small meals throughout the day. ?? Right after the surgery, have a few meals that are only clear liquids. Clear liquids include: ? Water. ? Clear fruit juice (no pulp). ? Chicken, beef, or vegetable broth. ? Gelatin. ? Decaffeinated tea or coffee without milk. ? Ice pops or shaved ice. ?? Depending on your progress, you may move to a full liquid diet as told by your health care provider. This includes clear liquids and the following: ? Dairy and alternative milks (soy). ? Strained creamed soups. ? Ice cream or sherbet. ? Pudding. ? Nutritional supplement drinks. ? Yogurt. ?? A few days after surgery, you may be able to start eating a diet of soft foods. You may need to eat according to this plan for several weeks. ?? Avoid foods and drinks that contain caffeine and chocolate. ?? Do not drink carbonated drinks or alcohol. ?? Avoid foods and drinks that contain citrus or tomato. ?? Do not eat sweets or sweetened drinks at the beginning of a meal. Doing that may cause your stomach to empty faster than it should (dumping syndrome). ?? Avoid foods that cause gas, such as beans, peas, broccoli, or cabbage. ?? If dairy milk products cause diarrhea, avoid them or eat them in small amounts. Lifestyle ?? Always sit upright when eating or drinking. ?? Eat slowly. Take small bites and chew food well before swallowing. ?? Do not lie down after eating. Stay sitting up for 30 minutes or longer after each meal. ?? Sip fluids between meals. ?? Do not mix solid foods and liquids in the same mouthful. ?? Limit how much you drink at one time. With meals and snacks, have 4-8 oz (120-240 mL). This is equal to ?? cup-1 cup. ?? Drink enough fluid to keep your urine pale yellow. ?? Do not chew gum or drink fluids through a straw. Doing those things may cause you to swallow extra air. Recommended foods The items listed may not be a complete list. Talk with your dietitian about what dietary choices are best for you. Grains ?? Cooked cereals. Dry cereals softened with liquid. Cooked pasta, rice, or other grains. Toasted bread. Pershing crackers, such as soda or micky crackers. Vegetables ?? Any soft-cooked vegetables after skins and seeds are removed. Vegetable juice. Fruits ?? Any soft-cooked fruits after skins and seeds are removed. Fruit juice. Meats and other protein foods ?? Tender cuts of meat, poultry, or fish after bones, skin, and gristle are removed. Poached, boiled, or scrambled eggs. Canned fish. Tofu. Creamy nut butters. Dairy ?? Milk. Yogurt. Cottage cheese. Mild cheeses. Beverages ?? Nutritional supplement drinks. Decaffeinated tea or coffee. Sports drinks. Fats and oils ?? Butter. Margarine. Mayonnaise. Vegetable oil. Smooth salad dressing. Sweets and desserts ?? Plain hard candy. Marshmallows. Pudding. Ice cream. Gelatin. Sherbet. Seasoning and other foods ?? Salt. Light seasonings. Mustard. Vinegar. Foods to avoid The items listed may not be a complete list. Talk with your dietitian about what dietary choices are best for you. Grains ?? High-fiber or bran cereal. Cereal with nuts, dried fruit, or coconut. Sweet breads, rolls, coffee cake, or donuts. Chewy or crusty breads. Popcorn. Vegetables ?? Tomato sauce. Tomato juice. Broccoli. Cauliflower. Cabbage. [place] sprouts. Crunchy, raw vegetables. Fruits ?? Oranges. Grapefruit. Jose A. Limes. [place] juices. Dried fruit. Crunchy, raw fruits. Meats and other protein foods ?? Beans, peas, and lentils. Tough or fatty meats. Fried meats, chicken, or fish. Fried eggs. Nuts and seeds. Crunchy nut butters. Dairy ?? Chocolate milk. Yogurt with chunks of fruit, nuts, seeds, or coconut. Strong cheeses. Beverages ?? Carbonated soft drinks. Alcohol. [place]. Hot drinks. Fats and oils ?? Ryan fat. Lard. Sweets and desserts ?? Chocolate. Candy with nuts, coconut, or seeds. Peppermint. Cookies. Cakes. Pie crust. Seasoning and other foods ?? Heavy seasonings. Avon sauce. Ketchup. Barbecue sauce. Pickles. Horseradish. Summary ?? Following this eating plan after a Aline fundoplication is an important part of healing after surgery. ?? After surgery, you will start with a clear liquid diet before you progress to full liquids and soft foods. You may need to eat soft foods for several weeks. ?? Avoid eating foods that cause irritation, gas, nausea, diarrhea, or swelling or pressure in the abdomen (bloating), and avoid foods that are difficult to swallow. ?? Talk with your diet and nutrition club ambassador (dietitian) about what dietary choices are best foryou. This information is not intended to replace advice given to you by your health care provider. Make sure you discuss any questions you have with your health care provider. Document Revised: 05/21/2018 Document Reviewed: 12/21/2017 Elsevier Patient Education ?? 2020 Elsevier Inc. KING CONTRACTOR KING CONTRACTOR KING CONTRACTOR documented in this encounter Progress Notes * Lilly Davenport PAC - 08/09/2021 8:20 AM CST Images from the original note were not included. Patient was assessed via telephone for a duration of 20 minutes. Patient verbally consented for this service to be performed and billed. HPI: Leona Calvo is a 66 y.o. female evaluated today for constipation/ GERD/ palomo's esophagus. Reports doing well denies heartburn/ reflux. still having some constipation. Reports one good BM then will have 2-3 softer stools as well in a week. Trying to use benefiber regularly as well as fiber bars and high fiber diet. Continues with increased gas after eating but notes better if she eats small amounts/ eats small bites and eat slowly. Plans to increase and drink water only today. Has not been using Miralax just benefiber. Current Outpatient Medications: ??? Accu-Chek Softclix Lancets Misc ??? albuterol 108 (90 Base) MCG/ACT Aerosol Solution ??? ALPRAZolam 2 MG Tablet ??? amphetamine-dextroamphetamine (ADDERALL XR) 30 MG CAPSULE SR 24 HR ??? ANORO ELLIPTA 62.5-25 MCG/INH AEROSOL POWDER, BREATH ACTIVATED ??? Ascorbic Acid (VITAMIN C PO) ??? aspirin EC 81 MG Tablet Delayed Response ??? atorvastatin (LIPITOR) 40 MG Tablet ??? busPIRone (BUSPAR) 15 MG Tablet ??? Cholecalciferol (VITAMIN D) 2000 UNIT Tablet ??? Desvenlafaxine Succinate 50 MG TABLET SR 24 HR ??? esomeprazole (NexIUM) 40 MG CAPSULE DELAYED RELEASE ??? ezetimibe (ZETIA) 10 MG Tablet ??? lisinopril-hydroCHLOROthiazide (PRINZIDE, ZESTORETIC) 20-25 MG Tablet ??? montelukast (SINGULAIR) 10 MG Tablet ??? Multiple Vitamins-Minerals (CENTRUM PO) ??? OXcarbazepine (TRILEPTAL) 150 MG Tablet ??? Ozempic, 0.25 or 0.5 MG/DOSE, 2 MG/1.5ML Solution Pen-injector The past medical, surgical, family and social histories, and allergies were reviewed and updated asneeded. Plan: ICD-10-CM 1. Gastroesophageal reflux disease, unspecified whether esophagitis present K21.9 esomeprazole (NexIUM) 40 MG CAPSULE DELAYED RELEASE DISCONTINUED: esomeprazole (NexIUM) 40 MG CAPSULE DELAYED RELEASE 2. Palomo's esophagus without dysplasia K22.70 3. Polyp of colon, unspecified part of colon, unspecified type K63.5 Follow Up: Leona was asked to follow up with JESSICA Strauss in 6 month(s). Patient Instructions Continue current therapy Natural fibers: all bran/ raisin bran/ fiber one/ oats Fruits such as apples/ pears/ prunes and juices of same may stimulate bowels- warm juice works best Bananas can cause constipation Add generic benefiber 2 tbsp daily to help regulate your system, may use up to 3 times a day Probiotic-highest colony count you can afford to purchase on a routine basis May use MiraLax nightly-if stools become too soft reduce to 1/2 regular does nightly. If no BM in 3 days, may use Miralax as directed and repeat approximately every 4 hours until BM (nomore than 5 x per day) or milk of magnesia 2 tbsp Use esomeprazole 40 mg 1 tab daily p.m. be sure to take 30 minutes before largest meal containing protein May use famotidine 20 mg 1 tab am and pm or Tums for breakthrough Avoid eating 3-4 hours prior to bed May need to elevate head of bed approximately 45??. Avoid frequent/chronic use of NSAIDs such as ibuprofen/naproxen May use acetaminophen/ Tylenol arthritis as needed. Avoid fried/ greasy/ spicy foods/ red sauces/ citrus especially in the evening Reduce caffeine/ carbonated beverages/alcohol/tobacco/ marijuana If you were advised to have a procedure and have not heard from our office to schedule within 2 weeks please call. Weight loss- try eating several small meals a day consisting of lean protein and non- starchy vegetables (at least 3 x) and low sugar / high fiber fruits no more than twice Increase water to at least 64 ounces per day Exercise as tolerated Please check in at the senior front end engineer/ registration at least 15 minutes prior to all appointments. Please schedule follow-up in near future to discuss any concerns that were not addressed fully at today's office visit. To continue to provide excellent patient care, you may receive a survey regarding your visit today.To help us serve you better, please complete and return. These surveys are completely anonymous. If you have any concerns/ questions regarding today's visit please call. Eating Plan After Aline Fundoplication After a Aline fundoplication procedure, it is common to have some difficulty swallowing. The part of your body that moves food and liquid from your mouth to your stomach (esophagus) will be swollen and may feel tight. It will take several weeks or months for your esophagus and stomach to heal. By following a special eating plan, you can prevent problems such as pain, swelling or pressure in the abdomen (bloating), gas, nausea, or diarrhea. What are tips for following this plan? Cooking ?? Cook all foods until they are soft. ?? Remove skins and seeds from fruits and vegetables before eating. ?? Remove skin and gristle from meats before eating. ?? Grind or finely mince meats before eating. ?? Avoid over-cooking meat. Dry, tough meat is more difficult to swallow. ?? Avoid or use small amounts of oil when cooking. ?? Avoid or use small amounts of seasoning when cooking. ?? [place] bread before eating. This makes it easier to swallow. ?? Allow hot soups and drinks to cool before eating. Meal planning ?? Eat 6-8 small meals throughout the day. ?? Right after the surgery, have a few meals that are only clear liquids. Clear liquids include: ? Water. ? Clear fruit juice (no pulp). ? Chicken, beef, or vegetable broth. ? Gelatin. ? Decaffeinated tea or coffee without milk. ? Ice pops or shaved ice. ?? Depending on your progress, you may move to a full liquid diet as told by your health care provider. This includes clear liquids and the following: ? Dairy and alternative milks (soy). ? Strained creamed soups. ? Ice cream or sherbet. ? Pudding. ? Nutritional supplement drinks. ? Yogurt. ?? A few days after surgery, you may be able to start eating a diet of soft foods. You may need to eat according to this plan for several weeks. ?? Avoid foods and drinks that contain caffeine and chocolate. ?? Do not drink carbonated drinks or alcohol. ?? Avoid foods and drinks that contain citrus or tomato. ?? Do not eat sweets or sweetened drinks at the beginning of a meal. Doing that may cause your stomach to empty faster than it should (dumping syndrome). ?? Avoid foods that cause gas, such as beans, peas, broccoli, or cabbage. ?? If dairy milk products cause diarrhea, avoid them or eat them in small amounts. Lifestyle ?? Always sit upright when eating or drinking. ?? Eat slowly. Take small bites and chew food well before swallowing. ?? Do not lie down after eating. Stay sitting up for 30 minutes or longer after each meal. ?? Sip fluids between meals. ?? Do not mix solid foods and liquids in the same mouthful. ?? Limit how much you drink at one time. With meals and snacks, have 4-8 oz (120-240 mL). This is equal to ?? cup-1 cup. ?? Drink enough fluid to keep your urine pale yellow. ?? Do not chew gum or drink fluids through a straw. Doing those things may cause you to swallow extra air. Recommended foods The items listed may not be a complete list. Talk with your dietitian about what dietary choices are best for you. Grains ?? Cooked cereals. Dry cereals softened with liquid. Cooked pasta, rice, or other grains. Toasted bread. [place] crackers, such as soda or mciky crackers. Vegetables ?? Any soft-cooked vegetables after skins and seeds are removed. Vegetable juice. Fruits ?? Any soft-cooked fruits after skins and seeds are removed. Fruit juice. Meats and other protein foods ?? Tender cuts of meat, poultry, or fish after bones, skin, and gristle are removed. Poached, boiled, or scrambled eggs. Canned fish. Tofu. Creamy nut butters. Dairy ?? Milk. Yogurt. Cottage cheese. Mild cheeses. Beverages ?? Nutritional supplement drinks. Decaffeinated tea or coffee. Sports drinks. Fats and oils ?? Butter. Margarine. Mayonnaise. Vegetable oil. Smooth salad dressing. Sweets and desserts ?? Plain hard candy. Marshmallows. Pudding. Ice cream. Gelatin. Sherbet. Seasoning and other foods ?? Salt. Light seasonings. Mustard. Vinegar. Foods to avoid The items listed may not be a complete list. Talk with your dietitian about what dietary choices are best for you. Grains ?? High-fiber or bran cereal. Cereal with nuts, dried fruit, or coconut. Sweet breads, rolls, coffee cake, or donuts. Chewy or crusty breads. Popcorn. Vegetables ?? Tomato sauce. Tomato juice. Broccoli. Cauliflower. Cabbage. [place] sprouts. Crunchy, raw vegetables. Fruits ?? Oranges. Grapefruit. Jose A. Limes. [place] juices. Dried fruit. Crunchy, raw fruits. Meats and other protein foods ?? Beans, peas, and lentils. Tough or fatty meats. Fried meats, chicken, or fish. Fried eggs. Nuts and seeds. Crunchy nut butters. Dairy ?? Chocolate milk. Yogurt with chunks of fruit, nuts, seeds, or coconut. Strong cheeses. Beverages ?? Carbonated soft drinks. Alcohol. [place]. Hot drinks. Fats and oils ?? [place] fat. Lard. Sweets and desserts ?? Chocolate. Candy with nuts, coconut, or seeds. Peppermint. Cookies. Cakes. Pie crust. Seasoning and other foods ?? Heavy seasonings. Avon sauce. Ketchup. Barbecue sauce. Pickles. Horseradish. Summary ?? Following this eating plan after a Aline fundoplication is an important part of healing after surgery. ?? After surgery, you will start with a clear liquid diet before you progress to full liquids and soft foods. You may need to eat soft foods for several weeks. ?? Avoid eating foods that cause irritation, gas, nausea, diarrhea, or swelling or pressure in the abdomen (bloating), and avoid foods that are difficult to swallow. ?? Talk with your diet and nutrition club ambassador (dietitian) about what dietary choices are best foryou. This information is not intended to replace advice given to you by your health care provider. Make sure you discuss any questions you have with your health care provider. Document Revised: 05/21/2018 Document Reviewed: 12/21/2017 ElseOffice[employer] Patient Education ?? 2020 [employer]. Education materials sent via the patient's In[employer] account. KING CONTRACTOR documented in this encounter Plan of Treatment Not on file documented as of this encounter Visit Diagnoses Diagnosis Gastroesophageal reflux disease, unspecified whether esophagitis present- Primary Palomo's esophagus without dysplasia Palomo's esophagus Polyp of colon, unspecified part of colon, unspecified type Chronic idiopathic constipation Unspecified constipation documented in this encounter Care Teams Rope Cutter Relationship Specialty Start Date End Date Nurys Givens MD PCP - General Family Medicine 06/11/21 Jose Lozoya DO Gastroenterology 08/01/16 documented as of this encounter
--- OUTSIDE RECORDS SUMMARY | 2024-06-19 21:14 | XMS_ITS | Encounter Summary ---
Author Organization [facility] Address [address] [place] [address] Phone Care Team Providers Care Product Safety Technical Assistant Name Role Phone Troy Givens MD Primary Care Provider [phone] Jose Lozoya DO Unavailable [phone] Encounter Details Date Type Department Care Team (Late st Contact Info) Description 01/05/2020 Telephone [facility] - Gastroenterology [facility] [address] [place] [address] Jose Lozoya, DO [address] [address] Social History Tobacco Use Types Packs/Day Years [...] encounter Miscellaneous Notes * Telephone Encounter - Misti Ward - 01/05/2020 8:48 AM CDT Colonoscopy prep instructions, nathaniel surgery form documented in this encounter Plan of Treatment Not on file documented as of this encounter Visit Diagnoses Not on filedocumented in this encounter Care Teams Product Safety Technical Assistant Relationship Specialty Start Date End Date Troy Givens MD [address] [place] [address] [address] [place] [address] PCP - General Family Medicine 08/01/16 06/10/21 Jose Lozoya DO [address] [place] [address] [place] [id number] Gastroenterology 08/01/16 documented as of this encounter
--- OUTSIDE RECORDS SUMMARY | 2024-06-19 21:14 | XMS_ITS | Encounter Summary ---
Author Organization [facility] Address [address] [place] [address] Phone Care Team Providers Care Oil Analyst Name Role Phone Troy Givens MD Primary Care Provider [phone] Jose Lozoya DO Unavailable [phone] Reason for Visit * Reason Onset Date Comments Medication Management 02/11/2021 Esophageal Reflux 02/11/2021 Encounter Details Date Type Department Care Team (Late st Contact Info) Description 02/11/2021 Telephone [facility] - [facility] - [place] [address] [place] [address] Reji Thrasher MD [address] [place] [address] Medication Management; Esophageal Reflux Social History Tobacco Use Types Packs/Day Years [...] as of this encounter Miscellaneous Notes * Addendum Note - Cristi Mayberry RN - 02/11/2021 3:48 PM CDTAddended by: CRISTI MAYBERRY on: 02/11/2021 03:48 PM Modules accepted: Orders * Telephone Encounter - Cristi Mayberry RN - 02/11/2021 3:44 PM CDT Patient is aware and verbalizes understanding. Medication list updated. * Telephone Encounter - Lilly Davenport PAC - 02/11/2021 1:58 PM CDT Please advise may increase to twice daily according to the prescription she was sent an adequate supply for that. When I review her chart it does appear that she has been on as omeprazole 40 mg 1 twice daily for a significant period of time. Refill of February 01, 2020 had been reduced to 1 daily in the directions although the amount had remained enough for 1 twice a day. * Telephone Encounter - Cristi Mayberry RN - 02/11/2021 1:37 PM CDT Called patient back. Spoke with Quinton, , on prd form, patient is not home. Reviewed message below with Quinton. Quinton reports patient used to take Nexium twice a day and then went to once a day. Patient is having increase in reflux. Patient did berry picker the Nexium prescription for once a day that was recently sent to pharmacy. See refill encounter for 02/11/2021. Patient last seen on 06/05/2020. Quinton is asking if it is ok for patient to increase her Nexium 40 mg to twice a day and to send anew prescription to the pharmacy. Please advise. * Telephone Encounter - Keysha Ward - 02/11/2021 10:31 AM CDT Pt Called in and stated that her Esomeprazole 40mg is wrong pt states she is supposed to take two pills one 40 mg pill in the AM and one in the PM. documented in this encounter Plan of Treatment Not on file documented as of this encounter Visit Diagnoses Not on filedocumented in this encounter Care Teams Oil Analyst Relationship Specialty Start Date End Date Troy Givens MD [address] [place] [address] [address] [place] [address] PCP - General Family Medicine 08/01/16 06/10/21 Jose Lozoya DO [address] [place] [address] [place] [id number] Gastroenterology 08/01/16 documented as of this encounter
--- OUTSIDE RECORDS SUMMARY | 2024-06-19 21:14 | XMS_ITS | Encounter Summary ---
Author Organization [employer] Care Team Providers Care Audio Installer Name Role Phone Jose Lozoya DO Unavailable [phone] Nurys Givens MD Primary Care Provider [phone] Encounter Details Date Type Department Care Team (Latest Contact Info) Description 08/09/2021 Travel Social History Tobacco Use Types Packs/Day [...] COVID-19? No / Unsure 08/09/2021 8:17 AM BOWL SANDER documented as of this encounter Plan of Treatment Not on file documented as of this encounter Visit Diagnoses Not on filedocumented in this encounter Care Teams Audio Installer Relationship Specialty Start Date End Date Nurys Givens MD PCP - General Family Medicine 06/11/21 Jose Lozoya DO Gastroenterology 08/01/16 documented as of this encounter
--- OUTSIDE RECORDS SUMMARY | 2024-06-19 21:14 | XMS_ITS | Encounter Summary ---
Author Organization [employer] Care Team Providers Care Casing Grader Name Role Phone Troy Givens MD Primary Care Provider [phone] Jose Lozoya DO Unavailable [phone] Encounter Details Date Type Department Care Team (Latest Contact Info) Description 03/12/2020 Travel Social History Tobacco Use Types Packs/Day [...] PM CDT documented as of this encounter Plan of Treatment Not on file documented as of this encounter Visit Diagnoses Not on filedocumented in this encounter Care Teams Casing Grader Relationship Specialty Start Date End Date Troy Givens MD [address] [place] [address] [address] [place] [address] PCP - General Family Medicine 08/01/16 06/10/21 Jose Lozoya DO [address] [place] [address] [address] [place] [address] Gastroenterology 08/01/16 documented as of this encounter
--- OUTSIDE RECORDS SUMMARY | 2024-06-19 21:14 | XMS_ITS | Encounter Summary ---
Author Organization [facility] Address [address] [place] [address] Phone Care Team Providers Care Compliance Director Name Role Phone Jose Lozoya DO Unavailable [phone] Nurys Givens MD Primary Care Provider Reason for Visit * Reason Comments Medication Refill Encounter Details Date Type Department Care Team (Late st Contact Info) Description 08/04/2022 Refill [facility] - [facility] - [place] [address] [place] [id number] Lilly Davenport, [facility] [address] [place] [address] Medication Refill Social History Tobacco Use Types [...] encounter Miscellaneous Notes * Telephone Encounter - France Horne RN - 08/04/2022 10:17 AM CST Medication(s) refilled and signed per [facility] Chronic Medication Refill Standing Order for Pediatricand Adult Patients. Requested Prescriptions Pending Prescriptions Disp Refills ??? esomeprazole (NexIUM) 40 MG CAPSULE DELAYED RELEASE [Pharmacy Med Name: ESOMEPRAZOLE MAG DR 40 MG CAP] 180 Capsule 3 Sig: TAKE 1 CAPSULE BY MOUTH TWICE A DAY Proton Pump Inhibitors Protocol Passed - 08/04/2022 10:13 AM Passed - Visit with relevant provider in past 12 months or upcoming 90 days Recent Visits Date Type Provider Dept 08/09/21 Telemedicine Lilly Davenport Myran, PAC [facility] [place] Showing recent visits within past 365 days and meeting all other requirements Future Appointments No visits were found meeting these conditions. 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
--- OUTSIDE RECORDS SUMMARY | 2024-06-19 21:14 | XMS_ITS | Encounter Summary ---
Author Organization [facility] Address [address] [place] [address] Phone Care Team Providers Care Supervisor Char House Name Role Phone Troy Givens MD Primary Care Provider [phone] Jose Lozoya DO Unavailable [phone] Reason for Referral * Consult, Test & Initiate Treatment (Less Than 4 Weeks) - Closed Specialty Diagnoses / Procedures Referred By Vladimir yee Referred To Contact Diagnoses Large hiatal hernia Lilly Davenport November, PAC [address] [place] [address] Phone: tel: fax: [place] [address] [facility], [address] [address] Phone: tel: fax: Referral ID Status Reason Start Date Expiration Date Visits Re quested Visits Authorized [id number] Closed 03/12/2020 1 1 Scheduling Instructions Leona is being referred to cardiothoracic surgeon in patient's insurance network for evaluation/ management. See below for Leona's current medications, allergies and problem list. Please contact patient for scheduling questions or concerns. CURRENT MEDS: Current Outpatient Medications: Accu-Chek Softclix Lancets Misc, USE 1 LANCET DIRECTED EVERY DAY, Disp: , Rfl: albuterol (PROAIR HFA) 108 (90 BASE) MCG/ACT Aerosol Solution, take 2 Puffs by inhalation every 4 hours as needed for Wheezing., Disp: , Rfl: ALPRAZolam (XANAX) 0.5 MG Tablet, 0.5 mg daily., Disp: , Rfl: ALPRAZolam 2 MG Tablet, TAKE 1 TABLET BY MOUTH THREE TIMES A DAY NEEDED FOR ANXIETY, Disp: , Rfl: amphetamine-dextroamphetamine (ADDERALL XR) 30 MG CAPSULE SR 24 HR, Take 1 Cap by mouth daily., Disp: , Rfl: 0 ANORO ELLIPTA 62.5-25 MCG/INH AEROSOL POWDER, BREATH ACTIVATED, , Disp: , Rfl: aspirin EC 81 MG Tablet Delayed Response, Take 81 mg by mouth daily., Disp: , Rfl: atorvastatin (LIPITOR) 40 MG Tablet, Take 40 mg by mouth daily., Disp: , Rfl: busPIRone (BUSPAR) 10 MG Tablet, Reported on 08/07/2016, Disp: , Rfl: busPIRone (BUSPAR) 15 MG Tablet, TAKE 3 TABLETS BY MOUTH TWICE A DAY, Disp: , Rfl: Cholecalciferol (VITAMIN D) 2000 UNIT Tablet, Take by mouth., Disp: , Rfl: cyanocobalamin 1000 MCG Tablet, Take 1,000 mcg by mouth daily., Disp: , Rfl: Desvenlafaxine Succinate 50 MG TABLET SR 24 HR, , Disp: , Rfl: DULoxetine (CYMBALTA) [address] Particles, 2 times daily. Reported on 08/07/2016, Disp: , Rfl: esomeprazole (NexIUM) 40 MG CAPSULE DELAYED RELEASE, Take 1 Cap by mouth every morning (before breakfast)., Disp: 180 Cap, Rfl: 3 ezetimibe (ZETIA) 10 MG Tablet, Take 1 Tab by mouth daily., Disp: , Rfl: ferrous gluconate 324 (38 Fe) MG Tablet, Take 324 mg by mouth daily., Disp: , Rfl: lamoTRIgine (LAMICTAL) 200 MG Tablet, , Disp: , Rfl: LATUDA 40 MG Tablet, Take 1 Tab by mouth daily., Disp: , Rfl: 1 lisinopril-hydroCHLOROthiazide (PRINZIDE, ZESTORETIC) 20-25 MG Tablet, Take 1 Tab by mouth daily., Disp: , Rfl: 3 metFORMIN (GLUCOPHAGE-XR) 500 MG TABLET SR 24 HR, Take 1 Tab by mouth daily., Disp: , Rfl: 2 montelukast (SINGULAIR) 10 MG Tablet, , Disp: , Rfl: Multiple Vitamins-Minerals (CENTRUM PO), Take by mouth., Disp: , Rfl: niacin (NIASPAN) 500 MG Tablet Controlled Release, Reported on 08/07/2016, Disp: , Rfl: [id number]-6-qsnl Ethyl Esters (LOVAZA) 1 G Capsule, 2 times daily., Disp: , Rfl: other, Fluticasone Nasal 16, Disp: , Rfl: Ozempic, 0.25 or 0.5 MG/DOSE, 2 MG/1.5ML Solution Pen-injector, INJECT 0.25 MG (0.2 ML) SUBCUTANEOUSLY WEEKLY 12 WEEKS, Disp: , Rfl: TRINTELLIX 10 MG Tablet, Take 1 Tab by mouth daily., Disp: , Rfl: 1 No current facility-administered medications for this visit. ALLERGIES: -- Penicillins -- Unknown PROBLEM LIST: Patient Active Problem List: Acid reflux Perea's esophagus Hypertension Dyslipidemia Bipolar affective disorder (HCC) Anxiety COPD (chronic obstructive pulmonary disease) (HCC) Colon polyps Reason for Visit * Reason Comments Abdominal Pain Epigastric Pain Encounter Details Date Type Department Care Team (Latest Contact Info) Description 03/12/2020 1:40 PM CDT Office Visit [facility] - [facility] [address] [place] [address] Lilly Davenport PAC [address] [place] [address] Large hiatal hernia (Primary Dx) Discharge Disposition: Discharged to home or Selfcare [...] PM CDT documented as of this encounter Last Filed Vital Signs Vital Sign Reading Time Taken Comments Blood Pressure 130/84 03/12/2020 1:35 PM CDT Pulse 108 03/12/2020 1:35 PM CDT Temperature 36.7 ??C (98 ??F) 03/12/2020 1:35 PM CDT Respiratory Rate 24 03/12/2020 1:35 PM CDT Oxygen Saturation 96% 03/12/2020 1:35 PM CDT Inhaled Oxygen Concentration - - Weight 69.6 kg (153 lb 6.4 oz) 03/12/2020 1:35 P M CDT Height 162.6 cm (5' 4 ) 03/12/2020 1:35 PM CDT Body Mass Index 26.33 03/12/2020 1:35 PM CDT documented in this encounter Patient Instructions * Patient Instructions* Lilly Davenport, PAC - 03/12/2020 1:40 PM CDT Images from the original note were not included. Continue Nexium Add famotidine as directed Avoid eating 1-2 hours prior to bed Avoid frequent/chronic use of NSAIDs such as ibuprofen/naproxen May use acetaminophen/ (Tylenol) as needed. Avoid fried/ greasy/ spicy foods especially in the evening Reduce caffeine/ carbonated beverages/alcohol/tobacco May continue Tums Avoid large meals Work on weight loss- try eating several small meals a day consisting of lean protein and non- starchy vegetables (at least 3 x) and low sugar / high fiber fruits no more than twice Await referral - may receive call from a 309 number Natural fibers: all bran/ raisin bran/ fiber one/ oats Fruits such as apples/ pears/ prunes and juices of same Bananas can cause constipation Add generic benefiber daily to help regulate your system, may use up to 3 times a day Probiotic-highest colony count you can afford to purchase on a routine basis May use MiraLax nightly - may up to 5 x a day for as directed To continue to provide excellent patient care, you may receive a survey regarding your visit today.To help us serve you better, please complete and return. These surveys are completely anonymous. What Is a Hiatal Hernia? Hiatal hernia is when??the??area where the stomach and esophagus meet bulges up through the diaphragm into the chest cavity. In some cases, part of the stomach may bulge above the diaphragm. Stomach acid may move up into the esophagus and cause symptoms. The symptoms are often blamed on gastroesophageal reflux disease (GERD). You may only know about the hernia when it shows up on an X-ray taken fo r other reasons.?? What you may feel The hiatus is a normal hole in the diaphragm. The esophagus passes through this hole and leads to the stomach. In some cases, part of the stomach may bulge above the diaphragm. This bulge is called ahernia. Stomach acid may move up into the esophagus and cause symptoms. When you eat, the muscle at the hiatus relaxes to allow food to pass into the stomach. It tightens again to keep food and digestive acids in the stomach. Many people with hiatal hernias have mild symptoms. You may notice the following GERD symptoms: ?? Heartburn or other chest discomfort ?? A feeling of chest fullness after a meal ?? Frequent burping ?? Acid taste in the mouth ?? Trouble swallowing Treating symptoms If you have been diagnosed with hiatal hernia, these suggestions may help improve symptoms: ?? Lose excess weight. Extra weight puts pressure on the stomach and esophagus. ?? Don???t lie down after eating. Sit up for at least an hour after eating. Lying down after eatingcan increase symptoms. ?? Don't have certain foods and drinks. These include fatty foods, chocolate,??coffee, mint, caffeine, and other foods that cause symptoms for you. ?? Don???t smoke or drink alcohol. These can worsen symptoms. ?? Look at your medicines. Discuss your medicines with your healthcare provider. Many medicines cancause symptoms. ?? Consider an antacid medicine. Ask your healthcare provider about [id number] and??prescription medicines that may help. ?? Ask about surgery, if needed. Surgery is a treatment choice for some people. Your healthcare provider can determine if surgery is an option for you. [employer] last reviewed this educational content on 11/20/2018 ?? [id number] [employer]. [address] [place] [address]. All rights reserved. This information is not intended as a substitute for professional medical care. Always follow your healthcare professional's instructions. documented in this encounter Progress Notes * Lilly Davenport PAC - 03/12/2020 1:40 PM CDT Images from the original note were not included. PROBLEM LIST: Large hiatal hernia GERD Perea's esophagus Leona Calvo is a . 64 y.o. female who presents with Chief Complaint Patient presents with ??? Abdominal Pain ??? Epigastric Pain . DIAGNOSIS, PLAN AND FOLLOW UP: Diagnoses and all orders for this visit: Large hiatal hernia - EXTERNAL CARDIOTHORACIC SURGERY REFERRAL; Future Other orders - ALPRAZolam 2 MG Tablet; TAKE 1 TABLET BY MOUTH THREE TIMES A DAY NEEDED FOR ANXIETY - atorvastatin (LIPITOR) 40 MG Tablet; Take 40 mg by mouth daily. - busPIRone (BUSPAR) 15 MG Tablet; TAKE 3 TABLETS BY MOUTH TWICE A DAY - Desvenlafaxine Succinate 50 MG TABLET SR 24 HR - ezetimibe (ZETIA) 10 MG Tablet; Take 1 Tab by mouth daily. - ferrous gluconate 324 (38 Fe) MG Tablet; Take 324 mg by mouth daily. - Ozempic, 0.25 or 0.5 MG/DOSE, 2 MG/1.5ML Solution Pen-injector; INJECT 0.25 MG (0.2 ML) SUBCUTANEOUSLY WEEKLY 12 WEEKS - Accu-Chek Softclix Lancets Misc; USE 1 LANCET DIRECTED EVERY DAY - aspirin EC 81 MG Tablet Delayed Response; Take 81 mg by mouth daily. HPI/ ROS: Presents for follow-up return for CT/abdominal pain/epigastric pain. Does have large hiatal hernia. Reports is having capsule endoscopy this Thursday at [facility]. GENERAL: Denies fever/ chills/ weight loss/ malaise/ fatigue/ aches/ night sweats. HEENT: Denies headache/sore throat/hoarseness/difficulty swallowing. NECK: Denies neck pain/ stiffness/ swelling/ masses. LYMPH NODES: Denies enlargement/ swelling/ tenderness. CARDIOVASCULAR: Denies chest pain/ pressure/ heaviness/ tightness/ palpitations/racing heart/ irregular or skipping heart beats PULMONARY: Does report some shortness of breath at times. Denies cough/ sob/ wheezing/ dyspnea/ orthopnea. GI: Normal appetite. Epigastric/upper abdominal pain//acid reflux/nausea with episodes of vomiting due to pain/constipation. Denies diarrhea/ mucus or blood in stools. MUSCULOSKELETAL: Denies back/ muscle/ joint pain SKIN: Denies rash/ itching/ lesions. Denies changes to hair/ nails. ALLERGIES: Allergies Allergen Reactions ??? Penicillins Unknown MEDICATIONS: Current Outpatient Medications Medication Sig Dispense Refill ??? Accu-Chek Softclix Lancets Mis USE 1 LANCET DIRECTED EVERY DAY ??? [...] 62.5-25 MCG/INH AEROSOL POWDER, BREATH ACTIVATED ??? aspirin EC 81 MG Tablet Delayed [...] 40 MG CAPSULE DELAYED RELEASE Take 1 Cap by mouth every morning (before breakfast). 180 Cap 3 ??? ezetimibe (ZETIA) 10 MG Tablet Take 1 Tab by mouth daily. ??? ferrous gluconate 324 (38 Fe) MG Tablet Take 324 mg by mouth daily. ??? lamoTRIgine (LAMICTAL) 200 MG Tablet ??? lisinopril-hydroCHLOROthiazide (PRINZIDE, ZESTORETIC) 20-25 MG Tablet Take 1 Tab by mouth daily. 3 ??? montelukast (SINGULAIR) 10 MG Tablet ??? Multiple Vitamins-Minerals (CENTRUM PO) Take by mouth. ??? Ozempic, 0.25 or 0.5 MG/DOSE, 2 [...] ADENOIDECTOMY ??? WRIST SURGERY Right SOCIAL: Social history reviewed and updated as appropriate. FAMILY HX: Family History Problem Relation Age of Onset ??? Heart Attack Other ??? Hypertension Other ??? High Cholesterol Other ??? Diabetes Other ??? Alzheimer's Disease Other ??? Cancer Other Pancreatic ??? Cancer Father Pancreatic VITAL SIGNS: Vitals: 03/12/20 1335 BP: 130/84 Pulse: 108 Resp: 24 Temp: 98 ??F (36.7 ??C) SpO2: 96% Weight: 153 lb 6.4 oz (69.6 kg) Height: 5' 4 (1.626 m) GENERAL EXAM: GENERAL:Well developed, well nourished, in no acute distress. AAO x3. Cooperative. HEENT:Normocephalic. PERRLA. Nonicteric. NECK:Supple/ non tender/ full ROM LYMPH NODES:No adenopathy. CARDIOVASCULAR:RRR/ S1S2/ No m/g/c/r. PULMONARY: Respirations easy and regular. Breath sounds clear bilaterally. No rhonchi/ rales/ wheezes. GI: Abdomen soft, nondistended. Moderate epigastric tenderness. No other areas of tenderness. No rebound, guarding or masses. No hepatosplenomegaly. Bowel sounds normoactive. MUSCULOSKELETAL: No CVA tenderness. Full ROM all extremities. No tenderness/ swelling/ crepitus. SKIN: General-warm, pink and dry. No rashes/ lesions. PSYCHIATRIC:Euthymic. Affect congruent with mood. Normal thought process. TEST RESULTS: Recent CT did demonstrate large hiatal hernia. Medication changes/ treatment plan reviewed. Risks and benefits discussed. Expressed understanding. Patient Instructions Continue Nexium Add famotidine as directed Avoid eating 1-2 hours prior to bed Avoid frequent/chronic use of NSAIDs such as ibuprofen/naproxen May use acetaminophen/ (Tylenol) as needed. Avoid fried/ greasy/ spicy foods especially in the evening Reduce caffeine/ carbonated beverages/alcohol/tobacco May continue Tums Avoid large meals Work on weight loss- try eating several small meals a day consisting of lean protein and non- starchy vegetables (at least 3 x) and low sugar / high fiber fruits no more than twice Await referral - may receive call from a 309 number Natural fibers: all bran/ raisin bran/ fiber one/ oats Fruits such as apples/ pears/ prunes and juices of same Bananas can cause constipation Add generic benefiber daily to help regulate your system, may use up to 3 times a day Probiotic-highest colony count you can afford to purchase on a routine basis May use MiraLax nightly - may up to 5 x a day for as directed To continue to provide excellent patient care, you may receive a survey regarding your visit today.To help us serve you better, please complete and return. These surveys are completely anonymous. What Is a Hiatal Hernia? Hiatal hernia is when??the??area where the stomach and esophagus meet bulges up through the diaphragm into the chest cavity. In some cases, part of the stomach may bulge above the diaphragm. Stomach acid may move up into the esophagus and cause symptoms. The symptoms are often blamed on gastroesophageal reflux disease (GERD). You may only know about the hernia when it shows up on an X-ray taken fo r other reasons.?? What you may feel The hiatus is a normal hole in the diaphragm. The esophagus passes through this hole and leads to the stomach. In some cases, part of the stomach may bulge above the diaphragm. This bulge is called ahernia. Stomach acid may move up into the esophagus and cause symptoms. When you eat, the muscle at the hiatus relaxes to allow food to pass into the stomach. It tightens again to keep food and digestive acids in the stomach. Many people with hiatal hernias have mild symptoms. You may notice the following GERD symptoms: ?? Heartburn or other chest discomfort ?? A feeling of chest fullness after a meal ?? Frequent burping ?? Acid taste in the mouth ?? Trouble swallowing Treating symptoms If you have been diagnosed with hiatal hernia, these suggestions may help improve symptoms: ?? Lose excess weight. Extra weight puts pressure on the stomach and esophagus. ?? Don???t lie down after eating. Sit up for at least an hour after eating. Lying down after eatingcan increase symptoms. ?? Don't have certain foods and drinks. These include fatty foods, chocolate,??coffee, mint, caffeine, and other foods that cause symptoms for you. ?? Don???t smoke or drink alcohol. These can worsen symptoms. ?? Look at your medicines. Discuss your medicines with your healthcare provider. Many medicines cancause symptoms. ?? Consider an antacid medicine. Ask your healthcare provider about [id number] and??prescription medicines that may help. ?? Ask about surgery, if needed. Surgery is a treatment choice for some people. Your healthcare provider can determine if surgery is an option for you. [employer] last reviewed this educational content on 11/20/2018 ?? [id number] [employer]. [address] [place] [address], [place] [address]. All rights reserved. This information is not intended as a substitute for professional medical care. Always follow your healthcare professional's instructions. Return if symptoms worsen or fail to improve. documented in this encounter Plan of Treatment Scheduled Referrals Name Type Priority Associated Diagnoses Order Schedule EXTERNAL CARDIOTHORACIC SURGERY REFERRAL Outpatient Referral Less Than 4 weeks Large hiatal hernia Expected: 09/10/2020, Expires: 09/10/2020 documented as of this encounter Visit Diagnoses Diagnosis Large hiatal hernia- Primary documented in this encounter Care Teams Supervisor Char House Relationship Specialty Start Date End Date Troy Givens MD [address] [place] [address] [address] [place] [address] PCP - General Family Medicine 08/01/16 06/10/21 Jose Lozoya DO [address] [place] [address] [address] [place] [address] Gastroenterology 08/01/16 documented as of this encounter
--- OUTSIDE RECORDS SUMMARY | 2024-06-19 21:14 | XMS_ITS | Encounter Summary ---
Author Organization [facility] Address [address] [place] [address] Phone Care Team Providers Care Dye House Helper Name Role Phone Troy Givens MD Primary Care Provider [phone] Jose Lozoya DO Unavailable [phone] Encounter Details Date Type Department Care Team (Late Contact Info) Description 02/02/2020 Telephone [facility] [address]2 [place] [address] Jose Lozoya, DO [address] [address] Social History Tobacco Use Types Packs/Day Years [...] Telephone Encounter - Abigail Goldstein RN - 02/03/2020 1:30 PM CDT Lauri not in the office today. Unable to see message from Dr. Lozoya to Lauri. Pharmacy called again asking about the medication. Verbal from Dr. Lozoya that patient should take 2 a day until she is doing okay on once a day. Lastov he read from Susanne Capellan said to increase it to twice a day since she was having symptoms. Patient states she is going good on twice a day. Pharmacy notified of taking it 2 times a day. * Telephone Encounter - Terrell Camp CMA - 02/02/2020 9:01 AM CDT [facility] Pharmacy calling asking if there has been a change to patients script for Esomeprazole 40 MG? Script was for Quantity of 180 capsules Is she still taking 1 a day or has it been increased to 2 a day? documented in this encounter Plan of Treatment Not on file documented as of this encounter Visit Diagnoses Not on filedocumented in this encounter Care Teams Dye House Helper Relationship Specialty Start Date End Date Troy Givens MD [address] [place] [address] [place] [address] PCP - General Family Medicine 08/01/16 06/10/21 Jose Lozoya DO [address] [place] [address] [place] [address] Gastroenterology 08/01/16 documented as of this encounter
--- OUTSIDE RECORDS SUMMARY | 2024-06-19 21:14 | XMS_ITS | Encounter Summary ---
Author Organization [facility] Address [address] [place] [address] Phone Care Team Providers Care Senior Software Analyst Name Role Phone Jose Lozoya DO Unavailable [phone] Nurys Givens MD Primary Care Provider [phone] Encounter Details Date Type Department Care Team (Late st Contact Info) Description 06/26/2021 Telephone [facility] - [facility] [address]2 [place] [id number] Yovana Lezama MD [address] [place] [address] Social History Tobacco Use Types Packs/Day Years [...] COVID-19? No / Unsure 06/11/2021 1:31 PM MANAGER LABOR DELIVERY documented as of this encounter Miscellaneous Notes * Telephone Encounter - Ashia Mayberry RN - 06/26/2021 3:31 PM MANAGER LABOR DELIVERY [employer] message not viewed by patient. Called patient, spoke with Quinton, on prd form. Reviewed message below. Quinton verbalizedunderstanding. GER LABOR DELIVERY * Telephone Encounter - Ashia Mayberry RN - 06/26/2021 3:30 PM MANAGER LABOR DELIVERY Images from the original note were not included. Ashia Mayberry RN 06/18/2021 ??4:04 PM MANAGER LABOR DELIVERY Back to Top [employer] message sent to patient. ?? Hi Leona, ? Per Dr. Lezama: your urine culture showed No growth seen . Please let us know if youhave any questions. Thank you, Nurse Coretta Lezama MD 06/17/2021 10:49 AM MANAGER LABOR DELIVERY No growth seen ?? Patient Communication Edit Comments?? Add Notifications?? Back to Top Hi Leona, ? Per Dr. Lezama: your urine culture showed No growth seen . Please let us know if youhave any questions. Thank you, Nurse Coretta GER LABOR DELIVERY documented in this encounter Plan of Treatment Not on file documented as of this encounter Visit Diagnoses Not on filedocumented in this encounter Care Teams Senior Software Analyst Relationship Specialty Start Date End Date Nurys Givens MD PCP - General Family Medicine 06/11/21 Jose Lozoya DO Gastroenterology 08/01/16 documented as of this encounter
--- OUTSIDE RECORDS SUMMARY | 2024-06-19 21:14 | XMS_ITS | Encounter Summary ---
Author Organization [facility] Address [address] [place] [address] Phone Care Team Providers Care Shoemaking Finisher Name Role Phone Jose Lozoya DO Unavailable [phone] Nurys Givens MD Primary Care Provider Reason for Visit * Reason Comments Medication Refill Encounter Details Date Type Department Care Team (Late st Contact Info) Description 07/29/2021 Refill [facility] - Gastroenterology [facility] [address]2 [place] [id number] Lilly Davenport, [facility] [address] [place] [address] Medication Refill Social History Tobacco Use Types [...] Telephone Encounter - Ashia Mayberry RN - 07/29/2021 3:29 PM INSURANCE BILLING CLERK Patient requesting refill too soon. Medication refused. RANCE BILLING CLERK documented in this encounter Plan of Treatment Not on file documented as of this encounter Visit Diagnoses Diagnosis Gastroesophageal reflux disease, unspecified whether esophagitis present documented in this encounter Care Teams Shoemaking Finisher Relationship Specialty Start Date End Date Nurys Givens MD PCP - General Family Medicine 06/11/21 Jose Lozoya DO Gastroenterology 08/01/16 documented as of this encounter
--- OUTSIDE RECORDS SUMMARY | 2024-06-19 21:14 | XMS_ITS | Encounter Summary ---
Author Organization [facility] Address [address] [place] [address] Phone Care Team Providers Care Director Of Acquisition Marketing Name Role Phone Troy Givens MD Primary Care Provider [phone] Jose Lozoya DO Unavailable [phone] Reason for Visit * Reason Comments Nausea Follow-up After surgery Encounter Details Date Type Department Care Team (Latest Contact Info) Description 06/05/2020 8:20 AM CHANNELER RUNNER Office Visit [facility] - Gastroenterology - [place] [address] [place] [address] Lilly Davenport Myrna, [facility] [address] [place] [address] Perea's esophagus without dysplasia (Primary Dx); History of repair of hiatal hernia; History of Aline fundoplication; Gastroesophageal reflux disease, unspecified whether esophagitis present Discharge Disposition: Discharged to home or Selfcare [...] COVID-19? No / Unsure 06/05/2020 8:10 AM CHANNELER RUNNER documented as of this encounter Last Filed Vital Signs Vital Sign Reading Time Taken Comments Blood Pressure 124/72 06/05/2020 8:14 AM CHANNELER RUNNER Pulse 102 06/05/2020 8:14 AM CHANNELER RUNNER Temperature 35.9 ??C (96.6 ??F) 06/05/2020 8:14 AM CS T Respiratory Rate 22 06/05/2020 8:14 AM CHANNELER RUNNER Oxygen Saturation 98% 06/05/2020 8:14 AM CHANNELER RUNNER Inhaled Oxygen Concentration - - Weight 67.6 kg (149 lb) 06/05/2020 8:14 AM CHANNELER RUNNER Height 154.9 cm (5' 1 ) 06/05/2020 8:14 AM CHANNELER RUNNER Body Mass Index 28.15 06/05/2020 8:14 AM CHANNELER RUNNER documented in this encounter Patient Instructions * Patient Instructions* Lilly Davenport PAC - 06/05/2020 8:20 AM CHANNELER RUNNER Continue current therapy Continue eating several small meals a day consisting of lean protein and non- starchy vegetables (at least 3 x) and low sugar / high fiber fruits no more than twice Increase water to at least 64 ounces per day Exercise as tolerated Try peppermint for nausea Please arrive 15 minutes prior to all appointments To continue to provide excellent patient care, you may receive a survey regarding your visit today.To help us serve you better, please complete and return. These surveys are completely anonymous. If you have any concerns/ questions regarding today's visit please call. NELER RUNNER NELER RUNNER documented in this encounter Progress Notes * Lilly Davenport PAC - 06/05/2020 8:20 AM CST PROBLEM LIST: Perea's esophagus GERD Hiatal hernia Leona A Carolynntiara is a . 64 y.o. female who presents with Chief Complaint Patient presents with ??? Nausea ??? Follow-up After surgery . DIAGNOSIS, PLAN AND FOLLOW UP: Diagnoses and all orders for this visit: Perea's esophagus without dysplasia History of repair of hiatal hernia History of Aline fundoplication Gastroesophageal reflux disease, unspecified whether esophagitis present Other orders - OXcarbazepine (TRILEPTAL) 150 MG Tablet; Take 150 mg by mouth 2 times daily. - Ascorbic Acid (VITAMIN C PO); Take by mouth. HPI/ ROS: Presents for 6 week follow-up status post hiatal hernia repair/Craig. Feels she is doingmuch better. Continues with some intermittent nausea and fatigue. Reports her breathing is much better. Eating a fairly normal diet. GENERAL: Fatigue Denies fever/ chills/ weight loss/ malaise/ aches/ night sweats. HEENT: Denies headache/sore throat/hoarseness/difficulty swallowing. NECK: Denies neck pain/ stiffness/ swelling/ masses. LYMPH NODES: Denies enlargement/ swelling/ tenderness. CARDIOVASCULAR: Denies chest pain/ pressure/ heaviness/ tightness/ palpitations/racing heart/ irregular or skipping heart beats PULMONARY: Denies cough/ sob/ wheezing/ dyspnea/ orthopnea. GI: Normal appetite. Continues with some ilyg-xn-tshtybas heartburn/upper abdominal pain/ nausea. Denies vomiting/ constipation/ diarrhea/ mucus or blood in stools. MUSCULOSKELETAL: Denies back/ muscle/ joint pain SKIN: Denies rash/ itching/ lesions. Denies changes to hair/ nails. ALLERGIES: Allergies Allergen Reactions ??? Oxycodone Hallucinations Pt not allergic to medication, she just prefers not to take the medication ??? Penicillins Unknown MEDICATIONS: Current Outpatient Medications Medication Sig Dispense Refill ??? Accu-Chek Softclix Lancets [facility] USE 1 LANCET DIRECTED EVERY DAY ??? [...] Take 324 mg by mouth daily. ??? lisinopril-hydroCHLOROthiazide (PRINZIDE, ZESTORETIC) [...] ??? Cancer Father Pancreatic VITAL SIGNS: Vitals: 06/05/20 0814 BP: 124/72 Pulse: 102 Resp: 22 Temp: 96.6 ??F (35.9 ??C) SpO2: 98% Weight: 149 lb (67.6 kg) Height: 5' 1 (1.549 m) GENERAL EXAM: GENERAL:Well developed, well nourished, in no acute distress. AAO x3. Cooperative. HEENT:Normocephalic. PERRLA. Nonicteric. NECK:Supple/ non tender/ full ROM LYMPH NODES:No adenopathy. CARDIOVASCULAR:RRR/ S1S2/ No m/g/c/r. PULMONARY: Respirations easy and regular. Breath sounds clear bilaterally. No rhonchi/ rales/ wheezes. GI: Abdomen soft, nondistended. Diffuse upper abdominal tenderness. No rebound, guarding or masses.No hepatosplenomegaly. Bowel sounds normoactive. MUSCULOSKELETAL: No CVA tenderness. Full ROM all extremities. No tenderness/ swelling/ crepitus. SKIN: General-warm, pink and dry. No rashes/ lesions. PSYCHIATRIC:Euthymic. Affect congruent with mood. Normal thought process. Treatment plan reviewed. Risks and benefits discussed. Expressed understanding. Patient Instructions Continue current therapy Continue eating several small meals a day consisting of lean protein and non- starchy vegetables (at least 3 x) and low sugar / high fiber fruits no more than twice Increase water to at least 64 ounces per day Exercise as tolerated Try peppermint for nausea Please arrive 15 minutes prior to all appointments To continue to provide excellent patient care, you may receive a survey regarding your visit today.To help us serve you better, please complete and return. These surveys are completely anonymous. If you have any concerns/ questions regarding today's visit please call. Return in about 1 year (around 06/05/2021) for Perea's. NELER RUNNER documented in this encounter Plan of Treatment Not on file documented as of this encounter Visit Diagnoses Diagnosis Perea's esophagus without dysplasia- Primary Perea's esophagus History of repair of hiatal hernia History of Aline fundoplication Gastroesophageal reflux disease, unspecified whether esophagitis present documented in this encounter Care Teams Director Of Acquisition Marketing Relationship Specialty Start Date End Date Troy Givens MD [address] [place] [address] [address] [place] [address] PCP - General Family Medicine 08/01/16 06/10/21 Jose Lozoya DO [address] [place] [address] [address] [place] [address] Gastroenterology 08/01/16 documented as of this encounter
--- OUTSIDE RECORDS SUMMARY | 2024-06-19 21:14 | XMS_ITS | Encounter Summary ---
Author Organization [facility] Address [address] [place] [address] Phone Care Team Providers Care Rn School Name Role Phone Jose Lozoya DO Unavailable [phone] Nurys Givens MD Primary Care Provider Reason for Visit * Reason Onset Date Comments Advice Only 06/27/2021 Encounter Details Date Type Department Care Team (Late st Contact Info) Description 06/27/2021 Telephone [facility] - Gastroenterology - [place] [address]2 [place] [address] Lilly Davenport, [facility] [address] [place] [address] Advice Only Social History Tobacco Use Types Packs/Day Years [...] COVID-19? No / Unsure 06/11/2021 1:31 PM CONVEYOR WORKER documented as of this encounter Miscellaneous Notes * Telephone Encounter - Ashia Mayberry RN - 06/27/2021 4:46 PM CONVEYOR WORKER mychart message sent to patient. EYOR WORKER * Telephone Encounter - Lilly Davenport PAC - 06/27/2021 10:26 AM CONVEYOR WORKER Please advise that actually indicates that the urine was contaminated by a skin cells from outside the urethra. It has no significance per se EYOR WORKER * Telephone Encounter - Ashia Mayberry RN - 06/27/2021 10:06 AM CONVEYOR WORKER Patient sent a mychart message. To: [facility] NURSE POOL From: Leona Calvo Created: 06/26/2021 4:12 PM *-*-*This message has not been handled.*-*-* I have a question about my urine test results. Under the epithelial cells what does large amount squamous mean? Thanks EYOR WORKER documented in this encounter Plan of Treatment Not on file documented as of this encounter Visit Diagnoses Not on filedocumented in this encounter Care Teams Rn School Relationship Specialty Start Date End Date Nurys Givens MD PCP - General Family Medicine 06/11/21 Jose Lozoya DO Gastroenterology 08/01/16 documented as of this encounter
--- OUTSIDE RECORDS SUMMARY | 2024-06-19 21:14 | XMS_ITS | Encounter Summary ---
Author Organization [facility] Care Team Providers Care Printer'S Devil Name Role Phone Jose Lozoya DO Unavailable [phone] Nurys Givens MD Primary Care Provider [phone] Encounter Details Date Type Department Care Team (Latest Contact Info) Description 06/11/2021 Travel Social History Tobacco Use Types Packs/Day [...] COVID-19? No / Unsure 06/11/2021 1:31 PM MATRIX REPAIRER documented as of this encounter Plan of Treatment Not on file documented as of this encounter Visit Diagnoses Not on filedocumented in this encounter Care Teams Printer'S Devil Relationship Specialty Start Date End Date Nurys Givens MD PCP - General Family Medicine 06/11/21 Jose Lozoya DO Gastroenterology 08/01/16 documented as of this encounter
--- OUTSIDE RECORDS SUMMARY | 2024-06-19 21:14 | XMS_ITS | Encounter Summary ---
Author Organization [facility] Address [address] [place] [address] Phone Care Team Providers Care Insole Buffer Name Role Phone Troy Givens MD Primary Care Provider [phone] Jose Lozoya DO Unavailable Reason for Visit * Reason Onset Date Comments Results 01/18/2020 Gastric emptying study Encounter Details Date Type Department Care Team (Late st Contact Info) Description 01/18/2020 Telephone [facility] - Gastroenterology [facility] [address]2 [place] [address] Jose Lozoya, DO [address] [address] Results (Gastric emptying study ) Social History Tobacco Use Types Packs/Day Years [...] encounter Miscellaneous Notes * Telephone Encounter - Lorelei DrummondFERNANDOIsaias - 01/18/2020 1:41 PM CDT Normal letter mailed to patient. * Telephone Encounter - Lorelei Drummond RMA - 01/18/2020 1:41 PM CDT ----- Message from Abigail Goldstein RN sent at 01/18/2020 9:03 AM CDT ----- Normal ----- Message ----- From: Jose Lozoya DO Sent: 01/18/2020 7:15 AM CDT To: Abigail Goldstein RN Normal. documented in this encounter Plan of Treatment Not on file documented as of this encounter Visit Diagnoses Not on filedocumented in this encounter Care Teams Insole Buffer Relationship Specialty Start Date End Date Troy Givens MD [address] [place] [address] [place] [address] PCP - General Family Medicine 08/01/16 06/10/21 Jose Lozoya DO [address] [place] [address] [address] [place] [address] Gastroenterology 08/01/16 documented as of this encounter
--- OUTSIDE RECORDS SUMMARY | 2024-06-19 21:14 | XMS_ITS | Encounter Summary ---
Author Organization [facility] Address [address] [place] [address] Phone Care Team Providers Care Cutter Barrel Drum Name Role Phone Troy Givens MD Primary Care Provider [phone] Jose Lozoya DO Unavailable [phone] Encounter Details Date Type Department Care Team (Late st Contact Info) Description 12/01/2019 Telephone [facility] - Gastroenterology [facility] #2 [place] [address] Jose Lozoya, DO [address] [address] Social History Tobacco Use Types Packs/Day Years [...] encounter Miscellaneous Notes * Telephone Encounter - Misit Ward - 12/01/2019 10:29 AM CDT egd prep instructions and nathaniel surgery form documented in this encounter Plan of Treatment Not on file documented as of this encounter Visit Diagnoses Not on filedocumented in this encounter Care Teams Cutter Barrel Drum Relationship Specialty Start Date End Date Troy Givens MD [address] [place] [address] [address] [place] [address] PCP - General Family Medicine 08/01/16 06/10/21 Jose Lozoya DO [address] [place] [address] [place] [address] Gastroenterology 08/01/16 documented as of this encounter
--- OUTSIDE RECORDS SUMMARY | 2024-06-19 21:14 | XMS_ITS | Encounter Summary ---
Author Organization [facility] Address [address] [place] [address] Phone Care Team Providers Care Barrel Reamer Name Role Phone Troy Givens MD Primary Care Provider [phone] Jose Lozoya DO Unavailable [phone] Encounter Details Date Type Department Care Team (Late st Contact Info) Description 04/12/2021 Refill [facility]astro[facility] #2 [place] [address] Lilly Davenport PAC [address] [place] [address] Social History Tobacco Use Types Packs/Day Years [...] encounter Miscellaneous Notes * Telephone Encounter - Lila Beckham, A - 04/12/2021 1:20 PM CDT Spoke with the pharmacy and they still have the patient's old instructions for her esomeprazole 40mg, take 1 in the morning before breakfast, need a new script with the new instructions. Script pended documented in this encounter Plan of Treatment Not on file documented as of this encounter Visit Diagnoses Diagnosis Gastroesophageal reflux disease, unspecified whether esophagitis present- Primary documented in this encounter Care Teams Barrel Reamer Relationship Specialty Start Date End Date Troy Givens MD [address] [place] [address] [place] [address] PCP - General Family Medicine 08/01/16 06/10/21 Jose Lozoya DO [address] [place] [address] [place] [address] Gastroenterology 08/01/16 documented as of this encounter
--- OUTSIDE RECORDS SUMMARY | 2024-06-19 21:14 | XMS_ITS | Encounter Summary ---
Author Organization [facility] Address [address] [place] [address] Phone Care Team Providers Care Fiber Machine Tender Name Role Phone Jose Lozoya DO Unavailable [phone] Nurys Givens MD Primary Care Provider [phone] Reason for Visit * Reason Comments Medication Refill Encounter Details Date Type Department Care Team (Late st Contact Info) Description 06/18/2022 Refill [facility] - Gastroenterology - [place] #2 [place] [address] Lilly Davenport, [facility] [address]2 [place] [address] Medication Refill Social History Tobacco Use Types [...] on file documented as of this encounter Plan of Treatment Not on file documented as of this encounter Visit Diagnoses Not on filedocumented in this encounter Care Teams Fiber Machine Tender Relationship Specialty Start Date End Date Nurys Givens MD PCP - General Family Medicine 06/11/21 Jose Lozoya DO Gastroenterology 08/01/16 documented as of this encounter
--- OUTSIDE RECORDS SUMMARY | 2024-06-19 21:14 | XMS_ITS | Encounter Summary ---
Author Organization [facility] Address [address] [place] [address] Phone Care Team Providers Care Occupational Therapy Teacher Name Role Phone Troy Givens MD Primary Care Provider [phone] Jose Lozoya DO Unavailable [phone] Reason for Referral * Radiology Services (Routine) - Closed Specialty Diagnoses / Procedures Referred By Vladimir yee Referred To Contact Diagnoses Gastroesophageal reflux disease, esophagitis presence not specified Procedures NM GASTRIC EMPTYING STUDY Jose Lozoya DO [address] [facility] [address] [place] [address] Phone: tel: fax: [address] [address] Phone: tel: fax: Referral ID Status Reason Start Date Expiration Date Visits Re quested Visits Authorized [id number] Closed 12/28/2019 1 1 Reason for Visit * Reason Onset Date Comments Results 12/28/2019 EGD at [place] Encounter Details Date Type Department Care Team (Late st Contact Info) Description 12/28/2019 Telephone [facility] - Gastroenterology - [place] [address]2 [place] [address] Jose Lozoya DO [address] [address] Results (EGD at [place]) Social History Tobacco Use Types Packs/Day Years [...] Telephone Encounter - Abigail Goldstein RN - 12/29/2019 9:25 AM CDT Faxed to [facility], confirmation received. * Telephone Encounter - Abigail Goldstein RN - 12/28/2019 11:55 AM CDT Facility: [facility] Test: EGD Results: biopsies benign Orders: recheck EGD in 3 years, gastric emptying study Test on: 12/28/19 Placed in paperwork to go to [facility] on: 12/19/19 Patient notified of results and verbalizes understanding. Order pended to Dr. Lozoya and will fax to [facility] after signed. documented in this encounter Plan of Treatment Not on file documented as of this encounter Results * NM GASTRIC EMPTYING STUDY (01/11/2020) Anatomical Region Laterality Modality GI, Abdomen N/A Other us Jose Lozoya DO IMG NM ORDERABLES Final Result documented in this encounter Visit Diagnoses Diagnosis Gastroesophageal reflux disease, esophagitis presence not specified- Primary documented in this encounter Care Teams Occupational Therapy Teacher Relationship Specialty Start Date End Date Troy Givesn MD [address] [facility] [facility] [address] [place] [address] PCP - General Family Medicine 08/01/16 06/10/21 Jose Lozoya DO [address] [place] [id number] Gastroenterology 08/01/16 documented as of this encounter
--- OUTSIDE RECORDS SUMMARY | 2024-06-19 21:16 | XMS_ITS | Clinical Summary ---
Author Organization [facility] [place] [address] Address [address] [place] [address] Care Team Providers Care Evidence Technician Name Role Phone Nurys Givens MD Primary Care Provider + Holly Johnston MD Unavailable [phone] Allergies Active Allergy Reactions Criticality Noted Date Comments Oxycodone Hallucinations Medium 04/30/2020 Pt not allergic to medication, she just prefers not to take the medication Penicillin G Other (See comments) Low 04/05/2020 Penicillins Hives,Itching Medium 04/11/2020 Penicillin allergy history form completed, moderate risk Medications albuterol HFA (PROVENTIL HFA,VENTOLIN HFA,PROAIR HFA) 90 mcg/actuation inhaler Inhale 2 puffs every 4 (four) hours as needed Active ALPRAZolam (XANAX) 2 mg tablet Take 2 mg by mouth 3 (three) times a day as needed 0 Active aspirin 81 mg enteric coated tablet Take 81 mg by mouth daily Active atorvastatin (LIPITOR) 40 mg tablet Take 40 mg by mouth daily 0 Active busPIRone (BUSPAR) 15 mg tablet Take 45 mg by mouth 3 (three) times a day [address] (NexIUM) 40 mg capsule Take 40 mg by mouth 2 (two) times a day 0 Active ezetimibe (ZETIA) 10 mg tablet Take 1 tablet by mouth daily 0 Active lamoTRIgine (LaMICtal) 200 mg tablet Take 200 mg by mouth nightly Active lisinopril-hydr oCHLOROthiazide (ZESTORETIC) 20-25 mg per tablet Take 1 tablet by mouth daily 6 Active montelukast (SINGULAIR) 10 mg tablet Take 10 mg by mouth nightly 0 Active Ozempic 0.25 mg or 0.5 mg(2 mg/1.5 mL) pen injector Thursday 0 Active desvenlafaxine ER 50 mg 24 hr tablet Take 50 mg by mouth daily 0 Active dextroamphetami ne-amphetamine XR (ADDERALL XR) 30 mg 24 hr capsule Take 1 capsule by mouth daily 6 Active umeclidinium-vi lanteroL (Anoro Ellipta) 62.5-25 mcg/actuation blister with device Inhale daily 8 Active albuterol 2.5 mg /3 mL (0.083 %) nebulizer solution Take 2.5 mg by nebulization every 6 (six) hours as needed for wheezing Active docusate sodium (COLACE) 100 mg capsuleIndicati ons:constipatio n Take 1 capsule (100 mg total) by mouth 2 (two) times a day 0 Active ascorbic acid (vitamin C) 100 mg tablet Active Accu-Chek Kamini Plus test strp strip USE TO TEST BLOOD SUGAR ONCE DAILY 1 Active cholecalciferol (Vitamin D3) 2000 unit capsule Active OXcarbazepine (TRILEPTAL) 150 mg tablet Take 75 mg by mouth 2 (two) times a day 1 Active Active Problems Problem Noted Date Diagnosed Date Abnormal mammogram 03/09/2021 Acid reflux 03/09/2021 Hypertension 03/09/2021 Hiatal hernia 04/05/2020 Overview (04/05/2020): Added automatically from request for surgery [id number] Surgical History Surgery Date Site/Laterality Comments TONSILLECTOMY/ADENOIDECTOMY WRIST SURGERY Right ORIF with pins HEMORRHOID SURGERY EYE SURGERY sty Medical History Medical History Date Comments ADHD (attention deficit hyperactivity disorder) Bipolar disorder (HCC) Anemia Vitamin D deficiency Hypertension Hyperlipidemia Type 2 diabetes mellitus (HCC) Perea esophagus GERD (gastroesophageal reflux disease) Hiatal hernia Depression Anxiety Aortic calcification (HCC) Asthma Arthritis COPD (chronic obstructive pulmonary disease) (HC C) sleeps sitting up Constipation Family History Medical History Relation Name Comments COPD Brother 1 Coronary artery disease Brother 1 Dementia Brother 1 Coronary artery disease Brother 2 Cancer Father Coronary artery disease Father Hyperlipidemia Father Hypertension Father Dementia Mother Hypertension Mother Osteoporosis Mother Pancreatic cancer Mother's Sister Dementia Sister 1 Heart disease Sister 1 Dementia Sister 2 Jenni Hyperlipidemia Sister 2 Jenni Stroke Sister 2 Jenni Transient ischemic attack Sister 2 Jenni Relation Name Status Comments Brother 1 Brother 2 Father Mother Mother's Sister Sister 1 Sister 2 Jenni Alive Social History Tobacco Use Types Packs/Day Years Used Date Smoking Tobacco: Every Day Cigarettes Smokeless Tobacco: Never Tobacco Cessation:Ready to Q uit: Yes; Counseling Given: Yes Comments No Sex and Gender Information Value Date Recorded Sex Assigned at Not on file Legal Sex Female 3:14 AM MOBILITY ARCHITECT Gender Identity Not on file Sexual Orientation Straight 05/23/2020 11 :19 AM MOBILITY ARCHITECT Obstetrics History Last Filed Vital Signs Vital Sign Reading Time Taken Comments Blood Pressure 125/98 05/24/2020 12:53 PM MOBILITY ARCHITECT Pulse 113 05/24/2020 12:53 PM MOBILITY ARCHITECT Temperature 36.7 ??C (98 ??F) 04/30/2020 2:44 PM MOBILITY ARCHITECT Respiratory Rate 20 04/30/2020 2:44 PM MOBILITY ARCHITECT Oxygen Saturation 98% 04/30/2020 2:44 PM MOBILITY ARCHITECT Inhaled Oxygen Concentration - - Weight 70.8 kg (156 lb) 03/07/2021 9:01 AM CDT Height 152.4 cm (5') 03/07/2021 9:01 AM CDT Body Mass Index 30.47 03/07/2021 9:01 AM CDT Plan of Treatment Not on file Insurance [employer] [facility] [employer] [facility] Advance Directives For more information, please contact: [phone] * Full Code (Latest Code Status on File) Date Activated Date Inactivated Comments 04/18/2020 2:00 PM 04/19/2020 10:52 PM Care Teams Evidence Technician Relationship Specialty Start Date End Date Nurys Givens MD PCP - General 03/08/14 Holly Johnston MD Fellow Vascular Surgery 04/19/20
--- OUTSIDE RECORDS SUMMARY | 2024-06-19 21:16 | XMS_ITS | Encounter Summary ---
Author Organization [facility] Healthcare Address [address] [place] [address] Care Team Providers Care Twisting Press Operator Name Role Phone Nurys Givens MD Primary Care Provider + Holly Johnston MD Unavailable [phone] Encounter Details Date Type Department Care Team (Latest Contact Info) Description 03/04/2021 11:05 AM CDT Hospital Encounter [facility] [address] [place] [id number] Discharge Disposition: Discharge to home or self care Social History Tobacco Use Types Packs/Day Years Used Date Smoking Tobacco: Every Day Cigarettes Smokeless Tobacco: Never Comments Unknown Sex and Gender Information Value Date Recorded Sex Assigned at Not on file Legal Sex Female 3:14 AM OUTPATIENT COORDINATOR Gender Identity Not on file Sexual Orientation Straight 05/23/2020 11 :19 AM OUTPATIENT COORDINATOR documented as of this encounter Medications at Time of Discharge Accu-Chek Kamini Plus test strp strip USE TO TEST BLOOD SUGAR ONCE DAILY 02/22/2021 albuterol 2.5 mg /3 mL (0.083 %) nebulizer solution Take 2.5 mg by nebulization every 6 (six) hours as needed for wheezing albuterol HFA (PROVENTIL HFA,VENTOLIN HFA,PROAIR HFA) 90 mcg/actuation inhaler Inhale 2 puffs every 4 (four) hours as needed ALPRAZolam (XANAX) 2 mg tablet Take 2 mg by mouth 3 (three) times a day as needed 03/05/2020 aspirin 81 mg enteric coated tablet Take 81 mg by mouth daily atorvastatin (LIPITOR) 40 mg tablet Take 40 mg by mouth daily 02/22/2020 busPIRone (BUSPAR) 15 mg tablet Take 45 mg by mouth 3 (three) times a day 03/06/2020 desvenlafaxine ER 50 mg 24 hr tablet Take 50 mg by mouth daily 03/11/2020 dextroamphetami ne-amphetamine XR (ADDERALL XR) 30 mg 24 hr capsule Take 1 capsule by mouth daily 06/10/2016 docusate sodium (COLACE) 100 mg capsuleIndicati ons:constipatio n Take 1 capsule (100 mg total) by mouth 2 (two) times a day 04/19/[address] (NexIUM) 40 mg capsule Take 40 mg by mouth 2 (two) times a day 02/01/2020 ezetimibe (ZETIA) 10 mg tablet Take 1 tablet by mouth daily 12/21/2019 lamoTRIgine (LaMICtal) 200 mg tablet Take 200 mg by mouth nightly lisinopril-hydr oCHLOROthiazide (ZESTORETIC) 20-25 mg per tablet Take 1 tablet by mouth daily 06/05/2016 montelukast (SINGULAIR) 10 mg tablet Take 10 mg by mouth nightly 03/20/2020 OXcarbazepine (TRILEPTAL) 150 mg tablet Take 75 mg by mouth 2 (two) times a day 02/23/2021 Ozempic 0.25 mg or 0.5 mg(2 mg/1.5 mL) pen injector Thursday02/15/2020 umeclidinium-vi lanteroL (Anoro Ellipta) 62.5-25 mcg/actuation blister with device Inhale daily 08/11/2017 acetaminophen (TYLENOL) suspension 160 mg/5 mLIndications:P ain Take 31 mL (1,000 mg total) by mouth every 6 (six) hours 04/19/2020 03/07/20 21 bisacodyL (DULCOLAX) 10 mg suppositoryIndi cations:constip ation Insert 10 mg into the rectum daily as needed for constipation 03/07/20 21 bisacodyL (DULCOLAX) 10 mg suppositoryIndi cations:constip ation Insert 1 suppository (10 mg total) into the rectum daily as needed for constipation 10 suppository 04/30/2020 09/16/20 21 famotidine (PEPCID) 20 mg tablet Take 20 mg by mouth 2 (two) times a day 03/09/20 21 ferrous gluconate 324 mg (37.5 mg of elemental iron) tablet Take 324 mg by mouth every other day 01/11/2020 03/07/20 21 metoclopramide (REGLAN) 10 mg tablet Take 1 tablet (10 mg total) by mouth 3 (three) times a day as needed (nausea) 90 tablet 04/30/2020 03/07/20 21 oxyCODONE (ROXICODONE) 5 mg immediate release tabletIndicatio ns:Pain Take 1 tablet (5 mg total) by mouth every 4 (four) hours as needed for pain 30 tablet 04/19/2020 03/07/20 21 polyethylene glycol (MIRALAX) 17 gram packetIndicatio ns:constipation Take 1 packet (17 g total) by mouth daily 04/20/2020 03/07/20 21 documented as of this encounter Discharge Disposition Disposition Code Departure Means Destination Discharge to home or self care documented in this encounter Plan of Treatment Not on file documented as of this encounter Procedures Procedure Name Priority Date/Time Associated Diagnosis Comments BREAST IMAGING OUTSIDE REFERENCE Routine 03/04/2021 11:05 AM CDT documented in this encounter Results * Breast Imaging Outside Reference (03/04/2021 11:05 AM CDT) Impressions [facility] - 03/04/2021 11:05 AM CDT These images are for Reference purposes only and have not been reviewed by [facility]iology. ??There will be no report generated by a [facility] Radiologist. Narrative [facility] - 03/04/2021 11:05 AM CDT EXAMINATION: ??Images For Reference Purposes Only us Ashley Medina MD IMG MAMMO PROCEDURES Fi nal Result [facility] documented in this encounter Visit Diagnoses Not on filedocumented in this encounter Care Teams Twisting Press Operator Relationship Specialty Start Date End Date Nurys Givens MD PCP - General 03/08/14 Holly Johnston MD Fellow Vascular Surgery 04/19/20 documented as of this encounter
--- OUTSIDE RECORDS SUMMARY | 2024-06-19 21:16 | XMS_ITS | Encounter Summary ---
Author Organization [facility] Address [address] [place] [address] Care Team Providers Care Pot Tender Name Role Phone Nurys Givens MD Primary Care Provider + Encounter Details Date Type Department Care Team (Late st Contact Info) Description 04/14/2020 11:40 AM CDT Lab [address] [address] Preop testing Social History Tobacco Use Types Packs/Day Years Used Date Smoking Tobacco: Every Day Cigarettes Smokeless Tobacco: Never Comments Unknown Sex and Gender Information Value Date Recorded Sex Assigned at Not on file Legal Sex Female 3:14 AM STORE ADMINISTRATOR Gender Identity Not on file Sexual Orientation Straight 05/23/2020 11 :19 AM STORE ADMINISTRATOR documented as of this encounter Plan of Treatment Not on file documented as of this encounter Procedures Procedure Name Priority Date/Time Associated Diagnosis Comments COVID-19 CORONAVIRUS RNA Routine 04/14/2020 7:50 AM CDT Preop testing documented in this encounter Results * COVID-19 Coronavirus RNA Nasopharyngeal (04/14/2020 7:50 AM CDT) COVID-19 RNA Not Detected ASHLEIGH ADAIR Comment: Interpretive Data Testing performed at [facility]. The 2019-Novel Coronavirus Assay (COVID-19) Real Time RT-PCR assay is for in vitro diagnostic use under FDA emergency use authorization only. A negative RT-PCR result does not preclude infection with COVID-19 and should not be used as the sole basis for treatment or other patient management decisions. Additional sample types have been validated according to CLIA regulations. ?? Current Interpretive Data was last revised on 2019. Testing performed by: [facility], [address] [place]., [address] First COVID-19 test? Unknown ASHLEIGH Comment:Testing performed by : [facility], [address] [facility], [address] Employeed in healthcare? No CERNER CH Comment:Testing performed by : [facility], [address] [facility], [address] status? No CERNER Comment:Testing performed by : [facility], [address] [facility], [address] Group care resident? No ASHLEIGH Comment:Testing performed by : [facility], [address] [facility], [address] Hospitalized? No CERNER Comment:Testing performed by : [facility], [address] [facility], [address] Is patient in ICU? No CERNER Comment:Testing performed by : [facility], [address] [facility], [address] Symptomatic as defined by CDC? No IRAMNER Comment:Testing performed by : [facility], [address] [facility], [address] Nasopharyngeal 04/14/2020 7: 50 AM CDT 04/14/2020 5:11 PM CDT Narrative CERLILI - 04/15/2020 4:29 AM CDT What is the reason for testing?->Screening prior to scheduled (>12 hr) surgery or procedure Holly Johnston MD LAB MICROBIOLOGY - GENERAL ORD ERABLES Final Result ASHLEIGH ADAIR [id number] Department [place] [address] documented in this encounter Visit Diagnoses Diagnosis Preop testing Unspecified pre-operative examination documented in this encounter Care Teams Pot Tender Relationship Specialty Start Date End Date Nurys Givens MD PCP - General 03/08/14 documented as of this encounter
--- OUTSIDE RECORDS SUMMARY | 2024-06-19 21:16 | XMS_ITS | Encounter Summary ---
Author Organization [facility] Address [address] [facility] [address] [place] [address] Phone Care Team Providers Care Director Of Social Services Name Role Phone Nurys Givens MD Primary Care Provider + Holly Johnston MD Unavailable [phone] Encounter Details Date Type Department Care Team (Late st Contact Info) Description 05/24/2020 12:30 PM BUTTER PRINTER Office Visit [facility] Surgery [address] [facility] [address] [place] [address] Holly Johnston MD [address] [facility] [id number] [place] [address] Hiatal hernia (Primary Dx) Social History Tobacco Use Types Packs/Day Years Used Date Smoking Tobacco: Every Day Cigarettes Smokeless Tobacco: Never Tobacco Cessation:Ready to Q uit: Yes; Counseling Given: Yes Comments Unknown Sex and Gender Information Value Date Recorded Sex Assigned at Not on file Legal Sex Female 3:14 AM BUTTER PRINTER Gender Identity Not on file Sexual Orientation Straight 05/23/2020 11 :19 AM BUTTER PRINTER documented as of this encounter Last Filed Vital Signs Vital Sign Reading Time Taken Comments Blood Pressure 125/98 05/24/2020 12:53 PM BUTTER PRINTER Pulse 113 05/24/2020 12:53 PM BUTTER PRINTER Temperature - - Respiratory Rate - - Oxygen Saturation - - Inhaled Oxygen Concentration - - Weight - - Height - - Body Mass Index - - documented in this encounter Progress Notes * Karlie Danielle NP - 05/24/2020 12:30 PM CST Cardiothoracic Surgery Office Visit Leona Calvo 1955 -Reason for Visit: 4 week post op visit -Date of Surgical Procedure: 04/18/20 -Surgical Procedure: Laparoscopic hiatal hernia repair, laparoscopic Patrica gastroplasty??performedby Dr. Johnstno Doctors: Mulligan-PCP Interval History: Ms. Calvo presents today for one month follow up from laparoscopic hernia repair performed by Dr. Johnston. Shortly after her surgery she presented to the ED with abdominal pain and was seen by Dr. Johnston at that time. She had abdominal CT scan which showed no acute abnormalities related to her hernia repair. Since that time she's been feeling much better as she reports just two mild episodes of nausea relieved with Gas Ex. She's been eating regular solid foods with the exception ofhard chips and carrots, having daily regular bowel movements and passing flatus. Her incisions havehealed appropriately. She also reports enrolling in a smoking cessation program and is doing well with this. HOME MEDICATIONS : acetaminophen (TYLENOL) suspension 160 mg/5 mL albuterol 2.5 mg /3 mL (0.083 %) nebulizer solution albuterol HFA (PROVENTIL HFA,VENTOLIN HFA,PROAIR HFA) 90 mcg/actuation inhaler ALPRAZolam (XANAX) 2 mg tablet aspirin 81 mg enteric coated tablet atorvastatin (LIPITOR) 40 mg tablet bisacodyL (DULCOLAX) 10 mg suppository bisacodyL (DULCOLAX) 10 mg suppository busPIRone (BUSPAR) 15 mg tablet desvenlafaxine ER 50 mg 24 hr tablet dextroamphetamine-amphetamine XR (ADDERALL XR) 30 mg 24 hr capsule docusate sodium (COLACE) [address] (NexIUM) 40 mg capsule ezetimibe (ZETIA) 10 mg tablet famotidine (PEPCID) 20 mg tablet ferrous gluconate 324 mg (37.5 mg of elemental iron) tablet lamoTRIgine (LaMICtal) 200 mg tablet lisinopril-hydroCHLOROthiazide (ZESTORETIC) 20-25 mg per tablet metoclopramide (REGLAN) 10 mg tablet montelukast (SINGULAIR) 10 mg tablet oxyCODONE (ROXICODONE) 5 mg immediate release tablet Ozempic 0.25 mg or 0.5 mg(2 mg/1.5 mL) pen injector polyethylene glycol (MIRALAX) 17 gram packet polyethylene glycol (MIRALAX) 17 gram/dose powder senna-docusate (PERICOLACE) 8.6-50 mg umeclidinium-vilanteroL (Anoro Ellipta) 62.5-25 mcg/actuation blister with device Allergies Allergen Reactions ??? Oxycodone Hallucinations Pt not allergic to medication, she just prefers not to take the medication ??? Penicillins Hives and Itching Penicillin allergy history form completed, moderate risk ??? Penicillin G Other (See comments) Vital Signs: Vitals BP 125/98 (BP Location: Right arm, Patient Position: Sitting) Pulse 113 Physical Exam Vitals signs reviewed. Constitutional: Appearance: Normal appearance. HENT: Head: Normocephalic. Nose: Nose normal. Eyes: Pupils: Pupils are equal, round, and reactive to light. Neck: Musculoskeletal: Normal range of motion. Cardiovascular: Rate and Rhythm: Normal rate and regular rhythm. Pulses: Normal pulses. Pulmonary: Effort: Pulmonary effort is normal. Abdominal: General: Bowel sounds are normal. There is no distension. Palpations: Abdomen is soft. There is no mass. Tenderness: There is no abdominal tenderness. Musculoskeletal: Normal range of motion. Skin: General: Skin is warm and dry. Capillary Refill: Capillary refill takes less than 2 seconds. Comments: laparoscopic abdominal incisions well healed Neurological: General: No focal deficit present. Mental Status: She is alert and oriented to person, place, and time. Psychiatric: Mood and Affect: Mood normal. Behavior: Behavior normal. Tests Ordered: none Treatment Plan: Ms. Calvo has done very well postoperatively. She will follow up with Dr. Johnston in one year with a swallow study to evaluate for recurrence of her hiatal hernia. Karlie Danielle NP 05/24/20201:00 PM ER PRINTER documented in this encounter Plan of Treatment Not on file documented as of this encounter Visit Diagnoses Diagnosis Hiatal hernia- Primary Diaphragmatic hernia without mention of obstruction or gangrene documented in this encounter Care Teams Director Of Social Services Relationship Specialty Start Date End Date Nurys Givens MD PCP - General 03/08/14 Holly Johnston MD Fellow Vascular Surgery 04/19/20 documented as of this encounter
--- OUTSIDE RECORDS SUMMARY | 2024-06-19 21:16 | XMS_ITS | Encounter Summary ---
Author Organization [facility] Healthcare Address [address] [place] [address] Care Team Providers Care Public Works Laborer Name Role Phone Nurys Givens MD Primary Care Provider + Holly Johnston MD Unavailable [phone] Encounter Details Date Type Department Care Team (Latest Contact Info) Description 03/04/2021 11:05 AM CDT Hospital Encounter [facility] [address] [place] [address] Discharge Disposition: Discharge to home or self care Social History Tobacco Use Types Packs/Day Years Used Date Smoking Tobacco: Every Day Cigarettes Smokeless Tobacco: Never Comments Unknown Sex and Gender Information Value Date Recorded Sex Assigned at Not on file Legal Sex Female 3:14 AM DIRECTOR CAREER SERVICES Gender Identity Not on file Sexual Orientation Straight 05/23/2020 11 :19 AM DIRECTOR CAREER SERVICES documented as of this encounter Medications at [...] Associated Diagnosis Comments BREAST IMAGING OUTSIDE REFERENCE Schedule Routine, Read Routine (OP Routine) 03/04/2021 11:05 AM CDT Abnormal mammogram of left breast documented in this encounter Results * Breast Imaging Outside Reference (03/04/2021 11:05 AM CDT) Impressions [facility] - 03/04/2021 11:05 AM CDT These images are for Reference purposes only and have not been reviewed by [facility] Radiology. ??There will be no report generated by a [facility] Radiologist. Narrative [facility] - 03/04/2021 11:05 AM CDT EXAMINATION: ??Images For Reference Purposes Only us Ashley Medina MD IMG MAMMO PROCEDURES Fi nal Result [facility] documented in this encounter Visit Diagnoses Not on filedocumented in this encounter Care Teams Public Works Laborer Relationship Specialty Start Date End Date Nurys Givens MD PCP - General 03/08/14 Holly Johnston MD Fellow Vascular Surgery 04/19/20 documented as of this encounter
--- OUTSIDE RECORDS SUMMARY | 2024-06-19 21:16 | XMS_ITS | Encounter Summary ---
Author Organization [facility] Address [address] [place] [address] Care Team Providers Care Document Control Supervisor Name Role Phone Nurys Givens MD Primary Care Provider + Holly Johnston MD Unavailable [phone] Reason for Referral * Diagnostic Imaging (Routine) - Closed Specialty Diagnoses / Procedures Referred By Vladimir yee Referred To Contact Diagnoses Abnormal mammogram of left breast Procedures Diagnostic Mammogram Left W Beverly Lees NP Phone: tel: fax: [address] [address] Referral ID Status Reason Start Date Expiration Date Visits Re quested Visits Authorized [id number] Closed 02/21/2021 03/23/2022 1 1 Reason for Visit * Diagnostic Imaging (Routine) - Closed Specialty Diagnoses / Procedures Referred By Vladimir yee Referred To Contact Diagnoses Abnormal mammogram of left breast Procedures Diagnostic Mammogram Left W Beverly Lees NP Phone: tel: fax: [address] [phone] Referral ID Status Reason Start Date Expiration Date Visits Re quested Visits Authorized [id number] Closed 02/21/2021 03/23/2022 1 1 Encounter Details Date Type Department Care Team (Late st Contact Info) Description 03/07/2021 9:30 AM CDT - 03/07/2021 11:59 PM CDT Hospital Encounter [facility] [address] [place] [address] Ashley Medina MD [address] [facility] [address] [place] [address] Beverly Artis NP [address] [place] [address] Abnormal mammogram of left breast Discharge Disposition: Discharge to home or self care Social History Tobacco Use Types Packs/Day Years Used Date Smoking Tobacco: Every Day Cigarettes Smokeless Tobacco: Never Comments No Sex and Gender Information Value Date Recorded Sex Assigned at Not on file Legal Sex Female 3:14 AM 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 OPERATIONS Gender Identity Not on file Sexual Orientation Straight 05/23/2020 11 :19 AM 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 OPERATIONS documented as of this encounter Medications at [...] (three) times a day as needed 03/05/2020 ascorbic acid (vitamin C) 100 mg tablet aspirin 81 mg enteric coated tablet Take 81 mg by mouth daily atorvastatin (LIPITOR) 40 mg tablet Take 40 mg by mouth daily 02/22/2020 busPIRone (BUSPAR) 15 mg tablet Take 45 mg by mouth 3 (three) times a day 03/06/2020 cholecalciferol (Vitamin D3) 2000 unit capsule desvenlafaxine ER 50 mg 24 hr tablet Take 50 mg by mouth daily 03/11/2020 dextroamphetamin e-amphetamine XR (ADDERALL XR) 30 mg 24 hr capsule Take 1 capsule by mouth daily 06/10/2016 docusate sodium (COLACE) 100 mg capsuleIndicatio ns:constipation Take 1 capsule (100 mg total) by mouth 2 (two) times a day 04/19/[address] (NexIUM) 40 mg capsule Take 40 mg by mouth 2 (two) times a day 02/01/2020 ezetimibe (ZETIA) 10 mg tablet Take 1 tablet by mouth daily 12/21/2019 lamoTRIgine (LaMICtal) 200 mg tablet Take 200 mg by mouth nightly lisinopril-hydro CHLOROthiazide (ZESTORETIC) 20-25 mg per tablet Take 1 tablet by mouth daily 06/05/2016 montelukast (SINGULAIR) 10 mg tablet Take 10 mg by mouth nightly 03/20/2020 OXcarbazepine (TRILEPTAL) 150 mg tablet Take 75 mg by mouth 2 (two) times a day 02/23/2021 Ozempic 0.25 mg or 0.5 mg(2 mg/1.5 mL) pen injector Thursday02/15/2020 umeclidinium-cheryle anteroL (Anoro Ellipta) 62.5-25 mcg/actuation blister with device Inhale daily 08/11/2017 famotidine (PEPCID) 20 mg tablet Take 20 mg by mouth 2 (two) times a day 1 documented as of this encounter Discharge Disposition Disposition Code Departure Means Destination Discharge to home or self care documented in this encounter Plan of Treatment Not on file documented as of this encounter Procedures Procedure Name Priority Date/Time Associated Diagnosis Comments DIAGNOSTIC MAMMOGRAM LEFT W JEWELL Schedule Routine, Read Routine (OP Routine) 03/07/2021 10:30 AM CDT Abnormal mammogram of left breast documented in this encounter Results * Diagnostic Mammogram Left W Jewell (03/07/2021 10:30 AM CDT) Anatomical Region Laterality Modality Breast Left Mammography 03/07/2021 10:3 6 AM CDT Impressions 03/07/2021 10:49 AM CDT Layering grouped calcifications within the upper outer left breast, consistent with milk of calcium. OVERALL FINAL ASSESSMENT: BI-RADS Category 2: Benign. RECOMMENDATION: Recommend return to annual screening mammography in January 2022. Dictated by: Refugio Mcdowell M.D. The radiology attending physician has personally reviewed this study, and had reviewed and/or edited this written report and agrees with it. Electronically signed by: Arianne Jefferson M.D. Narrative 03/07/2021 10:49 AM CDT EXAMINATION: LEFT UNILATERAL DIGITAL DIAGNOSTIC MAMMOGRAM AND DIGITAL BREAST TOMOSYNTHESIS HISTORY: 64-year-old female with screening detected grouped calcifications within the upper outer LEFT breast. ??Repeat LEFT breast diagnostic mammogram requested for further evaluation. COMPARISON: LEFT breast diagnostic mammogram dated 02/21/2021, bilateral screening mammogram dated 02/14/2021 TECHNIQUE: ?? Full field digital mammographic views of the LEFT breast were performed, including computer aided detection (CAD) and digital breast tomosynthesis (DBT). BREAST PARENCHYMAL COMPOSITION: The breasts are heterogenously dense, which may obscure small masses. MAMMOGRAM FINDINGS: Grouped calcifications are seen within the upper outer quadrant of the LEFT breast. ??On magnification ML views, the round grouped calcifications layer. ??No suspicious finding is seen in the LEFT breast. Procedure Note Arianne Jefferson MD - 03/07/2021 EXAMINATION: LEFT UNILATERAL DIGITAL DIAGNOSTIC MAMMOGRAM AND DIGITAL BREAST TOMOSYNTHESIS HISTORY: 64-year-old female with screening detected grouped calcifications within the upper outer LEFT breast. Repeat LEFT breast diagnostic mammogram requested for further evaluation. COMPARISON: LEFT breast diagnostic mammogram dated 02/21/2021, bilateral screening mammogram dated 02/14/2021 TECHNIQUE: Full field digital mammographic views of the LEFT breast were performed, including computer aided detection (CAD) and digital breast tomosynthesis (DBT). BREAST PARENCHYMAL COMPOSITION: The breasts are heterogenously dense, which may obscure small masses. MAMMOGRAM FINDINGS: Grouped calcifications are seen within the upper outer quadrant of the LEFT breast. On magnification ML views, the round grouped calcifications layer. No suspicious finding is seen in the LEFT breast. IMPRESSION: Layering grouped calcifications within the upper outer left breast, consistent with milk of calcium. OVERALL FINAL ASSESSMENT: BI-RADS Category 2: Benign. RECOMMENDATION: Recommend return to annual screening mammography in January 2022. Dictated by: Refugio Mcdowell M.D. The radiology attending physician has personally reviewed this study, and had reviewed and/or edited this written report and agrees with it. Electronically signed by: Arianne Jefferson M.D. Beverly Artis STILL CLEANER IMG MAMMO PROCEDURES Fin al Result documented in this encounter Visit Diagnoses Diagnosis Abnormal mammogram of left breast documented in this encounter Care Teams Document Control Supervisor Relationship Specialty Start Date End Date Nurys Givens MD PCP - General 03/08/14 Holly Johnston MD Fellow Vascular Surgery 04/19/20 documented as of this encounter
--- OUTSIDE RECORDS SUMMARY | 2024-06-19 21:16 | XMS_ITS | Encounter Summary ---
Author Organization [facility] Address [address] [place] [address] Care Team Providers Care Physician/Allergy/Immunology Name Role Phone Nurys Givens MD Primary Care Provider + Holly Johnston MD Unavailable [phone] Encounter Details Date Type Department Care Team (Latest Contact Info) Description 03/05/2021 7:22 PM CDT - 03/05/2021 11:59 PM CDT Hospital Encounter [facility]) [address] [place] [id number] Abnormal mammogram of left breast Discharge Disposition: Discharge to home or self care Social History Tobacco Use Types Packs/Day Years Used Date Smoking Tobacco: Every Day Cigarettes Smokeless Tobacco: Never Comments Unknown Sex and Gender Information Value Date Recorded Sex Assigned at Not on file 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 Gender Identity Not on file Sexual Orientation Straight 05/23/2020 11 :19 AM CLOTH MEASURER MACHINE documented as of this encounter Medications at [...] as needed for constipation 10 suppository 04/30/2020 03/07/20 21 famotidine (PEPCID) 20 mg tablet Take [...] Date/Time Associated Diagnosis Comments BREAST IMAGING OUTSIDE CONSULT Routine 03/05/2021 7:23 PM CDT Abnormal mammogram of left breast documented in this encounter Results * Breast Imaging Outside Consult (03/05/2021 7:23 PM CDT) Anatomical Region Laterality Modality Breast N/A Mammography 03/06/2021 10:4 7 AM CDT Impressions 03/06/2021 11:30 AM CDT 1. ??Grouped amorphous calcifications within the upper-outer quadrant of the LEFT breast appear to layer on the ML view and are probably benign. ??Recommend repeat LEFT breast diagnostic mammogram. RECOMMENDATION: Additional imaging - diagnostic mammography. NOTE: The findings, conclusions and recommendations within this report do not replace the initial findings, conclusions and recommendations made at the facility where the study was performed based upon the imaging and clinical condition at that time. ??Review of the prior report and correlation with the clinical history are necessary. The provided images may or may not represent the [place] source data set and thus may contain changes which may lower the sensitivity of the second opinion interpretation. Dictated by: Refugio Mcdowell M.D. The radiology attending physician has personally reviewed this study, and had reviewed and/or edited this written report and agrees with it. Electronically signed by: Abigail Lucas M.D. Narrative 03/06/2021 11:30 AM CDT EXAMINATION: REVIEW AND INTERPRETATION OF OUTSIDE IMAGING FACILITY PERFORMING OUTSIDE IMAGING: [facility] EXAM(S) REVIEWED: 1. ??BILATERAL SCREENING MAMMOGRAM WITH TOMOSYNTHESIS, 8 images, 02/14/2021 2. ??LEFT UNILATERAL DIAGNOSTIC MAMMOGRAM, 3 images, 02/21/2021 DATE OF INTERPRETATION: 03/06/2021 PHYSICIAN REQUESTING REVIEW: Dr. Mustafa, who is seeing the patient in the Breast Surgery [facility]. HISTORY: 65-year-old female with screening detected new. COMPARISON: 10/05/2018 BREAST PARENCHYMAL COMPOSITION: The breasts are heterogenously dense, which may obscure small masses. FINDINGS: Screening mammogram dated 02/14/2021: Grouped amorphous calcifications within the upper outer quadrant of the LEFT breast. No suspicious mass, architectural distortion, or calcification within the RIGHT breast. Diagnostic mammogram dated 02/21/2021: The previously mentioned calcifications within the LEFT upper outer breast appear to layer on ML view. Procedure Note Abigail Lucas MD - 03/06/2021 EXAMINATION: REVIEW AND INTERPRETATION OF OUTSIDE IMAGING FACILITY PERFORMING OUTSIDE IMAGING: [facility] EXAM(S) REVIEWED: 1. BILATERAL SCREENING MAMMOGRAM WITH TOMOSYNTHESIS, 8 images, 02/14/2021 2. LEFT UNILATERAL DIAGNOSTIC MAMMOGRAM, 3 images, 02/21/2021 DATE OF INTERPRETATION: 03/06/2021 PHYSICIAN REQUESTING REVIEW: Dr. Mustafa, who is seeing the patient in the Breast Surgery Clinic. HISTORY: 65-year-old female with screening detected new. COMPARISON: 10/05/2018 BREAST PARENCHYMAL COMPOSITION: The breasts are heterogenously dense, which may obscure small masses. FINDINGS: Screening mammogram dated 02/14/2021: Grouped amorphous calcifications within the upper outer quadrant of the LEFT breast. No suspicious mass, architectural distortion, or calcification within the RIGHT breast. Diagnostic mammogram dated 02/21/2021: The previously mentioned calcifications within the LEFT upper outer breast appear to layer on ML view. IMPRESSION: 1. Grouped amorphous calcifications within the upper-outer quadrant of the LEFT breast appear to layer on the ML view and are probably benign. Recommend repeat LEFT breast diagnostic mammogram. RECOMMENDATION: Additional imaging - diagnostic mammography. NOTE: The findings, conclusions and recommendations within this report do not replace the initial findings, conclusions and recommendations made at the facility where the study was performed based upon the imaging and clinical condition at that time. Review of the prior report and correlation with the clinical history are necessary. The provided images may or may not represent the [place] source data set and thus may contain changes which may lower the sensitivity of the second opinion interpretation. Dictated by: Refugio Mcdowell M.D. The radiology attending physician has personally reviewed this study, and had reviewed and/or edited this written report and agrees with it. Electronically signed by: Abigail Lucas M.D. Beverly Artis HAND FORMER HELPER IMG MAMMO PROCEDURES Fin al Result documented in this encounter Visit Diagnoses Diagnosis Abnormal mammogram of left breast documented in this encounter Care Teams Physician/Allergy/Immunology Relationship Specialty Start Date End Date Nurys Givens MD PCP - General 03/08/14 Holly Johnston MD Fellow Vascular Surgery 04/19/20 documented as of this encounter
--- OUTSIDE RECORDS SUMMARY | 2024-06-19 21:16 | XMS_ITS | Encounter Summary ---
Author Organization [facility] Address [address] [place] [address] Care Team Providers Care Material Carrier Name Role Phone Nurys Givens MD Primary Care Provider + Holly Johnston MD Unavailable [phone] Encounter Details Date Type Department Care Team (Latest Contact Info) Description 03/04/2021 11:06 AM CDT - 03/04/2021 11:59 PM CDT Hospital Encounter [facility]) [address] [place] [id number] Discharge Disposition: Discharge to home or self care Social History Tobacco Use Types Packs/Day Years Used Date Smoking Tobacco: Every Day Cigarettes Smokeless Tobacco: Never Comments Unknown Sex and Gender Information Value Date Recorded Sex Assigned at Not on file Legal Sex Female 3:14 AM 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 ??There will be no report generated by a [facility] Radiologist. Narrative [facility] - 03/04/2021 11:06 AM CDT EXAMINATION: ??Images For Reference Purposes Only us Ashley Medina MD IMG MAMMO PROCEDURES Fi nal Result [facility] documented in this encounter Visit Diagnoses Not on filedocumented in this encounter Care Teams Material Carrier Relationship Specialty Start Date End Date Nurys Givens MD PCP - General 03/08/14 Holly Johnston MD Fellow Vascular Surgery 04/19/20 documented as of this encounter
--- OUTSIDE RECORDS SUMMARY | 2024-06-19 21:16 | XMS_ITS | Encounter Summary ---
Author Organization [facility] Address [address] [place] [address] Care Team Providers Care Newspaper Carriers Supervisor Name Role Phone Nurys Givens MD Primary Care Provider + Reason for Visit * Diagnostic Imaging (Routine) - Closed Specialty Diagnoses / Procedures Referred By Vladimir yee Referred To Contact Diagnoses Hiatal hernia Procedures XR Chest PA Lateral 2 View Ray, MD Holly Phone: tel: fax: [address] [address] Referral ID Status Reason Start Date Expiration Date Visits Re quested Visits Authorized [id number] Closed 04/05/2020 05/05/2021 1 1 Encounter Details Date Type Department Care Team (Latest Contact Info) Description 04/12/2020 8:46 AM CDT - 04/12/2020 11:59 PM CDT Hospital Encounter [facility] Diagnostic Imaging [address] [place] [id number] Discharge Disposition: Discharge to home or self care Social History Tobacco Use Types Packs/Day Years Used Date Smoking Tobacco: Every Day Cigarettes Smokeless Tobacco: Never Comments Unknown Sex and Gender Information Value Date Recorded Sex Assigned at Not on file Legal Sex Female 3:14 AM 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 Gender Identity Not on file Sexual Orientation Straight 05/23/2020 11 :19 AM 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 documented as of this encounter Medications at Time of Discharge albuterol 2.5 mg /3 mL (0.083 %) [...] Take 10 mg by mouth nightly 03/20/2020 Ozempic 0.25 mg or 0.5 mg(2 mg/1.5 mL) pen injector Thursday02/15/2020 umeclidinium-cheryle anteroL (Anoro Ellipta) 62.5-25 mcg/actuation blister with device Inhale daily 08/11/2017 acetaminophen (TYLENOL) suspension 160 mg/5 mLIndications:Pa in Take 31 mL (1,000 mg total) by mouth every 6 (six) hours 04/19/2020 1 ascorbic acid (ascorbic acid) 500 mg tablet,chewable Take 500 mg by mouth daily 0 bisacodyL (DULCOLAX) 10 mg suppositoryIndic ations:constipat ion Insert 10 mg into the rectum daily as needed for constipation 1 calcium carbonate (TUMS) 500 mg calcium (200 mg of elemental calcium) chewable tablet Take 1 tablet by mouth as needed for indigestion or heartburn 0 cholecalciferol (VITAMIN D-3) 2000 unit tablet Take 2,000 Units by mouth daily 0 famotidine (PEPCID) 20 mg tablet Take 20 mg by mouth 2 (two) times a day 1 ferrous gluconate 324 mg (37.5 mg of elemental iron) tablet Take 324 mg by mouth every other day 01/11/2020 1 oxyCODONE (ROXICODONE) 5 mg immediate release tabletIndication s:Pain Take 1 tablet (5 mg total) by mouth every 4 (four) hours as needed for pain 30 tablet 04/19/2020 1 polyethylene glycol (MIRALAX) 17 gram packetIndication s:constipation Take 1 packet (17 g total) by mouth daily 04/20/2020 1 documented as of this encounter Discharge Disposition Disposition Code Departure Means Destination Discharge to home or self care documented in this encounter Plan of Treatment Not on file documented as of this encounter Procedures Procedure Name Priority Date/Time Associated Diagnosis Comments XR CHEST PA LATERAL 2 VIEWS Schedule Routine, Read Routine (OP Routine) 04/12/2020 8:58 AM CDT Hiatal hernia documented in this encounter Visit Diagnoses Not on filedocumented in this encounter Care Teams Newspaper Carriers Supervisor Relationship Specialty Start Date End Date Nurys Givens MD PCP - General 03/08/14 documented as of this encounter
--- OUTSIDE RECORDS SUMMARY | 2024-06-19 21:16 | XMS_ITS | Encounter Summary ---
Author Organization [facility] Address [address] [place] [address] Phone Care Team Providers Care Pediatric Dental Hygienist Name Role Phone Nurys Givens MD Primary Care Provider + Holly Johnston MD Unavailable [phone] Reason for Referral * Diagnostic Imaging (Routine) - Closed Specialty Diagnoses / Procedures Referred By Vladimir yee Referred To Contact Diagnoses Abnormal mammogram of left breast Procedures Diagnostic Mammogram Left W Beverly Lees NP Phone: tel: fax: [address] [address] Referral ID Status Reason Start Date Expiration Date Visits Re quested Visits Authorized [id number] Closed 02/21/2021 03/23/2022 1 1 Encounter Details Date Type Department Care Team (Late st Contact Info) Description 02/21/2021 Orders Only [facility] Surgery [address] 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 Beverly Artis NP IMG MAMMO PROCEDURES Fin al Result * Breast Imaging Outside Consult (03/05/2021 7:23 [...] images may or may not represent the [place] source data set and thus may contain [...] OF OUTSIDE IMAGING FACILITY PERFORMING OUTSIDE IMAGING: [place] [facility] EXAM(S) REVIEWED: 1. ??BILATERAL SCREENING MAMMOGRAM [...] OF OUTSIDE IMAGING FACILITY PERFORMING OUTSIDE IMAGING: [place] [facility] EXAM(S) REVIEWED: 1. BILATERAL SCREENING MAMMOGRAM [...] images may or may not represent the [place] source data set and thus may contain changes which may lower the sensitivity of the second opinion interpretation. Dictated by: Refugio Mcdowell M.D. The radiology attending physician has personally reviewed this study, and had reviewed and/or edited this written report and agrees with it. Electronically signed by: Abigail Lucas M.D. Beverly Artis PROCESS TRAINER IMG MAMMO PROCEDURES Fin al Result documented in this encounter Visit Diagnoses Diagnosis Abnormal mammogram of left breast- Primary Abnormal mammogram of left breast Abnormal mammogram of left breast documented in this encounter Care Teams Pediatric Dental Hygienist Relationship Specialty Start Date End Date Nurys Givens MD PCP - General 03/08/14 Holly Johnston MD Fellow Vascular Surgery 04/19/20 documented as of this encounter
--- OUTSIDE RECORDS SUMMARY | 2024-06-19 21:16 | XMS_ITS | Encounter Summary ---
Author Organization [facility] Address [address] [facility] [address] [place] [address] Phone Care Team Providers Care Guidance Consultant Name Role Phone Nurys Givens MD Primary Care Provider + Holly Johnston MD Unavailable [phone] Encounter Details Date Type Department Care Team (Late st Contact Info) Description 02/15/2021 Orders Only [facility] Surgery [address] 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
--- OUTSIDE RECORDS SUMMARY | 2024-06-19 21:16 | XMS_ITS | Encounter Summary ---
Author Organization [facility] Address [address] [place] [address] Care Team Providers Care Blending Coordinator Name Role Phone Nurys Givens MD Primary Care Provider + Reason for Visit * Diagnostic Imaging (Routine) - Closed Specialty Diagnoses / Procedures Referred By Contac t Referred To Contact Diagnoses Multiple risk factors for coronary artery disease Procedures NM MPI SPECT (Rest and/or Stress) Multiple Studies Nurys Givens MD Phone: tel: fax: [facility] Referral ID Status Reason Start Date Expiration Date Visits Re quested Visits Authorized [id number] Closed 11/25/2019 12/24/2019 1 1 Encounter Details Date Type Department Care Team (Latest Contact Info) Description 11/30/2019 8:15 AM CDT Ancillary Procedure [facility] Cardiology [address] [place] [address] Multiple risk factors for coronary artery disease Social History Tobacco Use Types Packs/Day Years Used Date Smoking Tobacco: Never Assessed Comments Unknown Sex and Gender Information Value Date Recorded Sex Assigned at Not on file 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 Gender Identity Not on file Sexual Orientation Straight 05/23/2020 11 :19 AM ANALYSIS DIRECTOR documented as of this encounter Plan of Treatment Not on file documented as of this encounter Procedures Procedure Name Priority Date/Time Associated Diagnosis Comments NM MPI SPECT (REST AND/OR STRESS) MULTIPLE STUDIES Schedule Routine, Read Routine (OP Routine) 11/30/2019 9:46 AM CDT Multiple risk factors for coronary artery disease documented in this encounter Results * NM MPI SPECT (Rest and/or Stress) Multiple Studies (11/30/2019 9:46 AM CDT) Anatomical Region Laterality Modality Body N/A Nuclear Medicine 11/30/2019 9:03 AM CDT Narrative 11/30/2019 5:40 PM CDT [facility] Cardiology [address], [place] [address] [address], [place] [address] P:[phone] P:[phone] MPI Imaging Report Patient Name: LEONA BEKCER A : 1955 Study Date: 11/30/2019 9:03:39 AM Gender: F Tech: [facility] Location: [place] Ref.Provider: NURYS GIVENS Height(Cm): 157.4 BSA: ??Weight(Kg): 75 BMI: 30.27 Order Provider: NURYS GIVENS Physician: Referring Physician: Dr. Givens. HCG Physician: none. Interpreting Physician: Erna Beauchamp M.D. Stress Supervision: Erna Beauchamp M.D. Procedures: Myocardial perfusion imaging with Tc99M Sestamibi SPECT at rest and stress post regadenoson (Lexiscan) infusion. Indications: Hypertension, Diabetes, Family Hx CAD, High Cholesterol, Smoker, and Coronary Calcium Scoring on CT scan. Findings: Procedural Findings: One day rest/stress was used. Tc99m Sestamibi injected IV at rest was 10.3 millicuries. 33.8 millicuries of Tc99M Sestamibi injected IV during Lexiscan stress. Lexiscan 0.4mg administered IV over 10 seconds. Patient had no symptoms during stress test. Baseline heart rate was 83 BPM. Maximum Heart Rate Achieved was: 108 BPM. Baseline blood pressure was 138/82 mmHg. Post Stress Blood Pressure was 132/74 mmHg. Termination: Protocol complete. Resting ECG: Sinus rhythm. Post ECG: No diagnostic ST changes. Arrhythmia: No arrhythmias seen. Perfusion Findings: Normal perfusion imaging. Technical quality of study is excellent. Prone imaging was performed. Left ventricle cavity size at rest is normal. Left ventricle cavity size with stress is unchanged. A TID of 0.86 was automatically calculated. LV Function: There is hyperdynamic global left ventricular systolic function. Left ventricular ejection fraction is 78 %. Conclusions: No diagnostic ST changes. There is hyperdynamic global left ventricular systolic function. Left ventricular ejection fraction is 78 %. Myocardial perfusion imaging is normal. Electronically Signed By: Erna Beauchamp MD 2019-11-30 17:40:24 CDT Electronically Signed By: Erna Beauchamp MD 2019-11-30 17:40:24 CDT Procedure Note Marcelino Beauchamp MD - 11/30/2019 [facility] Cardiology [address] [facility] [address], [place] [address] [address] [facility] [address], [place] [address] P:[phone] P:[phone] MPI Imaging Report Patient Name: LEONA BECKER A : 1955 Study Date: 11/30/2019 9:03:39 AM Gender: F Tech: [facility] Location: [place] Ref.Provider: NURYS GIVENS Height(Cm): 157.4 BSA: Weight(Kg): 75 BMI: 30.27 Order Provider: NURYS GIVENS Physician: Referring Physician: Dr. Givens. HCG Physician: none. Interpreting Physician: Erna Beauchamp M.D. Stress Supervision: Erna Beauchamp M.D. Procedures: Myocardial perfusion imaging with Tc99M Sestamibi SPECT at rest and stresspost regadenoson (Lexiscan) infusion. Indications: Hypertension, Diabetes, Family Hx CAD, High Cholesterol, Smoker, andCoronary Calcium Scoring on CT scan. Findings: Procedural Findings: One day rest/stress was used. Tc99m Sestamibi injected IV at rest was 10.3millicuries. 33.8 millicuries of Tc99M Sestamibi injected IV during Lexiscan stress.Lexiscan 0.4mg administered IV over 10 seconds. Patient had no symptoms during stresstest. Baseline heart rate was 83 BPM. Maximum Heart Rate Achieved was: 108 BPM. Baselineblood pressure was 138/82 mmHg. Post Stress Blood Pressure was 132/74 mmHg. Termination: Protocol complete. Resting ECG: Sinus rhythm. Post ECG: No diagnostic ST changes. Arrhythmia: No arrhythmias seen. Perfusion Findings: Normal perfusion imaging. Technical quality of study is excellent. Proneimaging was performed. Left ventricle cavity size at rest is normal. Left ventriclecavity size with stress is unchanged. A TID of 0.86 was automatically calculated. LV Function: There is hyperdynamic global left ventricular systolic function. Leftventricular ejection fraction is 78 %. Conclusions: No diagnostic ST changes. There is hyperdynamic global left ventricular systolic function. Leftventricular ejection fraction is 78 %. Myocardial perfusion imaging is normal. Electronically Signed By: Erna Beauchamp MD 2019-11-30 17:40:24 CDT Electronically Signed By: Erna Beauchamp MD 2019-11-30 17:40:24 CDT Nurys Givens MD [facility] PROCEDURES Final Result documented in this encounter Visit Diagnoses Diagnosis Multiple risk factors for coronary artery disease documented in this encounter Administered Medications Inactive Administered Medications - up to 3 most recent administrations Medication Order MAR Action Action Date Dose Rate Site regadenoson (LEXISCAN) 0.4 mg/5 mL injection 0.4 mg 0.4 mg, intravenous, Once, On Thu11/30/19 at 1030, For 1 dose, Administer IV push over 10 seconds., Indications: Myocardial Perfusion Imaging AdjunctIndications:Myocard ial Perfusion Imaging Adjunct Given 11/30/2019 9:47 AM CDT 0.4 mg tc-99m sestamibi unit dose injection 10.3 millicurie 10.3 millicurie, intravenous, Once in imaging, radiopharmaceutical, Starting on Thu11/30/19 at 0829, For 1 dose, Indications: Diagnostic RadiographyIndications:Abbi gnostic Radiography Given 11/30/2019 8:30 AM CDT 10.3 millicuries tc-99m sestamibi unit dose injection 33.8 millicurie 33.8 millicurie, intravenous, Once in imaging, radiopharmaceutical, Starting on Thu11/30/19 at 0946, For 1 dose, Indications: Diagnostic RadiographyIndications:Abbi gnostic Radiography Given 11/30/2019 9:46 AM CDT 33.8 millicuries documented in this encounter Care Teams Blending Coordinator Relationship Specialty Start Date End Date Nurys Givens MD PCP - General 03/08/14 documented as of this encounter
--- OUTSIDE RECORDS SUMMARY | 2024-06-19 21:16 | XMS_ITS | Encounter Summary ---
Author Organization [facility] Address [address] [facility] [address] [place] [address] Phone Care Team Providers Care Preprint Analyst Name Role Phone Nurys Givens MD Primary Care Provider + Holly Johnston MD Unavailable [phone] Encounter Details Date Type Department Care Team (Late st Contact Info) Description 03/20/2021 Telephone [facility] Surgery [address] [facility] [address] [place] [address] [place] [address] Holly Johnston MD [address] [facility] [address] [place], [place] [id number] Social History Tobacco Use Types Packs/Day Years Used Date Smoking Tobacco: Every Day Cigarettes Smokeless Tobacco: Never Comments No Sex and Gender Information Value Date Recorded Sex Assigned at Not on file 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 documented in this encounter Plan of Treatment Not on file documented as of this encounter Visit Diagnoses Not on filedocumented in this encounter Care Teams Preprint Analyst Relationship Specialty Start Date End Date Nurys Givens MD PCP - General 03/08/14 Holly Johnston MD Fellow Vascular Surgery 04/19/20 documented as of this encounter
--- OUTSIDE RECORDS SUMMARY | 2024-06-19 21:16 | XMS_ITS | Encounter Summary ---
Author Organization [facility] Address [address] [place] [address] Phone Care Team Providers Care Automotive Worker Foreman Name Role Phone Nurys Givens MD Primary Care Provider + Holly Johnston MD Unavailable [phone] Encounter Details Date Type Department Care Team (Late st Contact Info) Description 04/25/2020 Telephone [facility] Surgery [address] [place] [phone] Leanne White Social History Tobacco Use Types Packs/Day Years Used Date Smoking Tobacco: Every Day Cigarettes Smokeless Tobacco: Never Comments Unknown Sex and Gender Information Value Date Recorded Sex Assigned at Not on file Legal Sex Female 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 Patient doing well- denies vomiting or nausea- has only mild incisional discomfort. Sameera Fernandez WELLNESS PROGRAM COORDINATOR REPAIRER APPRENTICE documented in this encounter Plan of Treatment Not on file documented as of this encounter Visit Diagnoses Not on filedocumented in this encounter Care Teams Automotive Worker Foreman Relationship Specialty Start Date End Date Nurys Givens MD PCP - General 03/08/14 Holly Johnston MD Fellow Vascular Surgery 04/19/20 documented as of this encounter
--- OUTSIDE RECORDS SUMMARY | 2024-06-19 21:16 | XMS_ITS | Encounter Summary ---
Author Organization [facility] Address [address] [place] [address] Care Team Providers Care Blending Tank Helper Name Role Phone Nurys Givens MD Primary Care Provider + Encounter Details Date Type Department Care Team (Late st Contact Info) Description 04/18/2020 8:15 AM CDT Anesthesia Event [facility] Operating Room [address] [place] [address] [place] [address] [facility] [address] [place] [address] Earnestine Pearson MD [address] [id number] Anesthesia Record Procedure Summary Procedure Name Responsible Anesthesiologist Anesthesia Start Time Anesthesia Stop Time LAPAROSCOPIC CHENTE GASTROPLASTY (Abdomen) Dominik Puente MD 04/18/20 0815 04/18/20 1125 Events Date Time Event Comment 04/18/2020 0733 0814 In Room 0815 An Start 0815 An Start Data 0821 An Induction The patient was reevaluated immediately before moderate or deep sedation use and before anesthesia induction. 0823 An Intubation 0823 Anesthesia Ready 0904 Proc Start 0904 Incision Start 1053 Quick Note Upper endoscopy performed by Dr. Johnston 1110 Proc Fin 1118 An Extubation 1118 an stop data 1120 Out of Room 1125 Handoff to RN I completed my handoff to the receiving nurse during which we: 1. Patient identified 2. Responsible provider identified 3. Pertinent medical history reviewed 4. Procedure type and surgical course discussed 5. Intraoperative anesthetic management and any significant issues discussed 6. Expectations and concerns for postop period discussed 7. Questions solicited from receiving nurse 8. Patient disposition at the time of handoff: No value filed. 1125 An Stop Meds Name Total midazolam 2 mg fentaNYL 100 mcg lidocaine (CARDIAC) syringe 2 % 60 mg propofol 150 mg succinylcholine 160 mg rocuronium 50 mg ondansetron 4 mg glycopyrrolate 0.4 mg neostigmine 2 mg vancomycin 1,000 mg/200 mL in dextrose 5 % (premix) 1,000 mg 1,000 mg labetalol 10 mg diphenhydrAMINE 12.5 mg HYDROmorphone 2 mg/mL 0.5 mg phenylephrine 300 mcg Lactated Ringer's (LR) infusion 500 mL NS 0.9% 2,000 mL * Agents Name O2 N2O Air Sevoflurane Inspired Sevoflurane * Blood No blood administrations on file. Lines, Drains, and Airways Type Details Placement Removal Peripheral IV Placement Date: 04/18/20; Placement Time: 0730; Catheter Size: 18 G; Orientation: Right; Location: Hand; Site Prep: Chlorhexidine; Inserted by: ruth gonzalez; Insertion Attempts: 1; Patient Tolerance: Tolerated well; Removal Date: 04/19/20; Removal Time: 1606; Removal Reason: Discharge 04/18/20 0730 by Chloé Hathaway RN 04/19/20 1606 by Caitlin Castillo RN Urethral Catheter Placement Date: 04/18/20; Placement Time: 0830; Inserted by: Mariam; Type: Latex; Size: 16 Fr.; Balloon Size: 10 mL; Urine Returned: Yes; Removal Date: 04/19/20; Removal Time: 0804; Removal Reason: Per order 04/18/20 0830 by Nora Becerra RN 04/19/20 0804 by Emily Samano RN Peripheral IV Placement Date: 04/18/20; Placement Time: 0831; Catheter Size: 20 G; Orientation: Left; Location: Hand; Site Prep: Alcohol; Technique: Anatomical landmarks; Inserted by: TOMÁS Arguello; Insertion Attempts: 1; Patient Tolerance: Tolerated well; Removal Date: 04/19/20; Removal Time: 1606 04/18/20 0831 by Mariam Sullivan AA 04/19/20 1606 by Caitlin Castillo RN ETT Placement Date: 04/18/20; Placement Time: 0859 (created via procedure documentation); Mask Ventilation: 0; Technique: Direct laryngoscopy; Type: ETT - single; Single Lumen Tube Size: 7.5 mm; Cuffed: Yes; Laryngoscope: Francesco; Blade Size: 3; Location: Oral; Grade View: Grade I; Insertion Attempts: 1; Placement Verification: Auscultation, Capnometry; Airway Comment: Atraumatic DL. Same dentition as PreOp. ; Removal Date: 04/18/20; Removal Time: 1118 04/18/20 0859 by Mariam Sullivan AA 04/18/20 1118 by Mariam Sullivan, JOSEE RETIRED Surgical Site 04/18/20; 1122; Abdomen; 05/24/24 (Retired LDA, Removed/Completed by VILOOP with LDA Utility); 1213 (Retired LDA, Removed/Completed by VILOOP with LDA Utility) 04/18/20 1122 by Nora Becerra RN 05/24/24 1213 by Discharge Provider, Automatic documented in this encounter Social History Tobacco Use Types Packs/Day Years Used Date Smoking Tobacco: Every Day Cigarettes Smokeless Tobacco: Never Comments Unknown Sex and Gender Information Value Date Recorded Sex Assigned at Not on file Legal Sex Female 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 Gender Identity Not on file Sexual Orientation Straight 05/23/2020 11 :19 AM AUTOMOBILE LEASING SUPERVISOR documented as of this encounter OR Notes * Anesthesia Postprocedure Evaluation - Earnestine Pearson MD - 04/18/2020 12:30 PM CDT Patient: Leona Cavlo Procedure Summary Date: 04/18/20 Room / Location: OPERATING ROOM 3 / OPERATING ROOM Anesthesia Start: 814 Anesthesia Stop: 1124 Procedures: LAPAROSCOPIC CHENTE GASTROPLASTY (N/A Abdomen) Laparoscopic Brett hiatal hernia with chente gastroplasty (N/A Abdomen) Diagnosis: Hiatal hernia (Hiatal hernia [K44.9]) Provider: Holly Johnston MD Responsible Provider: Dominik Puente MD Anesthesia Type: general ASA Status: 3 Anesthesia Type: general Last vitals BP 139/73 Pulse 74 Temp 36.3 ??C (97.4 ??F) Resp 16 SpO2 92% Anesthesia Post Evaluation Patient location during evaluation: PACU Patient participation: complete - patient participated Level of consciousness: fully awake Pain score: 2 Pain management: adequate Airway patency: patent and adequate Evidence of recall: no Anesthetic complications: no Cardiovascular status: acceptable Respiratory status: acceptable and room air Hydration status: acceptable Pt is: normothermic Nausea/Vomiting status: none * Anesthesia Procedure Notes - Mariam Sullivan AA - 04/18/2020 8:58 AM CDTAssociated Order(s): Airway Airway Patient location: OR Urgency: elective Indications for airway management: anesthesia Difficult airway: no Staff: Placed by: AA: JOSEE Levi Emergent airway documentation: Risks and benefits discussed: yes Consent obtained: yes Consent given by: patient Airway prep: Preoxygenated: yes Patient position: sniffing Mask difficulty assessment: 0 - not attempted Spontaneous ventilation during airway: absent Sedation level during airway: GA Final airway details: Final airway type: endotracheal airway Tube type: ETT ETT size: 7.5 mm Cuffed: yes Technique used for successful ETT placement: direct laryngoscopy Devices/Methods used in placement: intubating stylet Insertion site: oral Blade type: Francesco Blade size: 3 Cormack-Lehane (direct): grade I - full view of glottis Cuff inflated with: air ETT to lips: 22 cm Placement verified by: auscultation and CO2 detection Airway secured with: silk tape Number of attempts: 1 Additional comments: Atraumatic DL. Same dentition as PreOp. * Anesthesia Preprocedure Evaluation - Suresh Ward MD - 04/10/2020 9:52 AM CDT Images from the original note were not included. Anesthesia Evaluation Leona Calvo is a 64 y.o. female Procedure(s): LAPAROSCOPIC BRETT FUNDOPLICATION HIATAL HERNIA/ 180 min Pre-Op Diagnosis Codes: * Hiatal hernia [K44.9] HISTORY Past Medical History Information obtained from: patient and chart. Neurological + Psychiatric history - depression Cardiovascular + Hypertension + Hyperlipidemia Respiratory + COPD - emphysema. + Asthma Dyspnea frequency: 2 days/week or less. Rescue inhaler use: 2 days/week or less. + Current smoker - Counseled to abstain from smoking the day of surgery. Patient refrained from smoking on day of surgery. Hepatic / Heme + History of anemia - iron deficiency Gastrointestinal + GERD - on daily therapy. Asymptomatic. + Hiatal hernia Comments: barretts esophagus Renal / Renal/ system: negative Musculoskeletal/Pain + Osteoarthritis Endocrine / Other + Diabetes mellitus - Diabetes type 2. Outpatient insulin use: none. Functional Capacity Functional capacity: 4-6 METs Patient Active Problem List Diagnosis ??? Hiatal hernia No past medical history on file. No past surgical history on file. OB History No obstetric history on file. Allergies Allergen Reactions ??? Penicillin G Other (See comments) Taking? Last Dose Start Date End Date Provider albuterol HFA (PROVENTIL HFA,VENTOLIN HFA,PROAIR HFA) 90 mcg/actuation inhaler -- -- Historical Provider, ALPRAZolam (XANAX) 2 mg tablet 03/05/20 -- Historical Provider, aspirin 81 mg enteric coated tablet -- -- Historical Provider, atorvastatin (LIPITOR) 40 mg tablet 02/22/20 -- Historical Provider, busPIRone (BUSPAR) 15 mg tablet 03/06/20 -- Historical Provider, esomeprazole DR (NexIUM) 40 mg capsule 02/01/20 -- Historical Provider, ezetimibe (ZETIA) 10 mg tablet 12/21/19 -- Historical Provider, ferrous gluconate 324 mg (37.5 mg of elemental iron) tablet 01/11/20 -- Historical Provider, lamoTRIgine (LaMICtal) 200 mg tablet -- -- Historical Provider, lisinopril-hydroCHLOROthiazide (ZESTORETIC) 20-25 mg per tablet 06/05/16 -- Historical Provider, montelukast (SINGULAIR) 10 mg tablet 03/20/20 -- Historical Provider, Ozempic 0.25 mg or 0.5 mg(2 mg/1.5 mL) pen injector 02/15/20 -- Historical Provider, Current Outpatient Medications: ??? albuterol HFA (PROVENTIL HFA,VENTOLIN HFA,PROAIR HFA) 90 mcg/actuation inhaler ??? ALPRAZolam (XANAX) 2 mg tablet ??? aspirin 81 mg enteric coated tablet ??? atorvastatin (LIPITOR) 40 mg tablet ??? busPIRone (BUSPAR) 15 mg tablet ??? esomeprazole DR (NexIUM) 40 mg capsule ??? ezetimibe (ZETIA) 10 mg tablet ??? ferrous gluconate 324 mg (37.5 mg of elemental iron) tablet ??? lamoTRIgine (LaMICtal) 200 mg tablet ??? lisinopril-hydroCHLOROthiazide (ZESTORETIC) 20-25 mg per tablet ??? montelukast (SINGULAIR) 10 mg tablet ??? Ozempic 0.25 mg or 0.5 mg(2 mg/1.5 mL) pen injector Social History Tobacco Use Smoking Status Not on file Substance and Sexual Activity Alcohol Use Not on file Substance and Sexual Activity Drug Use Not on file No family history on file. PAT Physical Exam Airway Exam: Mallampati: I Cardiovascular Exam: Rate: regular Rhythm: regular Pulmonary Exam: LCTA, bilat (Clear but distant) EENT Exam: trachea midline Dental Exam: Appears intact Skin Exam: Skin is warm. Current state: Patient's current state is cooperative and interactive. There were no vitals filed for this visit. PT: No results found for requested labs within last 720 hours. INR: No results found for requested labs within last 720 hours. APTT: No results found for requested labs within last 720 hours. Hgb A1C: No results found for requested labs within last 720 hours. CBC RBC: No results found for requested labs within last 720 hours. RDW: No results found for requested labs within last 720 hours. MCHC: No results found for requested labs within last 720 hours. MCH: No results found for requested labs within last 720 hours. MCV: No results found for requested labs within last 720 hours. Hct: No results found for requested labs within last 720 hours. Hgb: No results found for requested labs within last 720 hours. WBC: No results found for requested labs within last 720 hours. MPV: No results found for requested labs within last 720 hours. Platelets: No results found for requested labs within last 720 hours. RDW CV: No results found for requested labs within last 720 hours. RDW Sd: No results found for requested labs within last 720 hours. BMP Glucose: No results found for requested labs within last 720 hours. Calcium: No results found for requested labs within last 720 hours. Sodium: No results found for requested labs within last 720 hours. Potassium: No results found for requested labs within last 720 hours. CO2: No results found for requested labs within last 720 hours. Chloride: No results found for requested labs within last 720 hours. BUN: No results found for requested labs within last 720 hours. Creatinine: No results found for requested labs within last 720 hours. DOS Physical Exam Medical history, medications, and allergies reviewed. Attestation: I endorse the findings of the anesthesia pre-evaluation assessment dated: 04/10/2020. Airway Exam: Mallampati: II Cervical ROM: FROM TM distance: >4 Jaw ROM: full Cardiovascular Exam: Rate: regular Rhythm: regular Pulmonary Exam: LCTA, bilat EENT Exam: trachea midline Dental Exam: Appears intact Skin Exam: Skin is warm. Current state: Patient's current state is cooperative. Anesthesia Plan ASA 3 Planned anesthesia: General Team communication plan: oral ET tube Induction: Induction: intravenous. Postoperative Plan: Postoperative administration opioids intended. No postoperative mechanical ventilation intended. Patient's planned disposition post procedure is Floor. Informed Consent: Discussed plan with attending, MINIATURE SET CONSTRUCTOR and AA. Anesthesia plan and risks discussed with patient and spouse. Consent and Attending signature: I and/or my designee have discussed the anesthesia plan, benefits, possible alternatives, parental presence at time of induction (if indicated), and clinically relevant risks that may include dental injury, unintentional awareness, and/or other complications. The patient and/or parent/legal guardian understand, and agree to proceed. All questions answered. documented in this encounter Plan of Treatment Not on file documented as of this encounter Procedures Procedure Name Priority Date/Time Associated Diagnosis Comments [place] AN ELECTIVE ENDOTRACHEAL AIRWAY Routine 04/18/2020 8:58 AM CDT documented in this encounter Results * [place] AN ELECTIVE ENDOTRACHEAL AIRWAY (04/18/2020 8:58 AM CDT) Mariam Harris AA - 04/18/2020 8:58 AM CDT JOSEE Levi ? 04/18/2020 ??8:59 AM Airway Patient location: OR Urgency: elective Indications for airway management: anesthesia Difficult airway: no Staff: Placed by: AA: JOSEE Levi Emergent airway documentation: Risks and benefits discussed: yes Consent obtained: yes Consent given by: patient Airway prep: Preoxygenated: yes Patient position: sniffing Mask difficulty assessment: 0 - not attempted Spontaneous ventilation during airway: absent Sedation level during airway: GA Final airway details: Final airway type: endotracheal airway Tube type: ETT ETT size: 7.5 mm Cuffed: yes Technique used for successful ETT placement: direct laryngoscopy Devices/Methods used in placement: intubating stylet Insertion site: oral Blade type: Francesco Blade size: 3 Cormack-Lehane (direct): grade I - full view of glottis Cuff inflated with: air ETT to lips: 22 cm Placement verified by: auscultation and CO2 detection Airway secured with: silk tape Number of attempts: 1 Additional comments: Atraumatic DL. Same dentition as PreOp. us Dominik Puente MD ANESTHESIA ORDERABLES Final Result documented in this encounter Visit Diagnoses Not on filedocumented in this encounter Administered Medications Inactive Administered Medications - up to 3 most recent administrations Medication Order MAR Action Action Date Dose Rate Site diphenhydrAMINE (BENADRYL) injection Administer over 2 Minutes, As needed, Starting on Thu04/18/20 at 0918, Anesthesia Intra-op Given 04/18/2020 9:18 AM CDT 12.5 mg fentaNYL (SUBLIMAZE) preservative free injection intravenous, As needed, Starting on Thu04/18/20 at 0821, Anesthesia Intra-op Given 04/18/2020 8:45 AM CDT 50 mcg Given 04/18/2020 8:21 AM CDT 50 mcg glycopyrrolate (ROBINUL) injection Administer over 1 Minutes, As needed, Starting on Thu04/18/20 at 1100, Anesthesia Intra-op Given 04/18/2020 11:00 AM CDT 0.4 mg HYDROmorphone (DILAUDID) injection Administer over 2 Minutes, As needed, Starting on Thu04/18/20 at 0920, Anesthesia Intra-op Given 04/18/2020 10:59 AM CDT 0.25 mg Given 04/18/2020 9:20 AM CDT 0.25 mg labetaloL (NORMODYNE,TRANDATE) injection As needed, Starting on Thu04/18/20 at 0851, Anesthesia Intra-op Given 04/18/2020 8:51 AM CDT 10 mg Lactated Ringer's (LR) infusion 30 mL/hr, intravenous, Continuous, Starting on Thu04/18/20 at 0800, Pre-Op New Bag 04/18/2020 8:15 AM CDT New Bag 04/18/2020 7:46 AM CDT 30 mL/hr 30 mL/hr Ri ght Hand lidocaine (cardiac) (XYLOCAINE) preservative free injection intravenous, As needed, Starting on Thu04/18/20 at 0821, Anesthesia Intra-op, Indications: Ventricular ArrhythmiasIndications:Ventricular Arrhythmias Given 04/18/2020 8:21 AM CDT 60 mg midazolam (VERSED) 1 mg/mL preservative free injection intravenous, Administer over 2 Minutes, As needed, Starting on Thu04/18/20 at 0815, Anesthesia Intra-op Given 04/18/2020 8:15 AM CDT 2 mg neostigmine (PROSTIGMIN) injection intravenous, Administer over 3 Minutes, As needed, Starting on Thu04/18/20 at 1100, Anesthesia Intra-op Given 04/18/2020 11:00 AM CDT 2 mg ondansetron (ZOFRAN) injection intravenous, Administer over 2 Minutes, As needed, Starting on Thu04/18/20 at 1056, Anesthesia Intra-op Given 04/18/2020 10:56 AM CDT 4 mg phenylephrine (YSABEL-SYNEPHRINE) 1 mg/10 mL (100 mcg/mL) in sodium chloride 0.9% (premix) As needed, Starting on Thu04/18/20 at 0930, Anesthesia Intra-op Given 04/18/2020 10:04 AM CDT 100 mcg Given 04/18/2020 9:30 AM CDT 200 mcg propofoL (DIPRIVAN) IV intravenous, As needed, Starting on Thu04/18/20 at 0821, Anesthesia Intra-op Given 04/18/2020 8:21 AM CDT 150 mg rocuronium (ZEMURON) injection intravenous, As needed, Starting on Thu04/18/20 at 0835, Anesthesia Intra-op Given 04/18/2020 8:35 AM CDT 45 mg Given 04/18/2020 8:21 AM CDT 5 mg sodium chloride 0.9% infusion Continuous PRN, Starting on Thu04/18/20 at 0831, Anesthesia Intra-op New Bag 04/18/2020 9:14 AM CDT New Bag 04/18/2020 8:31 AM CDT succinylcholine (ANECTINE) injection intravenous, As needed, Starting on Thu04/18/20 at 0822, Anesthesia Intra-op Given 04/18/2020 8:22 AM CDT 160 mg vancomycin 1,000 mg/200 mL in dextrose 5% (premix) 1,000 mg 1,000 mg, intravenous, Administer over 60 Minutes, Once, On Thu04/18/20 at 0800, For 1 dose, Pre-Op, Indications: Prophylaxis, SurgicalIndications:Prophylaxis, Surgical Given 04/18/2020 8:16 AM CDT 1,000 mg documented in this encounter Care Teams Blending Tank Helper Relationship Specialty Start Date End Date Nurys Givens MD PCP - General 03/08/14 documented as of this encounter
--- OUTSIDE RECORDS SUMMARY | 2024-06-19 21:16 | XMS_ITS | Encounter Summary ---
Author Organization [facility] Healthcare Address [address] [place] [address] Care Team Providers Care Carbide Operator Name Role Phone Nurys Givens MD Primary Care Provider + Holly Johnston MD Unavailable [phone] Encounter Details Date Type Department Care Team (Latest Contact Info) Description 04/19/2020 9:23 AM CDT - 04/19/2020 11:59 PM CDT Hospital Encounter [facility] [id number] [place] [address] Discharge Disposition: Discharge to home or self care Social History Tobacco Use Types Packs/Day Years Used Date Smoking Tobacco: Every Day Cigarettes Smokeless Tobacco: Never Comments Unknown Sex and Gender Information Value Date Recorded Sex Assigned at Not on file 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 Gender Identity Not on file Sexual Orientation Straight 05/23/2020 11 :19 AM 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 documented as of this encounter Medications at [...] mouth every 6 (six) hours 04/19/2020 1 bisacodyL (DULCOLAX) 10 mg suppositoryIndic ations:constipat ion Insert 10 mg into the rectum daily as needed for constipation 1 famotidine (PEPCID) 20 mg tablet Take 20 [...] Procedure Name Priority Date/Time Associated Diagnosis Comments [place] ESOPHAGRAM, SINGLE CONTRAST IP Routine 04/19/2020 9:56 AM CDT documented in this encounter Visit Diagnoses Not on filedocumented in this encounter Administered Medications Inactive Administered Medications - up to 3 most recent administrations Medication Order MAR Action Action Date Dose Rate Site iohexoL (OMNIPAQUE) 300 mg iodine/mL injection solution 100 mL 100 mL, oral, Once in imaging, contrast, Starting on Lien 04/19/20 at 0923, For 1 dose Given 04/19/2020 9:56 AM CDT 200 mL documented in this encounter Orders Medications Ordered That Jayson ht Not Have Been Administered Count Last Ordered Date First Ordered Date iohexoL (OMNIPAQUE) 300 mg i odine/mL injection solution 100 mL 1 04/19/2020 documented in this encounter Care Teams Carbide Operator Relationship Specialty Start Date End Date Nurys Givens MD PCP - General 03/08/14 Holly Johnston MD Fellow Vascular Surgery 04/19/20 documented as of this encounter
--- OUTSIDE RECORDS SUMMARY | 2024-06-19 21:16 | XMS_ITS | Encounter Summary ---
Author Organization [facility] Address [address] [facility] [address] [place] [address] Phone Care Team Providers Care Rnp Name Role Phone Nurys Givens MD Primary Care Provider + Holly Johnston MD Unavailable [phone] Reason for Visit * Reason Comments Consult * Consultation (Routine) - Closed Specialty Diagnoses / Procedures Referred By Contvilma t Referred To Contact Surgical Oncology Diagnoses Malignant neoplasm of female breast, unspecified estrogen receptor status, unspecified laterality, unspecified site of breast (HCC) Nurys Givens MD Phone: tel: fax: [facility] (All Locations) Referral ID Status Reason Start Date Expiration Date V isits Requested Visits Authorized [id number] Closed Specialty Services Required 02/22/2021 03/24/2022 1 1 Encounter Details Date Type Department Care Team (Late st Contact Info) Description 03/07/2021 9:15 AM CDT Office Visit [facility] Surgery [address] 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 Gender Identity Not on file Sexual Orientation Straight 05/23/2020 11 :19 AM 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 HISTORY OF PRESENT ILLNESS: Leona Calvo is a 65 y.o. woman referred by Nurys Givens MD who requested that I evaluate her for her left abnormal mammogram. The patient states that she wasundergoing her routine mammogram when she was alerted to an abnormality. She underwent additional imaging and ultimately was recommended to undergo a biopsy. She presents today for a second opinion regarding this. The patient states that she herself had not noticed any abnormal masses in either breast. She denies any change in the appearance of her breasts or the skin of her breasts. She denies bilateral nipple discharge. She has no other systemic complaints and otherwise feels well today. This is a pleasant 65 y.o. woman who underwent menarche at 15 years of age. She has not been . She has 2 adopted children. She underwent natural menopause in her mid 40's. She has never been on hormone replacement therapy. She used oral contraception for about 2 years in the past. She has not undergone any previous breast biopsies. She has not had any breast surgeries. Her family history is significant in that her sister was diagnosed with melanoma in her 50's and we did discuss the importance of annual full body skin examinations in light of this history. Please see below for remainder of family history. Past Medical History: Diagnosis Date ??? ADHD (attention deficit hyperactivity disorder) ??? Anemia ??? Anxiety ??? Aortic calcification (CMS/HCC) (HCC) ??? Arthritis ??? Asthma ??? Perea esophagus ??? Bipolar disorder (HCC) ??? Constipation ??? COPD (chronic obstructive pulmonary disease) (CMS/HCC) (HCC) sleeps sitting up ??? Depression ??? GERD (gastroesophageal reflux disease) ??? Hiatal hernia ??? Hyperlipidemia ??? Hypertension ??? Type 2 diabetes mellitus (HCC) ??? Vitamin D deficiency Past Surgical History: Procedure Laterality Date ??? EYE SURGERY sty ??? HEMORRHOID SURGERY ??? TONSILLECTOMY/ADENOIDECTOMY ??? WRIST SURGERY Right ORIF with pins HOME MEDICATIONS : Accu-Chek Kamini Plus test strp strip albuterol 2.5 mg /3 mL (0.083 %) nebulizer solution albuterol HFA (PROVENTIL HFA,VENTOLIN HFA,PROAIR HFA) 90 mcg/actuation inhaler ALPRAZolam (XANAX) 2 mg tablet ascorbic acid (vitamin C) 100 mg tablet aspirin 81 mg enteric coated tablet atorvastatin (LIPITOR) 40 mg tablet busPIRone (BUSPAR) 15 mg tablet cholecalciferol (Vitamin D3) 2000 unit capsule desvenlafaxine ER 50 mg 24 hr tablet dextroamphetamine-amphetamine XR (ADDERALL XR) 30 mg 24 hr capsule docusate sodium (COLACE) [address] (NexIUM) 40 mg capsule ezetimibe (ZETIA) 10 mg tablet famotidine (PEPCID) 20 mg tablet lamoTRIgine (LaMICtal) 200 mg tablet lisinopril-hydroCHLOROthiazide (ZESTORETIC) 20-25 mg per tablet montelukast (SINGULAIR) 10 mg tablet OXcarbazepine (TRILEPTAL) 150 mg tablet Ozempic 0.25 mg or 0.5 mg(2 mg/1.5 mL) pen injector umeclidinium-vilanteroL (Anoro Ellipta) 62.5-25 mcg/actuation blister with device Allergies Allergen Reactions ??? Oxycodone Hallucinations Pt not allergic to medication, she just prefers not to take the medication ??? Penicillins Hives and Itching Penicillin allergy history form completed, moderate risk ??? Penicillin G Other (See comments) Social History Socioeconomic History ??? Marital status: Spouse name: Not on file ??? Number of children: Not on file ??? Years of education: Not on file ??? Highest education level: Not on file Occupational History ??? Not on file Tobacco Use ??? Smoking status: Current Every Day Smoker Packs/day: 0.75 Types: Cigarettes ??? Smokeless tobacco: Never Used Vaping Use ??? Vaping Use: Former ??? Substances: Nicotine Substance and Sexual Activity ??? Alcohol use: Not on file Comment: rarely ??? Drug use: Never ??? Sexual activity: Defer Other Topics Concern ??? Not on file Social History Narrative ??? Not on file Social Determinants of Health Financial Resource Strain: ??? Difficulty of Paying Living Expenses: Not on file Food Insecurity: ??? Worried About Running Out of Food in the Last Year: Not on file ??? Ran Out of Food in the Last Year: Not on file Transportation Needs: ??? Lack of Transportation (Medical): Not on file ??? Lack of Transportation (Non-Medical): Not on file Physical Activity: ??? Days of Exercise per Week: Not on file ??? Minutes of Exercise per Session: Not on file Stress: ??? Feeling of Stress : Not on file Social Connections: ??? Frequency of Communication with Friends and Family: Not on file ??? Frequency of Social Gatherings with Friends and Family: Not on file ??? Attends Yazidi Services: Not on file ??? Active Member of Clubs or Organizations: Not on file ??? Attends Club or Organization Meetings: Not on file ??? Marital Status: Not on file Intimate Partner Violence: ??? Fear of Current or Ex-Partner: Not on file ??? Emotionally Abused: Not on file ??? Physically Abused: Not on file ??? Sexually Abused: Not on file Family History Problem Relation Age of Onset ??? Coronary artery disease Father ??? Cancer Father ??? Hyperlipidemia Father ??? Hypertension Father ??? Coronary artery disease Brother ??? Dementia Brother ??? COPD Brother ??? Osteoporosis Mother ??? Hypertension Mother ??? Dementia Mother ??? Heart disease Sister ??? Dementia Sister ??? Coronary artery disease Brother ??? Transient ischemic attack Sister ??? Dementia Sister ??? Stroke Sister ??? Hyperlipidemia Sister ??? Pancreatic cancer Mother's Sister 60 The patient's review of systems were reviewed as per the chart today and no other findings were noted. The patient's past medical history, social history, and family history are listed on their questionnaire and has been reviewed and can be found in the chart. PHYSICAL EXAMINATION: GENERAL: She is a well-developed, well-nourished woman in no acute distress. HEENT: Within normal limits. NECK: Neck is supple without lymphadenopathy or thyromegaly. LUNGS: Clear. HEART: Regular. ABDOMEN: Soft without organomegaly. EXTREMITIES: Warm without edema. NEUROLOGICAL: She is alert and oriented x 3. BREAST EXAMINATION: Bilateral breast examination reveals normal ptotic breasts bilaterally. Both breasts are without any dominant masses, skin changes, nipple discharge, or axillary adenopathy. IMAGING: I personally reviewed all of the imaging performed. On 02/14/2021 she underwent bilateral screening mammograms at [facility], which was given a BI-RADS category 0, incomplete. There are was no evidence of suspicious mass, calcification, or architectural distortion to suggest malignancy in the right breast. The left breast was notable for grouped indeterminate calcifications in the middle third with recommendation for additional imaging evaluation. On 02/21/2021 the patient underwent a left diagnostic mammogram which was given a BI- RADS category 4, suspicious findings. This was due to a new cluster of indeterminate left breast calcifications, upper outer quadrant and left stereot actic biopsy was recommended. A formal [facility] Radiology consult was performed with the following review and interpretation of the patient's outside imaging: EXAMINATION: REVIEW AND INTERPRETATION OF OUTSIDE IMAGING ?? FACILITY PERFORMING OUTSIDE IMAGING: [facility] ?? EXAM(S) REVIEWED: 1. BILATERAL SCREENING MAMMOGRAM WITH TOMOSYNTHESIS, 8 images, 02/14/2021 2. LEFT UNILATERAL DIAGNOSTIC MAMMOGRAM, 3 images, 02/21/2021 ?? DATE OF INTERPRETATION: 03/06/2021 ?? PHYSICIAN REQUESTING REVIEW: Dr. Mustafa, who is seeing the patient in the Breast Surgery Clinic. ?? HISTORY: 65-year-old female with screening detected new. ?? COMPARISON: 10/05/2018 ?? BREAST PARENCHYMAL COMPOSITION: The breasts are heterogenously dense, which may obscure small masses. ?? FINDINGS: Screening mammogram dated 02/14/2021: ?? Grouped amorphous calcifications within the upper outer quadrant of the LEFT breast. ?? No suspicious mass, architectural distortion, or calcification within the RIGHT breast. ?? Diagnostic mammogram dated 02/21/2021: ?? The previously mentioned calcifications within the LEFT upper outer breast appear to layer on ML view. IMPRESSION: 1. Grouped amorphous calcifications within the upper-outer quadrant of the LEFT breast appear to layer on the ML view and are probably benign. Recommend repeat LEFT breast diagnostic mammogram. ?? RECOMMENDATION: Additional imaging - diagnostic mammography. ?? NOTE: The findings, conclusions and recommendations within this report do not replace the initial findings, conclusions and recommendations made at the facility where the study was performed based upon the imaging and clinical condition at that time. Review of the prior report and correlation with the clinical history are necessary. The provided images may or may not represent the nikolai source data set and thus may contain changes which may lower the sensitivity of the second opinion interpretation. ?? Dictated by: Refugio Mcdowell M.D. ?? The radiology attending physician has personally reviewed this study, and had reviewed and/or edited this written report and agrees with it. ?? Electronically signed by: Abigail Lucas M.D. Today the patient underwent a left diagnostic mammogram, which was assigned a BI-RADS category 2, benign: EXAMINATION: LEFT UNILATERAL DIGITAL DIAGNOSTIC MAMMOGRAM AND DIGITAL BREAST TOMOSYNTHESIS 03/07/2021 ?? HISTORY: 64-year-old female with screening detected grouped calcifications within the upper outer LEFT breast. Repeat LEFT breast diagnostic mammogram requested for further evaluation. ?? COMPARISON: LEFT breast diagnostic mammogram dated 02/21/2021, bilateral screening mammogram dated 02/14/2021 ?? TECHNIQUE: Full field digital mammographic views of the LEFT breast were performed, including computer aided detection (CAD) and digital breast tomosynthesis (DBT). ?? BREAST PARENCHYMAL COMPOSITION: The breasts are heterogenously dense, which may obscure small masses. ?? MAMMOGRAM FINDINGS: Grouped calcifications are seen within the upper outer quadrant of the LEFT breast. On magnification ML views, the round grouped calcifications layer. No suspicious finding is seen in the LEFT breast. ?? IMPRESSION: Layering grouped calcifications within the upper outer left breast, consistent with milk of calcium. ?? OVERALL FINAL ASSESSMENT: BI-RADS Category 2: Benign. ?? RECOMMENDATION: Recommend return to annual screening mammography in January 2022. ?? Dictated by: Refugio Mcdowell M.D. ?? The radiology attending physician has personally reviewed this study, and had reviewed and/or edited this written report and agrees with it. ?? Electronically signed by: Arianne Jefferson M.D. IMPRESSION/RECOMMENDATION: Leona Calvo is a 65 y.o. woman who presents today for a consultationregarding her left abnormal mammogram. I reviewed the clinical and imaging findings with her today. I reassured her that based on my clinical examination and review of her diagnostic imaging, there are no abnormalities that require biopsyor further intervention. We discussed that the finding is consistent with benign calcifications. I r ecommended that she resume her annual screening mammograms, which will be due in January 2022. I also encouraged her to resume breast self examinations on a monthly basis and alert her PCP of any abnormalities. I explained that she may simply follow up in our office on an as needed basis. I answeredall of her questions thoroughly and she does seem pleased with this plan of approach. I encouraged her to contact me in the future if any new questions or concerns arise. Beverly Artis NP Portions of this note were dictated using [employer] Fluency Direct speech recognition software. Please excuse any addressing machine operator errors. documented in this encounter Plan of Treatment Not on file documented as of this encounter Visit Diagnoses Diagnosis Abnormal mammogram- Primary Abnormal mammogram, unspecified Malignant neoplasm of female breast, unspecified estrogen receptor status, unspecified laterality, unspecified site of breast (HCC) documented in this encounter Discontinued Medications Medication Sig Discontinue Reason Start Date End Da te acetaminophen (TYLENOL) suspension 160 mg/5 mLIndications:Pain Take 31 mL (1,000 mg total) by mouth every 6 (six) hours 04/19/2020 03/07/2021 bisacodyL (DULCOLAX) 10 mg suppositoryIndication s:constipation Insert 10 mg into the rectum daily as needed for constipation 03/07/2021 bisacodyL (DULCOLAX) 10 mg suppositoryIndication s:constipation Insert 1 suppository (10 mg total) into the rectum daily as needed for constipation 04/30/2020 03/07/2021 ferrous gluconate 324 mg (37.5 mg of elemental iron) tablet Take 324 mg by mouth every other day 01/11/2020 03/07/2021 metoclopramide (REGLAN) 10 mg tablet Take 1 tablet (10 mg total) by mouth 3 (three) times a day as needed (nausea) 04/30/2020 03/07/2021 oxyCODONE (ROXICODONE) 5 mg immediate release tabletIndications:[place] n Take 1 tablet (5 mg total) by mouth every 4 (four) hours as needed for pain 04/19/2020 03/07/2021 polyethylene glycol (MIRALAX) 17 gram packetIndications:con stipation Take 1 packet (17 g total) by mouth daily 04/20/2020 03/07/2021 famotidine (PEPCID) 20 mg tablet Take 20 mg by mouth 2 (two) times a day 03/09/2021 documented as of this encounter Historical Medications * This list may reflect changes made after this encounter. OXcarbazepine (TRILEPTAL) 150 mg tablet Take 75 mg by mouth 2 (two) times a day 02/23/2021 cholecalciferol (Vitamin D3) 2000 unit capsule Accu-Chek Kamini Plus test strp strip USE TO TEST BLOOD SUGAR ONCE DAILY 02/22/2021 ascorbic acid (vitamin C) 100 mg tablet added in this encounter Orders Outpatient Referral Count Last Ordered Date Fir st Ordered Date AMB REFERRAL TO SURGICAL ONCOLOGY 1 021 documented in this encounter Care Teams Rnp Relationship Specialty Start Date End Date Nurys Givens MD PCP - General 03/08/14 Holly Johnston MD Fellow Vascular Surgery 04/19/20 documented as of this encounter
--- OUTSIDE RECORDS SUMMARY | 2024-06-19 21:16 | XMS_ITS | Encounter Summary ---
Author Organization [facility] Healthcare Address [address] [place] [address] Care Team Providers Care Bolt Sorter Name Role Phone Nurys Givens MD Primary Care Provider + Holly Johnston MD Unavailable [phone] Reason for Visit * Reason Comments Post-op Problem Encounter Details Date Type Department Care Team (Late st Contact Info) Description 04/30/2020 3:39 AM HOME HEALTH NURSE - 04/30/2020 2:45 PM HOME HEALTH NURSE Emergency [facility] Emergency Department [address] [place] [address] [place] [id number] [place] [address] [place] [address] Abdominal pain (Primary Dx); Overflow diarrhea Discharge Disposition: Discharge to home or self care Social History Tobacco Use Types Packs/Day Years Used Date Smoking Tobacco: Every Day Cigarettes Smokeless Tobacco: Never Comments Unknown Sex and Gender Information Value Date Recorded Sex Assigned at Not on file Legal Sex Female 3:14 AM HOME HEALTH NURSE Gender Identity Not on file Sexual Orientation Straight 05/23/2020 11 :19 AM HOME HEALTH NURSE documented as of this encounter Last Filed Vital Signs Vital Sign Reading Time Taken Comments Blood Pressure 150/85 04/30/2020 2:44 PM HOME HEALTH NURSE Pulse 85 04/30/2020 2:44 PM HOME HEALTH NURSE Temperature 36.7 ??C (98 ??F) 04/30/2020 2:44 PM HOME HEALTH NURSE Respiratory Rate 20 04/30/2020 2:44 PM HOME HEALTH NURSE Oxygen Saturation 98% 04/30/2020 2:44 PM HOME HEALTH NURSE Inhaled Oxygen Concentration - - Weight 68 kg (150 lb) 04/30/2020 3:13 AM HOME HEALTH NURSE Height 154.9 cm (5' 1 ) 04/30/2020 3:13 AM HOME HEALTH NURSE Body Mass Index 28.34 04/30/2020 3:13 AM HOME HEALTH NURSE documented in this encounter Discharge Diagnoses Diagnosis Right lower quadrant pain - RIGHT LOWER QUADRANT PAIN Left lower quadrant pain - LEFT LOWER QUADRANT PAIN Abdominal pain, left lower quadrant Diarrhea, unspecified - DIARRHEA, UNSPECIFIED Type 2 diabetes mellitus without complications ([facility]) ([facility]) - TYPE 2 DIABETES MELLITUS WITHOUT COMPLICATIONS Chronic obstructive pulmonary disease, unspecified (HCC) - CHRONIC OBSTRUCTIVE PULMONARY DISEASE, UNSPECIFIED Bipolar disorder, unspecified (HCC) - BIPOLAR DISORDER, UNSPECIFIED Bipolar disorder, unspecified Attention-deficit hyperactivity disorder, unspecified type - ATTENTION-DEFICIT HYPERACTIVITY DISORDER, UNSPECIFIED TYPE Anxiety disorder, unspecified - ANXIETY DISORDER, UNSPECIFIED Unspecified osteoarthritis, unspecified site - UNSPECIFIED OSTEOARTHRITIS, UNSPECIFIED SITE Personal history of other diseases of the digestive system - PERSONAL HISTORY OF OTHER DISEASES OF THE DIGESTIVE SYSTEM Gastro-esophageal reflux disease without esophagitis - GASTRO-ESOPHAGEAL REFLUX DISEASE WITHOUT ESOPHAGITIS Hyperlipidemia, unspecified - HYPERLIPIDEMIA, UNSPECIFIED Essential (primary) hypertension - ESSENTIAL (PRIMARY) HYPERTENSION Unspecified essential hypertension Nicotine dependence, cigarettes, uncomplicated - NICOTINE DEPENDENCE, CIGARETTES, UNCOMPLICATED Family history of ischemic heart disease and other diseases of the circulatory system - FAMILY HISTORY OF ISCHEMIC HEART DISEASE AND OTHER DISEASES OF THE CIRCULATORY SYSTEM 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 * Diarrhea, Unknown Cause ([place]) * Abdominal Pain, Adhesions ([place]) documented in this encounter Medications at Time of Discharge [...] mcg/actuation blister with device Inhale daily 08/11/2017 polyethylene glycol (MIRALAX) 17 gram/dose powder Take 17 g by mouth daily 510 g 04/30/2020 05/30/20 20 senna-docusate (PERICOLACE) 8.6-50 mg Take 1 tablet by mouth daily 30 tablet 04/30/2020 05/30/20 20 acetaminophen (TYLENOL) suspension 160 mg/5 mLIndications:P ain [...] 03/07/20 21 documented as of this encounter Ordered Prescriptions Prescription Sig Dispense Quantity Refills Last Filled Start Date End Date senna-docusate (PERICOLACE) 8.6-50 mg Take 1 tablet by mouth daily 30 tablet 0 05/30/20 20 bisacodyL (DULCOLAX) 10 mg suppositoryIndica tions:constipatio n Insert 1 suppository (10 mg total) into the rectum daily as needed for constipation 10 suppository 0 03/07/20 21 polyethylene glycol (MIRALAX) 17 gram/dose powder Take 17 g by mouth daily 510 g 0 05/30/20 20 metoclopramide (REGLAN) 10 mg tablet Take 1 tablet (10 mg total) by mouth 3 (three) times a day as needed (nausea) 90 tablet 0 03/07/20 21 documented in this encounter Discharge Disposition Disposition Code Departure Means Destination Discharge to home or self care documented in this encounter Consult Notes * Holly Johnston MD - 04/30/2020 2:30 PM CST Cardiothoracic Surgery [place] History & Physical [facility] Dr. Rajendra Schilling & Dr. Holly Johnston Leona Calvo 1955 Reason for Consult: Abdominal bloating following hiatal hernia repair Physician Requesting Consult: Hunter PCP: Chon New or Established Patient: Established Chief Complaint: Chief Complaint Patient presents with ??? Post-op Problem HPI: Leona Calvo is 64 y.o. White female with a recent laparoscopic hiatal hernia repair on 04/18/20, discharged home 04/19/20, who presents to the ER with abdominal distension, bloating, and discomfort. She denies emesis, but notes mild nausea. She notes she has not had a bowel movement in many days. She denies chest pain, shortness of breath, or vomiting. HOME MEDICATIONS : acetaminophen (TYLENOL) suspension 160 [...] risk ??? Penicillin G Other (See comments) Past Medical History: Diagnosis Date ??? ADHD (attention deficit hyperactivity disorder) ??? Anemia ??? Anxiety ??? Aortic calcification (CMS/HCC) ??? Arthritis ??? Asthma ??? Perea esophagus ??? Bipolar disorder (CMS/HCC) ??? Constipation ??? COPD (chronic obstructive pulmonary disease) (CMS/HCC) sleeps sitting up ??? Depression ??? GERD (gastroesophageal reflux disease) ??? Hiatal hernia ??? Hyperlipidemia ??? Hypertension ??? Type 2 diabetes mellitus (CMS/HCC) ??? Vitamin D deficiency Past Surgical History: Procedure Laterality Date ??? EYE SURGERY sty ??? HEMORRHOID SURGERY ??? TONSILLECTOMY/ADENOIDECTOMY ??? WRIST SURGERY Right ORIF with pins Family History Problem Relation Age of Onset [...] Sister ??? Stroke Sister ??? Hyperlipidemia Sister Social History Socioeconomic History ??? Marital status: Spouse name: Not on file ??? Number of children: Not on file ??? Years of education: Not on file ??? Highest education level: Not on file Occupational History ??? Not on file Social Needs ??? Financial resource strain: Not on file ??? Food insecurity Worry: Not on file Inability: Not on file ??? Transportation needs Medical: Not on file Non-medical: Not on file Tobacco Use ??? Smoking status: Current Every Day Smoker Packs/day: 0.75 Types: Cigarettes ??? Smokeless tobacco: Never Used Substance and Sexual Activity ??? Alcohol use: Not on file Comment: rarely ??? Drug use: Never ??? Sexual activity: Defer Lifestyle ??? Physical activity Days per week: Not on file Minutes per session: Not on file ??? Stress: Not on file Relationships ??? Social connections Talks on phone: Not on file Gets together: Not on file Attends scientology service: Not on file Active member of club or organization: Not on file Attends meetings of clubs or organizations: Not on file Relationship status: Not on file ??? Intimate partner violence Fear of current or ex partner: Not on file Emotionally abused: Not on file Physically abused: Not on file Forced sexual activity: Not on file Other Topics Concern ??? Not on file Social History Narrative ??? Not on file Review of Systems - Review of Systems negative except those described in HPI and below: Review of Systems Constitutional: Negative. HENT: Negative. Eyes: Negative. Respiratory: Negative. Cardiovascular: Negative. Gastrointestinal: Positive for abdominal distention, constipation, diarrhea and nausea. Negative for vomiting. Genitourinary: Negative. Musculoskeletal: Negative. Neurological: Negative. Hematological: Negative. Psychiatric/Behavioral: Negative. Vital Signs: Vitals: 04/30/20 1310 BP: 146/89 Pulse: 85 Resp: 16 Temp: SpO2: 100% Body surface area is 1.71 meters squared. Physical Exam Vitals signs reviewed. Constitutional: Appearance: Normal appearance. HENT: Head: Normocephalic and atraumatic. Nose: Nose normal. Mouth/Throat: Mouth: Mucous membranes are moist. Pharynx: Oropharynx is clear. Eyes: Extraocular Movements: Extraocular movements intact. Conjunctiva/sclera: Conjunctivae normal. Neck: Musculoskeletal: Normal range of motion and neck supple. Cardiovascular: Rate and Rhythm: Normal rate and regular rhythm. Pulses: Normal pulses. Heart sounds: Normal heart sounds. Pulmonary: Effort: Pulmonary effort is normal. Breath sounds: Normal breath sounds. Abdominal: General: There is distension. Palpations: Abdomen is soft. Tenderness: There is no abdominal tenderness. Musculoskeletal: Normal range of motion. General: No swelling. Skin: General: Skin is warm and dry. Neurological: General: No focal deficit present. Mental Status: She is alert and oriented to person, place, and time. Psychiatric: Mood and Affect: Mood is anxious. Labs: Recent Labs Lab Units 04/30/20 0354 WBC K/cumm 13.3* HEMOGLOBIN g/dL 14.4 HEMATOCRIT % 43.0 PLATELETS K/cumm 556* Recent Labs Lab Units 04/30/20 0354 SODIUM mmol/L 136 POTASSIUM PLASMA mmol/L 3.8 CHLORIDE mmol/L 96* CO2 mmol/L 25 ANIONGAP mmol/L 15 GLUCOSE mg/dL 119 BUN SERUM mg/dL 9 CREATININE mg/dL 0.70 CALCIUM mg/dL 9.8 ALBUMIN g/dL 4.9 ALK PHOS Units/L 117 ALT Units/L 39 AST Units/L 23 BILIRUBIN TOTAL mg/dL 0.4 Data/Testing: CT abdomen/pelvis - 04/30/20 - distended stomach, no signs of bowel obstruction, hiatal hernia repair intact Assessment and Plan Assessment: 64 year-old female with recent hiatal hernia repair with abdominal bloating and nausea Plan: We discussed that her symptoms are common after the type of surgery she had and that she doesnot need to be admitted to the hospital at this time. We recommended starting Reglan (10 mg TID) toaid gastric emptying. She recently got a prescription for Zofran, which should help her nausea. Shewill also get a more aggressive bowel regimen with laxatives and suppositories from the ER. I advised her that she can advance to soft foods today. She can go home from the ER. I will see her in the office at her scheduled post-operative visit on 05/24/20. She knows to call my office if she has further questions. She understands and agrees to this plan. Holly Johnston MD Cardiothoracic Surgery [facility] [phone] 04/30/20202:30 PM HEALTH NURSE documented in this encounter ED Notes * Diego Harrison, - 04/30/2020 6:41 AM CST HPI Chief Complaint Patient presents with ??? Post-op Problem Patient with a history of hiatal hernia status post repair by Dr. Johnston on 04/18/2020, bipolar, anxiety, constipation, COPD, diabetes presents emergency department with postop complaints as sent in by her surgeon Dr. Johnston. Patient states that she has trouble passing flatulence since her surgery, it takes her 4-5 hours to pass gas. She also complains of intermittent diffuse bilateral lower quadrant abdominal cramps as well as less frequent intermittent diffuse bilateral upper quadrant abdominal cramps. She endorses associated nausea but denies any vomiting. She also complains of pressure at her 5laparoscopic incision sites. She also complains that she is constipated despite being on MiraLax, but having diarrhea. Her last bowel movement was Thursday night and was all liquid. She states that she has been tolerating p.o. intake, but eating only liquid and soft food. She states that her symptoms are markedly improved with Zofran however she is under the impression that she can only take it once a day and states that the relief only lasts for approximately 6-8 hours leaving her with symptoms for the rest of the 24 hour day. She denies any fevers or chills. She called her surgeon Dr. Johsnton and was advised to come to the emergency department. No other modifying factors, no other associated symptoms. Patient History: Patient Active Problem List Diagnosis Date Noted ??? Hiatal hernia 04/05/2020 Past Medical History: Diagnosis Date ??? ADHD (attention deficit hyperactivity disorder) ??? Anemia ??? Anxiety ??? Aortic calcification (CMS/HCC) ??? Arthritis ??? Asthma ??? Perea esophagus ??? Bipolar disorder (CMS/HCC) ??? Constipation ??? COPD (chronic obstructive pulmonary disease) (CMS/HCC) sleeps sitting up ??? Depression ??? GERD (gastroesophageal reflux disease) ??? Hiatal hernia ??? Hyperlipidemia ??? Hypertension ??? Type 2 diabetes mellitus (CMS/HCC) ??? Vitamin D deficiency Past Surgical History: Procedure Laterality Date ??? EYE SURGERY sty ??? HEMORRHOID SURGERY ??? TONSILLECTOMY/ADENOIDECTOMY ??? WRIST SURGERY Right ORIF with pins Family History Problem Relation Age of Onset [...] Sister ??? Stroke Sister ??? Hyperlipidemia Sister Social History Tobacco Use ??? Smoking status: Current Every Day Smoker Packs/day: 0.75 Types: Cigarettes ??? Smokeless tobacco: Never Used Substance Use Topics ??? Alcohol use: Not on file Comment: rarely ??? Drug use: Never Social History Social History Narrative ??? Not on file Review of Systems Review of Systems All other systems reviewed and are negative. Physical Exam ED Triage Vitals [04/30/20 0315] Temp Pulse Resp BP SpO2 36.4 ??C (97.6 ??F) 71 19 148/83 99 % Temp src Heart Rate Source Patient Position BP Location FiO2 (%) Oral -- -- -- -- Physical Exam Vitals signs and nursing note reviewed. Constitutional: General: She is not in acute distress. Appearance: She is well-developed and overweight. HENT: Head: Normocephalic and atraumatic. Right Ear: External ear normal. Left Ear: External ear normal. Nose: Nose normal. Mouth/Throat: Mouth: Mucous membranes are moist. Eyes: Extraocular Movements: Extraocular movements intact. Pupils: Pupils are equal, round, and reactive to light. Neck: Musculoskeletal: Neck supple. No spinous process tenderness. Comments: No step-offs Cardiovascular: Rate and Rhythm: Normal rate and regular rhythm. Pulmonary: Effort: Pulmonary effort is normal. No respiratory distress. Chest: Chest wall: No tenderness. Abdominal: General: Abdomen is protuberant. There is distension. Palpations: Abdomen is soft. Tenderness: There is generalized abdominal tenderness (Mild). There is no right CVA tenderness, left CVA tenderness, guarding or rebound. Comments: Five laparoscopic incisions which are CDI Musculoskeletal: Normal range of motion. General: No deformity. Cervical back: She exhibits no bony tenderness. Thoracic back: She exhibits no bony tenderness. Lumbar back: She exhibits no bony tenderness. Right lower leg: No edema. Left lower leg: No edema. Comments: Back - No step-offs Calf circumference equal bilaterally. Negative calf squeeze, negative Wendy sign. Skin: General: Skin is warm and dry. Neurological: General: No focal deficit present. Mental Status: She is alert and oriented to person, place, and time. Psychiatric: Mood and Affect: Mood is anxious. Behavior: Behavior normal. Comments: Odd affect MDM Medical Decision Making Differential Diagnosis or Management Options: Patient treated with fentanyl and Zofran, she states that she does not react well to opiates, will use fentanyl for short-acting half life. Given patient's anxiety she was offered and given Ativan, she normally takes 2 mg of Xanax p.o. 3 times a day. Will obtain CT scan consult patient's surgeon. Concern that this represents constipation with overflow diarrhea ED Course as of Apr 30 1332 Time: 04/30 629 Comment: Advised by Dr. Alonso who states call from Dr. Johnston early this morning requesting CT abdomen pelvis with p.o. contrast By: Diego Harrison DO Time: 04/30 956 Comment: Consult placed to the patient's surgeon Dr. Johnston By: Diego Harrison DO Time: 04/30 1008 Comment: Difficulty reaching Dr. Johnston will start enema and suppository due to concern for overflow diarrhea By: Diego Harrison DO Time: 04/30 1328 Comment: Pt seen by Dr. Johnston, he states the patient is clear for discharge home, he is already called in Zofran for her but requests that we call in Reglan 10 mg t.i.d. times 30 days and give her an extensive bowel regiment By: Diego Harrison DO Time: 04/30 1326 Comment: Discussed ED findings and plans for discharge. Patient advised to follow-up as directed and return to the emergency department with any new or worsening symptoms or if unable to follow up asdirected. Patient verbalized understanding and agreement with this plan. All questions answered. By: Diego Harrison DO Final diagnoses: Abdominal pain Overflow diarrhea Diego Harrison DO 04/30/20 1332 HEALTH NURSE * Lin Arambula RN - 04/30/2020 3:17 AM CST Pt appears to be anxious. Pt unable to sit still. HEALTH NURSE * Lin Arambula RN - 04/30/2020 3:09 AM CST Pt reports she had hiatal hernia surgery on 04/18/[address] Johnston. Pt reports that she feels as ifshe is unable to release gas, but is able to release gas some days. Pt reports she called her doctor about nausea and inability to release gas and the doctor told her to come in to the ER. The pt also reports that she is feeling pressure at the incision site. HEALTH NURSE documented in this encounter Plan of Treatment Not on file documented as of this encounter Procedures Procedure Name Priority Date/Time Associated Diagnosis Comments CT ABDOMEN PELVIS W CONTRAST ED Urgent/IP Urgent 04/30/2020 8:52 AM HOME HEALTH NURSE EGFR STAT 04/30/2020 3:54 AM HOME HEALTH NURSE DIFFERENTIAL AUTO STAT 04/30/2020 3:5 4 AM HOME HEALTH NURSE CBC WITH AUTO DIFFERENTIAL STAT 04/30/2020 3:54 AM HOME HEALTH NURSE LIPASE STAT 04/30/2020 3:54 AM HOME HEALTH NURSE COMPREHENSIVE METABOLIC PANEL STAT 04/30/2020 3:54 AM HOME HEALTH NURSE documented in this encounter Results * CT Abdomen Pelvis W Contrast (04/30/2020 8:52 AM HOME HEALTH NURSE) Anatomical Region Laterality Modality Body N/A Computed Tomogra phy 04/30/2020 9:11 AM HOME HEALTH NURSE Impressions 04/30/2020 9:18 AM HOME HEALTH NURSE 1. POSTSURGICAL CHANGES OF A BRETT FUNDOPLICATION. THERE IS DISTENTION OF THE STOMACH BUT NO EVIDENCE OF GASTRIC OUTLET OBSTRUCTION. PARTIAL GASTRIC ILEUS MAY BE PRESENT. 2. ABNORMAL SPLEEN WITH WHAT APPEARS TO BE A SMALL SUBCAPSULAR HEMATOMA. 3. DIVERTICULOSIS OF THE SIGMOID COLON Electronically signed by: Mak Shah M.D. Narrative 04/30/2020 9:18 AM HOME HEALTH NURSE EXAMINATION: CT ABDOMEN PELVIS W CONTRAST dated 04/30/2020 8:45 AM HISTORY: 64-year-old woman with abdominal distention. History of hiatal hernia repair a month ago. COPD, diabetes TECHNIQUE: Spiral post contrasted CT using 98 mL Optiray 350. Oral contrast utilized as well. Multiplanar reconstructions FINDINGS: No priors. Production Quality Manager radiograph demonstrates distention of bowel in the upper abdomen. Lung bases normally aerated with minimal atelectasis at both bases without infiltrates or fluid. Normal heart size. Surgical repair of a hiatal hernia is noted. Thickening of the gastroesophageal junction is seen. The filling defect seen within the gastric fundus is likely a Brett fundoplication defect. There is evidence of distention of the stomach with a large fluid level however no evidence of gastric outlet obstruction is seen with oral contrast seen within the jejunum. Small bowel is of normal caliber. Liver size upper limits of normal measuring 19.8 cm in length. Mild fatty liver. No hepatic mass is seen or biliary dilatation. Small cyst like lesion seen in the left lobe of the liver. Normal gallbladder without biliary dilatation. The spleen is abnormal, with a subcapsular lucency seen along the medial aspect of the upper pole of the spleen measuring 3.1 x 2 cm possibly a subcapsular hematoma. The adrenal glands and pancreas are normal. Kidneys are normal. There is no free fluid or free air. Small bowel loops are of normal caliber. Colon contains stool without abnormality. Diverticulosis of the sigmoid colon is noted. There is a retroverted age appropriate uterus. Urinary bladder is smooth in outline. Small fat-containing inguinal hernia on the right side. Mild atherosclerosis in the aorta and iliac without aneurysmal dilatation. Coronal views demonstrate a distended stomach but no evidence of gastric outlet obstruction. The lumbar spine demonstrates multilevel degenerative changes without compression deformity Procedure Note Mak Shah MD - 04/30/2020 EXAMINATION: CT ABDOMEN PELVIS W CONTRAST dated 04/30/2020 8:45 AM HISTORY: 64-year-old woman with abdominal distention. History of hiatal hernia repair a month ago. COPD, diabetes TECHNIQUE: Spiral post contrasted CT using 98 mL Optiray 350. Oral contrast utilized as well. Multiplanar reconstructions FINDINGS: No priors. Production Quality Manager radiograph demonstrates distention of bowel in the upper abdomen. Lung bases normally aerated with minimal atelectasis at both bases without infiltrates or fluid. Normal heart size. Surgical repair of a hiatal hernia is noted. Thickening of the gastroesophageal junction is seen. The filling defect seen within the gastric fundus is likely a Brett fundoplication defect. There is evidence of distention of the stomach with a large fluid level however no evidence of gastric outlet obstruction is seen with oral contrast seen within the jejunum. Small bowel is of normal caliber. Liver size upper limits of normal measuring 19.8 cm in length. Mild fatty liver. No hepatic mass is seen or biliary dilatation. Small cyst like lesion seen in the left lobe of the liver. Normal gallbladder without biliary dilatation. The spleen is abnormal, with a subcapsular lucency seen along the medial aspect of the upper pole of the spleen measuring 3.1 x 2 cm possibly a subcapsular hematoma. The adrenal glands and pancreas are normal. Kidneys are normal. There is no free fluid or free air. Small bowel loops are of normal caliber. Colon contains stool without abnormality. Diverticulosis of the sigmoid colon is noted. There is a retroverted age appropriate uterus. Urinary bladder is smooth in outline. Small fat-containing inguinal hernia on the right side. Mild atherosclerosis in the aorta and iliac without aneurysmal dilatation. Coronal views demonstrate a distended stomach but no evidence of gastric outlet obstruction. The lumbar spine demonstrates multilevel degenerative changes without compression deformity IMPRESSION: 1. POSTSURGICAL CHANGES OF A BRETT FUNDOPLICATION. THERE IS DISTENTION OF THE STOMACH BUT NO EVIDENCE OF GASTRIC OUTLET OBSTRUCTION. PARTIAL GASTRIC ILEUS MAY BE PRESENT. 2. ABNORMAL SPLEEN WITH WHAT APPEARS TO BE A SMALL SUBCAPSULAR HEMATOMA. 3. DIVERTICULOSIS OF THE SIGMOID COLON Electronically signed by: Mak Shah M.D. us Diego Gallardo Hunter DO IMG CT PROCEDURES Final Resul t * eGFR (04/30/2020 3:54 AM HOME HEALTH NURSE) [facility] eGFR 93 mL/min/1.7 3 m2 ASHLEIGH ADAIR Comment: Interpretive Data Reference Interval Normal ?>/= 90 mL/min/1.73m2 Mildly decreased* ? 60 - 89 mL/min/1.73m2 Mildly to moderately decreased ?45 - 59 mL/min/1.73m2 Moderately to severely decreased ??30 - 44 mL/min/1.73m2 Severely decreased ?15 - 29 mL/min/1.73m2 Kidney Failure ?< 15 ??mL/min/1.73m2 *Relative to young adult level If -Leb[place] multiply value by 1.16. Estimated glomerular filtration rate is determined by the CKD-EPI equation recommended by the National Kidney Foundation (KDIGO 2012 Clinical Practice Guideline for the Evaluation and Management of Chronic Kidney Disease. Kidney Intnl Suppl Jun 2012;3:1). The CKD-EPI equation should not be used for patients with unstable renal function and has not been validated in children and those over 70. Current interpretive data was last reviewed 2016. Blood specimen (specimen) 04/30/2020 3:54 AM HOME HEALTH NURSE 04/30/2020 3:57 AM HOME HEALTH NURSE us Dion Alonso MD LAB BLOOD ORDERABLES Final Result [facility] [address] [place] [address] * (ABNORMAL) Differential, auto (04/30/2020 3:54 AM HOME HEALTH NURSE) Neutrophil abs 9.9(H) 1.7 - 6.5 K[facility] Imm gran abs 0.0 0.0 - 0.1 K/cumm [facility] Lymphocyte abs 2.4 0.8 - 3.3 K/cumm [facility] Monocyte abs 0.8 0.2 - 0.8 K/cumm [facility] Eosinophil abs 0.0 0.0 - 0.5 K/cumm [facility] Basophil abs 0.1 0.0 - 0.1 K/cumm [facility] Neutrophil pct 74.4 % [facility] Comment: Interpretive Data Percent cell count reference ranges are not reported, since discordance with absolute values may lead to misinterpretation of CBC data. Current Interpretive Data was last revised on 2017. Imm gran pct 0.3 % [facility] Comment: Interpretive Data Percent cell count reference ranges are not reported, since discordance with absolute values may lead to misinterpretation of CBC data. Current Interpretive Data was last revised on 2017. Lymphocyte pct 18.3 % [facility] Comment: Interpretive Data Percent cell count reference ranges are not reported, since discordance with absolute values may lead to misinterpretation of CBC data. Current Interpretive Data was last revised on 2017. Monocyte pct 6.2 % [facility] Comment: Interpretive Data Percent cell count reference ranges are not reported, since discordance with absolute values may lead to misinterpretation of CBC data. Current Interpretive Data was last revised on 2017. Eosinophil pct 0.3 % [facility] Comment: Interpretive Data Percent cell count reference ranges are not reported, since discordance with absolute values may lead to misinterpretation of CBC data. Current Interpretive Data was last revised on 2017. Basophil pct 0.5 % [facility] Comment: Interpretive Data Percent cell count reference ranges are not reported, since discordance with absolute values may lead to misinterpretation of CBC data. Current Interpretive Data was last revised on 2017. Blood specimen (specimen) 04/30/2020 3:54 AM HOME HEALTH NURSE 04/30/2020 3:56 AM HOME HEALTH NURSE us Dion Alonso MD LAB BLOOD ORDERABLES Final Result Performing Organization Address [facility] Co de Phone Number [facility] [id number] [place] [address] * (ABNORMAL) Lipase (04/30/2020 3:54 AM HOME HEALTH NURSE) Lipase 109(H) 10 - 99 Units/L [facility] Blood specimen (specimen) 04/30/2020 3:54 AM HOME HEALTH NURSE 04/30/2020 3:56 AM HOME HEALTH NURSE us Dion Alonso MD LAB BLOOD ORDERABLES Final Result Performing Organization Address [facility] de Phone Number [facility] [id number] Department of [employer] [place] [address] * (ABNORMAL) Comprehensive metabolic panel (04/30/2020 3:54 AM HOME HEALTH NURSE) Sodium 136 135 - 145 mmol/L [facility] Potassium, pl 3.8 3.3 - 4.9 mmol/L [facility] Chloride 96(L) 97 - 110 mmol/L [facility] CO2 25 22 - 32 mmol/L [facility] Anion gap 15 2 - 15 mmol/L [facility] BUN 9 8 - 25 mg/dL [facility] Creatinine 0.70 0.60 - 1.10 mg/dL [facility] Glucose 119 70 - 199 mg/dL [facility] Comment: Interpretive Data Fasting glucose >/= 126 mg/dl is diagnostic for diabetes. ?? Fasting is defined as no caloric intake for at least 8 hours. Fasting glucose between 100 mg/dl to 125 mg/dl is diagnostic of prediabetes. In a patient with classic symptoms of hyperglycemia or hyperglycemic crisis, a random glucose >/= 200 mg/dl is diagnostic for diabetes. In the absence of unequivocal hyperglycemia, results should be confirmed by repeat testing. The classification and Diagnosis of Diabetes Diabetes Care 2017;40 (Suppl. 1):S11. Current interpretive data was last revised 2017. Calcium 9.8 8.5 - 10.3 mg/dL [facility] Bilirubin, total 0.4 0.1 - 1.2 mg/dL [facility] Protein, pl 7.8 6.5 - 8.5 g/dL [facility] Albumin 4.9 3.5 - 5.0 g/dL [facility] Alk phos 117 40 - 130 Units/L [facility] ALT 39 7 - 45 Units/L [facility] AST 23 10 - 45 Units/L [facility] Blood specimen (specimen) 04/30/2020 3:54 AM HOME HEALTH NURSE 04/30/2020 3:56 AM HOME HEALTH NURSE us Dion Alonso MD LAB BLOOD ORDERABLES Final Result [facility] [id number] Department [place] [address] * (ABNORMAL) CBC with auto differential (04/30/2020 3:54 AM HOME HEALTH NURSE) WBC 13.3(H) 3.8 - 9.9 K/cumm [facility] Hgb 14.4 11.9 - 15.5 g/dL [facility] Hct 43.0 35.6 - 45.5 % [facility] Plt 556(H) 150 - 400 K/cumm [facility] MPV 9.9 9.1 - 12.3 fL [facility] RBC 4.94 3.90 - 5.20 M/cumm [facility] MCV 87.0 81.3 - 96.4 fL [facility] MCH 29.1 27.1 - 33.3 pg [facility] MCHC 33.5 32.3 - 35.7 g/dL [facility] RDW CV 14.7 11.1 - 14.9 % [facility] RDW SD 46.5 35.7 - 48.1 fL [facility] NRBC abs 0.00 0.00 - 0.01 K/cumm [facility] Blood specimen (specimen) 04/30/2020 3:54 AM HOME HEALTH NURSE 04/30/2020 3:56 AM HOME HEALTH NURSE us Dion Alonso MD LAB [place]LOOD [place] [address] [address] Department [place] [address] documented in this encounter Visit Diagnoses Diagnosis Abdominal pain- Primary Abdominal pain, unspecified site Overflow diarrhea Achlorhydria documented in this encounter Administered Medications Inactive Administered Medications - up to 3 most recent administrations Medication Order MAR Action Action Date Dose Rate Site bisacodyL (DULCOLAX) suppository 10 mg 10 mg, rectal, Once, On Thu04/30/20 at 1009, For 1 dose, Indications: constipationIndications:constip ation Given 04/30/2020 10:46 AM HOME HEALTH NURSE 10 mg fentaNYL (SUBLIMAZE) preservative free injection 50 mcg 50 mcg, intravenous, Once, On Thu04/30/20 at 0624, For 1 dose Given 04/30/2020 6:58 AM HOME HEALTH NURSE 50 mcg iohexoL (OMNIPAQUE 9) 9 mg iodine/mL solution solution 1 Bottle 1 Bottle, oral, Once, On Thu04/30/20 at 0706, For 1 dose Given 04/30/2020 7:35 AM HOME HEALTH NURSE 1 Bottle ioversoL (OPTIRAY 350) syringe syringe 100 mL 100 mL, intravenous, Once in imaging, contrast, Starting on Thu04/30/20 at 0704, For 1 dose Given 04/30/2020 8:49 AM HOME HEALTH NURSE 98 mL LORazepam (ATIVAN) injection 2 mg 2 mg, intravenous, Once, On Thu04/30/20 at 0625, For 1 dose, For IV administration, dilute with equal volume of 0.9% sodium chloride. Do not exceed a rate of 2 mg/minute Given 04/30/2020 7:02 AM HOME HEALTH NURSE 2 mg magnesium citrate oral solution 296 mL 296 mL, oral, Once, On Thu04/30/20 at 1330, For 1 dose Given 04/30/2020 2:32 PM HOME HEALTH NURSE 296 mL mineral oil (FLEET MINERAL OIL) enema 1 enema 1 enema, rectal, Once, On Thu04/30/20 at 1009, For 1 dose, Indications: constipationIndications:constip ation Given 04/30/2020 12:06 PM HOME HEALTH NURSE 1 enema ondansetron (ZOFRAN) injection 4 mg 4 mg, intravenous, Administer over 2 Minutes, Once, On Thu04/30/20 at 0624, For 1 dose, Indications: Nausea, VomitingIndications:Nausea,Vomi ting Given 04/30/2020 6:46 AM HOME HEALTH NURSE 4 mg documented in this encounter Active and Recently Administered Medications Times are shown in HOME HEALTH NURSE. Scheduled Medication Order 04/28/2020 04/29/2020 04/30/2020 bisacodyL (DULCOLAX) suppository 10 mg (COMPLETED) 10 mg, rectal, Once, On Thu04/30/20 at 1009, For 1 dose, Indications: constipation 1046 (Given - Provid er: Gina Levin RN) fentaNYL (SUBLIMAZE) preservative free injection 50 mcg (COMPLETED) 50 mcg, intravenous, Once, On Thu04/30/20 at 0624, For 1 dose 0658 (Given - Provid er: Gina Levin RN) iohexoL (OMNIPAQUE 9) 9 mg iodine/mL solution solution 1 Bottle (COMPLETED) 1 Bottle, oral, Once, On Thu04/30/20 at 0706, For 1 dose 0735 (Given - Provid er: Gina Levin RN) LORazepam (ATIVAN) injection 2 mg (COMPLETED) 2 mg, intravenous, Once, On Thu04/30/20 at 0625, For 1 dose, For IV administration, dilute with equal volume of 0.9% sodium chloride. Do not exceed a rate of 2 mg/minute 0702 (Given - Provid er: Gina Levin RN) magnesium citrate oral solution 296 mL (COMPLETED) 296 mL, oral, Once, On Thu04/30/20 at 1330, For 1 dose 1432 (Given - Provid er: Gina Levin RN) mineral oil (FLEET MINERAL OIL) enema 1 enema (COMPLETED) 1 enema, rectal, Once, On Thu04/30/20 at 1009, For 1 dose, Indications: constipation 1206 (Given - Provid er: Gina Levin RN) ondansetron (ZOFRAN) injection 4 mg (COMPLETED) 4 mg, intravenous, Administer over 2 Minutes, Once, On Thu04/30/20 at 0624, For 1 dose, Indications: Nausea, Vomiting 0646 (Given - Provid er: Gina Levin, KIRA) PRN Medication Order 04/28/2020 04/29/2020 04/30/2020 ioversoL (OPTIRAY 350) syringe syringe 100 mL (COMPLETED) 100 mL, intravenous, Once in imaging, contrast, Starting on 04/30/20 at 0704, For 1 dose 0849 (Given - Provid er: Arcadio Cox, RT - Comment: Air purged from line.) documented in this encounter Care Teams Bolt Sorter Relationship Specialty Start Date End Date Nurys Givens MD PCP - General 03/08/14 Holly Johnston MD Fellow Vascular Surgery 04/19/20 documented as of this encounter
--- OUTSIDE RECORDS SUMMARY | 2024-06-19 21:16 | XMS_ITS | Encounter Summary ---
Author Organization [facility] Healthcare Address [address] [place] [address] Care Team Providers Care Information Technology Specialist Name Role Phone Nurys Givens MD Primary Care Provider + Holly Johnston MD Unavailable [phone] Encounter Details Date Type Department Care Team (Latest Contact Info) Description 04/18/2020 5:59 AM CDT - 04/19/2020 6:10 PM CDT Hospital Encounter [address] [address] Holly Johnston MD [address] [facility] [id number] [place] [address] Hiatal hernia Discharge Disposition: Discharge to home or self care Social History Tobacco Use Types Packs/Day Years Used Date Smoking Tobacco: Every Day Cigarettes Smokeless Tobacco: Never Comments Unknown Sex and Gender Information Value Date Recorded Sex Assigned at Not on file 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 Gender Identity Not on file Sexual Orientation Straight 05/23/2020 11 :19 AM PROJECT DEVELOPMENT LEADER documented as of this encounter Last Filed Vital Signs Vital Sign Reading Time Taken Comments Blood Pressure 137/66 04/19/2020 11:17 AM CDT Pulse 92 04/19/2020 12:02 PM CDT Temperature 36.6 ??C (97.8 ??F) 04/19/2020 11:17 AM C DT Respiratory Rate 16 04/19/2020 11:17 AM CDT Oxygen Saturation 94% 04/19/2020 11:17 AM CDT Inhaled Oxygen Concentration - - Weight 67.6 kg (149 lb) 04/18/2020 7:17 AM CDT Height 154.9 cm (5' 1 ) 04/18/2020 7:17 AM CDT Body Mass Index 28.15 04/18/2020 7:17 AM CDT documented in this encounter Discharge Diagnoses Diagnosis Diaphragmatic hernia without obstruction or gangrene - DIAPHRAGMATIC HERNIA WITHOUT OBSTRUCTION OR GANGRENE Diaphragmatic hernia without mention of obstruction or gangrene Gastro-esophageal reflux disease without esophagitis - GASTRO-ESOPHAGEAL REFLUX DISEASE WITHOUT ESOPHAGITIS Type 2 diabetes mellitus without complications (CMS/HCC) (HCC) - TYPE 2 DIABETES MELLITUS WITHOUT COMPLICATIONS Chronic obstructive pulmonary disease, unspecified (HCC) - CHRONIC OBSTRUCTIVE PULMONARY DISEASE, UNSPECIFIED Hyperlipidemia, unspecified - HYPERLIPIDEMIA, UNSPECIFIED Iron deficiency anemia, unspecified - IRON DEFICIENCY ANEMIA, UNSPECIFIED Nicotine dependence, cigarettes, uncomplicated - NICOTINE DEPENDENCE, CIGARETTES, UNCOMPLICATED Anxiety disorder, unspecified - ANXIETY DISORDER, UNSPECIFIED Essential (primary) hypertension - ESSENTIAL (PRIMARY) HYPERTENSION Unspecified essential hypertension Perea's esophagus without dysplasia - PEREA'S ESOPHAGUS WITHOUT DYSPLASIA Other snf (current) drug therapy - 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 Johnston on 04/18/20. HPI: Leona Calvo is 64 y.o. White female with a history of bipolar disorder, depression, anxiety, GERD, Perea's esophagus, COPD, with long-standing history of chest heaviness, post-prandial epigastric discomfort, and an unintended 10- pound weight loss over the last year found incidentally to have a hiatal hernia. She was also noted to be anemic and has been on iron therapy with some improvem ent in her anemia, but with increasing constipation. While she is able to swallow without difficulty, food seems to get stuck at the level of the epigastrium with epigastric discomfort post-prandially for approximately on hour. She had a recent stress test due to her pain that was negative for a car diac cause of her symptoms. She was brought in for hiatal hernia repair. Hospital Course: Leona Calvo was taken to the operating room on 04/18/20 for hiatal hernia repair, performed by Dr. Schilling. Leona Calvo was taken to the PACU in stable condition postoperatively. The patent was transferred to [address] [place], [place] [address]etry. The patient progressed as expected. Aggressive physical therapy and pulmonary toilet were initiated. Barium swallow evaluation was performed with no evidence of extravasation. Diet was advanced to full liquids (patient instructed to continue for 2 weeks, then self advance to soft for 1 week, then regular). Once the patient was medically stable, Leona Calvo was discharged to Home. Post Op Complications: none Significant labs: Lab Results Component Value Date WBC 7.9 04/19/2020 HGB 11.9 04/19/2020 HCT 38.7 04/19/2020 LABPLAT 218 04/19/2020 Lab Results Component Value Date SODIUM 140 04/19/2020 POTASSIUM 4.0 04/19/2020 CHLORIDE 105 04/19/2020 CO2 23 04/19/2020 ANIONGAP 12 04/19/2020 GLUCOSE 86 04/19/2020 BUNSER 12 04/19/2020 CREATININE 0.91 04/19/2020 CALCIUM 8.2 (L) 04/19/2020 Lab Results Component Value Date APTT 33 04/12/2020 INR 0.9 04/12/2020 04/19/20 FL Esophagram: Delayed emptying of the esophagus into the stomach. This is most likely dueto postoperative edema. No evidence of contrast extravasation. Gastric distention. Discharge Medications: Current Discharge Medication List START taking these medications Details acetaminophen (TYLENOL) suspension 160 mg/5 mL Take 31 mL (1,000 mg total) by mouth every 6 (six) hours Qty: Comments: Over the counter docusate sodium (COLACE) 100 mg capsule Take 1 capsule (100 mg total) by mouth 2 (two) times a day Comments: Over the counter oxyCODONE (ROXICODONE) 5 mg immediate release tablet Take 1 tablet (5 mg total) by mouth every 4 (four) hours as needed for pain Qty: 30 tablet, Refills: 0 polyethylene glycol (MIRALAX) 17 gram packet Take 1 packet (17 g total) by mouth daily Comments: Over the counter Current Discharge Medication List STOP taking these medications calcium carbonate (TUMS) 500 mg calcium (200 mg of elemental calcium) chewable tablet Comments: mayresume when advanced to regular diet Reason for Stopping: ascorbic acid (ascorbic acid) 500 mg tablet,chewable Comments: may resume when advanced to regular di Reason for Stopping: cholecalciferol (VITAMIN D-3) 2000 unit tablet Comments: may resume when advanced to regular di Reason for Stopping: Current Discharge Medication List CONTINUE these medications which have NOT CHANGED Details ALPRAZolam (XANAX) 2 mg tablet Take 2 mg by mouth 3 (three) times a day as needed atorvastatin (LIPITOR) 40 mg tablet Take 40 mg by mouth daily busPIRone (BUSPAR) 15 mg tablet Take 45 mg by mouth 3 (three) times a day desvenlafaxine ER 50 mg 24 hr tablet Take 50 mg by mouth daily dextroamphetamine-amphetamine XR (ADDERALL XR) 30 mg 24 hr capsule Take 1 capsule by mouth daily esomeprazole DR (NexIUM) 40 mg capsule Take 40 mg by mouth 2 (two) times a day ezetimibe (ZETIA) 10 mg tablet Take 1 tablet by mouth daily famotidine (PEPCID) 20 mg tablet Take 20 mg by mouth 2 (two) times a day lamoTRIgine (LaMICtal) 200 mg tablet Take 200 mg by mouth nightly lisinopril-hydroCHLOROthiazide (ZESTORETIC) 20-25 mg per tablet Take 1 tablet by mouth daily montelukast (SINGULAIR) 10 mg tablet Take 10 mg by mouth nightly Ozempic 0.25 mg or 0.5 mg(2 mg/1.5 mL) pen injector Thursday umeclidinium-vilanteroL (Anoro Ellipta) 62.5-25 mcg/actuation blister with device Inhale daily albuterol 2.5 mg /3 mL (0.083 %) nebulizer solution Take 2.5 mg by nebulization every 6 (six) hoursas needed for wheezing albuterol HFA (PROVENTIL HFA,VENTOLIN HFA,PROAIR HFA) 90 mcg/actuation inhaler Inhale 2 puffs every4 (four) hours as needed aspirin 81 mg enteric coated tablet Take 81 mg by mouth daily bisacodyL (DULCOLAX) 10 mg suppository Insert 10 mg into the rectum daily as needed for constipation ferrous gluconate 324 mg (37.5 mg of elemental iron) tablet Take 324 mg by mouth every other day Physical Exam at discharge: Please see progress note from day of discharge. Code Status at Discharge: Full Code Discharge Instructions: Discharge Instructions: Physical therapy instructions provided. No tub baths. OK to shower. Incision open to air. Activity:avoid strenuous exercise, no heavy lifting, pushing, pulling greater than 5-10 lbs for 4 weeks and no driving for 4 weeks. Discharge Diet: full liquids Outpatient Follow-Up: Future Appointments Date Time Provider Department Center 05/24/2020 12:30 PM Holly Johnston MD [facility] Follow-up with Dr. Johnston 05/24/20 a 12:30PM Notify physician with fevers, chills, nausea, or vomiting, SOB, chest pain, or wound drainage. Leona Calvo was discharged and given a full set of written discharge instructions, and prescriptions. These were reviewed with the patient prior to discharge. She fully understood them and signedthe release form. She was discharged in a wheelchair in no acute distress, accompanied by family. Signed: Karlie Danielle NP Cardiothoracic Surgery [facility] [phone] 04/26/202012:44 PM Cosigned by Holly Johnston MD at 04/26/2020 4:56 PM PROJECT DEVELOPMENT LEADER ECT DEVELOPMENT LEADER ECT DEVELOPMENT LEADER documented in this encounter Discharge Instructions * Discharge Instr - Diet* Nga Mao RD - 04/19/2020 9:05 AM CDT Follow full liquid diet per Dr. Johnston and cardiothoracic surgery team & supplement with Ensure High Protein or Glucerna 1-2 times per day until appetite and intakes improve. Once clear for regular diet recommend to eat a generally healthy diet with foods that include a variety of fruits, vegetables, whole-grain breads, low-fat dairy products, beans, lean meats, and fish.Limit fast food, sugary drinks, excess salt, and desserts. Limit sugary drinks like lemonade, regular soda, Gatorade, and sweet tea and drink water throughout the day. Call [phone] to speak with a dietitian about any diet related concerns. Additional resources are available online from the Academy of Nutrition and Dietetics at www.eatright.org * Attachments The following attachments cannot be sent through Care Everywhere. * Heart Healthy Diet (Discharge Care) (Filipino) documented in this encounter Medications at Time [...] 04/20/2020 1 documented as of this encounter Ordered Prescriptions Prescription Sig Dispense Quantity Refills Last Filled Start Date End Date docusate sodium (COLACE) 100 mg capsuleIndications :constipation Take 1 capsule (100 mg total) by mouth 2 (two) times a day 04/19/2020 acetaminophen (TYLENOL) suspension 160 mg/5 mLIndications:Pain Take 31 mL (1,000 mg total) by mouth every 6 (six) hours 04/19/2020 1 polyethylene glycol (MIRALAX) 17 gram packetIndications: constipation Take 1 packet (17 g total) by mouth daily 04/20/2020 1 oxyCODONE (ROXICODONE) 5 mg immediate release tabletIndications: Pain Take 1 tablet (5 mg total) by mouth every 4 (four) hours as needed for pain 30 tablet 04/19/2020 1 documented in this encounter Discharge Disposition Disposition Code Departure Means Destination Discharge to home or self care documented in this encounter Progress Notes * Karlie Danielle, GEORGE - 04/19/2020 10:16 AM CDT Cardiothoracic Surgery Progress Note Leona Calvo 1955 Hospital DAY#1 Subjective: Patient resting in chair on room air, has just returned from swallow eval. Denies any nausea-not passing flatus, no BM. OBJECTIVE: Temp: [36.2 ??C (97.1 ??F)-36.6 ??C (97.8 ??F)] 36.3 ??C (97.3 ??F) Pulse: [67-95] 87 BP: (125-163)/(55-94) 139/75 Resp: [12-21] 16 SpO2: [90 %-100 %] 97 % Cardiac Rhythm: Normal sinus rhythm (04/19/20 0400) Wt Readings from Last 3 Encounters: 04/18/20 67.6 kg (149 lb) 04/12/20 70.3 kg (155 lb) 04/05/20 70.3 kg (155 lb) I/O this shift: In: - Out: 450 [Urine:450] I/O last 2 completed shifts: In: 4510 [I.V.:4010; IV Piggyback:500] Out: 245 [Urine:245] Physical Exam Vitals signs reviewed. Constitutional: Appearance: Normal appearance. HENT: Head: Normocephalic. Nose: Nose normal. Mouth/Throat: Mouth: Mucous membranes are dry. Eyes: Pupils: Pupils are equal, round, and reactive to light. Neck: Musculoskeletal: Normal range of motion. Cardiovascular: Rate and Rhythm: Normal rate and regular rhythm. Pulmonary: Effort: Pulmonary effort is normal. Breath sounds: Normal breath sounds. Abdominal: General: Bowel sounds are absent. Tenderness: There is abdominal tenderness (incision). Musculoskeletal: Normal range of motion. Skin: General: Skin is warm and dry. Capillary Refill: Capillary refill takes less than 2 seconds. Comments: Abdominal incision sites DENTAL PROSTHETIST dermabond C/D/I Neurological: General: No focal deficit present. Mental Status: She is alert and oriented to person, place, and time. Psychiatric: Mood and Affect: Mood normal. Behavior: Behavior normal. Access: peripheral IV Labs: Reviewed Recent Labs Lab Units 04/19/20 0511 WBC K/cumm 7.9 HEMOGLOBIN g/dL 11.9 HEMATOCRIT % 38.7 PLATELETS K/cumm 218 Recent Labs Lab Units 04/19/20 0511 SODIUM mmol/L 140 POTASSIUM PLASMA mmol/L 4.0 CHLORIDE mmol/L 105 CO2 mmol/L 23 BUN SERUM mg/dL 12 CREATININE mg/dL 0.91 CALCIUM mg/dL 8.2* Imaging: Esophagram 04/19: pending read Current Scheduled Medications: acetaminophen, 1,000 mg, oral, Q6H HEATHER Or acetaminophen, 1,000 mg, feeding tube, Q6H HEATHER Or acetaminophen, 650 mg, rectal, Q6H HEATHER aspirin, 81 mg, oral, Daily atorvastatin, 40 mg, oral, Nightly busPIRone, 45 mg, oral, BID docusate sodium, 100 mg, oral, BID Or docusate, 100 mg, feeding tube, BID enoxaparin, 40 mg, subcutaneous, Daily-2100 famotidine, 20 mg, intravenous, Daily ketorolac, 15 mg, intravenous, Q6H lamoTRIgine, 200 mg, oral, Nightly metoclopramide, 10 mg, intravenous, Q8H HEATHER montelukast, 10 mg, oral, Nightly ondansetron, 4 mg, intravenous, Q6H HEATHER sodium chloride 0.9%, 0.5-20 mL, intra-catheter, Q8H HEATHER Assessment and Plan: Principal Problem: Hiatal hernia Secondary Problems: Bipolar disorder ADHD Perea's esophagus GERD COPD Depression Anxiety HLD DM II Vitamin D Deficiency S/p Laparoscopic hiatal hernia repair, laparoscopic Chente gastroplasty performed by Dr. Johnston on 04/18/20. PT/OT: Aim for ambulation 4x daily. Pulmonary Toilet: IS every hour while awake. CVS: NSR. No acute issues Diet: Advance to full liquids today (continue for 2 weeks, then advance to mechanical soft for one week, then regular diet) GI: Swallow study reviewed by Dr. Johnston-no extravasation noted however there is contrast in the stomach. OK to advance to full liquid today. Patient educated to report any nausea. Continue Reglan untilpassing flatus, Miralax, Colace. Give suppository x1. Renal: BUN/Scr stable. D/c IVF D/L/T: PIV DVT/Stress prophylaxis: Pepcid, Lovenox Discharge Planning: Likely discharge home this afternoon if tolerates liquid diet. Follow up with Dr. Johnston in clinic on 05/24/20. Karlie Danielle NP Cardiothoracic Surgery [facility] Office: 04/19/2020 12:14 PM Cosigned by Holly Johnston MD at 04/19/2020 1:04 PM CDT * Nga Mao, RD - 04/19/2020 9:06 AM CDT Nutrition Assessment Reason for Assessment: Screened at Nutrition Risk and Initial Nutrition Assessment Encounter Date: 04/19/20 11:49 AM Nutrition Assessment and Plan: Patient is a 64 y.o. female. Admit Dx: DIAPHRAGMATIC HERNIA WITHOUT OBSTRUCTION OR GANGRENE/MT LAP,ESOPHAGOGAST FUNDOPLASTY. Admitted on 04/18/2020, current LOS is 1 days. PMH includes bipolar, depression, GERD, COPD, Perea's esophagus, hiatal hernia s/p hernia repair (esophagogastrofundoplasty) yesterday. Pt had been NPO s/p swallow evaluation this morning. Pt passed swallow evaluation w diet advancing to full liquids per CTS. 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 Pt reported having decreased appetite over the last 6 weeks with slightly decreased intakes and ~5lb Wt loss (3.2%, not clinically significant). No visible muscle/fat losses identified.Pt denied N/V/D/C. GI WNL. Skin: abdominal surgical incision. Will order Ensure High PRO/Glucerna tid and continue full liquid diet per CTS. Pt aware of acute diet restrictions and requested information on healthy diet for discharge. Attaching handouts on heart healthy diet w RD contact information. Continuing to follow intakes, supplement tolerance, labs, Wt trends, and plans of care. Current diet order: Adult Diet Full Liquid Pt intake is inadequate. PO intakes: no intakes since admission Nutrition Diagnosis 1: Inadequate oral intake Related to: Recent surgery, Loss of appetite Evidenced by: Other (comment), Patient interview(s/p esophagogastfundoplasty for hernia repair w diet advancing to full liquids today) ?? Interventions: Communication, Encouragement, Medical food supplement(Ensure high PRO/Glucerna tid) ?? Monitoring and Evaluation: I/O, Labs, Plan of care, Wound healing, Discharge plans, Electrolyte changes, Food preferences, Hydration status, Weight changes, Diet advancement, Appetite, Supplement tolerance ?? Goals: Advance to oral intake as medically able, Adequate nutrition to meet estimated needs by next assessment, Diet consistency appropriate for patient needs during stay ?? Estimated needs: ?? Total Kcal/kg Estimated Needs : 1689.65 based on Kcal/k. Type of Weight Used for Estimated Kcals: Current ?? Total Protein Estimated Needs (gm): 81.1 Protein Needs Based on g/k.2 Type of Weight Used for Estimated Protein : Current. ?? Total Fluid Estimated Needs: 2026. Fluid Needs Based on : 30 ml/kg. Objective Anthropometrics Weight: 67.6 kg (149 lb) Admission Weight : 67.6 kg Weight Change: -2.72 kg (-6.00 lbs) IBW/kg (Calculated) : 47.6 kg Height: 154.9 cm (5' 1 ) Weight in (lb) to have BMI = 25: 132 BMI (Calculated): 28.2 BMI Classification: BMI 25.0 - 29.9 Overweight 3 Day I/O Summary 04/170 - 04/19 0659 In: 4510 [I.V.:4010] Out: 245 [Urine:245] Temp: 36.6 ??C (97.8 ??F) Past Medical History: Diagnosis Date ??? ADHD [...] diabetes mellitus (CMS/HCC) ??? Vitamin D deficiency Medications and Lab Review: Scheduled Meds: acetaminophen, 1,000 mg, oral, Q6H HEATHER Or acetaminophen, 1,000 mg, feeding tube, Q6H HEATHER Or acetaminophen, 650 mg, rectal, Q6H HEATHER aspirin, 81 mg, oral, Daily atorvastatin, 40 mg, oral, Nightly busPIRone, 45 mg, oral, BID docusate sodium, 100 mg, oral, BID Or docusate, 100 mg, feeding tube, BID enoxaparin, 40 mg, subcutaneous, Daily-2100 famotidine, 20 mg, intravenous, Daily ketorolac, 15 mg, intravenous, Q6H lamoTRIgine, 200 mg, oral, Nightly metoclopramide, 10 mg, intravenous, Q8H HEATHER montelukast, 10 mg, oral, Nightly ondansetron, 4 mg, intravenous, Q6H HEATHER polyethylene glycol, 17 g, oral, Daily sodium chloride 0.9%, 0.5-20 mL, intra-catheter, Q8H HEATHER Continuous Infusions: Sodium Date Value Ref Range Status 04/19/2020 140 135 - 145 mmol/L Final Potassium, pl Date Value Ref Range Status 04/19/2020 4.0 3.3 - 4.9 mmol/L Final BUN Date Value Ref Range Status 04/19/2020 12 8 - 25 mg/dL Final Creatinine Date Value Ref Range Status 04/19/2020 0.91 0.60 - 1.10 mg/dL Final Calcium Date Value Ref Range Status 04/19/2020 8.2 (L) 8.5 - 10.3 mg/dL Final No results found for: HGBA1C Lab Results Component Value Date GLUCOSE 86 04/19/2020 GLUCOSE 153 04/18/2020 GLUCOSE 129 04/18/2020 GLUCOSE 100 04/18/2020 Nursing Assessment: Last BM Date: ( not since before admission per patient) Bowel Sounds (All Quadrants): Hypoactive Lalo Scale Score: 20 Skin Integrity: Surgical incision Diet Instructions Follow full liquid diet per Dr. Johnston and cardiothoracic surgery team & supplement with Ensure High Protein or Glucerna 1-2 times per day until appetite and intakes improve. Once clear for regular diet recommend to eat a generally healthy diet with foods that include a variety of fruits, vegetables, whole-grain breads, low-fat dairy products, beans, lean meats, and fish.Limit fast food, sugary drinks, excess salt, and desserts. Limit sugary drinks like lemonade, regular soda, Gatorade, and sweet tea and drink water throughout the day. Call [phone] to speak with a dietitian about any diet related concerns. Additional resources are available online from the Academy of Nutrition and Dietetics at www.eatright.org Nutrition Follow-Up : 04/23/[address],LD documented in this encounter H&P Notes * Holly Johnston MD - 04/18/2020 6:18 AM CDT I have reviewed the H&P, examined the patient, and endorse the findings as written. Plan of Care : Based on the above findings, I consider Leona Calvo to be an acceptable risk for: Procedure(s): LAPAROSCOPIC BRETT FUNDOPLICATION HIATAL HERNIA/ 180 min Source Note - Grace Fernandez NP - 04/05/2020 2:00 PM CDT Cardiothoracic Surgery [place] History & Physical [facility] Dr. Rajendra Schilling & Dr. Holly Calvo 1955 Reason for Consult: Hiatal Hernia Physician Requesting Consult: Lilly WOLFE PCP: Chon New or Established Patient: New Chief Complaint: Abdominal fullness HPI: Leona Calvo is 64 y.o. White female with a history of bipolar disorder, depression, anxiety, GERD, Perea's esophagus, COPD, with long-standing history of chest heaviness, post-prandial epigastric discomfort, and an unintended 10-pound weight loss over the last year found incidentally to have a hiatal hernia. She was also noted to be anemic and has been on iron therapy with some improvement in her anemia, but with increasing constipation. While she is able to swallow without difficulty, food seems to get stuck at the level of the epigastrium with epigastric discomfort post-prandially for approximately on hour. She had a recent stress test due to her pain that was negative for a car diac cause of her symptoms. HOME MEDICATIONS : atorvastatin (LIPITOR) 40 mg tablet busPIRone (BUSPAR) [address] (NexIUM) 40 mg capsule ezetimibe (ZETIA) 10 mg tablet ferrous gluconate 324 mg (37.5 mg of elemental iron) tablet lisinopril-hydroCHLOROthiazide (ZESTORETIC) 20-25 mg per tablet albuterol HFA (PROVENTIL HFA,VENTOLIN HFA,PROAIR HFA) 90 mcg/actuation inhaler ALPRAZolam (XANAX) 2 mg tablet aspirin 81 mg enteric coated tablet lamoTRIgine (LaMICtal) 200 mg tablet montelukast (SINGULAIR) 10 mg tablet Ozempic 0.25 mg or 0.5 mg(2 mg/1.5 mL) pen injector Allergies Allergen Reactions ??? Penicillin G Other (See comments) Past medical history: Bipolar disorder, ADHD, Hypertension, vitamin-D deficiency, Perea's esophagus, GERD, COPD, hiatal hernia, depression, anxiety, hyperlipidemia, diabetes mellitus 2 Past surgical history: Tonsillectomy and adenoidectomy, wrist surgery, Family history: Father and brother + CAD Social History Socioeconomic History ??? Marital status: - 2 children Occupational History ??? Retired Tobacco Use ??? Smoking status: Smokes 1ppd- used to smoke 2ppd Substance and Sexual Activity ??? Alcohol use: None ??? Drug use: None Review of Systems - Review of Systems negative except those described in HPI and below: Review of Systems Constitutional: Positive for appetite change and fatigue. Respiratory: Positive for shortness of breath. Gastrointestinal: Positive for abdominal distention, abdominal pain, constipation, nausea and vomiting. Neurological: Positive for weakness. Hematological: Bruises/bleeds easily. Vital Signs: Vitals BP 140/72 Pulse 76 Temp 36.1 ??C (97 ??F) Resp 14 Ht 154.9 cm (5' 1 ) Wt 70.3 kg (155 lb) BMI 29.29 kg/m?? Body surface area is 1.74 meters squared. Physical Exam Vitals signs reviewed. Constitutional: Appearance: Normal appearance. HENT: Head: Normocephalic and atraumatic. Nose: Nose normal. Mouth/Throat: Mouth: Mucous membranes are moist. Pharynx: Oropharynx is clear. Eyes: Extraocular Movements: Extraocular movements intact. Conjunctiva/sclera: Conjunctivae normal. Neck: Musculoskeletal: Normal range of motion and neck supple. Cardiovascular: Rate and Rhythm: Regular rhythm. Tachycardia present. Pulses: Normal pulses. Heart sounds: Normal heart sounds. Pulmonary: Effort: Pulmonary effort is normal. No respiratory distress. Breath sounds: Normal breath sounds. Abdominal: General: Abdomen is flat. Palpations: Abdomen is soft. Tenderness: There is abdominal tenderness. Musculoskeletal: Normal range of motion. General: No swelling. Skin: General: Skin is warm and dry. Neurological: General: No focal deficit present. Mental Status: She is alert and oriented to person, place, and time. Psychiatric: Mood and Affect: Mood normal. Labs: None to review. Data/Testing: I reviewed the following studies myself: CT - chest - lung cancer screening - 02/15/20 - Benign appearance of lung parenchyma, large hiatal hernia CT - abdomen/pelvis - 02/17/20 - large hiatal hernia, type III, no sign of volvulus Gastric emptying study - 01/11/20 - Normal gastric emptying Upper endoscopy - 12/19/19 - 5-6 cm sliding hernia, Perea's esophagus, stomach and duodenum unremarkable Esophageal biopsies - 12/19/19 - pathology - Perea's esophagus with mild chronic esophagitis, no dysplasia Assessment and Plan Assessment: 64 year-old female with symptomatic type III hiatal hernia with long-standing anemia Plan: We discussed that she has likely had her hiatal hernia for a number of years, but it would bebeneficial to attempt repair due to her symptoms and her Perea's esophagus. I think she will benefit from a laparoscopic hiatal hernia repair. We discussed risks and benefits with risks including bleeding, infection, possible damage to abdominal structures, and also the possibility of recurrence.We noted that for the surgery, we would reduce her hiatal hernia, partially close the hiatus that is enlarged, and do a anti-reflux fundoplication, and we may have to do an esophageal lengthening procedure. The patient and her understand the risks and benefits of surgery and would like to proceed. Grace Fernandez NP Cardiothoracic Surgery [facility] [phone] 04/02/20202:05 PM documented in this encounter Miscellaneous Notes * Plan of Care - Caitlin Landeros RN - 04/19/2020 5:25 PM CDT Goals: Clinical Goals for the Shift: comfort, safety, stable vitals, remove bales, full liquid diet, possible DC today Summary: Problem: Health Behavior: Goal: Understanding of discharge needs will improve 04/19/2020 172 by Caitlin Landeros RN Outcome: Adequate for Discharge 04/19/2020 1059 by Caitlin Landeros RN Outcome: Progressing Problem: Lack of Knowledge: Goal: Ability to state ways to decrease the risk of falls will improve 04/19/2020 1725 by Caitlin Landeros RN Outcome: Adequate for Discharge 04/19/2020 1059 by Caitlin Landeros RN Outcome: Progressing Problem: Safety: Goal: Will remain free from falls 04/19/2020 1725 by Caitlin Landeros RN Outcome: Adequate for Discharge 04/19/2020 1059 by Caitlin Landeros RN Outcome: Progressing Goal: Will remain free from injury from falls 04/19/2020 1725 by Caitlin Landeros RN Outcome: Adequate for Discharge 04/19/2020 1059 by Caitlin Landeros RN Outcome: Progressing Goal: Will remain free from falls and injury in home environment 04/19/2020 1725 by Caitlin Landeros RN Outcome: Adequate for Discharge 04/19/2020 1059 by Caitlin Landeros RN Outcome: Progressing Problem: Activity: Goal: Risk for activity intolerance will decrease 04/19/2020 1725 by Caitlin Landeros RN Outcome: Adequate for Discharge 04/19/2020 1059 by Caitlin Landeros RN Outcome: Progressing Problem: Lack of Knowledge: Goal: Knowledge of diagnostic tests will improve 04/19/2020 1725 by Caitlin Landeros RN Outcome: Adequate for Discharge 04/19/2020 1059 by Caitlin Landeros RN Outcome: Progressing Goal: Knowledge of disease or condition will improve 04/19/2020 1725 by Caitlin Landeros RN Outcome: Adequate for Discharge 04/19/2020 1059 by Caitlin Landeros RN Outcome: Progressing Goal: Knowledge of safety precautions will improve 04/19/2020 1725 by Caitlin Landeros RN Outcome: Adequate for Discharge 04/19/2020 1059 by Caitlin Landeros RN Outcome: Progressing Goal: Knowledge of the prescribed therapeutic regimen will improve 04/19/2020 1725 by Caitlin Landeros RN Outcome: Adequate for Discharge 04/19/2020 1059 by Caitlin Landeros RN Outcome: Progressing Problem: Health Behavior: Goal: Ability to state signs and symptoms to report to health care provider will improve 04/19/2020 1725 by Caitlin Landeros RN Outcome: Adequate for Discharge 04/19/2020 1059 by Caitlin Landeros RN Outcome: Progressing Problem: Physical Regulation: Goal: Ability to maintain clinical measurements within normal limits will improve 04/19/2020 1725 by Caitlin Landeros RN Outcome: Adequate for Discharge 04/19/2020 1059 by Caitlin Landeros RN Outcome: Progressing Problem: Infection Risk: Goal: Will remain free from infection 04/19/2020 1725 by Caitlin Landeros RN Outcome: Adequate for Discharge 04/19/2020 1059 by Caitlin Landeros RN Outcome: Progressing Problem: Safety: Goal: Ability to remain free from injury will improve 04/19/2020 1725 by Caitlin Landeros RN Outcome: Adequate for Discharge 04/19/2020 1059 by Caitlin Landeros RN Outcome: Progressing Goal: Will remain free from falls 04/19/2020 1725 by Caitlin Landeros RN Outcome: Adequate for Discharge 04/19/2020 1059 by Caitlin Landeros RN Outcome: Progressing Problem: Self-Care: Goal: Ability to participate in self-care as condition permits will improve 04/19/2020 1725 by Caitlin Landeros RN Outcome: Adequate for Discharge 04/19/2020 1059 by Caitlin Landeros RN Outcome: Progressing Problem: Sensory: Goal: Pain level will decrease 04/19/2020 1725 by Caitlin Landeros RN Outcome: Adequate for Discharge 04/19/2020 1059 by Caitlin Landeros RN Outcome: Progressing Goal: Ability to develop a pain control plan will improve 04/19/2020 1725 by Caitlin Landeros RN Outcome: Adequate for Discharge 04/19/2020 1059 by Caitlin Landeros RN Outcome: Progressing Problem: Skin Integrity: Goal: Risk for impaired skin integrity will decrease 04/19/2020 1725 by Caitlin Landeros RN Outcome: Adequate for Discharge 04/19/2020 1059 by Caitlin Landeros RN Outcome: Progressing Problem: Tissue Perfusion: Goal: Risk factors for ineffective tissue perfusion will decrease 04/19/2020 1725 by Caitlin Landeros RN Outcome: Adequate for Discharge 04/19/2020 1059 by Caitlin Landeros RN Outcome: Progressing * Plan of Care - Aniya Benson RN - 04/19/2020 12:07 PM CDT I spoke to patient about discharge needs. She said she has been up walking. She is discharging homewith her who will assist her. She said she didn't need anything at this time. Aniya Benson RN Case Manager [phone] * Plan of Care - Caitlin Landeros RN - 04/19/2020 10:59 AM CDT Goals: Clinical Goals for the Shift: comfort, safety, stable vitals, remove bales, full liquid diet, possible DC today Summary: Problem: Health Behavior: Goal: Understanding of discharge needs will improve Outcome: Progressing Problem: Lack of Knowledge: Goal: Ability to state ways to decrease the risk of falls will improve Outcome: Progressing Problem: Safety: Goal: Will remain free from falls Outcome: Progressing Goal: Will remain free from injury from falls Outcome: Progressing Goal: Will remain free from falls and injury in home environment Outcome: Progressing Problem: Activity: Goal: Risk for activity intolerance will decrease Outcome: Progressing Problem: Lack of Knowledge: Goal: Knowledge of diagnostic tests will improve Outcome: Progressing Goal: Knowledge of disease or condition will improve Outcome: Progressing Goal: Knowledge of safety precautions will improve Outcome: Progressing Goal: Knowledge of the prescribed therapeutic regimen will improve Outcome: Progressing Problem: Health Behavior: Goal: Ability to state signs and symptoms to report to health care provider will improve Outcome: Progressing Problem: Physical Regulation: Goal: Ability to maintain clinical measurements within normal limits will improve Outcome: Progressing Problem: Infection Risk: Goal: Will remain free from infection Outcome: Progressing Problem: Safety: Goal: Ability to remain free from injury will improve Outcome: Progressing Goal: Will remain free from falls Outcome: Progressing Problem: Self-Care: Goal: Ability to participate in self-care as condition permits will improve Outcome: Progressing Problem: Sensory: Goal: Pain level will decrease Outcome: Progressing Goal: Ability to develop a pain control plan will improve Outcome: Progressing Problem: Skin Integrity: Goal: Risk for impaired skin integrity will decrease Outcome: Progressing Problem: Tissue Perfusion: Goal: Risk factors for ineffective tissue perfusion will decrease Outcome: Progressing * Anesthesia Post-op Follow-up Note - Placido Naranjo AA - 04/19/2020 7:24 AM CDT Patient: Leona Isaias Lub[place] Procedure(s) with comments: LAPAROSCOPIC CHENTE GASTROPLASTY - Laparoscopic Brett hiatal hernia with chente gastroplasty Laparoscopic Brett hiatal hernia with chente gastroplasty - Laparoscopic Brett hiatal hernia withcollis gastroplasty Patient location: [facility] Surgical [facility] Last vitals: Vitals: 04/19/20 0400 BP: Pulse: 80 Resp: Temp: SpO2: Level of consciousness: awake, alert and oriented Post-anesthesia pain: adequate analgesia Anesthetic complications: no Patient stated that she has had a headache this morning but it went away * Plan of Care - Mick Russell, KIRA - 04/19/2020 4:15 AM CDT Goals: Clinical Goals for the Shift: stable VS, comfort, and safety Summary: Pt remains vitally stable and free from falls. Pt is NPO and awaiting a swallow evaluation. Pt was unable to get most medications because pt is NPO. Pt reported some pain that was quickly alleviated by pain medication. Pt rests comfortably in bed. Problem: Safety: Goal: Will remain free from falls Outcome: Progressing Goal: Will remain free from injury from falls Outcome: Progressing Problem: Activity: Goal: Risk for activity intolerance will decrease Outcome: Progressing Problem: Lack of Knowledge: Goal: Knowledge of diagnostic tests will improve Outcome: Progressing Goal: Knowledge of disease or condition will improve Outcome: Progressing Goal: Knowledge of safety precautions will improve Outcome: Progressing Problem: Sensory: Goal: Ability to develop a pain control plan will improve Outcome: Progressing * Plan of Care - Ashia Barber RN - 04/18/2020 2:14 PM CDT Goals: Stable VS, comfort and safety Summary: Problem: Health Behavior: Goal: Understanding of discharge needs will improve Outcome: Progressing Problem: Lack of Knowledge: Goal: Ability to state ways to decrease the risk of falls will improve Outcome: Progressing Problem: Safety: Goal: Will remain free from falls Outcome: Progressing Goal: Will remain free from injury from falls Outcome: Progressing Goal: Will remain free from falls and injury in home environment Outcome: Progressing * Op Note - Holly Johnston MD - 04/18/2020 9:04 AM CDT Operative Report SURGEON: Holly Johnston MD SURGICAL TEAM: Surgeon(s) and Role: * Holly Johnston MD - Primary * Troy Loomis MD - Agency Sales Management Assistant. I asked Dr. Loomis to assist with the case due to its complexity and the unavailability of a qualified resident to assist. He assist for the entirety of the case. DATE OF SURGERY : 04/18/2020 PREOPERATIVE DIAGNOSIS: Pre-op Diagnosis * Hiatal hernia [K44.9] POSTOPERATIVE DIAGNOSIS: Post-op Diagnosis * Hiatal hernia [K44.9] PROCEDURE: Laparoscopic hiatal hernia repair Laparoscopic Chente gastroplasty INDICATION FOR PROCEDURE: Ms. Calvo is a 64 year-old female with a history of bipolar disorder, depression, anxiety, GERD, Perea's esophagus, COPD, with long-standing history of chest heaviness, post-prandial epigastric discomfort, and an unintended 10- pound weight loss over the last year found incidentally to have a hiatal hernia. She was also noted to be anemic and has been on iron therapy with some improvement in her anemia, but with increasing constipation. While she is able to swallow without difficulty, food seems to get stuck at the level of the epigastrium with epigastric discomfort post-prandially for approximately on hour. We offered her laparoscopic hiatal hernia repair to address her symptoms. ANESTHESIA: General IMPLANTS: Nothing was implanted during the procedure OPERATIVE DETAILS The patient was given a general anesthetic. Once anesthetized, the patient was positioned with legsspread apart on stirrups. The abdomen was prepped and draped in sterile fashion. We did a time-out.We verified the administration of subcutaneous heparin and antibiotics. A Veress needle was used toinstill the pneumoperitoneum. We then placed the ports including the camera port at the midline, a right subcostal, left subcostal, right paramedian, and subxiphoid port. The liver retractor was placed. We had a good view of the hernia. Details of the appearance include the following: type 3 hiatalhernia, large hiatal defect. The stomach was gently reduced into the abdomen. We mobilized the greater curvature from about care home down all the way to the left jer of the diaphragm. We freed up the gastrohepatic ligament. We then went up into the sac and incised the sac and then circumferentially dissected the sac away from the diaphragm edge. Using the sac as a handle, we pulled the sac and the sac contents down into the abdomen. ?? We incised the sac anteriorly and reflected the 2 sides left and right. We excised a portion of theleft anterior sac as well as the gastro-esophageal fat pad. I did a flexible fiberoptic esophagoscopy after the gastroesophageal fat pad was resected. We verified the precise location of the squamocolumnar junction or the gastroesophageal junction. I then passed a 54 Lao bougie. We used a Chente gastroplasty technique which required 3 firings of a 45 mm purple stapler. We excised a small triangle of stomach adjacent to the bougie to create a lengthening of the esophagus. We then pulled back the bougie but left in place in the distal esophagus. We closed the diaphragm edges with 0 Ethibond sutures with some of them were going posterior to the esophagus and some of them closing the defect anterior to the esophagus. ?? We then did the wrap. We pulled the fundus around the distal esophagus and the maisha esophagus. We did a 5 stitch wrap including 2 stitches on the right anterior 2 stitches on the left anterior and 1 between the posterior aspect of the wrap in the front of the crural closure. I repeated the esophagoscopy to verify the presence of the wrap and the appearance of the distal esophagus. Everything looked satisfactory. We placed some local anesthetic on all the incisions. The wounds were closed with absorbable suture. The skin was closed with Dermabond. The patient was allowed to awaken and was extubated taken to recovery room in stable condition. I was present from the start of the case until closure was started. I was immediately available otherwise. The patient received subcutaneous heparin prior to the case and orders were written to continue DVT prophylaxis. The patient received pre-operative antibiotics and orders were written to continue antibiotics for 24 hours. Estimated Blood Loss: Minimal Intraoperative Fluids: 1500 mls Blood/Blood Products Transfused: 0 mls Complications: None Condition on Discharge from the operating room was stable Holly Johnston MD Date: 04/18/2020 Time: 11:45 AM * Brief Op Note - Holly Johnston MD - 04/18/2020 9:04 AM CDT Operative Progress Note Surgical Team: Surgeon(s) and Role: * Holly Johnston MD - Primary * Troy Loomis MD Anesthesiologist: Dominik Puente MD Anesthesiologist Agency Sales Management Assistant: JOSEE Arreola; JOSEE Levi Director Telecommunications: Nora Becerra RN Director Telecommunications Relief: Marce Bang RN Scrub: ST Ant STADIUM MANAGER: Stella Hahn RN DATE OF SURGERY : 04/18/2020 Preoperative Diagnosis: Pre-op Diagnosis * Hiatal hernia [K44.9] Postoperative Diagnosis: Post-op Diagnosis * Hiatal hernia [K44.9] Procedure(s): Procedure(s) (LRB): LAPAROSCOPIC CHENTE GASTROPLASTY (N/A) Laparoscopic Brett hiatal hernia with chente gastroplasty (N/A) Operative Findings: Type 3 hiatal hernia s/p repair with Chente gastroplasty Estimated Blood Loss: No blood loss documented. Intraoperative Fluids: 1500 mls Specimens: ID Type Source Tests Collected by Time A : wedge fudectomy Tissue Soft Tissue, debridement SURGICAL PATHOLOGY Holly Johnston MD 04/18/2020 1057 Implants: Nothing was implanted during the procedure Blood/Blood Products Transfused: 0 mls Complications: None Condition on Discharge from the operating room was stable Holly Johnston MD Date: 04/18/2020 Time: 11:29 AM documented in this encounter Plan of Treatment Not on file documented as of this encounter Procedures Procedure Name Priority Date/Time Associated Diagnosis Comments FL ESOPHAGRAM, SINGLE CONTRAST IP Routine 04/19/2020 9:56 AM CDT EGFR Routine 04/19/2020 5:11 AM CDT CBC WITHOUT DIFFERENTIAL Routine 04/19/2020 5:11 AM CDT BASIC METABOLIC PANEL Routine 04/19/2020 5:11 AM CDT SURGICAL PATHOLOGY Routine 04/18/2020 1: 56 PM CDT Hiatal hernia POCT GLUCOSE DEVICE Routine 04/18/2020 1 1:28 AM CDT POCT GLUCOSE DEVICE Routine 04/18/2020 9 :43 AM CDT LAPAROSCOPIC BRETT FUNDOPLICATION HIATAL HERNIA 04/18/2020 8:14 AM CDT Hiatal hernia LAPAROSCOPIC CHENTE GASTROPLASTY 04/18/2020 8:14 AM CDT Hiatal hernia B CHECK SAMPLE STAT 04/18/2020 7:30 AM CDT POCT GLUCOSE DEVICE Routine 04/18/2020 6 :40 AM CDT documented in this encounter Results * FL Esophagram, Single Contrast (04/19/2020 9:56 AM CDT) Anatomical Region Laterality Modality Body N/A Computed Radiogr aphy 04/19/2020 1:10 PM CDT Impressions 04/19/2020 1:13 PM CDT 1. ??Delayed emptying of the esophagus into the stomach. ??This is most likely due to postoperative edema. 2. ??No evidence of contrast extravasation. 3. ??Gastric distention. Electronically signed by: Bena Gutierrez M.D. Narrative 04/19/2020 1:13 PM CDT EXAM: ?? FL ESOPHAGRAM, SINGLE CONTRAST DATE: ?? 04/19/2020 9:25 AM CLINICAL HISTORY: ?? Postoperative hiatal hernia repair. COMPARISON: ?? None FINDINGS: ?? The patient drank water-soluble contrast material in upright and recumbent positions. ??The esophagus appears normal. ??There is delayed emptying of the esophagus into the stomach. ??After several minutes upright, the esophagus does empty. ??There is no evidence of contrast extravasation. ??There is gastric distention. Procedure Note Bean Gutierrez MD - 04/19/2020 EXAM: FL ESOPHAGRAM, SINGLE CONTRAST DATE: 04/19/2020 9:25 AM CLINICAL HISTORY: Postoperative hiatal hernia repair. COMPARISON: None FINDINGS: The patient drank water-soluble contrast material in upright and recumbent positions. The esophagus appears normal. There is delayed emptying of the esophagus into the stomach. After several minutes upright, the esophagus does empty. There is no evidence of contrast extravasation. There is gastric distention. IMPRESSION: 1. Delayed emptying of the esophagus into the stomach. This is most likely due to postoperative edema. 2. No evidence of contrast extravasation. 3. Gastric distention. Electronically signed by: Bean Gutierrez M.D. Holly Johnston MD IM FLUOROSCOPY PROCEDURES Fin al Result * eGFR (04/19/2020 5:11 AM CDT) [facility] eGFR 68 mL/min/1.7 3 m2 [facility] Comment: Interpretive Data Reference Interval Normal ?>/= 90 mL/min/1.73m2 Mildly decreased* ? 60 - 89 mL/min/1.73m2 Mildly to moderately decreased ?45 - 59 mL/min/1.73m2 Moderately to severely decreased ??30 - 44 mL/min/1.73m2 Severely decreased ?15 - 29 mL/min/1.73m2 Kidney Failure ?< 15 ??mL/min/1.73m2 *Relative to young adult level If -Cameroonian multiply value by 1.16. Estimated glomerular filtration [...] was last reviewed 2016. Blood specimen (specimen) 04/19/2020 5:11 AM CDT 04/19/2020 5:27 AM CDT Hloly Johnston MD LAB BLOOD ORDERABLES Final Res ult Performing Organization Address [facility] Co de Phone Number [facility] ADA[facility] [phone] Department [place] [address] * (ABNORMAL) Basic metabolic panel (04/19/2020 5:11 AM CDT) Pathologist [facility] Sodium 140 135 - 145 mmol/L C[facility] Potassium, pl 4.0 3.3 - 4.9 mmol/L [facility] Chloride 105 97 - 110 mmol/L [facility] CO2 23 22 - 32 mmol/L [facility] Anion gap 12 2 - 15 mmol/L [facility] BUN 12 8 - 25 mg/dL [facility] Creatinine 0.91 0.60 - 1.10 mg/dL [facility] Glucose 86 70 - 199 mg/dL [facility] Comment: Interpretive Data Fasting glucose >/= 126 [...] interpretive data was last revised 2017. Calcium 8.2(L) 8.5 - 10.3 mg/dL [facility] Blood specimen (specimen) 04/19/2020 5:11 AM CDT 04/19/2020 5:27 AM CDT Holly Johnston MD LAB BLOOD ORDERABLES Final Res ult Performing Organization Address [facility]/ZIP Co de Phone Number [facility] ADAIR [phone] Department [place] [employer] [place] [address] * (ABNORMAL) CBC without differential (04/19/2020 5:11 AM CDT) WBC 7.9 3.8 - 9.9 K/cumm [facility] Hgb 11.9 11.9 - 15.5 g/dL [facility] Hct 38.7 35.6 - 45.5 % [facility] Plt 218 150 - 400 K/cumm [facility] MPV 10.3 9.1 - 12.3 fL [facility] RBC 4.29 3.90 - 5.20 M/cumm [facility] MCV 90.2 81.3 - 96.4 fL [facility] MCH 27.7 27.1 - 33.3 pg [facility] MCHC 30.7(L) 32.3 - 35.7 g/dL [facility] RDW CV 16.3(H) 11.1 - 14.9 % [facility] RDW SD 54.0(H) 35.7 - 48.1 fL [facility] NRBC abs 0.00 0.00 - 0.01 K/cumm [facility] Blood specimen (specimen) 04/19/2020 5:11 AM CDT 04/19/2020 5:25 AM CDT Holly Johnston MD LAB BLOOD ORDERABLES Final Res ult [address] Department [place] [address] * Surgical pathology (04/18/2020 1:56 PM CDT) Tissue (Soft Tissue, debridement) 04/18/2020 10:57 AM CDT Narrative PATHOLOGY - 04/20/2020 3:00 PM CDT [facility] results best viewed via link to PDF [facility] Department of Pathology [address] [place] [id number] Final Report Patient Name: ??LEONA CALVOEzequiel Address: ??[address] [place] [address], ??[place], [place] ??64 Gender: ??F : ??1955 (Age: 64) Service: ??Surgery Location: [facility] #: ??[id number] Patient Type: ??[facility] Accession # ?[id number] Taken: ??04/18/2020 Received: ??04/18/2020 Accessioned: ??04/18/2020 Reported: ??04/20/2020 Physician(s):Ruben Crawley M.D. Diagnosis: Stomach, wedge fundectomy: ? -Benign gastric mucosa with no histopathologic abnormality, clinically hiatal hernia. Maira August M.D. Report Electronically Reviewed and Signed Out By ??Maira Raymundo M.D. ??04/20/2020 15:00:11 Specimen(s) Received: A: Wedge fundectomy Microscopic Description: Microscopic examination shows fragments of unremarkable gastric mucosa. ??I do not identify evidence of microorganisms morphologically compatible with Helicobacter species by routine light microscopy. ??There is no evidence of dysplasia or malignancy. Clinical History: Hiatal hernia Procedure: laparoscopic brett fundoplication hiatal hernia Gross Description: The specimen is submitted in a single container labeled Leona Calvo and wedge fundectomy . ??It is a wedge shaped piece of stomach measuring 5 x 3 by 2 cm. ??The serosa is pink-vang and smooth. ??With attached membranous tissue and fat. ??Mild congestion is present and there are no mucosal masses. ??Represented in two cassettes. ??Loraine Orozco M.D./Bronson Dang, P.A. REPORT IMAGES AND SCANNED DOCUMENTS, IF INCLUDED, ONLY VIEWABLE IN PDF VERSION OF REPORT The performance characteristics of some immunohistochemical stains, fluorescence in-situ hybridization tests and immunophenotyping by flow cytometry cited in this report (if any) were determined by the Surgical Pathology Department at [facility] as part of an ongoing aircraft quality control inspector program and in compliance with federally mandated regulations drawn from the Clinical Laboratory Improvement Act of 1988 (CLIA '88). ??Some of these tests rely on the use of analyte specific reagents and are subject to specific labeling requirements by the US Food and Drug Administration. ??Such diagnostic tests may only be performed in a facility that is certified by the Department of Health and Human Services as a high complexity laboratory under CLIA '88. The FDA has determined that such clearance or approval is not necessary. ??This test is used for clinical purposes. ??It should not be regarded as investigational or for research. ??Nevertheless, federal rules concerning the medical use of analyte specific reagents require that the following disclaimer be attached to the report: This test was developed and its performance characteristics determined by the Surgical Pathology Department [facility]. ??It has not been cleared or approved by the U. S. Food and Drug Administration. Holly Johnston MD LAB PATHOLOGY ORDERABLES Final Result Performing Organization Address [facility] Co de Phone Number PATHOLOGY [phone] [place] [address] * POCT glucose (04/18/2020 11:28 AM CDT) Glucose, POC 153 70 - 199 mg/dL CERNER Blood specimen (specimen) 04/18/2020 11:28 AM CDT 04/18/2020 11:28 AM CDT Holly Johnston MD LAB POCT ORDERABLES - DEVICE F inal Result Performing Organization Address [facility] de Phone Number [facility] [id number] [place] [address] * POCT glucose (04/18/2020 9:43 AM CDT) Glucose, POC 129 70 - 199 mg/dL [facility] Blood specimen (specimen) 04/18/2020 9:43 AM CDT 04/18/2020 9:43 AM CDT Holly Johnston MD LAB POCT ORDERABLES - DEVICE F inal Result Performing Organization Address [facility] Co de Phone Number [facility] [phone] [facility] [place] [address] * Check Sample (04/18/2020 7:30 AM CDT) ABO Rh O Positive CERNER CH HCLL OTHER 04/18/2020 7:30 AM CDT 04/18/2020 7:52 AM CDT Holly Johnston MD LAB BLOOD ORDERABLES Final Res ult Performing Organization Address [facility] Co de Phone Number ASHLEIGH ADAIR [phone] [facility] [place] [address] * POCT glucose (04/18/2020 6:40 AM CDT) Glucose, POC 100 70 - 199 mg/dL [facility] Blood specimen (specimen) 04/18/2020 6:40 AM CDT 04/18/2020 6:40 AM CDT Holly Johnston MD LAB POCT ORDERABLES - DEVICE F inal Result Performing Organization Address [facility] de Phone Number ASHLEIGH ADAIR [phone] [facility] [place] [address] documented in this encounter Visit Diagnoses Diagnosis Hiatal hernia- Primary Diaphragmatic hernia without mention of obstruction or gangrene Hiatal hernia Diaphragmatic hernia without mention of obstruction or gangrene documented in this encounter Admitting Diagnoses Diagnosis Hiatal hernia Diaphragmatic hernia without mention of obstruction or gangrene documented in this encounter Administered Medications Inactive Administered Medications - up to 3 most recent administrations Medication Order MAR Action Action Date Dose Rate Site acetaminophen (TYLENOL) 32 mg/mL oral suspension 1,000 mg 1,000 mg, feeding tube, Every 6 hours scheduled, First dose on Thu04/18/20 at 1430, If taking meds per tube., Indications: PainIndications:Pain acetaminophen (TYLENOL) 500 mg tablet - ADS Override Pull Starting on Thu04/18/20 at 0731, For 1 dose, CHLOÉ MONTAÑO: cabinet override Given 04/18/2020 7:43 AM CDT 500 mg acetaminophen (TYLENOL) suppository 650 mg 650 mg, rectal, Every 6 hours scheduled, First dose on Thu04/18/20 at 1430, If unable to tolerate enteral administration., Indications: PainIndications:Pain acetaminophen (TYLENOL) tablet 1,000 mg 1,000 mg, oral, Once, On Thu04/18/20 at 0800, For 1 dose, Pre-Op, Indications: Pre-Emptive AnalgesiaIndications:Pre-Emptive Analgesia Given 04/18/2020 7:44 AM CDT 1,000 mg acetaminophen (TYLENOL) tablet 1,000 mg 1,000 mg, oral, Every 6 hours scheduled, First dose on Thu04/18/20 at 1430, If able to swallow medications., Indications: PainIndications:Pain Given 04/19/2020 5:28 PM CDT 1,000 mg Given 04/19/2020 11:25 AM CDT 1,000 mg Given 04/18/2020 5:38 PM CDT 1,000 mg aspirin enteric coated tablet 81 mg 81 mg, oral, Daily, First dose on Thu04/19/20 at 0900, Do not crush, chew, cut, dissolve, open or otherwise manipulate tablet/capsule. Given 04/19/2020 8:47 AM CDT 81 mg bisacodyL (DULCOLAX) suppository 10 mg 10 mg, rectal, Once, On Thu04/19/20 at 1100, For 1 dose, Indications: constipationIndications:constipa tion Given 04/19/2020 11:25 AM CDT 10 mg busPIRone (BUSPAR) tablet 45 mg 45 mg, oral, 2 times daily, First dose on Thu04/18/20 at 2100, Indications: Generalized Anxiety DisorderIndications:Generalized Anxiety Disorder Given 04/19/2020 8:46 AM CDT 45 mg ceFAZolin (ANCEF) 1 gram/10 mL in sterile water (premix) 1,000 mg 1,000 mg, intravenous, at 200 mL/hr, Administer over 3 Minutes, Every 8 hours, First dose on Thu04/18/20 at 1600, For 2 doses, Start 8 hours after adam-operative dose. , Indications: Prophylaxis, SurgicalIndications:Prophylaxis, Surgical New Bag 04/19/2020 12:56 AM CDT 1,000 mg 200 mL/hr New Bag 04/18/2020 5:35 PM CDT 1,000 mg 200 mL/hr celecoxib (CeleBREX) 200 mg capsule - ADS Override Pull Starting on Thu04/18/20 at 0731, For 1 dose, CHLOÉ MONTAÑO: cabinet override celecoxib (CeleBREX) capsule 400 mg 400 mg, oral, Once, On Thu04/18/20 at 0800, For 1 dose, Pre-Op, Indications: Pre-Emptive AnalgesiaIndications:Pre-Emptive Analgesia Given 04/18/2020 7:44 AM CDT 4 00 mg docusate (COLACE) 10 mg/mL oral liquid 100 mg 100 mg, feeding tube, 2 times daily, First dose on Thu04/18/20 at 1430, If taking meds per tube. Hold for diarrhea., Indications: constipationIndications:constipation docusate sodium (COLACE) capsule 100 mg 100 mg, oral, 2 times daily, First dose on Thu04/18/20 at 1430, If able to swallow medications. Hold for diarrhea. , Indications: constipationIndications:constipation Given 04/19/2020 8:47 AM CDT 100 mg Given 04/18/2020 3:40 PM CDT 100 mg enoxaparin (LOVENOX) syringe 40 mg 40 mg, subcutaneous, Every 12 hours scheduled, First dose on Thu04/18/20 at 1430, Indications: Deep Vein Thrombosis PreventionIndications:Deep Vein Thrombosis Prevention Given 04/19/2020 8:49 AM CDT 40 mg Right Lower Abdomen Given 04/18/2020 3:39 PM CDT 40 mg Ri ght Lower Abdomen enoxaparin (LOVENOX) syringe 40 mg 40 mg, subcutaneous, Daily (for enoxaparin), First dose (after last modification) on Lien 04/19/20 at 2100, Indications: Deep Vein Thrombosis PreventionIndications:Deep Vein Thrombosis Prevention famotidine (PEPCID) injection 20 mg 20 mg, intravenous, Administer over 2 Minutes, Daily, First dose on Lien 04/19/20 at 0900 Given 04/19/2020 8:48 AM CDT 20 mg famotidine (PEPCID) tablet 20 mg 20 mg, oral, 2 times daily, First dose on Thu04/18/20 at 1430, Indications: Prevention of Stress UlcerIndications:Prevention of Stress Ulcer Given 04/18/2020 3:51 PM CDT 20 mg ketorolac (TORADOL) injection 15 mg 15 mg, intravenous, Every 6 hours, First dose on Thu04/18/20 at 1430, For 1 day, For Adult IV push, administer over 15 seconds Given 04/19/2020 8:48 AM CDT 15 mg Given 04/18/2020 9:29 PM CDT 15 mg Given 04/18/2020 3:07 PM CDT 15 mg Lactated Ringer's (LR) infusion - ADS Override Pull Starting on Thu04/18/20 at 0731, For 1 dose, CHLOÉ MONTAÑO: cabinet override New Bag 04/18/2020 7:45 AM CDT 1,000 mL Lactated Ringer's (LR) infusion 30 mL/hr, intravenous, Continuous, Starting on Thu04/18/20 at 0800, Pre-Op New Bag 04/18/2020 8:15 AM CDT New Bag 04/18/2020 7:46 AM CDT 30 mL/hr 30 mL/hr Ri ght Hand lamoTRIgine (LaMICtal) tablet 200 mg 200 mg, oral, Nightly, First dose on Thu04/18/20 at 2100 Given 04/18/2020 10:33 PM CDT 200 mg metoclopramide (REGLAN) injection 10 mg 10 mg, intravenous, Administer over 1 Minutes, Every 8 hours scheduled, First dose on Thu04/18/20 at 1430, Indications: Prevention of Postoperative Nausea and VomitingIndications:Prevention of Postoperative Nausea and Vomiting Given 04/19/2020 1:41 PM CDT 10 mg Given 04/19/2020 5:26 AM CDT 10 mg Given 04/18/2020 3:40 PM CDT 10 mg ondansetron (ZOFRAN) injection 4 mg 4 mg, intravenous, Administer over 2 Minutes, Every 6 hours scheduled, First dose on Thu04/18/20 at 1430, Indications: Prevention of Post-Operative Nausea and VomitingIndications:Prevention of Post-Operative Nausea and Vomiting Given 04/19/2020 5:27 PM CDT 4 mg Given 04/19/2020 11:26 AM CDT 4 mg Given 04/19/2020 5:26 AM CDT 4 mg oxyCODONE (ROXICODONE) tablet 5 mg 5 mg, oral, Every 4 hours PRN, 1st line for pain, Starting on Thu04/18/20 at 1359, Indications: PainIndications:Pain Given 04/19/2020 5:25 AM CDT 5 mg Given 04/19/2020 1:04 AM CDT 5 mg polyethylene glycol (MIRALAX) packet 17 g 17 g, oral, Daily, First dose on Lien 04/19/20 at 1100, Indications: constipationIndications:constipation Given 04/19/2020 11:24 AM CDT 17 g sodium chloride 0.9% bolus 500 mL 500 mL, intravenous, Once, On Thu04/18/20 at 1345, For 1 dose, Phase I New Bag 04/18/2020 1:11 PM CDT 500 mL sodium chloride 0.9% flush 0.5-20 mL 0.5-20 mL, intra-catheter, Every 8 hours scheduled, First dose on Thu04/18/20 at 1430, Flush volume based on line type and size. , Indications: FlushingIndications:Flushing Given 04/19/2020 1:42 PM CDT 10 mL Given 04/19/2020 5:28 AM CDT 10 mL Given 04/18/2020 10:00 PM CDT 10 mL sodium chloride 0.9% infusion 75 mL/hr, intravenous, Continuous, Starting on Thu04/18/20 at 1300 New Bag 04/19/2020 5:42 AM CDT 75 mL/hr 75 mL/hr Rate/Dose Change 04/18/2020 1:37 PM CDT 75 mL/hr 75 mL/h r documented in this encounter Discontinued Medications Medication Sig Discontinue Reason Start Date End Da te cholecalciferol (VITAMIN D-3) 2000 unit tablet Take 2,000 Units by mouth daily Stop Taking at Discharge 04/19/2020 ascorbic acid (ascorbic acid) 500 mg tablet,chewable Take 500 mg by mouth daily Stop Taking at Discharge 04/19/2020 calcium carbonate (TUMS) 500 mg calcium (200 mg of elemental calcium) chewable tablet Take 1 tablet by mouth as needed for indigestion or heartburn Stop Taking at Discharge 04/19/2020 documented as of this encounter Active and Recently Administered Medications Times are shown in CDT. Scheduled Medication Order 04/17/2020 04/18/2020 04/19/2020 acetaminophen (TYLENOL) 32 mg/mL oral suspension 1,000 mg(Linked Group 1) 1,000 mg, feeding tube, Every 6 hours scheduled, First dose on Thu04/18/20 at 1430, If taking meds per tube., Indications: Pain 1541 (See Alternative - Provider: Ashia Barber RN)1738 (See Alternative - Provider: Ashia Barber RN)2326 (See Alternative - Provider: Mick Russell RN) 0504 (See Alternative - Provider: Mick Russell RN)1125 (See Alternative - Provider: Caitlin Landeros RN)1728 (See Alternative - Provider: Caitlin Landeros RN) acetaminophen (TYLENOL) suppository 650 mg(Linked Group 1) 650 mg, rectal, Every 6 hours scheduled, First dose on Thu04/18/20 at 1430, If unable to tolerate enteral administration., Indications: Pain 1541 (See Alternative - Provider: Ashia Barber RN)1738 (See Alternative - Provider: Ashia Barber RN)2326 (See Alternative - Provider: Mick Russell RN) 0504 (See Alternative - Provider: Mick Russell RN)1125 (See Alternative - Provider: Caitlin Landeros RN)1728 (See Alternative - Provider: Caitlin Landeros RN) acetaminophen (TYLENOL) tablet 1,000 mg (COMPLETED) 1,000 mg, oral, Once, On Thu04/18/20 at 0800, For 1 dose, Pre-Op, Indications: Pre-Emptive Analgesia 0744 (Given - Provider: Chloé Montaño RN) acetaminophen (TYLENOL) tablet 1,000 mg(Linked Group 1) 1,000 mg, oral, Every 6 hours scheduled, First dose on Thu04/18/20 at 1430, If able to swallow medications., Indications: Pain 1541 (Not Given - Provider: Ashia Barber RN - Reason: Patient/family refused)1738 (Given - Provider: Ashia Barber RN)2326 (Not Given - Provider: Mick Russell RN - Reason: NPO) 0504 (Not Given - Provider: Mick Russell RN - Reason: NPO)1125 (Given - Provider: Caitlin Landeros RN)1728 (Given - Provider: Caitlin Landeros RN) aspirin enteric coated tablet 81 mg 81 mg, oral, Daily, First dose on Thu04/19/20 at 0900, Do not crush, chew, cut, dissolve, open or otherwise manipulate tablet/capsule. 0847 (Given - Provid er: Caitlin Landeros RN) atorvastatin (LIPITOR) tablet 40 mg 40 mg, oral, Nightly, First dose on Thu04/18/20 at 2100 2259 (Not Given - Provider: Mick Russell RN - Reason: NPO) bisacodyL (DULCOLAX) suppository 10 mg (COMPLETED) 10 mg, rectal, Once, On Thu04/19/20 at 1100, For 1 dose, Indications: constipation 1125 (Given - Provid er: Caitlin Landeros RN) busPIRone (BUSPAR) tablet 45 mg 45 mg, oral, 2 times daily, First dose on Thu04/18/20 at 2100, Indications: Generalized Anxiety Disorder 225 (Not Given - Provider: Mick Russell RN - Reason: NPO) 0846 (Given - Provider: Caitlin Landeros RN) ceFAZolin (ANCEF) 1 gram/10 mL in sterile water (premix) 1,000 mg (COMPLETED) 1,000 mg, intravenous, at 200 mL/hr, Administer over 3 Minutes, Every 8 hours, First dose on Thu04/18/20 at 1600, For 2 doses, Start 8 hours after adam-operative dose. , Indications: Prophylaxis, Surgical 1735 (New Bag - Provider: Ashia Barber RN) 0056 (New Bag - Provider: Mick Russell RN) celecoxib (CeleBREX) capsule 400 mg (COMPLETED) 400 mg, oral, Once, On Thu04/18/20 at 0800, For 1 dose, Pre-Op, Indications: Pre-Emptive Analgesia 0744 (Given - Provider: Chloé Montaño RN) docusate (COLACE) 10 mg/mL oral liquid 100 mg(Linked Group 2) 100 mg, feeding tube, 2 times daily, First dose on Thu04/18/20 at 1430, If taking meds per tube. Hold for diarrhea., Indications: constipation 1540 (See Alternative - Provider: Ashia Barber RN)2259 (See Alternative - Provider: Mick Russell RN) 0847 (See Alternative - Provider: Caitlin Landeros RN) docusate sodium (COLACE) capsule 100 mg(Linked Group 2) 100 mg, oral, 2 times daily, First dose on Thu04/18/20 at 1430, If able to swallow medications. Hold for diarrhea. , Indications: constipation 1540 (Given - Provider: Ashia Barber RN)2259 (Not Given - Provider: Mick Russell RN - Reason: NPO) 0847 (Given - Provider: Caitlin Landeros, KIRA) enoxaparin (LOVENOX) syringe 40 mg (CANCELED) 40 mg, subcutaneous, Every 12 hours scheduled, First dose on Thu04/18/20 at 1430, Indications: Deep Vein Thrombosis Prevention 1539 (Given - Provider: Ashia Barber RN)2300 (Not Given - Provider: Mick Russell RN - Reason: Other - Comment: was given at 1539) 0849 (Given - Provider: Caitlin Landeros, KIRA) enoxaparin (LOVENOX) syringe 40 mg 40 mg, subcutaneous, Daily (for enoxaparin), First dose (after last modification) on Lien 04/19/20 at 2100, Indications: Deep Vein Thrombosis Prevention famotidine (PEPCID) injection 20 mg 20 mg, intravenous, Administer over 2 Minutes, Daily, First dose on Lien 04/19/20 at 0900 0848 (Given - Provid er: Caitlin Landeros RN) famotidine (PEPCID) tablet 20 mg (CANCELED) 20 mg, oral, 2 times daily, First dose on Thu04/18/20 at 1430, Indications: Prevention of Stress Ulcer 1551 (Given - Provider: Ashia Barber RN)2100 (Due) ketorolac (TORADOL) injection 15 mg 15 mg, intravenous, Every 6 hours, First dose on Thu04/18/20 at 1430, For 1 day, For Adult IV push, administer over 15 seconds 1507 (Given - Provider: Ashia Barber RN)2129 (Given - Provider: Mick Russell RN) 0322 (Not Given - Provider: Mick Russell RN - Reason: Patient/family refused)0848 (Given - Provider: Caitlin Landeros RN) lamoTRIgine (LaMICtal) tablet 200 mg 200 mg, oral, Nightly, First dose on Thu04/18/20 at 2100 2233 (Given - Provider: Mick Russell RN) metoclopramide (REGLAN) injection 10 mg 10 mg, intravenous, Administer over 1 Minutes, Every 8 hours scheduled, First dose on Thu04/18/20 at 1430, Indications: Prevention of Postoperative Nausea and Vomiting 1540 (Given - Provider: Ashia Barber RN)2300 (Not Given - Provider: Mick Russell RN - Reason: Patient/family refused) 0526 (Given - Provider: Mick Russell RN)1341 (Given - Provider: Caitlin Landeros RN) montelukast (SINGULAIR) tablet 10 mg 10 mg, oral, Nightly, First dose on Thu04/18/20 at 2100 2301 (Not Given - Provider: Mick Russell RN - Reason: NPO) ondansetron (ZOFRAN) injection 4 mg 4 mg, intravenous, Administer over 2 Minutes, Every 6 hours scheduled, First dose on Thu04/18/20 at 1430, Indications: Prevention of Post-Operative Nausea and Vomiting 1539 (Given - Provider: Ashia Barber RN)1733 (Not Given - Provider: Ashia Barber RN - Reason: Patient/family refused) 0056 (Given - Provider: Mick Russell RN)0526 (Given - Provider: Mick Russell RN)1126 (Given - Provider: Caitlin Landeros RN)1727 (Given - Provider: Caitlin Landeros RN) polyethylene glycol (MIRALAX) packet 17 g 17 g, oral, Daily, First dose on Thu04/19/20 at 1100, Indications: constipation 1124 (Given - Provid er: Catilin Landeros RN) sodium chloride 0.9% bolus 500 mL (COMPLETED) 500 mL, intravenous, Once, On Thu04/18/20 at 1345, For 1 dose, Phase I 1245 (Due)1311 (New Bag - Provider: Aleshia Huff RN) sodium chloride 0.9% flush 0.5-20 mL 0.5-20 mL, intra-catheter, Every 8 hours scheduled, First dose on Thu04/18/20 at 1430, Flush volume based on line type and size. , Indications: Flushing 1531 (Not Given - Provider: Ashia Barber RN - Reason: Other)2200 (Given - Provider: Mick Russell RN) 0528 (Given - Provider: Mick Russell RN)1342 (Given - Provider: Caitlin Landeros RN) vancomycin 1,000 mg/200 mL in dextrose 5% (premix) 1,000 mg (COMPLETED) 1,000 mg, intravenous, Administer over 60 Minutes, Once, On Thu04/18/20 at 0800, For 1 dose, Pre-Op, Indications: Prophylaxis, Surgical 0816 (Given - Provider: JOSEE Levi) Continuous Medication Order 04/17/2020 04/18/2020 04/19/2020 Lactated Ringer's (LR) infusion (CANCELED) 30 mL/hr, intravenous, Continuous, Starting on Thu04/18/20 at 0800, Pre-Op 0746 (New Bag - Provider: Chloé Montaño RN)0815 (New Bag - Provider: JOSEE Lvei)1110 (Stopped - Provider: JOSEE Levi) sodium chloride 0.9% infusion (CANCELED) 75 mL/hr, intravenous, Continuous, Starting on Thu04/18/20 at 1300 1337 (Rate/Dose Change - Provider: Aleshia Huff RN)2229 (Stopped - Provider: Mick Russell RN - Comment: pt wanted it stopped. will restart in am) 0542 (New Bag - Provider: Mick Russell RN) PRN Medication Order 04/17/2020 04/18/2020 04/19/2020 albuterol 2.5 mg /3 mL (0.083 %) nebulizer solution 2.5 mg 2.5 mg, nebulization, Every 6 hours PRN, wheezing, Starting on Thu04/18/20 at 1359 albuterol HFA (PROVENTIL HFA,VENTOLIN HFA,PROAIR HFA) 90 mcg/actuation inhaler 2 puff 2 puff, inhalation, Every 4 hours PRN (correspondent), wheezing, shortness of breath, Starting on Thu04/18/20 at 1359 bupivacaine (MARCAINE) 0.25 % (2.5 mg/mL) preservative free injection (CANCELED) As needed, Starting on Thu04/18/20 at 1120, Intra-Op 1120 (Given - Provider: Holly Johnston MD) oxyCODONE (ROXICODONE) tablet 5 mg 5 mg, oral, Every 4 hours PRN, 1st line for pain, Starting on Thu04/18/20 at 1359, Indications: Pain 0104 (Given - Provid er: Mick Russell RN)0525 (Given - Provider: Mick Russell RN) prochlorperazine (COMPAZINE) injection 10 mg 10 mg, intravenous, Every 6 hours PRN, nausea, vomiting, Starting on Thu04/18/20 at 1359, Indications: Nausea and Vomiting sodium chloride 0.9 % irrigation (CANCELED) As needed, Starting on Thu04/18/20 at 1041, Intra-Op 1041 (Given - Provider: Holly Johnston MD) sodium chloride 0.9% flush 0.5-20 mL 0.5-20 mL, intra-catheter, As needed, line care, Starting on Thu04/18/20 at 1359, Flush volume based on line type and size. Flush before and after each use. , Indications: Flushing sterile water injection (CANCELED) As needed, Starting on Thu04/18/20 at 1041, Intra-Op 1041 (Given - Provider: Holly Johnston MD - Comment: used for endoscopy) No Frequency Medication Order 04/17/2020 04/18/2020 04/19/2020 acetaminophen (TYLENOL) 500 mg tablet - ADS Override Pull (COMPLETED) Starting on Thu04/18/20 at 0731, For 1 dose, CHLOÉ MONTAÑO: cabinet override 0743 (Given - Provider: Tomas Montaño RN) Lactated Ringer's (LR) infusion - ADS Override Pull (COMPLETED) Starting on Thu04/18/20 at 0731, For 1 dose, CHLOÉ MONTAÑO: cabinet override 0745 (New Bag - Provider: Chloé Montaño RN) Linked Groups Order Group 1: acetaminophen (TYLENOL) tablet 1,000 mgJump to med 1,000 mg, oral, Every 6 hours scheduled, First dose on Thu04/18/20 at 1430, If able to swallow medications., Indications: Pain Or acetaminophen (TYLENOL) 32 mg/mL oral suspension 1,000 mgJump to med 1,000 mg, feeding tube, Every 6 hours scheduled, First dose on Thu04/18/20 at 1430, If taking meds per tube., Indications: Pain Or acetaminophen (TYLENOL) suppository 650 mgJump to med 650 mg, rectal, Every 6 hours scheduled, First dose on Thu04/18/20 at 1430, If unable to tolerate enteral administration., Indications: Pain Group 2: docusate sodium (COLACE) capsule 100 mgJump to med 100 mg, oral, 2 times daily, First dose on Thu04/18/20 at 1430, If able to swallow medications. Hold for diarrhea. , Indications: constipation Or docusate (COLACE) 10 mg/mL oral liquid 100 mgJump to med 100 mg, feeding tube, 2 times daily, First dose on Thu04/18/20 at 1430, If taking meds per tube. Hold for diarrhea., Indications: constipation documented in this encounter Orders Medications Ordered That Jayson ht Not Have Been Administered Count Last Ordered Date First Ordered Date enoxaparin (LOVENOX) syringe 40 mg 1 2019 acetaminophen (TYLENOL) 32 m g/mL oral suspension 1,000 mg 1 04/18/2020 acetaminophen (TYLENOL) suppository 650 mg 1 04/18/2020 albuterol 2.5 mg /3 mL (0.08 3 %) nebulizer solution 2.5 mg 1 04/18/2020 albuterol HFA (PROVENTIL HFA ,VENTOLIN HFA,PROAIR HFA) 90 mcg/actuation inhaler 2 puff 1 04/18/2020 atorvastatin (LIPITOR) tablet 40 mg 1 04/18 bupivacaine (MARCAINE) 0.25 % (2.5 mg/mL) preservative free injection 1 04/18/2020 busPIRone (BUSPAR) tablet 10 mg 1 0 diphenhydrAMINE (BENADRYL) i njection 12.5 mg 1 04/18/2020 docusate (COLACE) 10 mg/mL o ral liquid 100 mg 1 04/18/2020 fentaNYL (SUBLIMAZE) 50 mcg/ mL preservative free injection - ADS Override Pull 1 04/18/2020 HYDROmorphone (DILAUDID) 1 m g/mL injection - ADS Override Pull 1 04/18/2020 HYDROmorphone (DILAUDID) injection 0.2 mg 1 04/18/2020 meperidine (DEMEROL) preserv ative free injection 12.5 mg 1 04/18/2020 midazolam (VERSED) 1 mg/mL p reservative free injection - ADS Override Pull 1 04/18/2020 montelukast (SINGULAIR) tablet 10 mg 1 03/23 naloxone (NARCAN) 0.4 mg/mL injection 0.04-0.4 mg 1 04/18/2020 prochlorperazine (COMPAZINE) injection 10 mg 2 04/18/2020 sodium chloride 0.9 % irrigation 1 04/18/20 20 sodium chloride 0.9% flush 0.5-20 mL 3 03/23 sterile water injection 1 04/18/2020 vancomycin 1,000 mg/200 mL i n dextrose 5% (premix) - ADS Override Pull 1 04/18/2020 vancomycin 1,000 mg/200 mL i n dextrose 5% (premix) 1,000 mg 1 04/18/2020 Diet Count Last Ordered Date First Orde red Date ADULT DISCHARGE DIET 1 04/19/2020 Nursing Count Last Ordered Date First Orde red Date DISCHARGE ACTIVITY 4 04/19/2020 DISCHARGE CALL PROVIDER 4 04/19/2020 DISCHARGE INSTRUCTIONS 2 04/19/2020 FOLLOW UP WITH ESTABLISHED PROVIDER 1 04/19 WEIGHT RESTRICTIONS 1 04/19/2020 Transfer Count Last Ordered Date First Orde red Date TRANSFER PATIENT 1 04/18/2020 documented in this encounter Care Teams Information Technology Specialist Relationship Specialty Start Date End Date Nurys Givens MD PCP - General 03/08/14 Holly Johnston MD Fellow Vascular Surgery 04/19/20 documented as of this encounter
--- OUTSIDE RECORDS SUMMARY | 2024-06-19 21:16 | XMS_ITS | Encounter Summary ---
Author Organization [facility] Healthcare Address [address] [place] [address] Care Team Providers Care Advertising Coordinator Name Role Phone Nurys Givens MD Primary Care Provider + Holly Johnston MD Unavailable [phone] Encounter Details Date Type Department Care Team (Latest Contact Info) Description 03/04/2021 11:05 AM CDT Hospital Encounter [facility] [address] [place] [id number] Discharge Disposition: Discharge to home or self care Social History Tobacco Use Types Packs/Day Years Used Date Smoking Tobacco: Every Day Cigarettes Smokeless Tobacco: Never Comments Unknown Sex and Gender Information Value Date Recorded Sex Assigned at Not on file 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 ??There will be no report generated by a [facility] Radiologist. Narrative [facility] - 03/04/2021 11:05 AM CDT EXAMINATION: ??Images For Reference Purposes Only us Ashley Medina MD IMG MAMMO PROCEDURES Fi nal Result [facility] documented in this encounter Visit Diagnoses Not on filedocumented in this encounter Care Teams Advertising Coordinator Relationship Specialty Start Date End Date Nurys Givens MD PCP - General 03/08/14 Holly Johnston MD Fellow Vascular Surgery 04/19/20 documented as of this encounter
--- OUTSIDE RECORDS SUMMARY | 2024-06-19 21:16 | XMS_ITS | Referral Summary ---
Author Organization [facility] [place] [address] Address [address] [place] [address] Care Team Providers Care Line Prep Cook Name Role Phone Nurys Givens MD Primary Care Provider + Holly Johnston MD Unavailable [phone] Allergies Active Allergy Reactions Criticality Noted [...] (04/05/2020): Added automatically from request for surgery [id number] Social History Tobacco Use Types Packs/Day Years Used Date Smoking Tobacco: Every Day Cigarettes Smokeless Tobacco: Never Tobacco Cessation:Ready to Q uit: Yes; Counseling Given: Yes Comments No Sex and Gender Information Value Date Recorded Sex Assigned at Not on file Legal Sex Female 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 Gender Identity Not on file Sexual Orientation Straight 05/23/2020 11 :19 AM BICYCLE SERVICE TECHNICIAN Last Filed Vital Signs Vital Sign Reading Time Taken Comments Blood Pressure 125/98 05/24/2020 12:53 PM BICYCLE SERVICE TECHNICIAN Pulse 113 05/24/2020 12:53 PM BICYCLE SERVICE TECHNICIAN Temperature 36.7 ??C (98 ??F) 04/30/2020 2:44 PM BICYCLE SERVICE TECHNICIAN Respiratory Rate 20 04/30/2020 2:44 PM BICYCLE SERVICE TECHNICIAN Oxygen Saturation 98% 04/30/2020 2:44 PM BICYCLE SERVICE TECHNICIAN Inhaled Oxygen Concentration - - Weight 70.8 kg (156 lb) 03/07/2021 9:01 AM CDT Height 152.4 cm (5') 03/07/2021 9:01 AM CDT Body Mass Index 30.47 03/07/2021 9:01 AM CDT Plan of Treatment Not on file Insurance [employer] [facility] PENDING SALE TO [facility] [id number] [employer] [facility] Advance Directives For more information, please contact: [phone] * Full Code (Latest Code Status on File) Date Activated Date Inactivated Comments 04/18/2020 2:00 PM 04/19/2020 10:52 PM Care Teams Line Prep Cook Relationship Specialty Start Date End Date Nurys Givens MD PCP - General 03/08/14 Holly Johnston MD Fellow Vascular Surgery 04/19/20
--- OUTSIDE RECORDS SUMMARY | 2024-06-19 21:16 | XMS_ITS | Encounter Summary ---
Author Organization [facility] Healthcare Address [address] [place] [address] Care Team Providers Care Public Relations Senior Associate Name Role Phone Nurys Givens MD Primary Care Provider + Encounter Details Date Type Department Care Team (Late st Contact Info) Description 04/18/2020 8:00 AM CDT - 04/18/2020 11:00 AM CDT Surgery [facility] Operating Room [address] [place] [address] Holly Johnston MD [id number] [place] [address] Laparoscopic Brett hiatal hernia with chente gastroplasty Surgery Details Date/Time Status Location OR Service Patient Class Case Cl ass Case Type Trauma Case? 04/18/2020 8:00 AM Posted OPERATING ROOM OR General Surgery Outpatient Elective Panel 1 Procedure LRB Anes Op Region Wound Class Comments LAPAROSCOPIC CHENTE GASTROPLASTY N/A General Abdomen Class I - Clean Laparoscopic Brett hiatal hernia with chente gastroplasty Laparoscopic Brett hiatal hernia with chente gastroplasty N/A General Abdomen Class I - Clean Laparoscopic Brett hiatal hernia with chente gastroplasty Surgeon Surgeon Role Service Panel Holly Johnston MD Primary General Surgery 1 Troy Loomis MD General Surgery 1 documented in this encounter Social History Tobacco Use Types Packs/Day Years Used Date Smoking Tobacco: Every Day Cigarettes Smokeless Tobacco: Never Comments Unknown Sex and Gender Information Value Date Recorded Sex Assigned at Not on file Legal Sex Female 3:14 AM NON CLINICAL ADVISOR Gender Identity Not on file Sexual Orientation Straight 05/23/2020 11 :19 AM NON CLINICAL ADVISOR documented as of this encounter Last Filed Vital Signs Vital Sign Reading Time Taken Comments Blood Pressure 117/76 04/18/2020 7:17 AM CDT Pulse 90 04/18/2020 7:17 AM CDT Temperature 36.6 ??C (97.8 ??F) 04/18/2020 7:17 AM CD T Respiratory Rate 18 04/18/2020 7:17 AM CDT Oxygen Saturation 98% 04/18/2020 7:17 AM CDT Inhaled Oxygen Concentration - - Weight 67.6 kg (149 lb) 04/18/2020 7:17 AM CDT Height 154.9 cm (5' 1 ) 04/18/2020 7:17 AM CDT Body Mass Index 28.15 04/18/2020 7:17 AM CDT documented in this encounter Discharge Summaries * Karlie Danielle, GEORGE - 04/19/2020 3:27 PM CDT Physician Discharge Summary Patient ID: Leona Calvo [id number] (64 y.o.) Admit date: 04/18/2020 Discharge [...] condition postoperatively. The patent was transferred to telemetry. The patient progressed as expected. Aggressive physical [...] 05/24/2020 12:30 PM Holly Johnston MD CAR CH 209E [id number] Follow-up with Dr. Johnston 05/24/20 [...] family. Signed: Karlie Danielle NP Cardiothoracic Surgery [facility] [phone] 04/26/202012:44 PM Cosigned by Holly Johnston MD at 04/26/2020 4:56 PM NON CLINICAL ADVISOR CLINICAL ADVISOR CLINICAL ADVISOR documented in this encounter Discharge Instructions * Discharge Instr - Diet* Nga Mao, RD - 04/19/2020 9:05 AM CDT Follow [...] and drink water throughout the day. Call [phone] to speak with a dietitian about any diet related concerns. Additional resources are available online from the Academy of Nutrition and Dietetics at www.eatright.org * Attachments The following attachments cannot be sent through Care Everywhere. * Heart Healthy Diet (Discharge Care) (Swiss) documented in this encounter Medications at Time [...] than 2 seconds. Comments: Abdominal incision sites ARMAND dermabond C/D/I Neurological: General: No focal deficit [...] on 05/24/20. Karlie Danielle NP Cardiothoracic Surgery [facility] Office: 04/19/2020 12:14 PM Cosigned by Holly Johnston MD at 04/19/2020 1:04 PM CDT * Nga Mao, RD - 04/19/2020 9:06 AM CDT Nutrition Assessment Reason for Assessment: Screened at Nutrition Risk and Initial Nutrition Assessment Encounter Date: 04/19/20 11:49 AM Nutrition Assessment and Plan: Patient is a 64 y.o. female. Admit Dx: DIAPHRAGMATIC HERNIA WITHOUT OBSTRUCTION OR GANGRENE/ND LAP,ESOPHAGOGAST FUNDOPLASTY. Admitted on 04/18/2020, current LOS is 1 days. PMH includes bipolar, depression, GERD, COPD, Perea's esophagus, hiatal hernia s/p hernia repair (esophagogastrofundoplasty) yesterday. Pt had been NPO s/p swallow evaluation this morning. Pt passed swallow evaluation w diet advancing to full liquids per CTS. Per CTS BLOCKLAYER, pt to follow full liquid diet for [...] - 29.9 Overweight 3 Day I/O Summary 04/17 1900 - 04/19 0659 In: 4510 [I.V.:4010] Out: 245 [Urine:245] Temp: 36.6 ??C (97.8 ??F) Past Medical History: Diagnosis Date ??? ADHD (attention deficit hyperactivity disorder) ??? Anemia ??? Anxiety ??? Aortic calcification (CMS/HCC) ??? Arthritis ??? Asthma ??? Perea esophagus ??? Bipolar disorder (CMS/HCC) ??? Constipation ??? COPD (chronic obstructive pulmonary disease) (CMS/[facility]) sleeps sitting up ??? Depression ??? GERD (gastroesophageal reflux disease) ??? Hiatal hernia ??? Hyperlipidemia ??? Hypertension ??? Type 2 diabetes mellitus (CMS/[facility]) ??? Vitamin D deficiency Medications and Lab [...] and drink water throughout the day. Call [phone] to speak with a dietitian about any [...] on the above findings, I consider Leona Esparza Carolynntiara to be an acceptable risk for: Procedure(s): LAPAROSCOPIC BRETT FUNDOPLICATION HIATAL HERNIA/ 180 min Source Note - Grace Fernandez NP - 04/05/2020 2:00 PM CDT Cardiothoracic Surgery [place] History & Physical [facility] Dr. Rajendra Schilling & Dr. Holly Calvo 1955 Reason for Consult: Hiatal Hernia Physician Requesting Consult: Lilly WOLFE PCP: Chon New or Established Patient: New Chief Complaint: Abdominal fullness HPI: Leona Isaias Calvo is 64 y.o. White female with [...] to proceed. Grace Fernandez NP Cardiothoracic Surgery [facility] [phone] 04/02/20202:05 PM documented in this encounter Miscellaneous [...] the risk of falls will improve 04/19/2020 172 by Caitlin Landeros [...] this time. Aniya Benson RN Case Manager [phone] * Plan of Care - Caitlin Landeros [...] - 04/19/2020 7:24 AM CDT Patient: Leona Esparza Carolynntiara Procedure(s) with comments: LAPAROSCOPIC CHENTE GASTROPLASTY - Laparoscopic Brett hiatal hernia with chente gastroplasty Laparoscopic Brett hiatal hernia with chente gastroplasty - Laparoscopic Brett hiatal hernia withcollis gastroplasty Patient location: Med Surgical Floor Last vitals: Vitals: 04/19/20 0400 BP: Pulse: 80 Resp: Temp: SpO2: Level of consciousness: awake, alert and oriented Post-anesthesia pain: adequate analgesia Anesthetic complications: no Patient stated that she has had a headache this morning but it went away * Plan of Care - Mick Russell RN - 04/19/2020 4:15 AM CDT Goals: Clinical [...] - Primary * Troy Loomis MD - Operations/Dispatch. I asked Dr. Loomis to assist with [...] We mobilized the greater curvature from about assisted down all the way to the left [...] gastroesophageal junction. I then passed a 54 [place] bougie. We used a Collisgastroplasty technique which required 3 firings of a [...] Loomis MD Anesthesiologist: Dominik Puente MD Anesthesiologist Operations/Dispatch: JOSEE Arreola; JOSEE Levi Automobile Radio Repairer: Nora Becerra RN Automobile Radio Repairer Relief: Marce Bang RN Scrub: ST Ant INDEPENDENT LIVING ADVISOR: Stella Hahn RN DATE OF SURGERY : [...] extravasation. 3. ??Gastric distention. Electronically signed by: Ruben Garcia 04/19/2020 1:13 PM CDT EXAM: ?? [place] [...] by: Bean Gutierrez M.D. Holly Johnston MD IMG FLUOROSCOPY PROCEDURES Fin al Result * eGFR (04/19/2020 5:11 AM CDT) [facility] eGFR 68 mL/min/1.7 3 m2 [facility] Comment: Interpretive Data Reference Interval Normal ?>/= 90 mL/min/1.73m2 Mildly decreased* ? 60 - 89 mL/min/1.73m2 Mildly to moderately decreased ?45 - 59 mL/min/1.73m2 Moderately to severely decreased ??30 - 44 mL/min/1.73m2 Severely decreased ?15 - 29 mL/min/1.73m2 Kidney Failure ?< 15 ??mL/min/1.73m2 *Relative to young adult level If -[place] Citizen multiply value by 1.16. Estimated glomerular filtration [...] MD LAB BLOOD ORDERABLES Final Res ult [facility] [address] Department [place] [address] * (ABNORMAL) Basic metabolic panel (04/19/2020 5:11 AM CDT) Sodium 140 135 - 145 mmol/L CERNER Potassium, pl 4.0 3.3 - 4.9 mmol/L [facility] Chloride 105 97 - 110 mmol/L [facility] CH CO2 23 22 - 32 mmol/L [facility] CH Anion gap 12 2 - 15 mmol/L [facility] CH BUN 12 8 - 25 mg/dL [facility] Creatinine 0.91 0.60 - 1.10 mg/dL [facility] CH Glucose 86 70 - 199 mg/dL [facility] CH Comment: Interpretive Data Fasting glucose >/= 126 [...] 2017. Calcium 8.2(L) 8.5 - 10.3 mg/dL [facility] Blood specimen (specimen) 04/19/2020 5:11 AM CDT 04/19/2020 5:27 AM CDT us Holly Johnston MD LAB BLOOD ORDERABLES Final Res ult [facility] [address] Department [place] [address] * (ABNORMAL) CBC without differential (04/19/2020 5:11 AM CDT) WBC 7.9 3.8 - 9.9 K/cumm [facility] Hgb 11.9 11.9 - 15.5 g/dL [facility] Hct 38.7 35.6 - 45.5 % [facility] Plt 218 150 - 400 K/cumm [facility] MPV 10.3 9.1 - 12.3 fL [facility] RBC 4.29 3.90 - 5.20 M/cumm [facility] MCV 90.2 81.3 - 96.4 fL [facility] MCH 27.7 27.1 - 33.3 pg [facility] MCHC 30.7(L) 32.3 - 35.7 g/dL [facility] RDW CV 16.3(H) 11.1 - 14.9 % [facility] RDW SD 54.0(H) 35.7 - 48.1 fL [facility] NRBC abs 0.00 0.00 - 0.01 K/cumm [facility] Blood specimen (specimen) 04/19/2020 5:11 AM CDT 04/19/2020 5:25 AM CDT Holly Johnston MD LAB BLOOD ORDERABLES Final Res ult [address] Department [place] [address] * Surgical pathology (04/18/2020 1:56 PM CDT) Tissue (Soft Tissue, debridement) 04/18/2020 10:57 AM CDT Narrative PATHOLOGY CH - 04/20/2020 3:00 PM CDT EPIC results best viewed via link to PDF [facility] Department of Pathology [address] [place], [place] [id number] Final Report Patient Name: ??ROSITA LEONA Ash Address: ??[address] [place] [address], ??[place], [place] ??64 Gender: ??F : ??1955 (Age: 64) Service: ??Surgery Location: ?? Hospital #: ??[id number] Patient Type: ??[facility] Accession # ?[id number] Taken: ??04/18/2020 Received: ??04/18/2020 Accessioned: ??04/18/2020 Reported: [...] masses. ??Represented in two cassettes. ??Loraine Orozco M.D./Massimo Zarate REPORT IMAGES AND SCANNED DOCUMENTS, IF INCLUDED, ONLY VIEWABLE IN PDF VERSION OF REPORT The performance characteristics of some immunohistochemical stains, fluorescence in-situ hybridization tests and immunophenotyping by flow cytometry cited in this report (if any) were determined by the Surgical Pathology Department at [facility] as part of an ongoing quality assurance supervisor body program and in compliance with federally mandated [...] characteristics determined by the Surgical Pathology Department [facility]. ??It has not been cleared or approved by the U. S. Food and Drug Administration. Holly Johnston MD LAB PATHOLOGY ORDERABLES Final Result Performing Organization Address [facility] Co de Phone Number PATHOLOGY [address] [place] [address] * POCT glucose (04/18/2020 11:28 AM CDT) Glucose, POC 153 70 - 199 mg/dL [facility] CH Blood specimen (specimen) 04/18/2020 11:28 AM CDT 04/18/2020 11:28 AM CDT Holly Johnston MD LAB POCT ORDERABLES - DEVICE F inal Result Performing Organization Address [facility] de Phone Number C[facility] [address] [place] [address] * POCT glucose (04/18/2020 9:43 AM CDT) Glucose, POC 129 70 - 199 mg/dL [facility] CH Blood specimen (specimen) 04/18/2020 9:43 AM CDT 04/18/2020 9:43 AM CDT Holly Johnston MD LAB POCT ORDERABLES - DEVICE F inal Result Performing Organization Address [facility] de Phone Number [facility] [address] [facility] [employer] [place] [address] * Check Sample (04/18/2020 7:30 AM CDT) ABO Rh O Positive [facility] CH HCLL OTHER 04/18/2020 7:30 AM CDT 04/18/2020 7:52 AM CDT Holly Johnston MD LAB BLOOD ORDERABLES Final Res ult [facility] [address] [facility] [place] [address] * POCT glucose (04/18/2020 6:40 AM CDT) Glucose, POC 100 70 - 199 mg/dL [facility] Blood specimen (specimen) 04/18/2020 6:40 AM CDT 04/18/2020 6:40 AM CDT Holly Johnston MD LAB POCT ORDERABLES - DEVICE F inal Result Performing Organization Address City/[facility]/ZIP Co de Phone Number [facility] [address] [place] [address] documented in this encounter Visit Diagnoses Diagnosis [...] meds per tube., Indications: PainIndications:Pain acetaminophen (TYLENOL) suppository 650 mg 650 mg, [...] Given 04/19/2020 8:47 AM CDT 81 mg bupivacaine (MARCAINE) 0.25 % (2.5 mg/mL) preservative free injection As needed, Starting on Thu04/18/20 at 1120, Intra-Op Given 04/18/2020 11:20 AM CDT 25 mL Surgical Site busPIRone (BUSPAR) tablet 45 mg 45 mg, oral, 2 times daily, First dose on Thu04/18/20 at 2100, Indications: Generalized Anxiety DisorderIndications:Generalized Anxiety Disorder Given 04/19/2020 8:46 AM CDT 45 mg docusate (COLACE) 10 mg/mL oral liquid 100 mg 100 mg, feeding tube, 2 times daily, First dose on Thu04/18/20 at 1430, If taking meds per tube. Hold for diarrhea., Indications: constipationIndications:constipat ion docusate sodium (COLACE) capsule 100 mg 100 mg, oral, 2 times daily, First dose on Thu04/18/20 at 1430, If able to swallow medications. Hold for diarrhea. , Indications: constipationIndications:constipat ion Given 04/19/2020 8:47 AM CDT 100 mg Given 04/18/2020 3:40 PM CDT 100 mg enoxaparin (LOVENOX) syringe 40 mg 40 mg, subcutaneous, Daily (for enoxaparin), First dose (after last modification) on Thu04/19/20 at 2100, Indications: Deep Vein Thrombosis PreventionIndications:Deep Vein Thrombosis Prevention famotidine (PEPCID) injection 20 mg 20 mg, intravenous, Administer over 2 Minutes, Daily, First dose on Thu04/19/20 at 0900 Given 04/19/2020 8:48 AM CDT 20 mg lamoTRIgine (LaMICtal) tablet 200 mg 200 mg, [...] First dose on Thu04/19/20 at 1100, Indications: constipationIndications:consti pation Given 04/19/2020 11:24 AM CDT 17 g sodium chloride 0.9 % irrigation As needed, Starting on Thu04/18/20 at 1041, Intra-Op Given 04/18/2020 10:41 AM CDT 1,000 mL Surgical Site sodium chloride 0.9% flush 0.5-20 mL 0.5-20 mL, intra-catheter, Every 8 hours scheduled, First dose on Thu04/18/20 at 1430, Flush volume based on line type and size. , Indications: FlushingIndications:Flushing Given 04/19/2020 1:42 PM CDT 10 mL Given 04/19/2020 5:28 AM CDT 10 mL Given 04/18/2020 10:00 PM CDT 10 mL sterile water injection As needed, Starting on Thu04/18/20 at 1041, Intra-Op Given 04/18/2020 10:41 AM CDT 10 mL Surgical Site documented in this encounter Discontinued Medications Medication [...] Russell RN)1125 (See Alternative - Provider: Caitlin Landeros, KIRA)1728 (See Alternative - Provider: Caitlin Landeros, KIRA) acetaminophen (TYLENOL) suppository 650 mg(Linked Group 1) 650 mg, rectal, Every 6 hours scheduled, First dose on Thu04/18/20 at 1430, If unable to tolerate enteral administration., Indications: Pain 1541 (See Alternative - Provider: Ashia Barber RN)1738 (See Alternative - Provider: Ashia Barber RN)2326 (See Alternative - Provider: Mick Russell RN) 0504 (See Alternative - Provider: Mick Russell RN)1125 (See Alternative - Provider: Caitlin Landeros, KIRA)1728 (See Alternative - Provider: Caitlin Landeros, KIRA) acetaminophen (TYLENOL) tablet 1,000 mg (COMPLETED) 1,000 mg, oral, Once, On Thu04/18/20 at 0800, For 1 dose, Pre-Op, Indications: Pre-Emptive Analgesia 0744 (Given - Provider: Chloé Hathaway RN) acetaminophen (TYLENOL) tablet 1,000 mg(Linked Group 1) 1,000 mg, oral, Every 6 hours scheduled, First dose on Thu04/18/20 at 1430, If able to swallow medications., Indications: Pain 1541 (Not Given - Provider: Ashia Barber RN - Reason: Patient/family refused)1738 (Given - Provider: Ashia Barber, KIRA)2326 (Not Given - Provider: Mick Russell RN - Reason: NPO) 0504 (Not Given - Provider: Mick Russell RN - Reason: NPO)1125 (Given - Provider: Caitlin Landeros, KIRA)1728 (Given - Provider: Caitlin Landeros RN) aspirin [...] Thu04/18/20 at 2100, Indications: Generalized Anxiety Disorder 2259 (Not Given - Provider: Mick Russell [...] RN) 0056 (New Bag - Provider: Mick Russell, KIRA) celecoxib (CeleBREX) capsule 400 mg (COMPLETED) 400 mg, oral, Once, On Thu04/18/20 at 0800, For 1 dose, Pre-Op, Indications: Pre-Emptive Analgesia 0744 (Given - Provider: Chloé Hathaway RN) docusate (COLACE) 10 mg/mL oral liquid 100 mg(Linked Group 2) 100 mg, feeding tube, 2 times daily, First dose on Thu04/18/20 at 1430, If taking meds per tube. Hold for diarrhea., Indications: constipation 1540 (See Alternative - Provider: Ashia Barber RN)2259 (See Alternative - Provider: Mick Russell RN) 0847 (See Alternative - Provider: Caitlin Landeros, KIRA) docusate sodium (COLACE) capsule 100 mg(Linked Group 2) 100 mg, oral, 2 times daily, First dose on Thu04/18/20 at 1430, If able to swallow medications. Hold for diarrhea. , Indications: constipation 1540 (Given - Provider: Ashia Barber RN)2259 (Not Given - Provider: Mick Russell RN - Reason: NPO) 0847 (Given - Provider: Caitlin Landeros RN) enoxaparin (LOVENOX) syringe 40 mg (CANCELED) 40 [...] enoxaparin), First dose (after last modification) on Thu04/19/20 at 2100, Indications: Deep Vein Thrombosis Prevention famotidine (PEPCID) injection 20 mg 20 mg, intravenous, Administer over 2 Minutes, Daily, First dose on Thu04/19/20 at 0900 0848 (Given - Provid er: [...] Mick Russell RN)1341 (Given - Provider: Caitlin Landeros, KIRA) montelukast (SINGULAIR) tablet 10 mg 10 mg, [...] Mick Russell RN)1126 (Given - Provider: Caitlin Landeros, KIRA)1727 (Given - Provider: Caitlin Landeros RN) polyethylene glycol (MIRALAX) packet 17 g 17 g, oral, Daily, First dose on Lien 04/19/20 at 1100, Indications: constipation 1124 (Given - Provid er: Caitlin Landeros RN) sodium chloride 0.9% bolus 500 [...] Mick Russell RN)1342 (Given - Provider: Caitlin Landreos RN) vancomycin 1,000 mg/200 mL in dextrose [...] Pre-Op 0746 (New Bag - Provider: Chloé Hathaway RN)0815 (New Bag - Provider: JOSEE Levi)1110 (Stopped - Provider: JOSEE Levi) sodium chloride [...] 2 puff, inhalation, Every 4 hours PRN (manager social responsibility), wheezing, shortness of breath, Starting on Thu04/18/20 [...] on Thu04/18/20 at 0731, For 1 dose, SABRA CHLOÉ: cabinet override 0743 (Given - Provider: Tomas Hathaway RN) Lactated Ringer's (LR) infusion - ADS Override Pull (COMPLETED) Starting on Thu04/18/20 at 0731, For 1 dose, SABRA CHLOÉ: cabinet override 0745 (New Bag - Provider: Chloé Hathaway RN) Linked Groups Order Group 1: acetaminophen [...] Count Last Ordered Date First Ordered Date bisacodyL (DULCOLAX) suppository 10 mg 1 enoxaparin (LOVENOX) syringe 40 mg 2 201904/18/2020 polyethylene glycol (MIRALAX) packet 17 g 1 04/19/2020 acetaminophen (TYLENOL) 32 m g/mL oral suspension 1,000 mg 1 04/18/2020 acetaminophen (TYLENOL) 500 mg tablet - ADS Override Pull 1 04/18/2020 acetaminophen (TYLENOL) suppository 650 mg 1 04/18/2020 acetaminophen (TYLENOL) tablet 1,000 mg 2 1 albuterol 2.5 mg /3 mL (0.08 3 %) nebulizer solution 2.5 mg 1 04/18/2020 albuterol HFA (PROVENTIL HFA ,VENTOLIN HFA,PROAIR HFA) 90 mcg/actuation inhaler 2 puff 1 04/18/2020 aspirin enteric coated tablet 81 mg 1 04/18 atorvastatin (LIPITOR) tablet 40 mg 1 04/18 busPIRone (BUSPAR) tablet 10 mg 1 0 busPIRone (BUSPAR) tablet 45 mg 1 0 ceFAZolin (ANCEF) 1 gram/10 mL in sterile water (premix) 1,000 mg 1 04/18/2020 celecoxib (CeleBREX) capsule 400 mg 1 04/18 diphenhydrAMINE (BENADRYL) i njection 12.5 mg 1 04/18/2020 docusate (COLACE) 10 mg/mL o ral liquid 100 mg 1 04/18/2020 docusate sodium (COLACE) capsule 100 mg 1 1 famotidine (PEPCID) injection 20 mg 1 04/18 famotidine (PEPCID) tablet 20 mg 1 04/18/20 20 fentaNYL (SUBLIMAZE) 50 mcg/ mL preservative free injection - ADS Override Pull 1 04/18/2020 HYDROmorphone (DILAUDID) 1 m g/mL injection - ADS Override Pull 1 04/18/2020 HYDROmorphone (DILAUDID) injection 0.2 mg 1 04/18/2020 ketorolac (TORADOL) injection 15 mg 1 04/18 Lactated Ringer's (LR) infusion 1 0 Lactated Ringer's (LR) infus ion - ADS Override Pull 1 04/18/2020 lamoTRIgine (LaMICtal) tablet 200 mg 1 03/23 meperidine (DEMEROL) preserv ative free injection 12.5 mg 1 04/18/2020 metoclopramide (REGLAN) injection 10 mg 1 1 midazolam (VERSED) 1 mg/mL p reservative free injection - ADS Override Pull 1 04/18/2020 montelukast (SINGULAIR) tablet 10 mg 1 03/23 naloxone (NARCAN) 0.4 mg/mL injection 0.04-0.4 mg 1 04/18/2020 ondansetron (ZOFRAN) injection 4 mg 1 04/18 oxyCODONE (ROXICODONE) tablet 5 mg 1 2019 prochlorperazine (COMPAZINE) injection 10 mg 2 04/18/2020 sodium chloride 0.9% bolus 500 mL 1 020 sodium chloride 0.9% flush 0.5-20 mL 4 03/23 sodium chloride 0.9% infusion 1 04/18/2020 vancomycin 1,000 mg/200 mL i [...] 04/18/2020 documented in this encounter Care Teams Public Relations Senior Associate Relationship Specialty Start Date End Date Nurys Givens MD PCP - General 03/08/14 documented as of this encounter
--- OUTSIDE RECORDS SUMMARY | 2024-06-19 21:16 | XMS_ITS | Encounter Summary ---
Author Organization [facility] Address [address] [facility] [address] [place] [address] Phone Care Team Providers Care Mailing Clerk Name Role Phone Nurys Givens MD Primary Care Provider + Encounter Details Date Type Department Care Team (Late st Contact Info) Description 04/05/2020 2:00 PM CDT Office Visit [facility] [address] [facility] [address] [place] [address] Holly Johnston MD [address] [facility] [id number] [place] [address] Hiatal hernia (Primary Dx) Social History Tobacco Use Types Packs/Day Years Used Date Smoking Tobacco: Never Assessed Comments Unknown Sex and Gender Information Value Date Recorded Sex Assigned at Not on file Legal Sex 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 Gender Identity Not on file Sexual Orientation Straight 05/23/2020 11 :19 AM SENIOR 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 documented as of this encounter Last Filed Vital Signs Vital Sign Reading Time Taken Comments Blood Pressure 140/72 04/05/2020 2:00 PM CDT Pulse 76 04/05/2020 2:00 PM CDT Temperature 36.1 ??C (97 ??F) 04/05/2020 2:00 PM CDT Respiratory Rate 14 04/05/2020 2:00 PM CDT Oxygen Saturation - - Inhaled Oxygen Concentration - - Weight 70.3 kg (155 lb) 04/05/2020 2:00 PM CDT Height 154.9 cm (5' 1 ) 04/05/2020 2:00 PM CDT Body Mass Index 29.29 04/05/2020 2:00 PM CDT documented in this encounter Progress Notes * Grace Fernnadez, GEORGE - 04/05/2020 2:00 PM CDT Cardiothoracic Surgery [place] History & Physical [facility] Dr. Rajendra Schilling & Dr. Holly Johnston Leona Calvo 1955 Reason for Consult: Hiatal Hernia [...] to proceed. Grace Fernandez NP Cardiothoracic Surgery [facility] [phone] 04/02/20202:05 PM documented in this encounter Plan of Treatment Not on file documented as of this encounter Visit Diagnoses Diagnosis Hiatal hernia- Primary Diaphragmatic hernia without mention of obstruction or gangrene documented in this encounter Historical Medications * This list may reflect changes made after this encounter. Ozempic 0.25 mg or 0.5 mg(2 mg/1.5 mL) pen injector Thursday02/15/2020 montelukast (SINGULAIR) 10 mg tablet Take 10 mg by mouth nightly 03/20/2020 lisinopril-hydroC HLOROthiazide (ZESTORETIC) 20-25 mg per tablet Take 1 tablet by mouth daily 06/05/2016 lamoTRIgine (LaMICtal) 200 mg tablet Take 200 mg by mouth nightly ezetimibe (ZETIA) 10 mg tablet Take 1 tablet by mouth daily 12/21/[address] (NexIUM) 40 mg capsule Take 40 mg by mouth 2 (two) times a day 02/01/2020 busPIRone (BUSPAR) 15 mg tablet Take 45 mg by mouth 3 (three) times a day 03/06/2020 atorvastatin (LIPITOR) 40 mg tablet Take 40 mg by mouth daily 02/22/2020 aspirin 81 mg enteric coated tablet Take 81 mg by mouth daily ALPRAZolam (XANAX) 2 mg tablet Take 2 mg by mouth 3 (three) times a day as needed 03/05/2020 albuterol HFA (PROVENTIL HFA,VENTOLIN HFA,PROAIR HFA) 90 mcg/actuation inhaler Inhale 2 puffs every 4 (four) hours as needed ferrous gluconate 324 mg (37.5 mg of elemental iron) tablet Take 324 mg by mouth every other day 01/11/2020 03/07/2021 added in this encounter Care Teams Mailing Clerk Relationship Specialty Start Date End Date Nurys Givens MD PCP - General 03/08/14 documented as of this encounter
--- OUTSIDE RECORDS SUMMARY | 2024-06-19 21:16 | XMS_ITS | Encounter Summary ---
Author Organization [facility] Address [address] [place] [address] Care Team Providers Care Electroplater Automatic Name Role Phone Nurys Givens MD Primary Care Provider + Holly Johnston MD Unavailable [phone] Encounter Details Date Type Department Care Team (Latest Contact Info) Description 03/04/2021 11:05 AM CDT Hospital Encounter [facility] [address] [place] [id number] Discharge Disposition: Discharge to home or self care Social History Tobacco Use Types Packs/Day Years Used Date Smoking Tobacco: Every Day Cigarettes Smokeless Tobacco: Never Comments Unknown Sex and Gender Information Value Date Recorded Sex Assigned at Not on file 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 ??There will be no report generated by a [facility] Radiologist. Narrative [facility] - 03/04/2021 11:05 AM CDT EXAMINATION: ??Images For Reference Purposes Only us Ashley Medina MD IMG MAMMO PROCEDURES Fi nal Result [facility] documented in this encounter Visit Diagnoses Not on filedocumented in this encounter Care Teams Electroplater Automatic Relationship Specialty Start Date End Date Nurys Givens MD PCP - General 03/08/14 Holly Johnston MD Fellow Vascular Surgery 04/19/20 documented as of this encounter
== END 2024-06-12 18:56 | disposition home or self-care (01) ==
PROVIDERS: Emergency Provider Student in an Organized Health Care Education/Training Program; PCP Family Medicine
DX: S13.4XXA Sprain of ligaments of cervical spine, initial encounter (principal); V89.2XXA Person injured in unspecified motor-vehicle accident, traffic, initial encounter; W22.10XA Striking against or struck by unspecified automobile airbag, initial encounter; F41.8 Other specified anxiety disorders; I10 Essential (primary) hypertension; E78.2 Mixed hyperlipidemia; F17.210 Nicotine dependence, cigarettes, uncomplicated
CPT/HCPCS: 70450; 71046; 72125; 72128; 72131; 96372; 99283; A9270; J1885

== ENCOUNTER 2024-06-23 11:29 | Emergency (ER) | payer OTHER, MEDICARE, SELFPAY ==
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
[2024-06-23 11:40] VITALS: BP 144/84; PULSE 89; RESP 16; TEMP 36.5; O2SAT 100
== END 2024-06-23 12:49 | disposition home or self-care (01) ==
PROVIDERS: Emergency Provider Nurse Practitioner Family; PCP Family Medicine
DX: S22.20XA Unspecified fracture of sternum, initial encounter for closed fracture (principal); V49.60XA Unspecified car occupant injured in collision with unspecified motor vehicles in traffic accident, initial encounter; I10 Essential (primary) hypertension; E78.2 Mixed hyperlipidemia; J45.909 Unspecified asthma, uncomplicated; F41.8 Other specified anxiety disorders; F17.210 Nicotine dependence, cigarettes, uncomplicated
CPT/HCPCS: 71120; 99213; G0463

== ENCOUNTER 2025-01-12 10:52 | Emergency (ER) | payer MEDICARE, SELFPAY ==
--- NOTE | ~2025-01-12 | XR_ITS ---
EXAM/ PROCEDURE: XR shoulder RT min 2V - 01/12/2025 11:22 CDT HISTORY: 69 years old Female with general pain, fall yesterday COMPARISON: None available TECHNIQUE: Four view(s) FINDINGS/ IMPRESSION: There are no fractures or dislocations.Joint space narrowing, subchondral sclerosis, subchondral cyst formation and osteophyte formation, compatible with moderate osteoarthritis. Reviewed, dictated and finalized at location A.
--- NOTE | ~2025-01-12 | XR_ITS ---
EXAM/ PROCEDURE: XR_CERV2-3V_CR - 01/12/2025 11:22 CDT HISTORY: 69 years old Female with right lateral tenderness fall yesterday COMPARISON: None available TECHNIQUE: Three view(s) FINDINGS/ IMPRESSION: There are no fractures or dislocations.Multilevel degenerative changes are seen. Visualized portion o f lungs are clear. Reviewed, dictated and finalized at location A.
[2025-01-12 11:03] VITALS: BP 153/86; PULSE 87; RESP 16; TEMP 36.8; O2SAT 98
--- NOTE | 2025-01-12 11:04 | ED.GENADULT ---
HPI - General Adult General Chief complaint: Neck Pain/Injury Stated complaint: Shoulder/Neck Pain Time Seen by Provider: 01/12/25 11:05 Source: patient, RN notes reviewed and old records reviewed Mode of arrival: ambulatory Limitations: no limitations History of Present Illness HPI narrative: 69-year-old female presents to the [facility] with complaints right shoulder and right lateral neck pain after falling yesterday. Patient reports that she was it splashed sitting walking down the stairs when she either tripped and fell or slipped and fell landing forward. Patient denies any loss of consciousness. Denies any nausea or vomiting. Denies any dizziness. Denies any blurry vision or change in vision. Patient denies being on blood thinners. Has an abrasion to the forehead and a skin tear to the bridge of her nose. No orbital tenderness. Significant bruising is noted. Patient is most tender to the right lateral neck, right shoulder. Does have good range of motion. Reports that she was seen by a medic at the area, Steri-Strips were applied to the nose. Related Data Home Medications ?Medication ?Instructions ?Recorded ?Confirmed ?Last Taken ?Type cholecalciferol (vitamin D3) 50 50 mcg PO DAILY 12/13/19 01/12/25 05/02/24 History mcg (2,000 unit) capsule (Vitamin D3) ascorbic acid (vitamin C) 100 mg 500 mg PO DAILY 03/16/20 01/12/25 05/02/24 History tablet desvenlafaxine succinate 25 mg 25 mg PO DAILY 11/13/22 01/12/25 05/02/24 History tablet,extended release 24 hr (Pristiq) lamotrigine 200 mg tablet 200 mg PO HS 01/05/23 01/12/25 05/02/24 History (Lamictal) multivitamin with minerals-folic 1 tablet PO DAILY 07/20/23 01/12/25 05/02/24 History acid 0.4 mg tablet oxcarbazepine 150 mg tablet 75 mg PO BID 05/24/24 01/12/25 Unknown History trazodone 50 mg tablet 25 mg PO HS Sleep 05/24/24 01/12/25 Unknown History albuterol sulfate 2.5 mg/3 mL 2.5 mg inhalation Q4-6H PRN 10/21/24 01/12/25 Unknown History (0.083 %) solution for nebulization shortness of breath or wheezing buspirone 30 mg tablet 30 mg PO 11/23/24 11/23/24 Unknown History dextroamphetamine-amphetamine ER 25 mg PO 11/23/24 11/23/24 Unknown History 25 mg 24hr capsule,extend release terbinafine HCl 250 mg tablet 250 mg PO 11/23/24 11/23/24 Unknown History Allergies Allergy/AdvReac Type Severity Reaction Status Date / Time amoxicillin Allergy Unknown Skin Verified 01/12/25 11:44 Reaction Penicillins Allergy Unknown Hives Verified 01/12/25 11:44 metformin AdvReac Severe caused Verified 01/12/25 11:44 severe decreased renal function oxycodone AdvReac Mild weird Verified 01/12/25 11:44 dreams Review of Systems Review of Systems: All systems reviewed & are unremarkable except as noted in HPI and below Constitutional: Constitutional: Reports no additional constitutional complaints Eyes: Eyes: Reports no additional eye complaints ENT: Reports system reviewed and no additional complaints, except as documented Cardiovascular: Cardiovascular: Reports no additional cardiovascular complaints, Denies chest pain and Denies dyspnea Respiratory: Respiratory: Reports no additional respiratory complaints, Denies chest congestion, Denies cough and Denies dyspnea Musculoskeletal: Musculoskeletal: Reports as per HPI Integumentary/Breasts: Skin/Breast: Reports as per HPI Neurologic: Reports system reviewed and no additional complaints, except as documented PMFSH Past Medical History Medical History (Updated 01/12/25 @ 12:14 by Shawnee Pastor APRN) Frequent falls Sleepiness Constipation Slurred speech Depression with anxiety Right shoulder pain Adenomatous colon polyp Microcytic anemia Essential hypertension Mixed hyperlipidemia Moderate persistent asthma, uncomplicated Surgical History Surgical History History of tonsillectomy History of open reduction and internal fixation (ORIF) procedure Repair of right wrist fracture. History of colonoscopy with polypectomy History of Aline fundoplication (03/2020) Family History Family History Mother Family history of osteoporosis, Onset Age: 84 Patient's mother is Family history of Alzheimer's disease Hypertension Father Family history of cardiovascular disease Patient's father is Family history of hypercholesterolemia Family history of pancreatic cancer Hypertension Grandparent Diabetes mellitus Sibling Depression Family history of hypercholesterolemia AAA (abdominal aortic aneurysm) Other Cerebrovascular accident Colon polyp Family history of arthritis Family history of chronic obstructive pulmonary disease Family history of gout Family history of heart disease in male family member before age 55 Family history of lung disease Family history of malignant melanoma Family history of malignant neoplasm Family history of mental disorder Family history of rheumatic fever Family history of schizophrenia Social History Social History (Updated 11/23/24 @ 10:07 by Ashia James MA) Social History: Surrogate medical decision maker: Quinton Calvo, spouse. Code status: Full code. Caffeine- daily Smoking packs per day: 2 Smoking cigarettes per day: 40.0 Years smoked: 52 Smoking pack-years: 104.00 Smoking status: Current every day smoker Tobacco type: cigarettes Alcohol intake: current Alcohol use details: occasional Substance use: former Substance use type: marijuana Last use: 5 months ago Do You Feel Safe in your Home?: Yes Lack of Transportation: No Lack of Food: Never True Current Housing: I Have Housing Concerned About Future Housing: No Difficulty Paying Gas/Electric Bills: No Difficulty Paying for Meds: No Currently Unemployed: No Education: High School Diploma/GED Difficulty w/ Childcare or Family Care: No Living arrangements: with family Additional living arrangements comments: Lives with spouse in [place]. Additional occupation/education comments: Retired. Spiritual care concerns: No Comments At the time of my signature, I reviewed and agree with the nursing past medical, surgical, social, and family history. There is no relevant family history pertinent to the patient complaint. Exam Const: General: cooperative, comfortable, no acute distress, well developed, alert and well nourished Nutritional Appearance: well nourished Orientation/consciousness: patient oriented x3 Limitations: no limitations HENMT: Head: normal to inspection Head images:  1. Abrasion, cleaned in clinic 2. Skin tear with Steri-Strips applied 3. Bruising is noted without orbital tenderness. A neighbor to reproduce pain with palpation. Ears: hearing grossly normal bilaterally, external ears normal, EAC's normal, mastoids normal and no periauricular adenopathy Mouth: Yes Normal oral and palatal mucosa present, Yes lip normal, Yes tongue normal and Yes moist mucous membranes Eyes: General: appearance normal, both eyes and all related structures Visual Abreu: normal visual abreu by confrontation Alignment and Position: alignment normal Conjunctivae: conjunctivae normal Other: Six levels of gaze are normal, PERRLA Neck: Neck: normal visual inspection, full ROM, no lymphadenopathy and no meningeal signs Neck images:  1. Tenderness to palpation. Denies midline tenderness. Chest: Chest palpation & inspection: normal inspection of the chest Resp: Effort & Inspection: normal respiratory effort and able to speak in complete sentences Cardio: Rate: regular rate Skin: General skin exam: normal color and no rashes or lesions noted Neuro: General: patient oriented x3, gait normal, moves all extremities and no meningeal signs Cognition (Neuro): normal cognition Speech: normal speech Gait exam (Neuro): Normal gait present Extrem: General: normal to inspection, full ROM, capillary refill normal and normal gait Right upper extremity: shoulder/upper arm tenderness (Generalized tenderness of shoulder) Psych: Appearance: grossly normal and well kempt Mental Status: mental status grossly normal Speech and movement: Normal speech and movement present and Clear speech present Affect: normal affect Attitude: cooperative Course Course Level of Care: Express Care Visit Vital Signs Vital signs: Vital Signs Temperature 98.2 F 01/12/25 11:03 Pulse Rate 87 01/12/25 11:03 Respiratory Rate 16 01/12/25 11:03 Blood Pressure 153/86 H 01/12/25 11:03 Pulse Oximetry 98 01/12/25 11:03 Temperature 98.2 F 01/12/25 11:03 Pulse Rate 87 01/12/25 11:03 Respiratory Rate 16 01/12/25 11:03 Blood Pressure 153/86 H 01/12/25 11:03 Pulse Oximetry 98 01/12/25 11:03 Reviewed Medical Decision Making MDM Narrative Medical decision making narrative: Patient sitting comfortably in exam room. Nontoxic, vitals stable. Patient in no acute distress Patient presents with concerns of the shoulder and neck. X-rays C-spine and shoulder are negative. Discussed concerns with the facial trauma. Patient is denying any red flag symptoms. Discussed the importance of following up with primary care provider. Discussed multiple times with patient as well as nurse discussed with patient signs and symptoms to call 911 or proceed to the emergency room which she verbalized understanding. Discharge instructions reviewed with patient, as well as provided in writing per nursing staff. The instructions also include specific and strict return/GO TO THE ER as well as f/u information. All questions have been answered, and the patient deny any further questions with discharge and discharge plan. Some parts of this dictation were generated by voice recognition software and may contain typographical and/or grammatical inaccuracies. Differential Diagnosis Differential Diagnosis: Fracture, dislocation, contusion, strain Medical Records Medical records reviewed: Yes I reviewed the external patient's medical records. Vital Signs Vital Signs: Vital Signs Temperature 98.2 F 01/12/25 11:03 Pulse Rate 87 01/12/25 11:03 Respiratory Rate 16 01/12/25 11:03 Blood Pressure 153/86 H 01/12/25 11:03 Pulse Oximetry 98 01/12/25 11:03 Temperature 98.2 F 01/12/25 11:03 Pulse Rate 87 01/12/25 11:03 Respiratory Rate 16 01/12/25 11:03 Blood Pressure 153/86 H 01/12/25 11:03 Pulse Oximetry 98 01/12/25 11:03 Reviewed Lab Data Lab results reviewed: Yes I reviewed the patient's lab results. Labs: Reviewed Imaging Data Radiologist's impression: EXAM/ PROCEDURE: XR shoulder RT min 2V - 01/12/2025 11:22 CDT HISTORY: 69 years old Female with general pain, fall yesterday COMPARISON: None available TECHNIQUE: Four view(s) FINDINGS/ IMPRESSION: There are no fractures or dislocations.Joint space narrowing, subchondral sclerosis, subchondral cyst formation and osteophyte formation, compatible with moderate osteoarthritis. EXAM/ PROCEDURE: XR_CERV2-3V_CR - 01/12/2025 11:22 CDT HISTORY: 69 years old Female with right lateral tenderness fall yesterday COMPARISON: None available TECHNIQUE: Three view(s) FINDINGS/ IMPRESSION: There are no fractures or dislocations.Multilevel degenerative changes are seen. Visualized portion of lungs are clear. Critical Care Time Critical Care Time Critical Care Time: No Discharge Plan Discharge Clinical Impression: Neck and shoulder pain, Skin tear, Fall, Vaccine for diphtheria-tetanus Abrasion of face Qualifiers: Encounter type: initial encounter Qualified Code(s): S00.81XA - Abrasion of other part of head, initial encounter Patient Disposition: Home Condition: Stable Instructions: Antibiotic Form, Cervical Sprain (ED), Abrasion (ED), Skin Tear (ED) Additional Instructions: Keep the abrasions clean and dry. Wash twice a day with warm soapy water, pat dry. Apply bacitracin to the area. Today your updated on your tetanus vaccine Today your blood pressure was 153/86. Follow-up with primary care provider for recheck For new or worsening symptoms please go directly to the emergency room. Patient Language: Vietnamese Prescriptions: No Action oxcarbazepine 150 mg tablet 75 mg PO BID Rx Instructions: 1/2 tablet twice a day trazodone 50 mg tablet 25 mg PO HS dextroamphetamine-amphetamine 25 mg capsule,extended release 24hr 25 mg PO buspirone 30 mg tablet 30 mg PO terbinafine HCl 250 mg tablet 250 mg PO amlodipine 5 mg tablet 5 mg PO DAILY Qty: 90 3RF lisinopril 2.5 mg tablet 2.5 mg PO .q hs Qty: 90 3RF atorvastatin [Lipitor] 80 mg tablet 80 mg PO QHS Qty: 90 3RF desvenlafaxine succinate [Pristiq] 25 mg tablet extended release 24 hr 25 mg PO DAILY lamotrigine [Lamictal] 200 mg tablet 200 mg PO HS albuterol sulfate 2.5 mg /3 mL (0.083 %) solution for nebulization 2.5 mg inhalation Q4-6H PRN (Reason: shortness of breath or wheezing) cholecalciferol (vitamin D3) [Vitamin D3] 50 mcg (2,000 unit) Capsule 50 mcg PO DAILY ascorbic acid (vitamin C) 100 mg tablet 500 mg PO DAILY Rx Instructions: take with iron multivit with min-folic acid [Adult One Daily Multivitamin] 0.4 mg Tablet 1 tablet PO DAILY (DME) blood sugar diagnostic Strip See Rx Instructions .Route Qty: 300 3RF Rx Instructions: once a day Anoro Ellipta 62.5-25 mcg/actuation blister with device 1 inh INHALATION DAILY Qty: 60 11RF albuterol sulfate 90 mcg/actuation HFA aerosol inhaler 1 - 2 inh inhalation Q4-6H PRN (Reason: shortness of breath or wheezing) Qty: 8.5 2RF montelukast 10 mg tablet See Rx Instructions .ROUTE .COMPLEX Qty: 90 3RF Dose Instruction: TAKE 1 TABLET BY MOUTH EVERY DAY Rx Instructions: TAKE 1 TABLET BY MOUTH EVERY DAY desvenlafaxine succinate [Pristiq] 50 mg tablet extended release 24 hr 50 mg PO DAILY Qty: 90 1RF esomeprazole magnesium 40 mg capsule,delayed release(DR/EC) See Rx Instructions .ROUTE .COMPLEX Qty: 180 3RF Dose Instruction: TAKE 1 CAPSULE BY MOUTH TWICE A DAY Rx Instructions: TAKE 1 CAPSULE BY MOUTH TWICE A DAY ezetimibe 10 mg tablet See Rx Instructions .ROUTE .COMPLEX Qty: 90 1RF Dose Instruction: TAKE 1 TABLET BY MOUTH EVERY DAY Rx Instructions: TAKE 1 TABLET BY MOUTH EVERY DAY Ozempic 0.25 mg or 0.5 mg(2 mg/1.5 mL) pen injector See Rx Instructions .ROUTE .COMPLEX Qty: 3 3RF Dose Instruction: INJECT 0.25 MG (0.2 ML) SUBCUTANEOUSLY WEEKLY 12 WEEKS Rx Instructions: INJECT 0.25 MG (0.2 ML) SUBCUTANEOUSLY Follow-up/Referrals: Nurys Givens MD [Primary Care Provider] - 1 Week (express care follow up ) Time of Disposition: 12:13
[2025-01-12] MEDS: TETANUS/DIPHTHERIA TOXOIDS ADSORB 0.5 ML SYRINGE (*BKC) IM (11:37)
== END 2025-01-12 12:20 | disposition home or self-care (01) ==
PROVIDERS: Emergency Provider Nurse Practitioner; PCP Family Medicine
DX: M54.2 Cervicalgia (principal); M25.511 Pain in right shoulder; S01.21XA Laceration without foreign body of nose, initial encounter; W10.9XXA Fall (on) (from) unspecified stairs and steps, initial encounter; Z23 Encounter for immunization; F17.210 Nicotine dependence, cigarettes, uncomplicated; I10 Essential (primary) hypertension; E78.2 Mixed hyperlipidemia; J45.909 Unspecified asthma, uncomplicated; F41.8 Other specified anxiety disorders
CPT/HCPCS: 72040; 73030; 90471; 90714; 99214; G0463

== ENCOUNTER 2025-05-02 08:31 | Outpatient (CLI) | payer MEDICARE, SELFPAY ==
--- OUTSIDE RECORDS SUMMARY | 2025-03-23 05:00 | XMS_ITS ---
Author Organization [facility] Address [address] [facility] [address] [place] [address] Care Team Providers Care Real Estate Closing Coordinator Name Role Phone Troy Givens MD Primary Care Provider UnaJavy Swann Unavailable [phone] REASON FOR VISIT TMS F/u Social History Sex Assigned At : Social History Observation Description Sex Assigned At Female Encounters Encounter Location Date Provider Diagnosis [facility] [employer] [facility] [address] [facility] [address] [place] [address] 03/23/2025 Javy Webber Plan Of Treatment Next Appt Details Provider Name:Javy Webber , 05/29/2025 08:45:00 AM, [address], [address], [place], [address], Progress Notes * ABA BECKER ANNDOB:1955 (69 yo F)Acc No.[id number]:03/23/2025 Patient: ABA COTTO Provider: Marisabel WEBBER MD :1955 A ge:69 Y S ex:Female Date:03/23/2025 Address:[address], [facility] Pcp:Troy Givens MD Subjective: * Chief Complaints: * T MS F/u * Active Problem List I10 Hypertension Onset Date:2126-68-05Ksaubjrp On:12/31/2023 Status:confirmed E78.5 Dyslipidemia Onset Date:9571-01-01Qffkoofg On:12/31/2023 Status:confirmed J44.9 COPD (chronic obstru ctive pulmonary disease) Onset Date:8577-22-99Uyswvlrw On:12/31/2023 Status:confirmed F90.2 Attention-deficit hy peractivity disorder, combined type Modified On:12/14/2023U Status:confirmed 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, predominantly inattentive type Onset Date:10/29/2023Modified On:12/31/2023 Status:confirmed 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 Onset Date:10/29/2023Modified On:12/31/2023 Status:confirmed F41.1 Generalized anxiety disorder Onset Date:10/29/2023Modified On:12/31/2023 Status:confirmed J44.9 Chronic obstructive pulmonary disease, unspecified Onset Date:10/29/2023Modified On:12/31/2023 Status:confirmed F31.70 Bipolar disorder in remission Modified On:04/01/2024 Status:confirmed F41.1 KYLAH (generalized anx iety disorder) Modified On:08/17/2024U Status:confirmed F17.200 Nicotine dependence, unspecified, uncomplicated Modified On:01/30/2025 Status:confirmed 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
--- NOTE | ~2025-05-02 | CT_ITS ---
EXAMINATION:CT lung screening DATE: 05/02/2025 08:57 INDICATION: Screening TECHNIQUE: Computed tomography (CT) of the chest was performed without intravenous contrast. The dose-length product (DLP) was 57.16 mGy-cm. COMPARISON: March 04, 2024 FINDINGS: No suspicious nodules or masses in the lung flynn are chest. No bulky mediastinal lymphadenopathy or masses. Stable tiny nodules. Heart size stable. Extensive coronary artery calcifications. No large pericardial effusion. Bones and upper abdomen appear grossly stable. IMPRESSION: 1. Stable low-dose lung cancer screening chest CT with no suspicious nodules identified. LUNG RADS 2. 2. Recommend follow-up screening chest CT in 12 months. Reviewed, dictated and finalized at location A. CTOR CHEMISTRY IMPRESSION: 1. Stable low-dose lung cancer screening chest CT with no suspicious nodules id entified. LUNG RADS 2. 2. Recommend follow-up screening chest CT in 12 months.
--- OUTSIDE RECORDS SUMMARY | 2025-05-02 08:46 | XMS_ITS | Clinical Summary ---
Author Organization [facility] [address] [facility] [address] Address [address] [place] [address] Care Team Providers Care Java Software Architect Name Role Phone Nurys Givens MD Primary Care Provider + Holly Johnston MD Unavailable [phone] Allergies Active Allergy Reactions Criticality Noted [...] (04/05/2020): Added automatically from request for surgery [id number] Surgical History Surgery Date Site/Laterality Comments TONSILLECTOMY/ADENOIDECTOMY WRIST SURGERY Right ORIF with pins HEMORRHOID SURGERY EYE SURGERY sty Medical History Medical History Date Comments ADHD (attention deficit hyperactivity disorder) Bipolar disorder Anemia Vitamin D deficiency Hypertension Hyperlipidemia Type 2 diabetes mellitus Perea esophagus GERD (gastroesophageal reflux disease) Hiatal hernia Depression Anxiety Aortic calcification Asthma Arthritis COPD (chronic obstructive pulmonary disease) sleeps sitting up Constipation Family History Medical [...] on file Legal Sex Female 3:14 AM SECTION LEADER SCREEN PRINTING Gender Identity Not on file Sexual Orientation Straight 05/23/2020 11 :19 AM SECTION LEADER SCREEN PRINTING Last Filed Vital Signs Vital Sign Reading Time Taken Comments Blood Pressure 125/98 05/24/2020 12:53 PM SECTION LEADER SCREEN PRINTING Pulse 113 05/24/2020 12:53 PM SECTION LEADER SCREEN PRINTING Temperature 36.7 C (98 F) 04/30/2020 2:44 PM SECTION LEADER SCREEN PRINTING Respiratory Rate 20 04/30/2020 2:44 PM SECTION LEADER SCREEN PRINTING Oxygen Saturation 98% 04/30/2020 2:44 PM SECTION LEADER SCREEN PRINTING Inhaled Oxygen Concentration - - Weight 70.8 kg (156 lb) 03/07/2021 9:01 AM CDT Height 152.4 cm (5') 03/07/2021 9:01 AM CDT Body Mass Index 30.47 03/07/2021 9:01 AM CDT Plan of Treatment Not on file Insurance [employer] [facility] [employer] [facility] Advance Directives For more information, please contact: [phone] * Full Code (Latest Code Status on File) Date Activated Date Inactivated Comments 04/18/2020 2:00 PM 04/19/2020 10:52 PM Care Teams Java Software Architect Relationship Specialty Start Date End Date Nurys Givens MD PCP - General 03/08/14 Holly Johnston MD Fellow Vascular Surgery 04/19/20
--- OUTSIDE RECORDS SUMMARY | 2025-05-02 08:46 | XMS_ITS | Encounter Summary ---
Author Organization [facility] Address [address] [place] [address] Phone Care Team Providers Care Paper Tube Grader Name Role Phone Jose Lozoya DO Unavailable [phone] Nurys Givens MD Primary Care Provider [phone] Reason for Visit * Reason Comments Medication Refill Encounter Details Date Type Department Care Team (Late st Contact Info) Description 06/18/2022 Refill [facility] - Gastroenterology - [place] [address] [place] [address] Lilly Davenport Myrna, PAC [address] [place] [address] Medication Refill Social History Tobacco Use Types [...] on filedocumented in this encounter Care Teams Paper Tube Grader Relationship Specialty Start Date End Date Nurys Givens MD PCP - General Family Medicine 06/11/21 Jose Lozoya DO Gastroenterology 08/01/16 documented as of this encounter
--- OUTSIDE RECORDS SUMMARY | 2025-05-02 08:46 | XMS_ITS | Clinical Summary ---
Author Organization [facility] Address [address] [place] [address] Care Team Providers Care Engineering Specialist Name Role Phone Nurys Givens MD Primary Care Provider [phone] Social History Tobacco Use Types Packs/Day Years [...] 1997 Zoster Vaccines (1 of 2) 2007 Pneumococcal Vaccine: 50+ Years (2 of 2 - PCV) 03/22/2020 03/22/2019 Dexa Scan (General) 2022 COVID-19 Vaccine (3 - 2024-2 6 season) 2025 09/18/2020, 08/28/2020 Influenza Adult (#1) 2025 RSV Immunization or 60+ Years (1 - 1-dose 75+ series) 2032 Hepatitis A Vaccines Aged Out No long er eligible based on patient's age to complete this topic Meningococcal B Vaccine Aged Out No l onger eligible based on patient's age to complete this topic Meningococcal Vaccine Aged Out No carolynn milton eligible based on patient's age to complete this topic RSV Immunizations Under 20 Months Aged Out No longer eligible b ased on patient's age to complete this topic Insurance [employer] [facility] Care Teams Engineering Specialist Relationship Specialty Start Date End Date Nurys Givens MD PCP - General FAMILY PRACTICE 04/16/21
--- OUTSIDE RECORDS SUMMARY | 2025-05-02 08:46 | XMS_ITS | Encounter Summary ---
Author Organization [facility] Address [address] [place] [address] Phone Care Team Providers Care Polishing Wheel Setter Name Role Phone Jose Lozoya DO Unavailable [phone] Nurys Givens MD Primary Care Provider [phone] Reason for Visit * Reason Comments Medication Refill Encounter Details Date Type Department Care Team (Late st Contact Info) Description 07/29/2021 Refill [facility] - Gastroenterology - [place] [address] [place] [id number] Lilly Davenport Myrna, PAC [address] [place] [address] Medication Refill Social History Tobacco Use Types [...] Ashia Mayberry RN - 07/29/2021 3:29 PM FRINGING MACHINE OPERATOR Patient requesting refill too soon. Medication refused. GING MACHINE OPERATOR documented in this encounter Plan of Treatment Not on file documented as of this encounter Visit Diagnoses Diagnosis Gastroesophageal reflux disease, unspecified whether esophagitis present documented in this encounter Care Teams Polishing Wheel Setter Relationship Specialty Start Date End Date Nurys Givens MD PCP - General Family Medicine 06/11/21 Jose Lozoya DO Gastroenterology 08/01/16 documented as of this encounter
--- OUTSIDE RECORDS SUMMARY | 2025-05-02 08:46 | XMS_ITS | Encounter Summary ---
Author Organization [facility] Address [address] [place] [address] Phone Care Team Providers Care Construction Safety Consultant Name Role Phone Troy Givens MD Primary Care Provider [phone] Jose Lozoya DO Unavailable [phone] Nurys Givens MD Primary Care Provider [phone] Reason for Visit * Reason Comments Medication Refill Encounter Details Date Type Department Care Team (Late st Contact Info) Description 06/10/2021 Refill [facility] - Gastroenterology - [address] [place] [address] Lilly Davenport Myrna, PAC [address] [place] [address] Medication Refill Social History Tobacco Use Types [...] COVID-19? 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 Medication refused. S ASSOCIATE CASHIER documented in this encounter Plan of Treatment Not on file documented as of this encounter Visit Diagnoses Diagnosis Gastroesophageal reflux disease, unspecified whether esophagitis present documented in this encounter Care Teams Construction Safety Consultant Relationship Specialty Start Date End Date Troy Givens MD [address] [place] [address] [address] [place] [address] PCP - General Family Medicine 08/01/16 06/10/21 Nurys Givens MD [address] [place] [address] [address] [place] [address] PCP - General Family Medicine 06/11/21 Jose Lozoya DO [address] [place] [address] [address] [place] [address] Gastroenterology 08/01/16 documented as of this encounter
--- OUTSIDE RECORDS SUMMARY | 2025-05-02 08:46 | XMS_ITS | Clinical Summary ---
Author Organization [facility] Address [address], [facility] [address] [place] [address] Phone Care Team Providers Care Elementary Reading Tutor Name Role Phone Jose Lozoya DO Unavailable [phone] Nurys Givens MD Primary Care Provider Allergies [...] hours as needed for Wheezing. 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 Activ [...] Mrna, Lnp-s, Pf, 30 Mcg/0.3 Ml Dose (Cindy wong) 09/18/2020,08/28/2020 Influenza, Recombinant, Quadrivalent,injectable, Pf 04/04/2021 Pneumococcal [...] Comments Blood Pressure 132/72 06/07/2021 8:19 AM VENDING MACHINE COIN COLLECTOR Pulse 97 06/07/2021 8:19 AM VENDING MACHINE COIN COLLECTOR Temperature 36.2 C (97.1 F) 06/07/2021 8:19 AM VENDING MACHINE COIN COLLECTOR Respiratory Rate 20 06/07/2021 8:19 AM VENDING MACHINE COIN COLLECTOR Oxygen Saturation 99% 06/07/2021 8:19 AM VENDING MACHINE COIN COLLECTOR Inhaled Oxygen Concentration - - Weight 68.9 kg (152 lb) 08/09/2021 8:18 AM VENDING MACHINE COIN COLLECTOR V erbal Height 152.4 cm (5') 08/09/2021 8:18 AM VENDING MACHINE COIN COLLECTOR Body Mass Index 29.69 08/09/2021 8:18 AM VENDING MACHINE COIN COLLECTOR Plan of Treatment Health Maintenance Due Date Last Done Comments DEXA Bone Density 1957 Hepatitis C Virus (HCV) Screening 1955 Mammogram 1957 TdaP Immunization 1957 Cologuard 2002 Immunochemical Fecal Occult Blood 2002 Respiratory Syncytial Virus (RSV) Immunization (Adult) (1 - Risk 50-74 years 1-dose series) 2007 Zoster Immunization (1 of 2) 2007 Pneumococcal Immunization (5 0+ years) (2 of 2 - PCV) 03/22/2020 03/22/2019 Colonoscopy 01/18/2025 01/19/2020, 07/31/2016, 04/01/2011 Colorectal Cancer Screening 01/18/2025 Influenza Immunization (#1) 2025 04/04/2021 SARS-COV-2 Immunization ( season) 2025 04/19/2021, 09/18/2020, 08/28/2020 Pneumococcal Immunization Combined Discontinued 03/22/2019 Hepatitis B Immunization Aged Out No longer eligible based on patient's age to complete this topic Human Papillomavirus (HPV) Immunization Aged Out No longer eligible based [...] Most Recently Relevant to Health Maintenance Insurance [facility] Care Teams Elementary Reading Tutor Relationship Specialty Start Date End Date Nurys Givens MD PCP - General Family Medicine 06/11/21 Jose Lozoya DO Gastroenterology 08/01/16
--- OUTSIDE RECORDS SUMMARY | 2025-05-02 08:46 | XMS_ITS | Patient Health Record ---
Author Organization [facility] [employer] [facility] Address [address] [place] [address] Care Team Providers Care Chromium Plater Name Role Phone Troy Givens MD Primary Care Provider UnaJavy Swann Unavailable [phone] Allergies Allergen (clinical drug ingredient) Drug/Non Drug Allergy documented on EMR Reaction Allergy Type Onset Date Status metformin Metformin Unknown Drug Allergy 10/29/2023 Active oxycodone Oxycodone Unknown Drug Allergy 10/29/2023 Active Substance with penicillin structure and antibacterial mechanism of action (substance) Penicillins Unknown Drug Allergy 10/29/2023 Active Results Component Value Reference Range Notes UDT Reviewed date:03/30/2025 03:19:20 PM Interpretation: Performing Lab: Notes/Report: Amphetamine (AMP) p 0 - 1000 ng/ml Buprenorphine (BUP) n 0 - 10 ng/ml Oxazepam (BZO) n 0 - 300 ng/ml Cocaine (MARTINA) n 0 - 300 ng/ml Methamphetamine (mAMP) n 0 - 300 ng/ml Methylenedioxymethamphetamine (MDMA) n 0 - 500 ng/ml Morphine (MOP) n 0 - 25 ng/ml Methadone (MTD) n 0 - 300 ng/ml Oxycodone (OXY) n 0 - 300 ng/ml THC n 0 - 50 ng/ml x n 0 - 1000 ng/ml x n 0 - 1000 ng/ml x n 0 - 300 ng/ml x n 0 - 300 ng/ml x n 0 - 300 ng/ml UDT Reviewed date:01/30/2025 08:39:47 AM Interpretation: Performing Lab: Notes/Report: Amphetamine (AMP) P 0 - 1000 ng/ml Buprenorphine (BUP) N 0 - 10 ng/ml Oxazepam (BZO) N 0 - 300 ng/ml Cocaine (MARTINA) N 0 - 300 ng/ml Methamphetamine (mAMP) N 0 - 300 ng/ml Methylenedioxymethamphetamine (MDMA) N 0 - 500 ng/ml Morphine (MOP) N 0 - 25 ng/ml Methadone (MTD) N 0 - 300 ng/ml Oxycodone (OXY) N 0 - 300 ng/ml THC N 0 - 50 ng/ml x N 0 - 1000 ng/ml x N 0 - 1000 ng/ml x N 0 - 300 ng/ml x N 0 - 300 ng/ml UDT Reviewed date:10/24/2024 10:01:23 AM Interpretation: Performing Lab: Notes/Report: Amphetamine (AMP) P 0 - 1000 ng/ml Buprenorphine (BUP) N 0 - 10 ng/ml Oxazepam (BZO) N 0 - 300 ng/ml Cocaine (MARTINA) N 0 - 300 ng/ml Methamphetamine (mAMP) N 0 - 300 ng/ml Methylenedioxymethamphetamine (MDMA) N 0 - 500 ng/ml Morphine (MOP) N 0 - 25 ng/ml Methadone (MTD) N 0 - 300 ng/ml Oxycodone (OXY) N 0 - 300 ng/ml THC N 0 - 50 ng/ml x N 0 - 1000 ng/ml x N 0 - 1000 ng/ml x N 0 - 300 ng/ml x N 0 - 300 ng/ml UDT Reviewed date:06/03/2024 08:51:47 AM Interpretation: Performing Lab: Notes/Report: Amphetamine (AMP) P 0 - 1000 ng/ml Buprenorphine (BUP) N 0 - 10 ng/ml Oxazepam (BZO) N 0 - 300 ng/ml Cocaine (MARTINA) N 0 - 300 ng/ml Methamphetamine (mAMP) N 0 - 300 ng/ml Methylenedioxymethamphetamine (MDMA) N 0 - 500 ng/ml Morphine (MOP) N 0 - 25 ng/ml Methadone (MTD) N 0 - 300 ng/ml Oxycodone (OXY) N 0 - 300 ng/ml THC N 0 - 50 ng/ml x N 0 - 1000 ng/ml x N 0 - 1000 ng/ml x N 0 - 300 ng/ml x N 0 - 300 ng/ml x N 0 - 300 ng/ml UDT Reviewed date:05/05/2024 08:49:22 AM Interpretation: Performing Lab: Notes/Report: Amphetamine (AMP) P 0 - 1000 ng/ml Buprenorphine (BUP) N 0 - 10 ng/ml Oxazepam (BZO) N 0 - 300 ng/ml Cocaine (MARTINA) N 0 - 300 ng/ml Methamphetamine (mAMP) N 0 - 300 ng/ml Methylenedioxymethamphetamine (MDMA) N 0 - 500 ng/ml Morphine (MOP) N 0 - 25 ng/ml Methadone (MTD) N 0 - 300 ng/ml Oxycodone (OXY) N 0 - 300 ng/ml THC N 0 - 50 ng/ml x N 0 - 1000 ng/ml x N 0 - 1000 ng/ml x N 0 - 300 ng/ml x N 0 - 300 ng/ml x N 0 - 300 ng/ml UDT Reviewed date:08/17/2024 02:11:43 PM Interpretation: Performing Lab: Notes/Report: Amphetamine (AMP) N 0 - 1000 ng/ml Buprenorphine (BUP) N 0 - 10 ng/ml Oxazepam (BZO) N 0 - 300 ng/ml Cocaine (MARTINA) N 0 - 300 ng/ml Methamphetamine (mAMP) N 0 - 300 ng/ml Methylenedioxymethamphetamine (MDMA) N 0 - 500 ng/ml Morphine (MOP) N 0 - 25 ng/ml Methadone (MTD) N 0 - 300 ng/ml Oxycodone (OXY) N 0 - 300 ng/ml THC N 0 - 50 ng/ml x N 0 - 1000 ng/ml x N 0 - 1000 ng/ml x N 0 - 300 ng/ml x N 0 - 300 ng/ml Reason For Referral No Information Medications Medication SIG (Take, Route, Frequency, Duration) Notes Start Date End Date Status Amphetamine-Dextroamphet ER 25 MG Capsule Extended Release 24 Hour 1 capsule in the morning Oral Once a day; Duration: 30 days 04/28/2025 Active Desvenlafaxine Succinate ER 50 MG Tablet Extended Release 24 Hour 1 tablet Orally Once a day; Duration: 90 days 04/28/2025 Active Lisinopril 2.5 MG Tablet TAKE 1 TABLET B Y MOUTH EVERYDAY AT BEDTIME Oral; Duration: 90 Days Active traZODone HCl 50 MG Tablet 1 tablet at b edtime Oral Once a day; Duration: 90 days Active Atorvastatin Calcium 80 MG Tablet TAKE 1 TABLET BY MOUTH EVERYDAY AT BEDTIME Oral; Duration: 90 Days Active busPIRone HCl 30 MG Tablet 1 tablet Twic e a day; Duration: 90 days 04/28/2025 2025 Active Desvenlafaxine Succinate ER 25 MG Tablet Extended Release 24 Hour 1 tablet Orally Once a day; Duration: 90 days 04/28/2025 Active Esomeprazole Magnesium 40 MG Capsule Delayed Release TAKE 1 CAPSULE BY MOUTH TWICE A DAY Oral; Duration: 90 Days Active lamoTRIgine 200 MG Tablet 1 tablet at be dtime Oral Once a day; Duration: 90 days 04/28/2025 Active Ezetimibe 10 MG Tablet TAKE 1 TABLET BY MOUTH EVERY DAY Oral; Duration: 90 Days Active OXcarbazepine 150 MG Tablet 0.5 TABLET B Y MOUTH TWICE A DAY Oral Twice a day; Duration: 90 days 04/28/2025 2025 Active amLODIPine Besylate 5 MG Tablet TAKE 1 TABLET BY MOUTH EVERY DAY Oral; Duration: 90 Days Active Social History Tobacco Use: Social History Observation Description Date Details (start date - stop date) Current Smoker NA - NA Sex Assigned At : Social History Observation Description Sex Assigned At Female Social History Tobacco Use: Social Info Question Answer Notes Tobacco Control (Standard) Tobacco use: Current smoker Tobacco Use/Smoking Tobacco use: current smoker Additional Details Category Social Info Options Details Migrated Social History Migrated Social History Alcohol Intake: Occasional 08/27/2023,Tobacco Years: Current every day smoker 08/27/2023,Smoking Status: 54 08/27/2023 Section Notes: Tobacco use: 2.5 packs per d ay Tobacco use: Smoking A Lot More, Wants To Quit Tobacco use: Smoking A Lot More, Wants To Quit Tobacco use: Smoking A Lot More, Wants To Quit Tobacco use: Smoking A Lot More, Wants To Quit Tobacco use: Smokes Over 2 Packs Per Day, Smokes Within 30 Minutes Of Waking Tobacco use: Reduced from 3 packs to 2 packs per day; attempting to quit Sleep habits: Sleeping 5-6 hours per night; improved sleep quality Tobacco use: Smoking A Lot More, Wants To Quit Tobacco use: Smoking A Lot More, Wants To Quit Tobacco use: Smokes Over 2 Packs Per Day, Smokes Within 30 Minutes Of Waking Problems Problem Type SNOMED Code ICD Code Onset Dates Problem Status W/U Status Risk Notes Problem Tobacco user (559212944) Nicotine dependence, unspecified, uncomplicated (F17.200) Active confirmed Problem Severe recurrent major depression without psychotic features (17954723) Major depressive disorder, recurrent severe without psychotic features (F33.2) Active confirmed Problem Generalized anxiety disorder (34734441) Generalized anxiety disorder (F41.1) 10/29/19 24 Active confirmed Problem Attention deficit hyperactivity disorder, predominantly inattentive type (23223544) Attention-deficit hyperactivity disorder, predominantly inattentive type (F90.0) 10/29/19 24 Active confirmed Problem Attention deficit hyperactivity disorder, combined type (34616497) Attention-deficit hyperactivity disorder, combined type (F90.2) Active confirmed Problem Insomnia (651953223) Insomnia, unspecified (G47.00) Active confirmed Problem Chronic obstructive pulmonary disease (11255217) Chronic obstructive pulmonary disease, unspecified (J44.9) 10/29/19 24 Active confirmed Problem Perea's esophagus (210996588) Perea's esophagus without dysplasia (K22.70) 10/29/19 24 Active confirmed Problem Generalized anxiety disorder (90664671) KYLAH (generalized anxiety disorder) (F41.1) Active confirmed Problem Bipolar disorder in remission (51605446) Bipolar disorder in remission (F31.70) Active confirmed Problem Hypertension (15574094) Hypertension (I10) 06/13/20 15 Active confirmed Problem Dyslipidemia (377279741) Dyslipidemia (E78.5) 06/13/20 15 Active confirmed Problem COPD - Chronic obstructive pulmonary disease (36183049) COPD (chronic obstructive pulmonary disease) (J44.9) 06/13/20 15 Active confirmed Vital Signs Heart Rate 92 /min 04/28/2025 Height-cm 154.94 cm 04/28/2025 Blood pressure diastolic 80 mm Hg 04/28/2025 Weight-kg 44.63 kg 04/28/2025 Height 61.00 in 04/28/2025 Blood pressure systolic 145 mm Hg 04/28/2025 Weight 98.4 lbs 04/28/2025 BMI 18.59 kg/m2 04/28/2025 Encounters Encounter Location Date Provider Diagnosis [facility] [address] [place] [address] 05/05/2024 Javy Addi Attention-deficit hyperactivity disorder, predominantly inattentive type F90.0 ; Bipolar disorder in remission F31.70 ; Perea's esophagus without dysplasia K22.70 ; Generalized anxiety disorder F41.1 ; Chronic obstructive pulmonary disease, unspecified J44.9 and Hypertension I10 [address] [facility] [address] [place] [address] 06/03/2024 Javy Addi Attention-deficit hyperactivity disorder, predominantly inattentive type F90.0 ; Bipolar disorder in remission F31.70 ; Perea's esophagus without dysplasia K22.70 ; Generalized anxiety disorder F41.1 ; Chronic obstructive pulmonary disease, unspecified J44.9 and Hypertension I10 [address] [address] 08/04/2024 Javy Addi [place] [address] [facility] [address] [place] [address] 08/17/2024 Javy Addi Attention-deficit hyperactivity disorder, predominantly inattentive type F90.0 ; Bipolar disorder in remission F31.70 ; Perea's esophagus without dysplasia K22.70 ; Generalized anxiety disorder F41.1 ; Chronic obstructive pulmonary disease, unspecified J44.9 ; Hypertension I10 and KYLAH (generalized anxiety disorder) F41.[address] [facility] [address] [place] [address] 10/24/2024 Javy Addi Bipolar disorder in remission F31.70 ; KYLAH (generalized anxiety disorder) F41.1 ; Chronic obstructive pulmonary disease, unspecified J44.9 ; Attention-deficit hyperactivity disorder, predominantly inattentive type F90.0 ; Perea's esophagus without dysplasia K22.70 ; Hypertension I10 ; Negative depression screening Z13.31 ; Encounter for screening for cardiovascular disorders Z13.6 and Nicotine use Z72.0 [place] [id number] [facility] [address] [facility] [address] [place] [address] 01/30/2025 Javy Addi KYLAH (generalized anx iety disorder) F41.1 ; Bipolar disorder in remission F31.70 ; Chronic obstructive pulmonary disease, unspecified J44.9 ; Attention-deficit hyperactivity disorder, predominantly inattentive type F90.0 ; Hypertension I10 and Nicotine dependence, unspecified, uncomplicated F17.[address] [place] [address] 02/06/2025 Javy Addi Nicotine dependence, unspecified, uncomplicated F17.200 [place] [address] [place] [address] 02/07/2025 Javy Addi Nicotine dependence, unspecified, uncomplicated F17.[address] [place] [address] 02/09/2025 Javy Addi Nicotine dependence, unspecified, uncomplicated F17.[address] [place] [address] 02/09/2025 Javy Addi Nicotine dependence, unspecified, uncomplicated F17.200 ; Bipolar disorder in remission F31.70 and KYLAH (generalized anxiety disorder) F41.[address] [place] [address] 02/10/2025 Javy Addi Nicotine dependence, unspecified, uncomplicated F17.[address] [place] [address] 02/13/2025 Javy Addi Nicotine dependence, unspecified, uncomplicated F17.200 [place] [address] [place] [address] 02/14/2025 Javy Addi Nicotine dependence, unspecified, uncomplicated F17.200 [place] [address] [place] [address] 02/15/2025 Javy Addi Nicotine dependence, unspecified, uncomplicated F17.200 [place] [address] [place] [address] 02/16/2025 Javy Addi Nicotine dependence, unspecified, uncomplicated F17.200 [place] [address] [place] [address] 02/17/2025 Javy Addi Nicotine dependence, unspecified, uncomplicated F17.200 [place] [address] [place] [address] 02/27/2025 Javy Addi Nicotine dependence, unspecified, uncomplicated F17.[address] [place] [address] 02/28/2025 Javy Addi Nicotine dependence, unspecified, uncomplicated F17.[address] [place] [address] 03/01/2025 Javy Addi Nicotine dependence, unspecified, uncomplicated F17.[address] [place] [address] 03/02/2025 Javy Addi Nicotine dependence, unspecified, uncomplicated F17.[address] [facility] [address] [place] [address] 03/03/2025 Javy Addi Nicotine dependence, unspecified, uncomplicated F17.[address] [facility] [address] [place] [address] 03/13/2025 Javy Addi Nicotine dependence, unspecified, uncomplicated F17.[address] [facility] [address] [place] [address] 03/16/2025 Javy Addi Nicotine dependence, unspecified, uncomplicated F17.[address] [facility] [address] [place] [address] 03/23/2025 Javy Addi Nicotine dependence, unspecified, uncomplicated F17.[address] [facility] [address] [place] [address] 03/28/2025 Javy Addi Nicotine dependence, unspecified, uncomplicated F17.[address] [place] [address] 03/30/2025 Javy Addi Nicotine dependence, unspecified, uncomplicated F17.200 ; Bipolar disorder in remission F31.70 ; KYLAH (generalized anxiety disorder) F41.1 and Insomnia, unspecified G47.00 [place] [address] [place] [address] 04/28/2025 Javy Addi Bipolar disorder in remission F31.70 ; KYLAH (generalized anxiety disorder) F41.1 ; Insomnia, unspecified G47.00 and Nicotine dependence, unspecified, uncomplicated F17.200 [facility], [facility] [address] [place] [address] 05/02/2024 Javy Addi Attention-deficit hyperactivity disorder, predominantly inattentive type F90.0 [facility], [facility] [address] [place] [address] 07/04/2024 Javy Addi Attention-deficit hyperactivity disorder, predominantly inattentive type F90.0 [facility], [facility] [address] [place] [address] 08/10/2024 Javy Addi Attention-deficit hyperactivity disorder, predominantly inattentive type F90.0 [facility], [facility] [address] [place] [address] 10/06/2024 Javy Addi Attention-deficit hyperactivity disorder, predominantly inattentive type F90.0 [facility], [facility] [address] [place] [address] 12/07/2024 Javy Addi Attention-deficit hyperactivity disorder, predominantly inattentive type F90.0 [facility], [facility] [address] [place] [address] 01/03/2025 Javy Addi Attention-deficit hyperactivity disorder, predominantly inattentive type F90.0 [facility], [facility] [address] [place] [address] 03/08/2025 Javy Addi Attention-deficit hyperactivity disorder, predominantly inattentive type F90.0 [facility], [facility] [address] [place] [address] 04/27/2025 Javy Addi [facility], [facility] [address] [place] [address] 08/04/2024 Javy Addi [facility], [facility] [address] [place] [address] 09/09/2024 Javy Addi Attention-deficit hyperactivity disorder, predominantly inattentive type F90.0 [facility], [facility] [address] [place] [address] 10/15/2024 Javy Addi [facility], [facility] [address] [place] [address] 10/17/2024 [facility] [address] [place] [address] 10/18/2024 Javy Addi [facility], [facility] [address] [place] [address] 12/02/2024 Javy Addi [facility], [facility] [address] [place] [address] 03/06/2025 Javymarko Fontana [facility], [facility] [address] [place] [address] 03/07/2025 Javymarko Fontana [facility], [facility] [address] [place] [address] 03/07/2025 [facility], [facility] [address] [place] [address] 03/07/2025 Javymarko Fontana [facility], [facility] [address] [place] [address] 03/07/2025 Javy Alejandroam Bipolar disorder in remission F31.70 [facility], [facility] [address] [place] [address] 03/09/2025 [facility], [facility] [address] [place] [address] 03/09/2025 [facility], [facility] [address] [place] [address] 03/10/2025 [facility], [facility] [address] [place] [address] 03/11/2025 [facility], [facility] [address] [place] [address] 03/21/2025 Javy Addi Assessments Encounter Date Diagnosis (ICD Code) Assessment Notes Treatment Notes Treatment Clinical Notes Section Notes 05/02/2024 Attention-deficit hyperactivity disorder, predominantly inattentive type (ICD-10 - F90.0) 05/05/2024 Attention-deficit hyperactivity disorder, predominantly inattentive type [...] correct locations: Adderall to be sent to [facility] in [place], other medications to [facility] on [facility] in [place]. - Monitor medication refills and patient's adherence to the medication regimen. - Note: Patient does not need refills for Buspirone or Trazodone at this time. Follow-up - Plan: - Schedule a follow-up appointment in one month to assess the patient's progress and address any concerns related to the upcoming holiday season. 07/04/2024 Attention-deficit hyperactivity disorder, predominantly inattentive type (ICD-10 - F90.0) 08/17/2024 Attention-deficit hyperactivity disorder, predominantly inattentive type (ICD-10 - F90.0) 09/09/2024 Attention-deficit hyperactivity disorder, predominantly inattentive type (ICD-10 - F90.0) 10/06/2024 Attention-deficit hyperactivity disorder, predominantly inattentive type (ICD-10 - F90.0) 02/09/2025 Nicotine dependence, unspecified, uncomplicated (ICD-10 - F17.200) Patient reported increased smoking and expressed desire to quit. Discussed cost concerns regarding smoking cessation treatments. Patient is considering deep TMS and medication support for cessation. - Discussed deep TMS therapy for smoking cessation. - Discussed possible use of Chantix or nicotine gum as adjuncts. High cigarette use reported (over 2 packs per day). Patient experiences withdrawal symptoms including tiredness, irritability, and difficulty concentrating. Patient has begun considering quitting and is open to nicotine replacement therapy. Smoking occurs within 30 minutes of waking, indicating high dependence. - Ordered nicotine gum 4 mg, oral, 1 piece every hour as needed for withdrawal symptoms - Discussed strategies for cutting down cigarette use over the next 10 days - Advised patient to consider purchasing nicotine gum if not covered by insurance 02/27/2025 Nicotine dependence, unspecified, uncomplicated (ICD-10 - F17.200) 02/28/2025 Nicotine dependence, unspecified, uncomplicated (ICD-10 - F17.200) 03/01/2025 Nicotine dependence, unspecified, uncomplicated (ICD-10 - F17.200) 03/02/2025 Nicotine dependence, unspecified, uncomplicated (ICD-10 - F17.200) 03/03/2025 Nicotine dependence, unspecified, uncomplicated (ICD-10 - F17.200) 03/08/2025 Attention-deficit hyperactivity disorder, predominantly inattentive type (ICD-10 - F90.0) 03/16/2025 Nicotine dependence, unspecified, uncomplicated (ICD-10 - F17.200) 03/23/2025 Nicotine dependence, unspecified, uncomplicated (ICD-10 - F17.200) 03/30/2025 Bipolar disorder in remission (ICD-10 - F31.70) No manic episodes reported. Mood stability maintained with lamotrigine. - Continue lamotrigine 200 mg at bedtime. - Monitor for any changes in mood or recurrence of manic symptoms. Persistent depressive symptoms and mood fluctuations reported. Improvement in emotional well-being and awareness following deep TMS treatment and counseling. Family stress present but patient feels more capable of managing daily challenges. Grandchildren serve as a strong motivator for continued improvement. - Continue deep transcranial magnetic stimulation (TMS) as previously initiated. - Repeat TMS treatment in about 3 months. - Continue counseling and behavioral strategies. - Refill desvenlafaxine 75 mg once daily. - Refill lamotrigine 200 mg at bedtime. - Refill bupropion 30 mg twice a day. - Refill trazodone 50 mg at bedtime for sleep. 03/28/2025 Nicotine dependence, unspecified, uncomplicated (ICD-10 - F17.200) 03/13/2025 Nicotine dependence, unspecified, uncomplicated (ICD-10 - F17.200) 03/07/2025 Bipolar disorder in remission (ICD-10 - F31.70) 02/17/2025 Nicotine dependence, unspecified, uncomplicated (ICD-10 - F17.200) 02/16/2025 Nicotine dependence, unspecified, uncomplicated (ICD-10 - F17.200) 02/15/2025 Nicotine dependence, unspecified, uncomplicated (ICD-10 - F17.200) 02/14/2025 Nicotine dependence, unspecified, uncomplicated (ICD-10 - F17.200) 02/13/2025 Nicotine dependence, unspecified, uncomplicated (ICD-10 - F17.200) 02/10/2025 Nicotine dependence, unspecified, uncomplicated (ICD-10 - F17.200) 02/09/2025 Nicotine dependence, unspecified, uncomplicated (ICD-10 - F17.200) 02/07/2025 Nicotine dependence, unspecified, uncomplicated (ICD-10 - F17.200) 02/06/2025 Nicotine dependence, unspecified, uncomplicated (ICD-10 - F17.200) 04/28/2025 KYLAH (generalized anxiety disorder) (ICD-10 - F41.1) 04/28/2025 Bipolar disorder in remission (ICD-10 - F31.70) Symptoms include increased talkativeness, difficulty slowing down, irritability, and feeling slightly manic. Patient reports ongoing depression and frustration with family stress. Counselor noted possible manic phase. Patient prefers to avoid medication changes due to fear of serotonin syndrome. - Hold Adderall for a few days as discussed. - Continue current psychiatric medications as previously prescribed. - Follow up in one month to reassess mood symptoms. 03/30/2025 Nicotine dependence, unspecified, uncomplicated (ICD-10 - F17.200) Patient reported reduction in cigarette use from three packs to two packs per day. Increased interval between cigarettes and limiting smoking to certain areas. Motivation to quit influenced by grandchildren's comments and family support. Occasional lapses in quitting but ongoing commitment to cessation strategies. - Continue behavioral strategies for smoking cessation. - Increase interval between cigarettes to 40 minutes for 4-5 days, then further as tolerated. - Limit smoking to designated areas and avoid smoking around grandchildren. - Monitor progress and consider further support if needed. 01/30/2025 KYLAH (generalized anxiety disorder) (ICD-10 - F41.1) Symptoms include poor motivation and difficulty maintaining routines, impacting daily life. Patient expressed frustration and self-doubt regarding her ability to organize and maintain a schedule. History of enjoying physical therapy and family activities, but struggles to prioritize self-care. No evidence of manic episode or suicidal ideation. - Initiated Oxcarbazepine 50 mg, half tablet twice a day. - Initiated Lamotrigine 200 mg at bedtime. - Initiated Trazodone 50 mg at bedtime. - Initiated Venlafaxine total dose of 75 mg. - Initiated Adderall 25 mg daily. 01/03/2025 Attention-deficit hyperactivity disorder, predominantly inattentive type (ICD-10 - F90.0) 12/07/2024 Attention-deficit hyperactivity disorder, predominantly inattentive type (ICD-10 - F90.0) 10/24/2024 KYLAH (generalized anxiety disorder) (ICD-10 - F41.1) 10/24/2024 Bipolar disorder in remission (ICD-10 - F31.70) 08/10/2024 Attention-deficit hyperactivity disorder, predominantly inattentive type (ICD-10 - F90.0) 06/03/2024 Attention-deficit hyperactivity disorder, predominantly inattentive type (ICD-10 - F90.0) Patient's Grandson's Behavioral and Emotional Issues - Assessment: Suspected ADHD with rage episodes and declining academic performance. Low self-worth and confidence. Family history of mental health issues. - Plan: - Refer to Dr. Arechiga at the [facility] for further evaluation and management. - Monitor [...] - Refer to Dr. Arechiga at the [facility] for further evaluation and management. - Monitor [...] - Schedule next appointment in 2 months. 10/24/2024 Chronic obstructive pulmonary disease, unspecified (ICD-10 - J44.9) 01/30/2025 Bipolar disorder in remission (ICD-10 - F31.70) 04/28/2025 Insomnia, unspecified (ICD-10 - G47.00) - Continue trazodone 50 mg at bedtime for sleep as needed. 03/30/2025 KYLAH (generalized anxiety disorder) (ICD-10 - F41.1) Patient reported improvement in anxiety symptoms following TMS treatment and counseling. No acute anxiety episodes noted during visit. - Continue counseling and behavioral strategies. - Continue current medication regimen as previously prescribed. 01/30/2025 Chronic obstructive pulmonary disease, unspecified (ICD-10 - J44.9) 08/17/2024 Bipolar disorder in remission (ICD-10 - F31.70) 02/09/2025 Bipolar disorder in remission (ICD-10 - F31.70) 05/05/2024 Bipolar disorder in remission (ICD-10 - [...] correct locations: Adderall to be sent to [facility] in [place], other medications to [facility] on [facility] in [place]. - Monitor medication refills and patient's adherence to the medication regimen. - Note: Patient does not need refills for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
== END 2025-05-02 08:32 | disposition home or self-care (01) ==
PROVIDERS: PCP Family Medicine; Visit Provider Family Medicine
DX: Z12.2 Encounter for screening for malignant neoplasm of respiratory organs (principal); F17.210 Nicotine dependence, cigarettes, uncomplicated
CPT/HCPCS: 71271